=== PATIENT | female | born 1955 | race Two or more races ===

== ENCOUNTER 2024-07-26 08:13 | Emergency (ER) | payer MEDICAID, SELFPAY ==
--- NOTE | 2024-07-26 08:38 | PC.NURSE ---
CALLED PT BACK, NO ANSWER AT THIS TIME
[2024-07-26 09:04] VITALS: BP 110/72; PULSE 81; RESP 18; TEMP 37.7; O2SAT 97; BMI 30.5
--- NOTE | 2024-07-26 09:27 | PD.EDRME ---
Rapid Medical Screening Exam RME Arrival date/time: 07/26/24 08:13 This is a 69-year-old female that comes in with complaints of low back pain more so to the left side. Patient also has left buttock pain that radiates down her left leg. Patient states she has had this pain for about a month now. Patient also has some pain with urination and some lower abdominal pain. Patient has a history of high blood pressure, diabetes. And hyperlipidemia. I have greeted and performed a focused initial assessment of this patient. Initial appropriate labs ordered at this time. A comprehensive ED assessment and evaluation of the patient and analysis of all test and completion of medical decision making process will be conducted by additional ED provider. Chief Complaint: Back Pain/Injury Time Seen by Provider: 07/26/24 08:17 Vital signs: Vital Signs Temperature 99.8 F 07/26/24 09:04 Pulse Rate 81 07/26/24 09:04 Respiratory Rate 18 07/26/24 09:04 Blood Pressure 110/72 07/26/24 09:04 Pulse Oximetry (%) 97 07/26/24 09:04 Oxygen Delivery Method Room Air 07/26/24 09:04
[2024-07-26 10:06] LABS: Basophils % (Auto) 0 % (0-2.5); Eosinophils % (Auto) 0 % (0-10); Hematocrit 35.3 % (36.0-46.0); Hemoglobin 11.9 g/dL (12.0-16.0); Immature Granulocytes % (Auto) 0 % (0-0); Immature Granulocytes Auto 0.03 Thou/mm3 (0.00-0.00); Lymphocytes # (Auto) 0.6 Thou/mm3 (1.0-4.8); Lymphocytes % (Auto) 6 % (10-50); Mean Corpuscular HGB Conc 33.7 g/dl (31.0-37.0); Mean Corpuscular Hemoglobin 28.8 pg (25.0-35.0); Mean Corpuscular Volume 86 fL (80-100); Monocytes # (Auto) 0.5 Thou/mm3 (0.0-0.8); Monocytes % (Auto) 5 % (0-12); Neutrophils # (Auto) 8.6 Thou/mm3 (1.8-7.7); Neutrophils % (Auto) 88 % (37-80); Nucleated Red Blood Cell % 0 /100 WBC (0); Platelet Count 315 Thou/mm3 (140-440); RDW Standard Deviation 41.3 fL (36.4-46.3); Red Blood Count 4.13 Miln/mm3 (4.00-5.20); White Blood Count 9.8 Thou/mm3 (3.6-11.0)
[2024-07-26 10:20] LABS: Alanine Aminotransferase 14 U/L (10-49); Albumin, Serum 3.7 gm/dL (3.4-4.8); Albumin/Globulin Ratio 1.2 (1.2-2.2); Alkaline Phosphatase 65 U/L (46-116); Anion Gap 6 (7-16); Aspartate Amino Transferase 22 U/L (0-34); BUN/Creatinine Ratio 17 Ratio (12-20); Bilirubin,Total 0.7 mg/dL (0.3-1.2); Blood Urea Nitrogen 19 mg/dL (9-23); Calcium 9.4 mg/dL (8.3-10.6); Calcium (Corrected) 9.6 mg/dL (8.5-10.1); Chloride 99 mMol/L (98-107); Creatinine (Component) 1.1 mg/dL (0.6-1.3); Estimated Creatinine Clearance 48.9 mL/min (>60); Globulin 3.1 gm/dL (2.3-3.5); Glucose 320 mg/dL (74-106); Lipase 45 U/L (12-53); Osmolality,Calculated 282 (275-295); Potassium 4.5 mMol/L (3.4-5.1); Sodium 134 mMol/L (136-145); Total Protein 6.8 gm/dL (5.7-8.2); eGFR 54 See Note
[2024-07-26 13:16] LABS: Collection Type, Urine Voided
[2024-07-26 13:25] LABS: Bacteria,Urine 2+; Bilirubin,Urine Negative (Negative); Blood,Urine 1+ (Negative); Color,Urine Yellow (Lt Yel-Yel); Culture Indicated,Urine Contaminated; Glucose, Urine Negative (Negative); Ketones,Urine Negative (Negative); Leukocyte Esterase,Urine Positive (Negative); Nitrite,Urine Negative (Negative); Protein,Urine 1+ (Neg - Trace); RBC,Urine 23 /hpf (0-3); Specific Gravity,Urine 1.015 (1.001-1.035); Squamous Epithelial Cell,Urine 19 /hpf (0-5); Urobilinogen,Urine Negative mg/dL (0.0-1.0); WBC,Urine 510 /hpf (0-5)
--- NOTE | 2024-07-26 13:54 | PD.EDBACK ---
ED Back Injury Pain RME/HPI General Chief Complaint: Back Pain/Injury Stated Complaint: LOWER BACK PAIN Time Seen by Provider: 07/26/24 08:17 Arrival date/time: 07/26/24 08:13 RME / HPI RME / HPI Narrative: 07/26/24 08:13 This is a 69-year-old female that comes in with complaints of low back pain more so to the left side. Patient also has left buttock pain that radiates down her left leg. Patient states she has had this pain for about a month now. Patient also has some pain with urination and some lower abdominal pain. Patient has a history of high blood pressure, diabetes. And hyperlipidemia. I have greeted and performed a focused initial assessment of this patient. Initial appropriate labs ordered at this time. A comprehensive ED assessment and evaluation of the patient and analysis of all test and completion of medical decision making process will be conducted by additional ED provider. DR. TEX BUCKNER ED EVALUATION: 69 year female presents to the Emergency Department accompanied by daughter with complaints of back pain and radiates to the left leg and left buttocks onset 1 month. Pain is described as aching and rated mild to moderate in severity. Movement exacerbates the pain. Patient denies any of the following: fall, nausea, vomiting, diarrhea, hematuria, or any other symptoms at this time. Patient also reported mild dysuria. PMHx: Diabetes, takes pills and insulin. Social Hx: No tobacco, alcohol, or substance use. Related Data Previous Rx's ?Medication ?Instructions ?Recorded ibuprofen 600 mg tablet 600 mg PO Q6H PRN pain #30 tabs 07/26/24 sulfamethoxazole 800 1 tab PO BID 7 days #14 tabs 07/26/24 mg-trimethoprim 160 mg tablet (Bactrim DS) Allergies Allergy/AdvReac Type Severity Reaction Status Date / Time No Known Allergies Allergy Verified 07/26/24 08:18 Review of Systems Review of Systems Systems Reviewed: All systems reviewed, normal except as documented Narrative Review of Systems: GEN: No fever, no chills, no weight loss EYES: No discharge, no visual changes, no pain HEENT: No ear pain, no congestion, no sore throat PULM: No shortness of breath, no cough, no congestion CV: No chest pain, no dyspnea on exertion, no palpitations GI: No nausea, no vomiting, no diarrhea, no pain, no constipation : No frequency, no urgency, + mild dysuria MUSC/SKEL: + left leg, + left buttocks, + back pain SKIN: No rash PSYCH: No hallucinations, no depression HEME/LYMPH: No easy bleeding or bruising tendencies NEURO: No weakness, no headache Past Medical History Social History SMOKING STATUS: Never smoker SUBSTANCE USE: does not use ALCOHOL: Never ED Exam Narrative Physical exam: GENERAL APPEARANCE: Well hydrated, well nourished, in no acute distress. VITALS: All vitals were reviewed and the pulse ox is 97% on room air which is normal according to my interpretation. HEENT: Normocephalic, atramatic, EOMI, EACs are patent. There is no bulge or retraction. Throat without erythema or exudate. Moist oromucosa. No jaundice NECK: Supple, no JVD or bruits. CARDIOVASCULAR: Heart regular without S3-S4 or murmur. No rubs or gallops. LUNGS/CHEST: Clear to auscultation bilaterally. No rales, rhonchi, or wheezing. Normal inspection. ABDOMEN: Soft, nontender, with normal bowel sounds. No pulsatile masses. No rebound, rigidity, or guarding. No incarcerated hernia. Normal inspection and palpation. EXTREMITIES: No edema, clubbing, or cyanosis. Intact CSM. Normal inspection and palpation. SKIN: Warm and dry without rashes. Normal inspection. MUSCULOSKELETAL: No gross deformity, full ROM all extremities. Normal inspection. NEURO: Alert and oriented x3. Cranial nerves II through XII grossly intact. There are no other motor or sensory deficits noted. Normal gait, walked from lobby to room 15, no complaints. PSYCHIATRIC: Normal mood and affect. No psychosis. Course Quality Measures none Orders Category Date Time Status CT abdomen pelvis wo con Stat Exams 07/26/24 14:[address] lumbar spine wo con Stat Exams 07/26/24 14:03 Completed CBC Stat Lab 07/26/24 09:45 Completed Comprehensive Metabolic Panel Stat Lab 07/26/24 09:45 Completed Lipase Stat Lab 07/26/24 09:45 Completed Urinalysis, C/S if Indicated Stat Lab 07/26/24 12:47 Completed Ibuprofen Tab [Motrin Tab] Med 07/26/24 14:03 Discontinued 600 mg PO X1 ONE Trimethoprim/Sulfa 160/800 Ds [Bactrim Ds] Med 07/26/24 14:06 Discontinued 1 tab PO X1 ONE Vital Signs Vital signs: Vital Signs Temperature 99.8 F 07/26/24 09:04 Pulse Rate 81 07/26/24 09:04 Respiratory Rate 18 07/26/24 09:04 Blood Pressure 110/72 07/26/24 09:04 Pulse Oximetry (%) 97 07/26/24 09:04 Oxygen Delivery Method Room Air 07/26/24 09:04 Back Pain / Injury [facility] Narrative MDM Narrative:: I, Sommer Tank, am scribing for and in the presence of Dr. Paz. CBC is negative. CMP is negative except for sugar of 320 but there is no sign of DKA. Urine analysis is positive for UTI for which I am going to give her antibiotic. CT lumbar spine and CT abdomen and pelvic resulted please see below. I informed the patient and her daughter about the CT positive report. She will follow-up with PMD for further evaluation and treatment and referral to back surgeon. The patient has no neurological deficit and she is up walking talking. Patient data External records reviewed:: [facility] [place] previous records Clinical information provided by:: patient and family (daughter) Social determinants that could affect healthcare access:: none Patient has the following chronic illnesses:: Diabetes, takes pills and insulin. How is presenting disease/condition affected by chronic disease/condition?: uneffected by Evaluation data The following diagnostics were reviewed and interpreted by me:: lab results and radiology exam(s) Lab and/or radiology exams considered but not ordered:: none Interpretation Summary: See above under MDM narrative. RADIOLOGY Procedure(s): CT lumbar spine wo [facility] Accession Number(s): [id number] cc: Saman Collado MD; NO PRIMARY/FAMILY,PHYSICIAN; Tawanda Paz MD~ Examination: CT lumbar spine, without contrast. 2-D sagittal reconstructions. 2-D coronal reconstructions. 3-D reconstructions. Date and time of exam:July 26, 2024 1500 hrs. Indications: Back pain radiating to the left buttock beginning one month ago CTDI: vol (mGy):29.5 DLP: (mGycm):1200 Technique: Multiple 1.25 mm axial sections of the lumbar spine without intravenous contrast have been obtained. 2-D sagittal and coronal reconstructions have been obtained. 3-D reconstructions have been obtained. Low dose protocols were performed. One or more of the following dose reduction techniques were used; automated exposure control, adjustment of the mA and/or KV according to patient size, use of iterative reconstruction technique. Findings: Severe osteopenia Moderate degenerative disc disease L5-S1 Hemangiomatous change L3 No spondylolisthesis No lumbar fracture L5-S1 with very large extruded central disc, measuring up to 13 mm, severely indenting the thecal sac and displacing the right and left S1 nerve roots More cephalad levels unremarkable Impression: L5-S1 very large, 13 mm, extruded central lumbar disc Dictated By: Saman Collado MD Procedure(s): CT abdomen pelvis [facility] Accession Number(s): [id number] cc: Saman Collado MD; NO PRIMARY/FAMILY,PHYSICIAN; Tawanda Paz MD~ Examination: CT abdomen and pelvis without contrast. Coronal 3-D reconstructions. Sagittal 2-D reconstructions. Date and time of exam:July 26, 2024 1511 hrs. Indications: Left flank pain today CTDI: vol (mGy): 11.6 DLP: (mGycm): 720 Technique: Axial images of the abdomen have been obtained, 3 mm slice thickness Intravenous contrast material has not been administered. Low dose protocols were performed. One or more of the following dose reduction techniques were used; automated exposure control, adjustment of the mA and/or KV according to patient size, use of iterative reconstruction technique. Findings: No focal liver or splenic lesions Contracted gallbladder No pancreatic or adrenal mass Mild perinephric stranding Mild to moderate bilateral renal parenchymal scar formation No renal or ureteral calculi, no hydronephrosis Abdominal aortic calcification no aneurysmal dilatation Normal appendix No bowel obstruction Scattered colonic diverticulosis Urinary bladder intact Please see the CT lumbar spine examination today Impression: Mild to moderate bilateral renal parenchymal scar formation Normal appendix Please see the CT lumbar spine report today indicating very large extruded L5-S1 disc Dictated By: Saman Collado MD Medications / Prescriptions Medications or Prescriptions considered but not ordered:: none Medication administrations:: Medication Administration History Discontinued Medications Ibuprofen (Ibuprofen Tab 600 Mg Tablet) 600 mg PO X1 ONE Stop: 07/26/24 14:04 Last Admin: 07/26/24 14:47 Dose: 600 mg Documented By: ISAC Trimethoprim/Sulfamethoxazole (Trimethoprim/Sulfa 160/800 Ds Tablet) 1 tab PO X1 ONE Stop: 07/26/24 14:07 Last Admin: 07/26/24 14:49 Dose: 1 tab Documented By: ISAC see above if any Consultations Consultation(s) initiated? (list below): No Diagnosis Most likely diagnosis given after review of the tests above:: Sciatica. L5-S1 lumbar disc herniation Admission Indicated Admission indicated?: not indicated Admission Request Was there a request for admission?: No Disposition Plan Disposition Plan: Discharge Discharge Attestation Discharge Attestation: The patient and all family members were given an opportunity to ask questions and understood the discharge instructions. Discharge instructions specifically effects, indications for sooner follow up or return to the emergency department, and the expected course of current diagnosis. Patient condition: Stable Discharge Plan Plan Patient Disposition: HOME (Self Care) Disposition Comment: Stable for [place] home Prescriptions/Referrals Prescriptions/Med Rec: New sulfamethoxazole-trimethoprim [Bactrim DS] 800-160 mg tablet 1 tab PO BID 7 Days Qty: 14 0RF ibuprofen 600 mg tablet 600 mg PO Q6H PRN (Reason: pain) Qty: 30 0RF Referrals: No Primary/Family,Physician [Primary Care Provider] - In 1 week Problem List Clinical Impression: Sciatica Patient/Caregiver Discharge Instructions Education Materials: ED Sciatica Additional Instructions: you have an extruded lumbar disc at L5-S1 that cause sciatica. You need to rest your back. No heavy lifting. Medication as prescribed for back pain and urinary tract infection. You need to see your doctor in 3 days for recheck and further care and referral to see a back surgeon for further care. Make sure to show your doctor copy of the CT report that I gave you. Return the nearest ER if condition worsens or if new symptoms develop including numbness tingling trouble walking, trouble urinating, trouble defecating Print Language: Haitian Stand Alone Forms: [employer] Award Info., Patient Portal Info Letter
[2024-07-26 13:56] LABS: Clarity,Urine Turbid (Clear/Hazy)
--- NOTE | 2024-07-26 14:03 | XR_ITS ---
Examination: CT lumbar spine, without contrast. 2-D sagittal reconstructions. 2-D coronal reconstructions. 3-D reconstructions. Date and time of exam:July 26, 2024 1500 hrs. Indications: Back pain radiating to the left buttock beginning one month ago CTDI: vol (mGy):29.5 DLP: (mGycm):1200 Technique: Multiple 1.25 mm axial sections of the lumbar spine without intravenous contrast have been obtained. 2-D sagittal and coronal reconstructions have been obtained. 3-D reconstructions have been obtained. Low dose protocols were performed. One or more of the following dose reduction techniques were used; automated exposure control, adjustment of the mA and/or KV according to patient size, use of iterative reconstruction technique. Findings: Severe osteopenia Moderate degenerative disc disease L5-S1 Hemangiomatous change L3 No spondylolisthesis No lumbar fracture L5-S1 with very large extruded central disc, measuring up to 13 mm, severely indenting the thecal sac and displacing the right and left S1 nerve roots More cephalad levels unremarkable Impression: L5-S1 very large, 13 mm, extruded central lumbar disc
--- NOTE | 2024-07-26 14:06 | XR_ITS ---
Examination: CT abdomen and pelvis without contrast. Coronal 3-D reconstructions. Sagittal 2-D reconstructions. Date and time of exam:July 26, 2024 1511 hrs. Indications: Left flank pain today CTDI: vol (mGy): 11.6 DLP: (mGycm): 720 Technique: Axial images of the abdomen have been obtained, 3 mm slice thickness Intravenous contrast material has not been administered. Low dose protocols were performed. One or more of the following dose reduction techniques were used; automated exposure control, adjustment of the mA and/or KV according to patient size, use of iterative reconstruction technique. Findings: No focal liver or splenic lesions Contracted gallbladder No pancreatic or adrenal mass Mild perinephric stranding Mild to moderate bilateral renal parenchymal scar formation No renal or ureteral calculi, no hydronephrosis Abdominal aortic calcification no aneurysmal dilatation Normal appendix No bowel obstruction Scattered colonic diverticulosis Urinary bladder intact Please see the CT lumbar spine examination today Impression: Mild to moderate bilateral renal parenchymal scar formation Normal appendix Please see the CT lumbar spine report today indicating very large extruded L5-S1 disc
[2024-07-26] MEDS: IBUPROFEN TAB 600 MG TABLET PO (14:47)
[2024-07-26] MEDS: TRIMETHOPRIM/SULFA 160/800 DS TABLET 1 TAB PO (14:49)
[2024-07-26 17:02] VITALS: BP 117/73; PULSE 81; RESP 18; TEMP 37; O2SAT 96
== END 2024-07-26 18:20 | disposition home or self-care (01) ==
PROVIDERS: Nurse Practitioner Family; Emergency Provider Emergency Medicine
DX: M51.372 Other intervertebral disc degeneration, lumbosacral region with discogenic back pain and lower extremity pain (principal); M85.88 Other specified disorders of bone density and structure, other site; N39.0 Urinary tract infection, site not specified; K57.30 Diverticulosis of large intestine without perforation or abscess without bleeding; I70.0 Atherosclerosis of aorta; N28.89 Other specified disorders of kidney and ureter; E78.5 Hyperlipidemia, unspecified; E11.9 Type 2 diabetes mellitus without complications; Z79.4 Long term (current) use of insulin; Z79.84 Long term (current) use of oral hypoglycemic drugs
CPT/HCPCS: 36415; 72131; 74176; 80053; 81001; 83690; 85025; 99284; A9270

== ENCOUNTER 2024-10-29 09:50 | Inpatient (IN) | payer MEDICAID, SELFPAY ==
[2024-10-29] VITALS (98 sets, daily range): BP systolic 62–186; BP diastolic 45–142; PULSE 96–169; RESP 12–27; TEMP 36.2–39.3; O2SAT 47–100; BMI 34.3; BMI 32.7
[2024-10-29] MEDS: SODIUM CHLORIDE 0.9% 1000 ML 1,000 ML IV (09:50)
--- NOTE | 2024-10-29 09:55 | PD.EDADULT ---
ED General RME/HPI General Chief complaint: Altered Mental Status Stated complaint: AMS W/LOW BP Time Seen by Provider: 10/29/24 09:55 Arrival date/time: 10/29/24 09:50 RME / HPI RME / HPI narrative: DR. OZUNA MAIN ED EVALUATION: 69 year old female presents to the Emergency Department [facility] with complaint of altered mental status, found by the family at home laying down in bed lethargic and altered. Per EMS, patient is normally a GCS of 15 and now a GCS of 12. Per EMS, patient was hypotensive and cold to the touch. Blood glucose was 146 per EMS. No further history at this time. Family also reported to EMS the patient fell yesterday at 12 PM but loss of consciousness or injury. PMHx: Diabetes, takes pills and insulin. Social Hx: No tobacco, alcohol, or substance use. Related Data Home Medications ?Medication ?Instructions ?Recorded ?Confirmed amitriptyline 25 mg tablet 25 mg PO HS 10/29/24 10/29/24 atorvastatin 40 mg tablet 40 mg PO HS 10/29/24 10/29/24 empagliflozin 10 mg tablet 10 mg PO QDAY 10/29/24 10/29/24 (Jardiance) empagliflozin 10 mg tablet 10 mg PO QDAY DIABETES 10/29/24 10/29/24 (Jardiance) gabapentin 100 mg capsule 100 mg PO Q8H 10/29/24 10/29/24 insulin glargine 100 unit/mL 30 unit subcut .BEDTIME 10/29/24 10/29/24 subcutaneous solution (Lantus U-100 Insulin) metformin 1,000 mg tablet,extended 1,000 mg PO DAILY 10/29/24 10/29/24 release 24hr (osmotic) metoprolol succinate 100 mg 100 mg PO QDAY HTN 10/29/24 10/29/24 tablet,extended release 24 hr semaglutide 0.25 mg or 0.5 mg (2 0.5 mg subcut QWEEK 10/29/24 10/29/24 mg/3 mL) subcutaneous pen injector (Ozempic) Previous Rx's ?Medication ?Instructions ?Recorded ibuprofen 600 mg tablet 600 mg PO Q6H PRN pain #30 tabs 07/26/24 Allergies Allergy/AdvReac Type Severity Reaction Status Date / Time No Known Allergies Allergy Verified 07/26/24 08:18 Review of Systems Review of Systems ROS Unobtainable: unobtainable due to mental status Past Medical History Social History SMOKING STATUS: Never smoker SUBSTANCE USE: does not use ALCOHOL: Never ED Exam Narrative Physical exam: Physical Exam:? General:?? ? Patient is brought in by EMS with obtundation. Patient blood pressure is low she is tachycardic and is febrile with a rectal temp soon after arrival blood pressure was 74/50 pulse was 148 respiratory rate was reported at 12 temperature was 102.7 rectally O2 sat was reported 97% on room air. The vital signs were reviewed. The patient is minimally arousable with verbal and painful stimuli but immediately falls back to sleep and becomes inattentive. Patient had a spontaneous respirations that required no assistance at this time . O2 sats are adequate at the present time. Head & Scalp:?? ? Normocephalic, atraumatic. Face:?? ? Appears normal and is without lesions, deformity. No apparent trauma Ears:??? Left external pinna appears normal. Right external pinna appears normal. Eyes:?? ? The sclera is anicteric. The Left and Right Orbit/Lid/Conjunctiva appears normal without swelling, discoloration or injection. Nose: ? ? The nose is without deformity, discharge or tenderness; Throat: ? ? Appears normal.? The mucous membranes are pink and moist without exudates, redness or mass seen.? The tongue appears normal. Neck: The neck is supple and no apparent mass or adenopathy. Chest: The chest wall is normal in size and symmetry and has no chest wall tenderness or crepitus. The patient displays adequate ventilator effort without retractions, accessory muscle use. Patient has adequate air movement bilaterally with no wheezes and no rales. ? Cardiovascular: Sinus tach on the monitor regular rate No murmurs, rubs, or gallops; Gastrointestinal: The abdomen appears normal.? No obvious hernias or mass. The abdomen is soft and benign, non-distended, with no pain, no guarding and no rebound tenderness.? Bowel sounds are present and normal sounding.? No CVA tenderness. Genitourinary: No apparent injury or trauma. Back/Spine: No apparent injury or trauma Extremities/Musculoskeletal/lymphatic:? ? ? The bilateral upper and lower extremities are warm. There is no evidence of arterial? insufficiency. There is no evidence of venous insufficiency/edema. The patient is obtunded but displays no obvious focal deficits and spontaneously moves bilateral upper and lower extremities with painful or verbal stimuli There is no apparent, injury or trauma. Skin:? The skin is warm, dry and intact.? No rashes. No petechia. No purpura. No abnormal bruising.? The color is appropriate with no cyanosis. Mental status/Psychiatric: Mental status is obtunded no further evaluation can be made Neurological:? The patient is obtunded. The pupils are equal and reactive to light No obvious focal deficits. Patient responds minimally to painful and no response to verbal stimuli. Course Quality Measures none Orders Category Date Time Status Bedside Blood Glucose NOW Care 10/29/24 09:56 Active EKG (ED ONLY) *Do not use* NOW Care 10/29/24 09:56 Completed Intubation NOW Care 10/29/24 10:[address] chest abdomen pelvis wo Stat Exams 10/29/24 10:[address] head/brain wo con Stat Exams 10/29/24 09:56 Completed EKG (ED Only) Stat Exams 10/29/24 09:56 Draft XR chest 1V post procedure Stat Exams 10/29/24 09:56 Completed ABG [Arterial Blood Gas] Stat Lab 10/29/24 12:47 Completed Alcohol, Blood Medical Stat Lab 10/29/24 10:00 Completed Ammonia Stat Lab 10/29/24 10:00 Completed B-Type Natriuretic Peptide Stat Lab 10/29/24 10:00 Completed Blood Culture (Lab) Stat Lab 10/29/24 10:38 Received CBC Stat Lab 10/29/24 10:00 Completed Comprehensive Metabolic Panel Stat Lab 10/29/24 10:00 Completed Drug Screen,Urine Stat Lab 10/29/24 10:25 Completed Lactate (Lactic Acid) Stat Lab 10/29/24 10:00 Completed Procalcitonin Stat Lab 10/29/24 10:00 Completed Prothrombin Time with INR Stat Lab 10/29/24 10:00 Completed Sputum Culture and Gram Stain Stat Lab 10/29/24 10:23 Ordered Troponin I Stat Lab 10/29/24 10:00 Completed Type and Screen Stat Lab 10/29/24 10:38 Completed Urinalysis Stat Lab 10/29/24 10:25 Completed Urinalysis, C/S if Indicated Stat Lab 10/29/24 10:25 Completed Urine Culture Stat Lab 10/29/24 10:25 Received Venous Blood Gas Stat Lab 10/29/24 10:00 Completed Etomidate Inj [Amidate Inj] Med 10/29/24 10:05 Discontinued 20 mg IVP X1 ONE Norepinephrine/D5W 8mg/250ml [Levophed in D5W 8mg/250ml Med 10/29/24 10:37 Discontinued ] 8 mg in 250 ml IV .STK-MED Norepinephrine/D5W 8mg/250ml [Levophed in D5W 8mg/250ml Med 10/29/24 10:30 Active ] 8 mg in 250 ml IV 0.05 mcg/kg/min Piper/Tazo 3.375 gm Premix [Zosyn] Med 10/29/24 10:20 Discontinued 3.375 gm in 50 ml IV X1 Ringers Lactated 1000 ml [Lactated Ringers] 1,000 ml Med 10/29/24 10:00 Discontinued IV 999 mls/hr Sodium Chloride 0.9% 1000 ml [Ns] 1,000 ml Med 10/29/24 09:56 Discontinued IV 1,000 mls/hr Sodium Chloride 0.9% 1000 ml [Ns] 1,000 ml Med 10/29/24 09:56 Discontinued IV 2,000 mls/hr Sodium Chloride 0.9% 1000 ml [Ns] 2,000 ml Med 10/29/24 11:50 Discontinued IV 999 mls/hr Sodium Chloride Rt Jael 10% [NS Rt Jael 10%] Med 10/29/24 10:23 Discontinued 5 ml INH X1 ONE Vancomycin/Ns 1 gm Ivpb 200 ml Med 10/29/24 10:21 Discontinued IV X1 fentaNYL 2,500 MCG/250 ML BAG [Sublimaze Inj 2,500 MCG/ Med 10/29/24 10:30 Active 250 ML BAG] 2,500 mcg in 250 ml IV 25 mcg/hr Mechanical [Volume Ventilator] Stat RT 10/29/24 Active Sputum Induction PRN RT 10/29/24 10:30 Ordered Transfer Order Routine Transfer 10/29/24 13:04 Completed Vital Signs Vital signs: Vital Signs Temperature 102.7 F H 10/29/24 09:54 Pulse Rate 148 H 10/29/24 09:54 Respiratory Rate 12 10/29/24 09:54 Blood Pressure 74/50 L 10/29/24 09:54 Pulse Oximetry (%) 97 10/29/24 09:54 Oxygen Delivery Method Room Air 10/29/24 09:54 Procedures -ED Intubation Time out performed: No sedative: Etomidate Laryngoscope: Mathis ET Tube Size: 7.5 ET Tube Uncuffed: No Tube Secured Depth (cm): 20 Tube Secured Location: other (at the corner of the mouth) Tube Placement Confirmation: visualized tube passing through cords, equal breath sounds bilaterally, no breath sounds over epigastrium and confirmation by capnometry Patient Tolerated Procedure: well and no complications Intubation Complications: none Critical Care Time Critical Care Time Critical Care Time: Yes Total Critical Care Time (min.): 75 Attestation: The high probability of sudden, clinically significant deterioration in the patient?s condition required the highest level of my preparedness to intervene urgently. The services I provided to this patient were to treat and/or prevent clinically significant deterioration. Services included the following: chart data review, reviewing nursing notes and/or old charts, documentation time, personal consultant collaboration regarding findings and treatment options, medication orders and management, direct patient care, vital sign assessments and ordering, interpreting and reviewing diagnostic studies and lab tests. Aggregate critical care time includes only time during which I was engaged in work directly related to the patient?s care, as described above, whether at bedside or elsewhere in the Emergency Department. It did not include time spent performing other reported procedures or the services of residents, students, nurses or physician assistants. Discharge Plan Plan Patient Disposition: Admit Acute Care w/in Hospital Discharge Disposition comment: Critical care Dr. Ward Problem List Clinical Impression: Sepsis, Altered mental status, Acute hypotension, Elevated lactic acid level, Urinary tract infection, Acute renal failure, Elevated transaminase level, Elevated procalcitonin [facility] Narrative [facility] hospital course: I, Sommer Fu am scribing for and in the presence of Dr. Ozuna. Patient is 69-year-old who arrives altered mental status hypotensive febrile and tachycardic and is obviously critically ill. Her glucose was checked initially which was within normal limits. Fluid boluses were initiated RT was called stat to bedside. Patient was prepared for intubation as there was no improvement in her mental status with the initial 500,000 cc fluid bolus and no response to the Lazo placement. Several IV lines were placed and IV fluid boluses were initiated. Once respiratory therapy had the intubation equipment set up, patient got 20 of etomidate and was intubated on first attempt by myself with a straight blade and 7.5 tube was secured at 20 at the corner of the mouth. There is a positive capnometry response. Chest x-ray reveals ET tube to be in adequate position. There is no consolidating pneumonia. The heart is slightly enlarged. OG tube is in position. CT of the head revealed no acute bleed mass or edema. CT of the chest was done later and showed venous air and air into the pulmonary artery but no air into the left side of the heart. It is unclear how this air got there. And so special comment I was there for the resuscitation at the beginning and IVs were placed in usual fashion and fluid boluses were initiated and both the nurses were asked if there was any known entrance of air into the system and none of this was evident. Patient's hypotension was managed with 4 L of fluid followed by another 2 L of fluid and Levophed was started after the fourth liter as the patient remained hypotensive by the 6 L we were up to the 100 systolic range and the maps were greatly improved. Patient was tolerating intubation well although had some agitation when we are treating with fentanyl. Because patient was presumably septic and had a fever on arrival vancomycin and Zosyn were given early in the course of the workup. Laboratory studies the urine came back with 153 white blood cells CHEM panel came back with a procalcitonin is elevated at 129 BNP is elevated 175 troponin is minimally elevated 0.075. Creatinine kinase elevated 194 ammonia was negative transaminases AST is 83 ALT 136 lactic acid initially was elevated at 6.2 and a follow-up came back at 5.9. BUN is elevated 43 creatinine of 2.2 consistent with acute renal insufficiency sodium 142 potassium 4.7 chloride 104 CO2 22.7. Venous blood gas came back with a pH of 7.33 pCO2 of 43 PT/INR within normal limits. White count was 18.4 hemoglobin 13.0 platelet count of 220,000. Dr. Ward critical care on-call was notified came down saw the patient and agreed to admit the patient. Patient tolerated the intubation and ventilation during the ER stay. I note I reevaluate this patient multiple times as she had sustained hypotension and a quite elevated lactic acid on initial evaluation. Clinical Information Provided by EMS Medical Records Reviewed EMS Meds/Rx Considered, not Ordered None Labs/Rad/Tests considered, not Ordered None Chronic Illness/Social Conditions Add or document further as needed: Diabetes, takes pills and insulin. EKG Interpretation EKG #1: Date/time of EK10/29/24 1033 am EKG interpretation: Interpreted by me: sinus tachycardia, rate 114, no STEMI Lab Interpretation Labs: see narrative above Imaging Imaging interpretation: see narrative above Radiology reports / interpretation(s): Procedure(s): XR chest 1V post procedure Accession Number(s): [id number] cc: Silvino Ozuna MD; Saman Collado MD~ Examination: AP chest single view Technique one AP portable semiupright chest single view Date and time: October 29, 2024 1039 hours INDICATIONS: Hypoxic respiratory failure postintubation FINDINGS: Endotracheal tube tip 3.6 cm above chip Orogastric tube tip in the stomach satisfactory position Normal heart size No aspiration pneumonia Prominent osteopenia IMPRESSION: No pneumonia or pulmonary edema Minor subsegmental atelectasis left base Endotracheal tube tip 3.6 cm above chip Dictated By: Saman Collado MD Procedure(s): CT chest abdomen pelvis wo Accession Number(s): [id number] cc: Silvino Ozuna MD; Saman Collado MD; NO PRIMARY/FAMILY,PHYSICIAN~ Examination: CT chest, without intravenous contrast. CT abdomen, without intravenous contrast. CT pelvis, without intravenous contrast. 2-D sagittal and coronal reconstructions. 3-D reconstructions. Date and time of exam:October 29, 2024 11:03 AM INDICATIONS: Hypoxic respiratory failure fever unknown origin today CTDI vol (mgy) 18.1 DLP ([id number] Technique: Multiple CT images, 3.0 mm slice thickness, obtained chest, abdomen, pelvis, with the high-resolution 64 slice scanner.. Sagittal and coronal 2-D reconstructions are obtained. 3-D reconstructions Low dose protocols were performed. One or more of the following dose reduction techniques were used; automated exposure control, adjustment of the mA and/or KV according to patient size, use of iterative reconstruction technique. Findings: Endotracheal tube tip 3 cm above chip Extensive air density in the main pulmonary artery segment and right main pulmonary artery Also air density in the left innominate vein right subclavian vein and superior vena cava No mediastinal lymphadenopathy No pneumothorax Air density is present retroclavicular bilaterally as well as pretracheal as well as anterior chest wall image 110 and in the subcutaneous tissue anterior chest wall image 104 Pneumonia both bases, consider aspiration pneumonia No visualized liver or splenic lesions Contracted gallbladder No pancreatic or adrenal mass Perinephric stranding, mild right hydronephrosis no ureteral calculi Abdominal aorta normal size Colonic diverticulosis No periappendiceal inflammatory change No diverticulitis Urinary bladder contracted around a Lazo catheter IMPRESSION: Extensive air density in the main pulmonary artery segment and right main pulmonary artery as well as left innominate vein and right subclavian vein superior vena cava Smaller areas of air density in the right anterior chest wall and subcutaneous fatty tissue upper anterior right chest Bibasilar pneumonia, consider aspiration pneumonia Perinephric stranding mild right hydronephrosis, consider right urinary tract infection Dictated By: Saman Collado MD Procedure(s): CT head/brain wo con Accession Number(s): [id number] cc: Silvino Ozuna MD; Saman Collado MD; NO PRIMARY/FAMILY,PHYSICIAN~ Examination: CT brain head without contrast. 2-D sagittal coronal reconstructions Date and time of exam:October 29, 2024 1050 hours INDICATIONS: Loss of consciousness today with hypoxic respiratory failure CTDI: vol (mGy):48 DLP: (mGycm):1014 Technique: Multiple CT axial sections of the brain have been obtained, 5 mm slice thickness. Contrast has not been administered. 2-D sagittal, coronal reconstructions have been obtained Low dose protocols were performed. One or more of the following dose reduction techniques were used; automated exposure control, adjustment of the mA and/or KV according to patient size, use of iterative reconstruction technique. Findings: No significant ventricular enlargement. Intra-axial or extra-axial hemorrhage density is not seen. No mass effect or midline shift Basal cisterns are not remarkable. Fourth ventricle is midline. Cranial vault intact. Impression: Negative for acute hemorrhage, mass effect or midline shift Dictated By: Saman Collado MD Medication Administration(s) Medication Administration History Acetaminophen (Acetaminophen 325 Mg Tablet) 650 mg PO Q4HR PRN PRN Reason: PAIN SCALE 1-3 (mild Stop: 11/28/24 13:52 Acetaminophen (Acetaminophen Supp 650 Mg Supp) 650 mg AL Q4HR PRN PRN Reason: PAIN SCALE 1-3 (mild Stop: 11/28/24 13:52 Al Hydrox/Mg Hydrox/Simethicone (Mg Hyd/Al Hyd/Elpidio (Maalox Reg) Susp 30 Ml Udc) 30 ml PO Q4HR PRN PRN Reason: Heartburn or Upset Stomach Stop: 11/28/24 13:52 Aspirin (Aspirin 81 Mg Chew) 81 mg NG QDAY SEVERIANO Stop: 11/28/24 15:44 Last Admin: 10/29/24 15:42 Dose: 81 mg Documented By: ER Dextrose (Dextrose 50%-Water Inj 50 Ml Syringe) 25 ml IV Q15MIN PRN PRN Reason: BG 50-70 responsive npo pt Stop: 11/28/24 15:56 Dextrose (Dextrose 50%-Water Inj 50 Ml Syringe) 50 ml IV Q15MIN PRN PRN Reason: BG <50 OR BG <70 & pt unresponsive Stop: 11/28/24 15:56 Enoxaparin Sodium (Enoxaparin Sod Inj 40 Mg/0.4 Ml Syringe) 40 mg SC QDAY SEVERIANO Stop: 11/12/24 13:52 Last Admin: 10/29/24 15:28 Dose: 40 mg Documented By: ER Famotidine (Famotidine Inj 10 Mg/Ml Vial 2 Ml) 20 mg IVP QDAY [facility] Stop: 11/29/24 08:59 Glucagon (Glucagon Inj 1 Mg Vial) 1 mg IM Q15MIN PRN PRN Reason: BG <70, and no IV access Fentanyl Citrate (Sublimaze Inj 2,500 Mcg/250 Ml Bag) 2,500 mcg in 250 mls @ 2.5 mls/hr IV .Q24H PRN; Protocol PRN Reason: PER PROTOCOL Stop: 11/03/24 10:29 Last Titration: 10/29/24 14:15 Dose: 0 mcg/hr, 0 mls/hr Documented By: Titration: 10/29/24 14:00 Dose: 75 mcg/hr, 7.5 mls/hr Documented By: Titration: 10/29/24 13:35 Dose: 75 mcg/hr, 7.5 mls/hr Documented By: Titration: 10/29/24 13:00 Dose: 125 mcg/hr, 12.5 mls/hr Documented By: Titration: 10/29/24 12:00 Dose: 125 mcg/hr, 12.5 mls/hr Documented By: Titration: 10/29/24 11:30 Dose: 75 mcg/hr, 7.5 mls/hr Documented By: Admin: 10/29/24 11:00 Dose: 25 mcg/hr, 2.5 mls/hr Documented By: WL Co-signed By: ER(2) Norepinephrine/Dextrose (Levophed In D5w 8mg/250ml) 8 mg in 250 mls @ 7.734 mls/hr IV .Q24H PRN; Protocol PRN Reason: PER PROTOCOL Stop: 11/28/24 10:29 Last Titration: 10/29/24 15:30 Dose: 0 mcg/kg/min, 0 mls/hr Documented By: Titration: 10/29/24 15:15 Dose: 0.01 mcg/kg/min, 1.547 mls/hr Documented By: Titration: 10/29/24 15:00 Dose: 0.03 mcg/kg/min, 4.641 mls/hr Documented By: Titration: 10/29/24 14:45 Dose: 0.05 mcg/kg/min, 7.734 mls/hr Documented By: Titration: 10/29/24 14:15 Dose: 0.07 mcg/kg/min, 10.828 mls/hr Documented By: Titration: 10/29/24 14:00 Dose: 0.07 mcg/kg/min, 10.828 mls/hr Documented By: Titration: 10/29/24 14:00 Dose: 0.07 mcg/kg/min, 10.828 mls/hr Documented By: Titration: 10/29/24 13:55 Dose: 0.07 mcg/kg/min, 10.828 mls/hr Documented By: Titration: 10/29/24 13:35 Dose: 0.05 mcg/kg/min, 7.734 mls/hr Documented By: Titration: 10/29/24 13:00 Dose: 0.07 mcg/kg/min, 10.828 mls/hr Documented By: Titration: 10/29/24 12:25 Dose: 0.09 mcg/kg/min, 13.922 mls/hr Documented By: Titration: 10/29/24 12:00 Dose: 0.09 mcg/kg/min, 13.922 mls/hr Documented By: Titration: 10/29/24 11:00 Dose: 0.07 mcg/kg/min, 10.828 mls/hr Documented By: Admin: 10/29/24 10:45 Dose: 0.05 mcg/kg/min, 7.734 mls/hr Documented By: WL Piperacillin/Tazobactam/Dextrose (Zosyn) 3.375 gm in 50 mls @ 100 mls/hr IV Q8HR SEVERIANO Stop: 11/05/24 14:21 Last Admin: 10/29/24 15:33 Dose: Not Given Documented By: ER Non-Admin Reason: Duplicate Medication on eMAR Propofol (Diprivan Ivpb) 1,000 mg in 100 mls @ 2.358 mls/hr IV .Q24H PRN; Protocol PRN Reason: PER PROTOCOL Stop: 11/28/24 17:04 Last Titration: 10/29/24 17:15 Dose: 10 mcg/kg/min, 4.716 mls/hr Documented By: Admin: 10/29/24 17:10 Dose: 5 mcg/kg/min, 2.358 mls/hr Documented By: ER Co-signed By: Insulin Human Lispro (Insulin Lispro (Admelog) 1 Unit/0.01 Ml Unit) 0 unit SC Q6HR SEVERIANO; Protocol Stop: 11/28/24 17:59 Magnesium Hydroxide (Milk Of Magnesia Susp 30 Ml Udc) 30 ml PO QDAY PRN PRN Reason: CONSTIPATION Stop: 11/28/24 13:52 Nitroglycerin (Nitroglycerin 0.4 Mg Subl Btl #25) 0.4 mg SL Q5MIN PRN PRN Reason: CHEST PAIN Pharmacy Consult (Vancomycin Pharmacy To Dose 1 Each Each) 1 each IV QDAY PRN PRN Reason: PROTOCOL Stop: 11/29/24 08:59 Sennosides (Senna Tablet) 1 tab PO QDAY PRN; Protocol PRN Reason: constipation Stop: 11/28/24 13:09 Discontinued Medications Enoxaparin Sodium (Enoxaparin Sod Inj 40 Mg/0.4 Ml Syringe) 40 mg SC QDAY SEVERIANO Stop: 11/12/24 13:14 Last Admin: 10/29/24 14:13 Dose: Not Given Documented By: ER Non-Admin Reason: Discontinued Etomidate (Etomidate Inj 2 Mg/Ml Vial 10 Ml) 20 mg IVP X1 ONE Stop: 10/29/24 10:06 Last Admin: 10/29/24 10:16 Dose: 20 mg Documented By: EVY Sodium Chloride (Ns) 1,000 mls @ 1,000 mls/hr IV .Q1H ONE Stop: 10/29/24 10:55 Last Infusion: 10/29/24 14:04 Dose: Infused Documented By: Admin: 10/29/24 09:50 Dose: 1,000 mls/hr Documented By: EVY Sodium Chloride (Ns) 1,000 mls @ 2,000 mls/hr IV .Q30M ONE Stop: 10/29/24 10:25 Last Admin: 10/29/24 10:05 Dose: 2,000 mls/hr Documented By: EVY Vancomycin/Sodium Chloride (Vancomycin/Ns 1 Gm Ivpb) 200 mls @ 120 mls/hr IV X1 ONE Stop: 10/29/24 12:00 Last Infusion: 10/29/24 12:25 Dose: Infused Documented By: Admin: 10/29/24 11:40 Dose: 120 mls/hr Documented By: EVY Piperacillin/Tazobactam/Dextrose (Zosyn) 3.375 gm in 50 mls @ 100 mls/hr IV X1 ONE Stop: 10/29/24 10:49 Last Infusion: 10/29/24 12:25 Dose: Infused Documented By: Admin: 10/29/24 11:40 Dose: 100 mls/hr Documented By: EVY Norepinephrine/Dextrose (Levophed In D5w 8mg/250ml) Confirm Administered Dose 8 mg in 250 mls @ ud IV .STK-MED ONE Stop: 10/29/24 10:38 Last Admin: 10/29/24 12:08 Dose: Not Given Documented By: WL Non-Admin Reason: Override Medication Sodium Chloride (Ns) 2,000 mls @ 999 mls/hr IV .Q2H1M ONE Stop: 10/29/24 13:50 Last Infusion: 10/29/24 12:25 Dose: 0 mls/hr Documented By: Admin: 10/29/24 12:00 Dose: 999 mls/hr Documented By: EVY Lactated Ringer's (Lactated Ringers) 1,000 mls @ 999 mls/hr IV .Q1H1M ONE Stop: 10/29/24 11:00 Last Infusion: 10/29/24 14:04 Dose: Infused Documented By: Admin: 10/29/24 10:00 Dose: 999 mls/hr Documented By: EVY Vancomycin/Sodium Chloride (Vancomycin/Ns 750 Mg Ivpb) 750 mg in 150 mls @ 120 mls/hr IV X1 ONE Stop: 10/29/24 15:59 Vancomycin/Sodium Chloride (Vancomycin/Ns 750 Mg Ivpb) 750 mg in 150 mls @ 120 mls/hr IV X1 ONE Stop: 10/29/24 15:59 Last Admin: 10/29/24 15:34 Dose: Not Given Documented By: ER Non-Admin Reason: Duplicate Medication on eMAR Propofol (Diprivan Ivpb) Confirm Administered Dose 1,000 mg in 100 mls @ ud IV .STK-MED ONE Stop: 10/29/24 17:06 Pantoprazole Sodium (Pantoprazole Inj 40 Mg Vial) 40 mg IVP QDAY SEVERIANO Stop: 11/28/24 13:14 Last Admin: 10/29/24 14:13 Dose: Not Given Documented By: ER Non-Admin Reason: Discontinued Sodium Chloride (Sodium Chloride Rt 10% 15 Ml Nebu) 5 ml INH X1 ONE Stop: 10/29/24 10:24 Last Admin: 10/29/24 10:30 Dose: Not Given Documented By: AA Non-Admin Reason: Other, see note Comments: not needed Sodium Chloride (Sodium Chloride Rt 10% 15 Ml Nebu) 5 ml INH X1 ONE Stop: 10/29/24 14:23 Last Admin: 10/29/24 15:29 Dose: Not Given Documented By: ER Non-Admin Reason: SPUTUM COLLECTED Consultations/Discussions re: Management Consult #1: Date/time: 10/29/24 1:50 pm Physician, specialty, service, details: Discussed test HPI, PMHx, lab, radiology results and/or management with Dr. Ward. Will admit for further evaluation and management. Accepts patient for admission. Diagnosis Differential diagnosis: TIA, dehydration, electrolyte imbalance Most likely dx, and/or detailed dx discussion: Sepsis, AMS, acute hypotension, elevated lactic acid level, UTI, acute renal failure, elevated transaminase level, elevated procalcitonin. Dispositon Disposition: Admit
--- NOTE | 2024-10-29 09:56 | EKG_ITS ---
[facility] Test Date: 2024-10-29 Pat Name: ROLANDO AUSTIN Department: Room: - Gender: Female Field Evidence Technician: : 1955 Requested By: Silvino Ozuna Order Number: [id number] Reading MD: Silvino Ozuna Measurements Intervals [place] Rate: 114 P: 52 OR: 128 QRS: 2 QRSD: 81 T: 84 QT: 321 QTc: 443 Interpretive Statements SINUS TACHYCARDIA NONSPECIFIC ST & T-WAVE ABNORMALITY ABNORMAL RHYTHM ECG No previous ECG available for comparison /[id number]/[email or web address]/[id number]
[2024-10-29] MEDS: RINGERS LACTATED 1000 ML 1,000 ML 999 ML IV (10:00)
[2024-10-29] MEDS: SODIUM CHLORIDE 0.9% 1000 ML 1,000 ML 2000 ML IV (10:05)
[2024-10-29 10:15] LABS: Base Excess, Venous -3 (-3-3); O2 Saturation, Venous 56 % (96-97); PCO2, Venous 43 mmHg (36-56); PO2, Venous 31 mmHg (15-58); pH, Venous 7.33 (7.33-7.66)
[2024-10-29] MEDS: ETOMIDATE INJ 2 MG/ML VIAL 10 ML 20 MG IVP (10:16)
[2024-10-29 10:19] LABS: Basophils % (Auto) 0 % (0-2.5); Eosinophils # (Auto) 0.2 Thou/mm3 (0.0-0.5); Eosinophils % (Auto) 1 % (0-10); Hematocrit 39.5 % (36.0-46.0); Immature Granulocytes % (Auto) 2 % (0-0); Immature Granulocytes Auto 0.44 Thou/mm3 (0.00-0.00); Lymphocytes % (Auto) 5 % (10-50); Mean Corpuscular HGB Conc 32.9 g/dl (31.0-37.0); Mean Corpuscular Hemoglobin 28.4 pg (25.0-35.0); Mean Corpuscular Volume 86 fL (80-100); Monocytes # (Auto) 0.4 Thou/mm3 (0.0-0.8); Monocytes % (Auto) 2 % (0-12); Neutrophils # (Auto) 16.4 Thou/mm3 (1.8-7.7); Neutrophils % (Auto) 89 % (37-80); Nucleated Red Blood Cell # 0.03 Thou/mm3 (0.00-0.00); Nucleated Red Blood Cell % 0 /100 WBC (0); Platelet Count 220 Thou/mm3 (140-440); RDW Standard Deviation 49.1 fL (36.4-46.3); Red Blood Count 4.57 Miln/mm3 (4.00-5.20); White Blood Count 18.4 Thou/mm3 (3.6-11.0)
--- NOTE | 2024-10-29 10:20 | XR_ITS ---
Examination: CT chest, without intravenous contrast. CT abdomen, without intravenous contrast. CT pelvis, without intravenous contrast. 2-D sagittal and coronal reconstructions. 3-D reconstructions. Date and time of exam:October 29, 2024 11:03 AM INDICATIONS: Hypoxic respiratory failure fever unknown origin today CTDI vol (mgy) 18.1 DLP ([id number] Technique: Multiple CT images, 3.0 mm slice thickness, obtained chest, abdomen, pelvis, with the high-resolution 64 slice scanner.. Sagittal and coronal 2-D reconstructions are obtained. 3-D reconstructions Low dose protocols were performed. One or more of the following dose reduction techniques were used; automated exposure control, adjustment of the mA and/or KV according to patient size, use of iterative reconstruction technique. Findings: Endotracheal tube tip 3 cm above chip Extensive air density in the main pulmonary artery segment and right main pulmonary artery Also air density in the left innominate vein right subclavian vein and superior vena cava No mediastinal lymphadenopathy No pneumothorax Air density is present retroclavicular bilaterally as well as pretracheal as well as anterior chest wall image 110 and in the subcutaneous tissue anterior chest wall image 104 Pneumonia both bases, consider aspiration pneumonia No visualized liver or splenic lesions Contracted gallbladder No pancreatic or adrenal mass Perinephric stranding, mild right hydronephrosis no ureteral calculi Abdominal aorta normal size Colonic diverticulosis No periappendiceal inflammatory change No diverticulitis Urinary bladder contracted around a Lazo catheter IMPRESSION: Extensive air density in the main pulmonary artery segment and right main pulmonary artery as well as left innominate vein and right subclavian vein superior vena cava Smaller areas of air density in the right anterior chest wall and subcutaneous fatty tissue upper anterior right chest Bibasilar pneumonia, consider aspiration pneumonia Perinephric stranding mild right hydronephrosis, consider right urinary tract infection
[2024-10-29 10:25] LABS: Lactate (Lactic Acid) 6.2 mMol/L (0.4-2.0)
[2024-10-29 10:31] LABS: INR 1.1 (0.9-1.3); Prothrombin Time 11.9 Seconds (9.0-12.2)
[2024-10-29 10:33] LABS: Collection Type, Urine Clean Catch; Squamous Epithelial Cell,Urine 0 /hpf (0-5)
[2024-10-29 10:43] LABS: Ammonia < 10 uMol/L (11-32)
[2024-10-29] MEDS: Norepinephrine/D5W 8mg/250ml 8 MG/250 ML BAG 7.734 MG IV (10:45)
[2024-10-29 10:48] LABS: B-Type Natriuretic Peptide 175 pg/mL (0-100)
[2024-10-29 10:51] LABS: Alanine Aminotransferase 136 U/L (10-49); Albumin, Serum 3.4 gm/dL (3.4-4.8); Albumin/Globulin Ratio 1.7 (1.2-2.2); Alcohol, Blood Medical < 3.0 mg/dL (0-10.0); Alkaline Phosphatase 307 U/L (46-116); Anion Gap 15 (7-16); Aspartate Amino Transferase 83 U/L (0-34); BUN/Creatinine Ratio 20 Ratio (12-20); Bilirubin,Total 0.4 mg/dL (0.3-1.2); Blood Urea Nitrogen 43 mg/dL (9-23); Calcium 8.4 mg/dL (8.3-10.6); Calcium (Corrected) 8.9 mg/dL (8.5-10.1); Carbon Dioxide 22.7 mMol/L (20.0-31.0); Chloride 104 mMol/L (98-107); Creatinine (Component) 2.2 mg/dL (0.6-1.3); Glucose 133 mg/dL (74-106); Osmolality,Calculated 295 (275-295); Potassium 4.7 mMol/L (3.4-5.1); Sodium 142 mMol/L (136-145); Total Protein 5.4 gm/dL (5.7-8.2); eGFR 24 See Note
[2024-10-29 10:55] LABS: Bacteria,Urine 3+; Bilirubin,Urine Negative (Negative); Blood,Urine 2+ (Negative); Color,Urine Yellow (Lt Yel-Yel); Glucose, Urine 4+ (Negative); Hyaline Casts,Urine < 1 /hpf (0-1); Ketones,Urine Negative (Negative); Leukocyte Esterase,Urine Positive (Negative); Nitrite,Urine Negative (Negative); Protein,Urine 1+ (Neg - Trace); RBC,Urine 12 /hpf (0-3); Specific Gravity,Urine 1.022 (1.001-1.035); Urobilinogen,Urine Negative mg/dL (0.0-1.0); WBC,Urine 153 /hpf (0-5)
[2024-10-29 10:55] LABS: Troponin I 0.075 ng/mL (0.0-0.045)
[2024-10-29 10:57] LABS: Amphetamine/Methamp Scrn,U Negative (Negative); Barbiturate Screen,Urine Negative (Negative); Benzodiazepines Screen,Urine Negative (Negative); Benzoylecgonine Screen, Ur Negative (Negative); Fentanyl Screen,Urine Negative (Negative); Opiate Screen,Urine Negative (Negative); THC Screen,Urine Negative (Negative)
[2024-10-29] MEDS: fentaNYL 2,500 MCG/250 ML BAG 2,500 MCG/250 ML BAG IV (11:00)
[2024-10-29 11:06] LABS: Clarity,Urine Hazy (Clear/Hazy); Culture Indicated,Urine Yes
[2024-10-29 11:09] LABS: Procalcitonin 129.54 ng/ml (0.0-0.49)
[2024-10-29] MEDS: VANCOMYCIN/NS 1 GM IVPB 200 ML IV (11:40)
[2024-10-29] MEDS: PIPER/TAZO 3.375 GM PREMIX 3.375 GM/50 ML BAG IV ×2 (11:40→22:35)
[2024-10-29] MEDS: SODIUM CHLORIDE 0.9% 1000 ML 2,000 ML 999 ML IV (12:00)
[2024-10-29 12:51] LABS: Base Excess -10 (-3-3); HCO3 16 mEq/L (20-26); Inspired Oxygen, FIO2 80 %; O2 Saturation 100 % (91-98); PCO2 35 mmHg (32.0-48.0); PO2 201 mmHg (83-108); pH, Arterial 7.27 (7.35-7.45)
[2024-10-29 12:57] LABS: Allen Test Performed/OK; Puncture Site Left Radial
--- NOTE | 2024-10-29 13:10 | ECHO_ITS ---
Transthoracic Echo Report Ht (in): 61 Wt (lb): 181 Exam Location: Echo Lab Status: Inpatient Principal Java Developer: Holly Baker Indications: Procedure Performed: BP: 117 / 68 HR: 121 Technical Quality: Technically difficult study MEASUREMENTS (Male / Female) Normal Values 2D ECHO LV Diastolic Diameter PLAX 3.5 cm 4.2 - 5.9 / 3.9 - 5.3 cm LV Systolic Diameter PLAX 1.9 cm IVS Diastolic Thickness 1.1 cm 0.6 - 1.0 / 0.6 - 0.9 cm LVPW Diastolic Thickness 1.0 cm 0.6 - 1.0 / 0.6 - 0.9 cm LV Relative Wall Thickness 0.6 LVOT Diameter 1.6 cm LA Volume Index 14.4 cm?/m? 16 - 28 cm?/m? M-MODE Aortic Root Diameter MM 2.9 cm LA Systolic Diameter MM 2.6 cm LA Ao Ratio MM 0.9 AV Cusp Separation MM 1.3 cm DOPPLER AV Peak Velocity 151.0 cm/s AV Peak Gradient 9.1 mmHg AV Mean Gradient 4.0 mmHg AV Velocity Time Integral 22.6 cm LVOT Peak Velocity 115.0 cm/s LVOT Peak Gradient 5.3 mmHg LVOT Velocity Time Integral 16.0 cm LVOT Cardiac Index 2030.2 cm?/min?m? AV Area Cont Eq vti 1.4 cm? AV Area Cont Eq pk 1.5 cm? MV Area PHT 7.3 cm? MR Peak Velocity 463.0 cm/s MR Peak Gradient 85.7 mmHg Mitral E Point Velocity 65.5 cm/s Mitral A Point Velocity 115.0 cm/s Mitral E to A Ratio 0.6 LV E' Lateral Velocity 4.7 cm/s Mitral E to LV E' Lateral Ratio 14.0 LV E' Septal Velocity 9.8 cm/s Mitral E to LV E' Septal Ratio 6.7 FINDINGS Left Ventricle Normal left ventricular size. Mild LVH. Hyperdynamic LV. The ejection fraction is visually estimated at 75 %. Right Ventricle The right ventricle is normal in size. There is hyperdynamic right ventricular systolic function. Díaz sign is present. Left Atrium The left atrium is normal by two-dimensional, color flow and Doppler imaging with no structural abnormalities, no thrombus formation present. Right Atrium The right atrium is normal by two-dimensional imaging, color flow and Doppler imaging with no structural abnormalities, no thrombus formation present. Atrial Septum The interatrial septum appears normal with no evidence of a shunt. Aorta The aorta is normal by two-dimensional, color flow and Doppler interrogation. Mitral Valve The mitral valve is normal by two-dimensional, color flow and Doppler interrogation. [id number] mitral regurgitation. Aortic Valve The aortic valve is trileaflet and normal by two-dimensional, color flow and Doppler interrogation. There is no significant aortic valve regurgitation. Tricuspid Valve The tricuspid valve is normal by two-dimensional, color flow and Doppler interrogation. There is trace tricuspid valve regurgitation. Pulmonic Valve The pulmonic valve is not well visualized. There is no significant pulmonic valve regurgitation. Vessels The pulmonary artery appears normal. The inferior vena cava pulmonary and hepatic veins appear normal. Pericardium There is a tiny, hemodynamically insignificant pericardial effusion. CONCLUSIONS Indication: Pulmonary air embolism Normal LV size. Mild LVH. Hyperdynamic LV. Estimated EF 70- 75 %. Hyperdynamic RV systolic function. Normal RV size. Trace TR and unable to estimate RVSP Mild MR. Trace pericardial effusion without any evidence of any tamponade. Napoleon Bernal (Electronically Signed) Final Date: 30 Oct 2024 13:18
[2024-10-29 13:13] LABS: Reflex Lactate? Y
--- NOTE | 2024-10-29 13:18 | ESPR_ITS ---
Documentation for date of: 10/29/24 Subjective Subjective Interval history: This is a 69yo F brought to the ER today for AMS. She was in her [facility] state of health yesterday per daughter at bedside. Normally she is ambulatory and able to partake in ADLs. Yesterday she had some increase in sciatica pain and fell however family states it was not a big fall and that the pt was fine after. She went to sleep early at around 8p. Daughter states that the pt fq sleeps in however when she was not awake by 9am she became worried. Pt was unarousable and therefore EMS was called. Pt was brought to the ER and on arrival was found to be obtunded. At that time the decision was made to intubate for GCS <8. After intubation pt became progressively more hypotensive and was given IVF. Pt remained hypotensive and was started on levophed. She received a total of 6lts of IVF. ICU eval was requested. pt was seen and examined in ER room 5. She was started on fentanyl gtt after intubation since she appeared to start to wake up and reach for the ETT. PMH: DM, HTN, dyslipidemia, depression, s/p c section PSH: lives with daughter, no smoking , no ETOH ROS: UTO NKDA Critical Care Note Critical care time (min.): 75 Exam Vital Signs Temp Pulse Resp BP Pulse Ox O2 Del Method FiO2 102.7 F H 119 H 21 H 104/58 L 100 Room Air 100 10/29/24 09:54 10/29/24 13:00 10/29/24 13:00 10/29/24 13:00 10/29/24 13:00 10/29/24 09:54 10/29/24 10:18 Narrative Exam Gen- intubated, sedated, elderly, NAD HEENT- NC/AT, mucosa hydrated, sclera anicteric, PERRL, b/l catarract, ETT /OGT in place Chest- LCTAB, HRRR, no increase in WOB Abd- s/nt/bs+, obese, old healed surgical scar infraumbilical Ext- no edema, pulses palp, no clubbing, no mottling, cool to touch, hyperpigmentation of b/l feet, spontaneous mov of LUE/LLE, no mov with noxious stimuli to RUE/RLL Drips levo IVF Vent AC VC Physical Exam Completion Physical Exam Complete?: Yes Objective - R Developer Labs 10/30/24 06:12 10/30/24 06:12 Labs: Laboratory Results - last 24 hr 10/29/24 10/29/24 10/29/24 10:00 10:25 10:38 WBC 18.4 H RBC 4.57 Hgb 13.0 Hct 39.5 MCV 86 MCH 28.4 MCHC 32.9 RDW Std Deviation 49.1 H Plt Count 220 Neut % (Auto) 89 H Lymph % (Auto) 5 L [place] % (Auto) 2 Eos % (Auto) 1 Baso % (Auto) 0 Neut # (Auto) 16.4 H Lymph # (Auto) 1.0 [place] # (Auto) 0.4 Eos # (Auto) 0.2 Baso # (Auto) 0.0 Immature Gran # (Auto) 0.44 H Absolute Nucleated RBC 0.03 H Immature Gran % 2 H Nucleated RBC % 0 PT 11.9 INR 1.1 Puncture Site ABG pH ABG pCO2 ABG pO2 ABG HCO3 ABG O2 Saturation ABG Base Excess VBG pH 7.33 VBG pCO2 43 VBG pO2 31 VBG O2 Sat ([place]) 56 L VBG Base Excess -3 FiO2 Sodium 142 Potassium 4.7 Chloride 104 Carbon Dioxide 22.7 Anion Gap 15 BUN 43 H Creatinine 2.2 H Estim Creat Clear Calc Not Performed. eGFR 24 L BUN/Creatinine Ratio 20 Glucose 133 H Calculated Osmolality 295 Lactic Acid 6.2 H* Calcium 8.4 Corrected Calcium 8.9 Total Bilirubin 0.4 AST 83 H ALT 136 H Alkaline Phosphatase 307 H Ammonia < 10 L Troponin I 0.075 H* B-Natriuretic Peptide 175 H Total Protein 5.4 L Albumin 3.4 Globulin 2.0 L Albumin/Globulin Ratio 1.7 Procalcitonin 129.54 H Ur Collection Type Clean Catch Urine Color Yellow Urine Clarity Hazy Urine pH 6.0 Ur Specific [place] 1.022 Urine Protein 1+ A Urine Glucose (UA) 4+ A Urine Ketones Negative Urine Blood 2+ A Urine Nitrite Negative Urine Bilirubin Negative Urine Urobilinogen (Auto) Negative Ur Leukocyte Esterase Positive Urine RBC 12 H Urine WBC 153 H Ur Squamous Epith Cells 0 Urine Bacteria 3+ A Hyaline Casts < 1 Ur Culture Indicated? Yes Urine Opiates Screen Negative Urine Fentanyl Screen Negative Ur Barbiturates Screen Negative U Amphetamin/Meth Scrn Negative U Benzodiazepines Scrn Negative U Cocaine Metab Screen Negative U Marijuana (THC) Screen Negative Ethyl Alcohol < 3.0 Blood Type A Positive Antibody Screen NEGATIVE Blood Bank Wristband ID Yes 10/29/24 12:47 WBC RBC Hgb Hct MCV MCH MCHC RDW Std Deviation Plt Count Neut % (Auto) Lymph % (Auto) [place] % (Auto) Eos % (Auto) Baso % (Auto) Neut # (Auto) Lymph # (Auto) [place] # (Auto) Eos # (Auto) Baso # (Auto) Immature Gran # (Auto) Absolute Nucleated RBC Immature Gran % Nucleated RBC % PT INR Puncture Site Left Radial ABG pH 7.27 L ABG pCO2 35 ABG pO2 201 H ABG HCO3 16 L ABG O2 Saturation 100 H ABG Base Excess -10 L VBG pH VBG pCO2 VBG pO2 VBG O2 Sat ([place]) VBG Base Excess FiO2 80 Sodium Potassium Chloride Carbon Dioxide Anion Gap BUN Creatinine Estim Creat Clear Calc eGFR BUN/Creatinine Ratio Glucose Calculated Osmolality Lactic Acid Calcium Corrected Calcium Total Bilirubin AST ALT Alkaline Phosphatase Ammonia Troponin I B-Natriuretic Peptide Total Protein Albumin Globulin Albumin/Globulin Ratio Procalcitonin Ur Collection Type Urine Color Urine Clarity Urine pH Ur Specific [place] Urine Protein Urine Glucose (UA) Urine Ketones Urine Blood Urine Nitrite Urine Bilirubin Urine Urobilinogen (Auto) Ur Leukocyte Esterase Urine RBC Urine WBC Ur Squamous Epith Cells Urine Bacteria Hyaline Casts Ur Culture Indicated? Urine Opiates Screen Urine Fentanyl Screen Ur Barbiturates Screen U Amphetamin/Meth Scrn U Benzodiazepines Scrn U Cocaine Metab Screen U Marijuana (THC) Screen Ethyl Alcohol Blood Type Antibody Screen Blood Bank Wristband ID Assessment & Plan Additional Assessment Additional Assessment: In brief this is a 69yo F admitted for AMS and hypoxic resp failure a/p [employer] OFFICER AMS- last seen well at 8p and then obtunded this AM. R sided weakness -> suspect CVA - currently on fent -> hold and eval underlying neuro status CV Shock- bedside echo shows hyperdynamic LV with no pericardial effusion noted, ? D sign however subpar view, place cheeta for additional hemodynamics - not felt to be cardiogenic and has received 6lts of IVF -> not felt to be hypovolemic - ? obstructive component due to air embolism vs distributive and sepsis - started on abx, cx taken, echo ordered, on levophed with goal MAP 65 h/o HTN- hold all home meds Pulmonary Art air embolism - unclear source Tropinemia- in the setting of shock and MAHIN - likely demand ischemia - fu on repeat trop and EKG Resp Acute Resp Failure- intubated and on MV, fu ABG and CXR, ween as able ? Aspiration PNA- on abx, and cx taken Renal MAHIN- likely prerenal and may be 2/2 shock and sepsis - given IVF - arredondo in place - monitor UOP - avoid nephrotoxins Metabolic acidosis- 2/2 Lactic acidosis due to hypotension and poor perfusion GI NPO GI proph- pepcid Transaminitis- check hep panel, CT without pathology - likely due to ischemic insult and hypotension Endo DM- SSI, FS q6 - hold home meds Heme Leukocytosis- L shift noted and 2/2 infection DVT proph- lovenox 40 ID UTI/pyelo- on vanc/zosyn, fu on cx case d/w ICU team labs, imaging, records reviewed d/w family at bedside ~75ccmin required for eval, exam, review, intervention, discussion and formulation of POC for this critically ill pt with acute resp failure and shock at high risk for further and ongoing decompensation Provider Notation Provider Notation: Although this document has been carefully reviewed, there may still be some phonetic and other typographical errors. These errors are purely grammatical due to imperfections in the software program and should not be construed in any way to compromise the substance of the patient's medical care during this visit. Thank you for the opportunity and privilege in assisting you with this patient's care and management.
[2024-10-29 14:06] LABS: Creatine Kinase 194 U/L (34-171)
[2024-10-29 14:09] LABS: Lactic Acid, 3 HR 5.9 mMol/L (0.4-2.0)
--- NOTE | 2024-10-29 14:32 | PD.RESHP ---
Documentation for date of: 10/29/24 [facility] History of Present Illness History of present illness: CC: unable to awaken Patient is a 69-year-old female with a past medical history of hypertension, hyperlipidemia, diabetes mellitus type 2 [id number], and history of sciatic nerve pain who presented to the emergency room via ambulance with a chief complaint of altered mental status. Per patient's daughter at bedside, unable to arouse patient this morning after last well-known time on 10/28/2024. All history gathered from daughter at bedside. Patient experienced a ground-level fall on 10/28/2024 that was not witnessed by family members. 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 Denied trauma to head during fall. Ground-level fall occurred in 2023 secondary to sciatic pain. Patient denied sick contacts, pyrexia at home, or cough. 1 month ago patient was treated for outpatient urinary tract infection with antibiotics which was completed. Patient's daughter denied increased frequency or dysuria. Denied emesis or diarrhea. Denied chest pain or shortness of breath. Denied past medical history of heart failure. ER course: Vitals upon arrival blood pressure 74/51 (MAP 58) after receiving 1 L bolus via EMS, tachycardia-148, respiratory rate 12, temperature 102.7, and SpO2 97%,. Patient unable to protect airway requiring mechanical ventilation with a GCS score of 7 upon arrival to the emergency room. WBC count 18.4 neutrophil shift 89. ABG pH of 7.27, CO2 35, O2 201, bicarb 16, oxygen saturation 100%-status post mechanical ventilation. GCS 7 and NISS 23 MAHIN BUN 43, creatinine 2.2, ratio GFR 04 August 2024 showing GFR 54 possible MAHIN on CKD. Glucose 133. Lactic Acid 6.2, repeat 5.9. AST 83, ALT 136, Total Creatine Kinase 194 Troponin 0.075 H, EKG sinus tachycardia BNP 175 (no previous labs) Proclacitionin 129.54 Chest xray No penumonia, minor subsegmental atelectasis left base Head CT Negative for acute hemorrhage, mass effect or midline shift Abdomen/Pelvis/Chest CT: Extensive air density in the pain pulmonary artery segment and right main pulmonary artery as well as left innominate vein and right subclavian vein superior vena cava. Smaller areas of air density in the right anterior chest wall and sbucutaneous fatty tissue Medication: 6 Liter bolus ER + 1 Liter Bolus in ambulance, Etomidate, Norepinephrine, and Fentanyl drip, Zosy & Vancomycin Admitted on 10/29/2024 for shock unknown etiology and requiring mechanical ventilation, unable to protect airway (GCS 7). PMH: HTN, HLD, and diabetes mellitus type II Past Surgical History: Hysterectomy Home Medication: Metformin 1000 mg qday Atorvastatin 40 mg HS Metoprolol Succinate 100 mg qday Gabapentin 100 mg BID Amitriptyline 25 mg PO HS (New medication, prescribed 1 month ago, for sleep by pcp) Social History: Denied Alcohol Use Denied Illicit drug use Allergies: None Code Status: Full Code Review of Systems Review of Systems Narrative Review of Systems: General appearance: NO weight change, NO fatigue, NO weakness, NO fever, NO chills, NO night sweats, No cough Skin: NO rash, NO itching, NO sores, NO moles HEENT: Yes-ground level fall, NO nausea, NO vomiting, NO visual changes, NO blurry vision, NO double vision, NO tinnitus, NO vertigo, NO ear discharge, NO rhinorrhea, NO stuffiness, NO sneezing, NO allergy, NO epistaxis. NO Hoarseness, NO sore throat, NO swollen neck. Cardiac: NO Palpitations, NO dyspnea on exertion, NO orthopnea, NO paroxysmal nocturnal dyspnea, yes edema-per daughter sometimes present Respiratory: NO Shortness of Breath, NO Wheezing, NO Cough, NO Sputum, NO hemoptysis GI:NO appetite, NO nausea, NO vomiting, NO dysphagia, NO changes in bowel frequency, NO stool color, NO diarrhea, NO constipation, NO hemetemesis, NO hemorrhoids, NO melena, NO hematechezia, NO abdominal pain, NO jaundice Renal: NO frequency, NO hesitancy, NO urgency, NO hematuria, NO nocturia, NO incontinence, UTI-one month ago MSK: NO muscle weakness, NO gout, NO arthritis, NO muscle stiffness Neuro: NO headaches, NO tremors, NO weakness, NO paralysis, NO seizures, NO loss of consciousness, NO numbness. Hem: NO anemia, NO easy bruising/bleeding, NO petechiae, NO purpura Endo: NO heat/cold intolerance, NO excessive sweating, NO polyuria, NO polydipsia, NO polyphagia, NO thyroid problems, YES diabetes Pysch: NO mood, NO anxiety, NO depression Exam Vital Signs Temp Pulse Resp BP Pulse Ox O2 Del Method FiO2 97.9 F 112 H 18 105/58 L 99 Room Air 40 10/29/24 13:10 10/29/24 14:28 10/29/24 13:45 10/29/24 14:28 10/29/24 14:28 10/29/24 09:54 10/29/24 14:28 Narrative Exam General Appearance: Alert & Oriented X0, well-nourished female who is lying in bed in no acute distress as patient is under sedation HEENT: Skull symmetrical and atraumatic. Conjunctivae pink. Pupils equal, round, reactive to light and accommodation (PERRL). External ear without lesion or discharge. Straight, nares patient, mucosa pink, no discharge. Cardio: Tachycardia and Normal Rhythm with S1 and S2 heart sounds. No murmurs or extra heart sounds auscultated. No bruits on carotid auscultation. No peripheral edema or cyanosis. Lungs: Symmetric with good expansion. Breath sounds vesicular without crackles, wheezing or rhonchi Abdomen: Non-tender, Non-distended, Normal Reactive Bowel Sounds Neuro: NO Alert, NO cooperative, No oriented to person, No place, and No time. Right Upper motor strength 0/5 and Lower motor strength 0/5 as patient is unable to withdraw from painful stimuli; left upper extremity 4/5 and left lower extremity withdraws to painful stimuli Lines: tele box, Lazo catheter, Peripheral IV access, and Mechanical intubation Results: Labs 11/01/24 11:45 11/01/24 11:45 Labs: Short CBC 10/29/24 Range/Units 10:00 WBC 18.4 H (3.6-11.0) Thou/mm3 Hgb 13.0 (12.0-16.0) g/dL Hct 39.5 (36.0-46.0) % Plt Count 220 (140-440) Thou/mm3 BMP 10/29/24 10:00 Sodium 142 Potassium 4.7 Chloride 104 Carbon Dioxide 22.7 BUN 43 H Creatinine 2.2 H Glucose 133 H Calcium 8.4 Cardiac Enzymes 10/29/24 10/29/24 Range/Units 10:00 13:36 Total Creatine Kinase 194 H (34-171) U/L Troponin I 0.075 H* (0.0-0.045) ng/mL Liver Function 10/29/24 Range/Units 10:00 Total Bilirubin 0.4 (0.3-1.2) mg/dL AST 83 H (0-34) U/L ALT 136 H (10-49) U/L Alkaline Phosphatase 307 H (46-116) U/L Albumin 3.4 (3.4-4.8) gm/dL Urine 10/29/24 Range/Units 10:25 Urine Color Yellow (Lt Yel-Yel) Urine Clarity Hazy (Clear/Hazy) Urine pH 6.0 (5.0-7.0) Ur Specific [place] 1.022 (1.001-1.035) Urine Protein 1+ A (Neg - Trace) Urine Glucose (UA) 4+ A (Negative) ABG Interpretation ABG results: 10/29/24 10/29/24 10:00 12:47 ABG pH 7.27 L ABG pCO2 35 ABG pO2 201 H ABG HCO3 16 L ABG O2 Saturation 100 H ABG Base Excess -10 L VBG pH 7.33 VBG pCO2 43 VBG pO2 31 VBG Base Excess -3 Quality Measures Quality Measures none Advance care planning discussed with:: child Medications Home Medications and Allergies Home Medications ?Medication ?Instructions ?Recorded ?Confirmed ?Type amitriptyline 25 mg tablet 25 mg PO HS 10/29/24 10/29/24 History atorvastatin 40 mg tablet 40 mg PO HS 10/29/24 10/29/24 History empagliflozin 10 mg tablet 10 mg PO QDAY 10/29/24 10/29/24 History (Jardiance) empagliflozin 10 mg tablet 10 mg PO QDAY DIABETES 10/29/24 10/29/24 History (Jardiance) gabapentin 100 mg capsule 100 mg PO Q8H 10/29/24 10/29/24 History insulin glargine 100 unit/mL 30 unit subcut .BEDTIME 10/29/24 10/29/24 History subcutaneous solution (Lantus U-100 Insulin) metformin 1,000 mg tablet,extended 1,000 mg PO DAILY 10/29/24 10/29/24 History release 24hr (osmotic) metoprolol succinate 100 mg 100 mg PO QDAY HTN 10/29/24 10/29/24 History tablet,extended release 24 hr semaglutide 0.25 mg or 0.5 mg (2 0.5 mg subcut QWEEK 10/29/24 10/29/24 History mg/3 mL) subcutaneous pen injector (Ozempic) Allergies Allergy/AdvReac Type Severity Reaction Status Date / Time No Known Allergies Allergy Verified 07/26/24 08:18 Visit Medications Acetaminophen (Acetaminophen 325 Mg Tablet) 650 mg PO Q4HR PRN PRN Reason: PAIN SCALE 1-3 (mild Stop: 11/28/24 13:52 Acetaminophen (Acetaminophen Supp 650 Mg Supp) 650 mg IA Q4HR PRN PRN Reason: PAIN SCALE 1-3 (mild Stop: 11/28/24 13:52 Al Hydrox/Mg Hydrox/Simethicone (Mg Hyd/Al Hyd/Elpidio (Maalox Reg) Susp 30 Ml Udc) 30 ml PO Q4HR PRN PRN Reason: Heartburn or Upset Stomach Stop: 11/28/24 13:52 Enoxaparin Sodium (Enoxaparin Sod Inj 40 Mg/0.4 Ml Syringe) 40 mg SC QDAY SEVERIANO Stop: 11/12/24 13:52 Famotidine (Famotidine Inj 10 Mg/Ml Vial 2 Ml) 20 mg IVP QDAY SEVERIANO Stop: 11/29/24 08:59 Fentanyl Citrate (Sublimaze Inj 2,500 Mcg/250 Ml Bag) 2,500 mcg in 250 mls @ 2.5 mls/hr IV .Q24H PRN; Protocol PRN Reason: PER PROTOCOL Stop: 11/03/24 10:29 Last Titration: 10/29/24 14:00 Dose: 75 mcg/hr, 7.5 mls/hr Norepinephrine/Dextrose (Levophed In D5w 8mg/250ml) 8 mg in 250 mls @ 7.734 mls/hr IV .Q24H PRN; Protocol PRN Reason: PER PROTOCOL Stop: 11/28/24 10:29 Last Titration: 10/29/24 14:00 Dose: 0.07 mcg/kg/min, 10.828 mls/hr Piperacillin/Tazobactam/Dextrose (Zosyn) 3.375 gm in 50 mls @ 100 mls/hr IV Q8HR SEVERIANO Stop: 11/05/24 14:21 Vancomycin/Sodium Chloride (Vancomycin/Ns 750 Mg Ivpb) 750 mg in 150 mls @ 120 mls/hr IV X1 ONE Stop: 10/29/24 15:59 Magnesium Hydroxide (Milk Of Magnesia Susp 30 Ml Udc) 30 ml PO QDAY PRN PRN Reason: CONSTIPATION Stop: 11/28/24 13:52 Nitroglycerin (Nitroglycerin 0.4 Mg Subl Btl #25) 0.4 mg SL Q5MIN PRN PRN Reason: CHEST PAIN Pharmacy Consult (Vancomycin Pharmacy To Dose 1 Each Each) 1 each IV QDAY PRN PRN Reason: PROTOCOL Stop: 11/29/24 08:59 Sennosides (Senna Tablet) 1 tab PO QDAY PRN; Protocol PRN Reason: constipation Stop: 11/28/24 13:09 Discontinued Medications Enoxaparin Sodium (Enoxaparin Sod Inj 40 Mg/0.4 Ml Syringe) 40 mg SC QDAY SEVERIANO Stop: 11/12/24 13:14 Last Admin: 10/29/24 14:13 Dose: Not Given Etomidate (Etomidate Inj 2 Mg/Ml Vial 10 Ml) 20 mg IVP X1 ONE Stop: 10/29/24 10:06 Last Admin: 10/29/24 10:16 Dose: 20 mg Sodium Chloride (Ns) 1,000 mls @ 1,000 mls/hr IV .Q1H ONE Stop: 10/29/24 10:55 Last Infusion: 10/29/24 14:04 Dose: Infused Sodium Chloride (Ns) 1,000 mls @ 2,000 mls/hr IV .Q30M ONE Stop: 10/29/24 10:25 Last Admin: 10/29/24 10:05 Dose: 2,000 mls/hr Vancomycin/Sodium Chloride (Vancomycin/Ns 1 Gm Ivpb) 200 mls @ 120 mls/hr IV X1 ONE Stop: 10/29/24 12:00 Last Infusion: 10/29/24 12:25 Dose: Infused Piperacillin/Tazobactam/Dextrose (Zosyn) 3.375 gm in 50 mls @ 100 mls/hr IV X1 ONE Stop: 10/29/24 10:49 Last Infusion: 10/29/24 12:25 Dose: Infused Sodium Chloride (Ns) 2,000 mls @ 999 mls/hr IV .Q2H1M ONE Stop: 10/29/24 13:50 Last Infusion: 10/29/24 12:25 Dose: 0 mls/hr Lactated Ringer's (Lactated Ringers) 1,000 mls @ 999 mls/hr IV .Q1H1M ONE Stop: 10/29/24 11:00 Last Infusion: 10/29/24 14:04 Dose: Infused Pantoprazole Sodium (Pantoprazole Inj 40 Mg Vial) 40 mg IVP QDAY SEVERIANO Stop: 11/28/24 13:14 Last Admin: 10/29/24 14:13 Dose: Not Given Sodium Chloride (Sodium Chloride Rt 10% 15 Ml Nebu) 5 ml INH X1 ONE Stop: 10/29/24 10:24 Last Admin: 10/29/24 10:30 Dose: Not Given Sodium Chloride (Sodium Chloride Rt 10% 15 Ml Nebu) 5 ml INH X1 ONE Stop: 10/29/24 14:23 Assessment & Plan Plan Patient is a 69-year-old female with a past medical history of hypertension, hyperlipidemia, diabetes mellitus type 2 [id number] who was admitted on 10/29/2024 for shock unknown etiology and requiring mechanical ventilation, unable to protect airway (GCS 7). Central Nervous System: Problem: Acute encephalopathy DDX: acute encephalopathy secondary to stroke as patient was found obtunded at 9:00 AM (last well known tie 8:00 PM) with decreased right motor function unable to withdraw from painful stimuli as compared to left extremities. NIHSS score of 23. CT head no acute hemorrhage Versus shock requiring pressors leading to MAP less than 65 versus amitriptyline about 1 month ago leading to altered mental status Dx: Head CT Negative for acute hemorrhage, mass effect or midline shift RX: Aspirin 81 mg Qday, A1c and lipid profile RRX: consider MRI Cardiovascular: Problem: Shock unknown etiology DDX: Shock likely secondary to urinary tract infection with mild hydronephrosis, previous UTI about 1 month ago with antibiotics as outpatient vs cardiogenic has elevated troponins but no ST elevation noted on EKG, likely in the setting demand ischemia, bedside showed adquate contractility vs obstructive shock given pulmonary artery air emboli Dx: UA: WBC 153, Bacteria 3+, Leukocyte Positive; CT Abdomen/Pelvis/Chest:Bibasilar pneumonia, consider aspiration pneumonia. Extensive air density in the main pulmonary artery, perinephric stranding mild right hydronephrosis RX: Cheetah, Levophed 0.075, 7 Liters in ER +ambulance, blood culture, urine culture, and sputum culture, pending Echo, trend troponin RRX: Problem: history of hypertension Given shock, currently holding metoprolol succinate 100 mg qday Respiratory: Problem: Acute Respiratory Failure, Mechanical Ventilation unable to protect airway DDX: Patient unable to protect airway GCS score of 7. Air embolism noted on CT chest, likely secondary to air in IV fluids vs during CT injection. Dx: Chest:Bibasilar pneumonia, consider aspiration pneumonia. RX: Fentanyl @75 mcg/hr, RAAS -2, please do not increase Fentanly pass 75. RRX: Consider Propofol, in addition to Fentanyl Gastroenterology: Problem: Transaminitis DDX: Likely in the setting of shock and MAHIN. Dx: CT Abdomen (07/26/2024): NO focal liver or splenic lesions. Total bilirubin 0.4 RX: treat underlying shock RRX: monitor AST/ALT Renal: Problem: MAHIN DDX: MAHIN likely secondary pre-renal in the setting of shock as BUN/Cr ratio 20 vs MAHIN on CKD as previous GFR 07/2024 noted to have GFR <60, vs intrinsic renal failure less likely Dx: BUN 43, Cr 2.2, GFR 24, BUN/Cr 20 RX: avoid nephrotoxins, renally dose medication, No fluids given 7 liters in total given, Urine electrolytes, Lazo RRX: monitor urine output next 24 hours Heme: Problem: Leukocytosis DDX: Leukocytosis in the setting of sepsis secondary to UTI w/ left band shift Dx: WBC 18.4 RX: antibiotics: Zosyn and Vancomcin (10/29/2024--) RRX: pending blood, urine, and sputum cultures Endo: Problem: Diabetes Mellitus Type 2, non-insulin dependent DDX: Past medical history of DM type 2 on Metformin and Jardiance at home. No previous A1c. Dx: Glucose on admission 133. RX: Sliding scale Lispro Q6HR RRX: A1c and Lipid panel ID: Problem: Sepsis DDX: Sepsis likely secondary to urinary tract infection vs pneumonia given Chest finding of bibasilar pneumonia Dx: UA: WBC 153, Bacteria 3+, Leukocyte Positive; CT Abdomen/Pelvis/Chest:Bibasilar pneumonia, consider aspiration pneumonia. Extensive air density in the main pulmonary artery, perinephric stranding mild right hydronephrosis RX: Zosyn and Vancomycin 10/29/2024 RRX: pending blood cultures, urine cultures, and sputum cultures Health Maintenance: Disp: Pt is currently admitted to floors for further management of shock, requiring mechanical ventilation, awaiting blood, sputum, and urine culture. FEN: NPO, consider restarting tube feeding tomorrow via NG tube, no maintenance fluid added as patient received a total of 7 Liter bolus in ER DVT: Lovenox GI: Famotine Lazo catheter Mechanical Ventilation: VT 400, Flow 60, RR 18, PEEP 5.0, FiO2 40 Code: Full Code - The patient's plan was discussed with attending Dr. Ed Spring MD PGY1 Internal Medicine
--- NOTE | 2024-10-29 14:48 | PC.NURSE ---
Hand off report given to Daniela CHAVES from ICU. Currently patient is ventilated and sedated. Norepi 0.07 infusing through 18 Right AC. Pt opens eyes during noxious stimuli, does not move right upper and lower ext, withdrawls to pain from the left side, no facial paralysis noted but assessment is limited due to patients AMS.
[2024-10-29] MEDS: ENOXAPARIN SOD INJ 40 MG/0.4 ML SYRINGE SC (15:28)
[2024-10-29] MEDS: ASPIRIN 81 MG CHEW NG (15:42)
[2024-10-29 15:49] LABS: Hepatitis A Antibody IgM Non Reactive (Non React); Hepatitis B Core Antibody IgM Non Reactive (Non React); Hepatitis B Surface Antigen Non Reactive (Non React); Hepatitis C Antibody Non Reactive (Non React)
[2024-10-29] MEDS: PROPOFOL 1,000 MG IVPB 1,000 MG/100 ML VIAL 2.358 MG IV (17:10)
[2024-10-29 19:04] LABS: Lactate (Lactic Acid) 6.1 mMol/L (0.4-2.0)
[2024-10-29 19:24] LABS: Albumin, Serum 3.2 gm/dL (3.4-4.8); Anion Gap 18 (7-16); BUN/Creatinine Ratio 19 Ratio (12-20); Blood Urea Nitrogen 37 mg/dL (9-23); Calcium 7.4 mg/dL (8.3-10.6); Chloride 111 mMol/L (98-107); Estimated Creatinine Clearance 24.8 mL/min (>60); Glucose 120 mg/dL (74-106); Osmolality,Calculated 298 (275-295); Phosphorous 3.5 mg/dL (2.4-5.1); Sodium 145 mMol/L (136-145); eGFR 26 See Note
[2024-10-29 19:26] LABS: Troponin I 0.423 ng/mL (0.0-0.045)
[2024-10-29 19:28] LABS: Chloride,Urine Random 61.7 mMol/L (55.0-125.0); Potassium,Urine Random 47 mMol/L (12-62); Sodium,Urine Random 58.2 mMol/L (20.0-110.0)
[2024-10-29 21:35] LABS: Reflex Lactate? Y
--- NOTE | 2024-10-29 22:02 | XR_ITS ---
Examination: AP chest single view TECHNIQUE: AP portable supine chest single view Date and time: October 29, 2024 10:13 PM Comparison October 29, 2024 10:39 AM INDICATIONS: Post central line placement FINDINGS: Left internal jugular central line tip SVC satisfactory position Subsegmental atelectasis left base No pneumothorax Endotracheal tube 5 cm above Ana The orogastric tube is in the stomach, the tip is below the level of the film IMPRESSION: Interval left internal jugular central line, tip in satisfactory position SVC, no pneumothorax
[2024-10-29] MEDS: VASOPRESSIN IN NS IVPB 20 UNIT/100 ML BAG 9 UNIT IV (22:07)
[2024-10-29] MEDS: HYDROCORTISONE SOD SUCC INJ 100 MG VIAL IV (22:08)
--- NOTE | 2024-10-29 22:15 | PD.RESPROC ---
Procedures Procedure Date / Time 10/29/24 9072 Central Line Placement Left IJ: Indication(s): shock Informed consent obtained: obtained from surrogate decision maker Time out done, and the following verified: correct patient, side and site, procedure, patient position and implants and/or equipment Patient placed on monitor/pulse ox: Yes Hand Hygiene: scrub and alcohol-based hand rub Max Sterile Barrier Techniques used: cap, mask, sterile gown, sterile gloves and sterile full body drape Central line prep: Chlorhexidine scrub Local anesthesia used: lidocaine 1% Amount of anesthesia used (mL): 5 Ultrasound used for placement: Yes Sterile Technique if Ultrasound used, including sterile gel: yes Central line lumen inserted: triple Post procedure: sutured in place, good blood return, all ports aspirated, flushed, capped and sterile dressing applied Post procedure x-ray: tip of catheter in good position and no pneumothorax seen Patient tolerated procedure: well EBL(ml): 10 Complications: none
[2024-10-29] MEDS: METOPROLOL TARTRATE INJ 1 MG/ML AMP 5 ML 5 MG IVP (22:34)
[2024-10-29 22:40] LABS: Lactic Acid, 3 HR 2.9 mMol/L (0.4-2.0)
[2024-10-29 22:41] LABS: Base Excess, Venous -9 (-3-3); O2 Saturation, Venous 88 % (96-97); PCO2, Venous 36 mmHg (36-56); PO2, Venous 53 mmHg (15-58); pH, Venous 7.28 (7.33-7.66)
[2024-10-29] MEDS: Norepinephrine/NS 16mg/250ml 16 MG/250 ML BAG 73.688 MG IV (23:17)
--- NOTE | 2024-10-29 23:42 | PD.RESPROC ---
Procedures Procedure Date / Time 10/29/24 7863 Arterial Line Indication(s): frequent arterial line sampling, hypoxic resp failure, shock and inability to monitor non-invasive BP Informed consent obtained: obtained from surrogate decision maker Time out done, and the following verified: correct patient, side and site, procedure, patient position and implants and/or equipment Size (Gauge): 16 Technique used: guide wire technique Patient tolerated procedure: other EBL(ml): 20 Complications: other Site: left and femoral Procedure comment: Attempted right-sided femoral art line and was unable to direct line into femoral artery. Likely proximal femoral vein 2 times and then switched to left side. On first attempt was able to direct the guidewire into the femoral artery but upon introduction of femoral catheter Twisted and was unable to be secured. Procedure was aborted once patient developed hematoma. Pressure held for a long time and later heavyweight was placed over the site. Blood pressure stabilized and hypoxia improved so decision was made to abort any further attempts at arterial line.
[2024-10-29 23:56] LABS: Base Excess -14 (-3-3); HCO3 13 mEq/L (20-26); Inspired Oxygen, FIO2 100 %; O2 Saturation 100 % (91-98); PCO2 30 mmHg (32.0-48.0); PO2 301 mmHg (83-108); pH, Arterial 7.23 (7.35-7.45)
[2024-10-29 23:58] LABS: Puncture Site Right Brachial
[2024-10-29 23:59] LABS: Allen Test Performed/OK
[2024-10-30] VITALS (234 sets, daily range): BP systolic 44–186; BP diastolic 28–183; PULSE 118–184; RESP 2–28; TEMP 36.5–37.4; O2SAT 75–100; BMI 34.5; BMI 34.4
[2024-10-30] MEDS: METOPROLOL TARTRATE INJ 1 MG/ML AMP 5 ML 5 MG IVP
[2024-10-30] MEDS: HYDROCORTISONE SOD SUCC INJ 100 MG VIAL 50 MG IV ×4 (00:14→17:32)
[2024-10-30 01:04] LABS: Troponin I 1.109 ng/mL (0.0-0.045)
--- NOTE | 2024-10-30 01:05 | EKG_ITS ---
[facility] Test Date: 2024-10-30 Pat Name: ROLANDO AUSTIN Department: Room: S256A Gender: Female Hearing And Speech Assistant: LUZ : 1955 Requested By: Chana Walter Order Number: [id number] Reading MD: Chana Walter Measurements Intervals Wheeler Rate: 149 P: LA: QRS: -5 QRSD: 82 T: 111 QT: 262 QTc: 413 Interpretive Statements ATRIAL FLUTTER/TACHYCARDIA WITH RAPID VENTRICULAR RESPONSE ST DEVIATION AND MODERATE T-WAVE ABNORMALITY, CONSIDER LATERAL ISCHEMIA Compared to ECG 10/29/2024 10:33:35 Possible ischemia now present Sinus tachycardia no longer present T-wave abnormality still present /store/S0/[id number].pdf
[2024-10-30] MEDS: Norepinephrine/NS 16mg/250ml 16 MG/250 ML BAG 110.531 MG IV ×2 (01:51→03:56)
[2024-10-30 03:07] LABS: Lactate (Lactic Acid) 7.9 mMol/L (0.4-2.0)
--- NOTE | 2024-10-30 03:30 | PC.NURSE ---
SHAUN MELGAR done, 12.5%. made aware. new orders placed
[2024-10-30] MEDS: Sodium Bicarb 8.4% 50ml Vial* 88.23 MEQ in DEXTROSE 5%-WATER 500 ML 100 MEQ IV ×3 (04:10→17:32)
[2024-10-30] MEDS: PIPER/TAZO 3.375 GM PREMIX 3.375 GM/50 ML BAG IV ×3 (05:26→22:45)
[2024-10-30 05:58] LABS: Reflex Lactate? Y
--- NOTE | 2024-10-30 06:00 | XR_ITS ---
Examination: AP chest single view Technique one AP portable semiupright chest single view Date and time: October 30, 2024 0550 hours Comparison October 29, 2024 INDICATIONS: Hypoxic respiratory failure postintubation this week FINDINGS: Reduced inspiratory effort No significant cardiac enlargement Endotracheal tube tip 3.9 cm above Ana Left internal jugular line tip projects in SVC Orogastric tube in the stomach, the tip is below the level of the film No lobar pneumonia or pulmonary edema Minor atelectasis at the lung bases IMPRESSION: Endotracheal tube tip 3.9 cm above Ana Left internal jugular line satisfactory position as well as orogastric tube Minor atelectasis at the lung bases
[2024-10-30] MEDS: Norepinephrine/NS 16mg/250ml 16 MG/250 ML BAG 95.794 MG IV (06:14)
[2024-10-30] MEDS: VASOPRESSIN IN NS IVPB 20 UNIT/100 ML BAG 9 UNIT IV (06:34)
[2024-10-30 06:46] LABS: Lactic Acid, 3 HR 8.1 mMol/L (0.4-2.0)
[2024-10-30 06:53] LABS: Basophils # (Auto) 0.1 Thou/mm3 (0.0-0.2); Basophils % (Auto) 0 % (0-2.5); Eosinophils % (Auto) 0 % (0-10); Hematocrit 36.8 % (36.0-46.0); Hemoglobin 11.7 g/dL (12.0-16.0); Immature Granulocytes % (Auto) 6 % (0-0); Immature Granulocytes Auto 1.36 Thou/mm3 (0.00-0.00); Lymphocytes # (Auto) 0.6 Thou/mm3 (1.0-4.8); Lymphocytes % (Auto) 3 % (10-50); Mean Corpuscular HGB Conc 31.8 g/dl (31.0-37.0); Mean Corpuscular Hemoglobin 29.3 pg (25.0-35.0); Mean Corpuscular Volume 92 fL (80-100); Monocytes # (Auto) 0.2 Thou/mm3 (0.0-0.8); Monocytes % (Auto) 1 % (0-12); Neutrophils # (Auto) 18.8 Thou/mm3 (1.8-7.7); Neutrophils % (Auto) 89 % (37-80); Nucleated Red Blood Cell # 0.28 Thou/mm3 (0.00-0.00); Nucleated Red Blood Cell % 1 /100 WBC (0); Platelet Count 120 Thou/mm3 (140-440); RDW Standard Deviation 53.5 fL (36.4-46.3); White Blood Count 21.1 Thou/mm3 (3.6-11.0)
[2024-10-30 07:05] LABS: Alanine Aminotransferase 237 U/L (10-49); Albumin, Serum 2.8 gm/dL (3.4-4.8); Albumin/Globulin Ratio 1.5 (1.2-2.2); Alkaline Phosphatase 256 U/L (46-116); Anion Gap 18 (7-16); Aspartate Amino Transferase 239 U/L (0-34); BUN/Creatinine Ratio 14 Ratio (12-20); Bilirubin,Total 1.3 mg/dL (0.3-1.2); Blood Urea Nitrogen 39 mg/dL (9-23); Calcium (Corrected) 7.9 mg/dL (8.5-10.1); Cardiac Risk Estimate 5.1 RATIO (3.7-5.6); Chloride 111 mMol/L (98-107); Cholesterol 71 mg/dL (132-200); Creatinine (Component) 2.8 mg/dL (0.6-1.3); Estimated Creatinine Clearance 18.3 mL/min (>60); Globulin 1.9 gm/dL (2.3-3.5); Glucose 201 mg/dL (74-106); HDL Cholesterol 14 mg/dL (40-60); LDL Cholesterol,Calculated -12 mg/dL (0-130); Magnesium 1.6 mg/dL (1.6-2.6); Osmolality,Calculated 292 (275-295); Potassium 5.3 mMol/L (3.4-5.1); Sodium 139 mMol/L (136-145); Thyroid Stimulating Hormone 1.23 uIU/mL (0.55-4.78); Total Protein 4.7 gm/dL (5.7-8.2); Triglycerides 346 mg/dL (30-150); Vancomycin,Random 13.4 mcg/mL; eGFR 18 See Note
[2024-10-30 07:08] LABS: Carbon Dioxide < 10.0 mMol/L (20.0-31.0)
[2024-10-30 07:09] LABS: Calcium 6.9 mg/dL (8.3-10.6)
[2024-10-30 07:18] LABS: Phosphorous 4.7 mg/dL (2.4-5.1)
[2024-10-30] MEDS: Sodium Bicarb Inj 8.4% SYR 50 ML SYRINGE IV (07:35)
[2024-10-30 08:14] LABS: Base Excess -16 (-3-3); HCO3 9 mEq/L (20-26); Inspired Oxygen, FIO2 80 %; O2 Saturation 100 % (91-98); PCO2 18 mmHg (32.0-48.0); PO2 240 mmHg (83-108)
[2024-10-30 08:17] LABS: Puncture Site Site Not Noted
[2024-10-30 08:18] LABS: Allen Test Not Performed
--- NOTE | 2024-10-30 08:40 | PD.INTPROC ---
Procedures Procedure Date / Time 10/30/24 0840 Arterial Line Indication(s): frequent arterial line sampling, shock and inability to monitor non-invasive BP Informed consent obtained: implied and procedure done urgently Time out done, and the following verified: correct patient, side and site, procedure and patient position Size (Gauge): 16 Technique used: guide wire technique Post-Procedure: line sutured into place and dry sterile dressing placed Patient tolerated procedure: well and no complications EBL(ml): 5 Complications: none Site: right and femoral
--- NOTE | 2024-10-30 08:45 | PC.SS ---
Initial assessment: patient is a 69 year old female admitted for acute encephalopathy, currently in ICU. Information obtained by patient's daughter Jazmín listed on facesheet. Jazmín confirmed the patient's demographic information, informs she and her spouse and children live with the patient. Per daughter, the patient utilizes a cane to assist with ambulation with some assistance completing ADL's. Preferred pharmacy is [email or web address]. Patient?s alternate medical surrogate decision maker is Jazmín jasmine. Patient?s PCP is Sydney Noel. At time of discharge patient will discharge home and family able to assist with transportation. No current needs identified. Next of Kin: DaughterJazmín D/C Plan: Home
--- NOTE | 2024-10-30 08:55 | PD.INTPROG ---
Documentation for date of: 10/30/24 Subjective Subjective Interval history: This is a 69yo F brought to the ER today for AMS. She was in her [facility] state of health yesterday per daughter at bedside. Normally she is ambulatory and able to partake in ADLs. Yesterday she had some increase in sciatica pain and fell however family states it was not a big fall and that the pt was fine after. She went to sleep early at around 8p. Daughter states that the pt fq sleeps in however when she was not awake by 9am she became worried. Pt was unarousable and therefore EMS was called. Pt was brought to the ER and on arrival was found to be obtunded. At that time the decision was made to intubate for GCS <8. After intubation pt became progressively more hypotensive and was given IVF. Pt remained hypotensive and was started on levophed. She received a total of 6lts of IVF. ICU eval was requested. pt was seen and examined in ER room 5. She was started on fentanyl gtt after intubation since she appeared to start to wake up and reach for the ETT. 10/30- yesterday afternoon was off of levophed however overnight she dropped her BP again and was restarted on levophed. This was rapidly increased and requied initiation of vasopressin as well as hydrocortisone. her LA had dropped down to 2 but is back up to 8 this AM. remains virtually anuric , afebrile, vent dyssynchrony Critical Care Note Critical care time (min.): 55 Exam Vital Signs Temp Pulse Resp BP Pulse Ox O2 Del Method FiO2 99.0 F 138 H 17 101/72 99 Mechanical Ventilation 80 10/30/24 08:00 10/30/24 08:46 10/30/24 08:46 10/30/24 08:46 10/30/24 08:46 10/30/24 08:00 10/30/24 08:00 Narrative Exam Gen- intubated, sedated, ill appearing, nl body habitus, eyes open but does not track when sedation lightened HEENT- NC/AT, mucosa hydrated, sclera anicteric, PERRL, ETT/OGT in place, L IJ Chest- LCTAB, HRRR, tachy, no increase in WOB Abd- obese, s/nt/bs+ Ext- no edema, pulses palp but weak, cool digits to touch, moves L spontaneously Vent PRVC Drips levo vaso HCO3 fent prop Physical Exam Completion Physical Exam Complete?: Yes Objective - [employer] 10/30/24 10:01 10/30/24 10:01 Labs: Laboratory Results - last 24 hr 10/29/24 10/29/24 10/29/24 10:00 10:25 10:38 WBC 18.4 H RBC 4.57 Hgb 13.0 Hct 39.5 MCV 86 MCH 28.4 MCHC 32.9 RDW Std Deviation 49.1 H Plt Count 220 Neut % (Auto) 89 H Lymph % (Auto) 5 L [place] % (Auto) 2 Eos % (Auto) 1 Baso % (Auto) 0 Neut # (Auto) 16.4 H Lymph # (Auto) 1.0 [place] # (Auto) 0.4 Eos # (Auto) 0.2 Baso # (Auto) 0.0 Immature Gran # (Auto) 0.44 H Absolute Nucleated RBC 0.03 H Immature Gran % 2 H Nucleated RBC % 0 PT 11.9 INR 1.1 Puncture Site ABG pH ABG pCO2 ABG pO2 ABG HCO3 ABG O2 Saturation ABG Base Excess VBG pH 7.33 VBG pCO2 43 VBG pO2 31 VBG O2 Sat ([place]) 56 L VBG Base Excess -3 FiO2 Sodium 142 Potassium 4.7 Chloride 104 Carbon Dioxide 22.7 Anion Gap 15 BUN 43 H Creatinine 2.2 H Estim Creat Clear Calc Not Performed. eGFR 24 L BUN/Creatinine Ratio 20 Glucose 133 H Calculated Osmolality 295 Lactic Acid 6.2 H* Calcium 8.4 Corrected Calcium 8.9 Phosphorus Magnesium Total Bilirubin 0.4 AST 83 H ALT 136 H Alkaline Phosphatase 307 H Ammonia < 10 L Total Creatine Kinase Troponin I 0.075 H* B-Natriuretic Peptide 175 H Total Protein 5.4 L Albumin 3.4 Globulin 2.0 L Albumin/Globulin Ratio 1.7 Triglycerides Cholesterol LDL Cholesterol, Calc HDL Cholesterol Cholesterol/HDL Ratio Procalcitonin 129.54 H TSH Ur Collection Type Clean Catch Urine Color Yellow Urine Clarity Hazy Urine pH 6.0 Ur Specific [place] 1.022 Urine Protein 1+ A Urine Glucose (UA) 4+ A Urine Ketones Negative Urine Blood 2+ A Urine Nitrite Negative Urine Bilirubin Negative Urine Urobilinogen (Auto) Negative Ur Leukocyte Esterase Positive Urine RBC 12 H Urine WBC 153 H Ur Squamous Epith Cells 0 Urine Bacteria 3+ A Hyaline Casts < 1 Ur Culture Indicated? Yes Ur Random Sodium Ur Random Potassium Ur Random Chloride Random Vancomycin Urine Opiates Screen Negative Urine Fentanyl Screen Negative Ur Barbiturates Screen Negative U Amphetamin/Meth Scrn Negative U Benzodiazepines Scrn Negative U Cocaine Metab Screen Negative U Marijuana (THC) Screen Negative Ethyl Alcohol < 3.0 Hepatitis A IgM Ab Non Reactive Hep Bs Antigen Non Reactive Hep B Core IgM Ab Non Reactive Hepatitis C Antibody Non Reactive Blood Type A Positive Antibody Screen NEGATIVE Blood Bank Wristband ID Yes 10/29/24 10/29/24 10/29/24 12:47 13:36 18:18 WBC RBC Hgb Hct MCV MCH MCHC RDW Std Deviation Plt Count Neut % (Auto) Lymph % (Auto) [place] % (Auto) Eos % (Auto) Baso % (Auto) Neut # (Auto) Lymph # (Auto) [place] # (Auto) Eos # (Auto) Baso # (Auto) Immature Gran # (Auto) Absolute Nucleated RBC Immature Gran % Nucleated RBC % PT INR Puncture Site Left Radial ABG pH 7.27 L ABG pCO2 35 ABG pO2 201 H ABG HCO3 16 L ABG O2 Saturation 100 H ABG Base Excess -10 L VBG pH VBG pCO2 VBG pO2 VBG O2 Sat ([place]) VBG Base Excess FiO2 80 Sodium 145 Potassium 5.0 Chloride 111 H Carbon Dioxide 16.0 L Anion Gap 18 H BUN 37 H Creatinine 2.0 H Estim Creat Clear Calc 24.8 L eGFR 26 L BUN/Creatinine Ratio 19 Glucose 120 H Calculated Osmolality 298 H Lactic Acid 5.9 H* 6.1 H* Calcium 7.4 L Corrected Calcium 8.0 L Phosphorus 3.5 Magnesium Total Bilirubin AST ALT Alkaline Phosphatase Ammonia Total Creatine Kinase 194 H Troponin I 0.423 H* D B-Natriuretic Peptide Total Protein Albumin 3.2 L Globulin Albumin/Globulin Ratio Triglycerides Cholesterol LDL Cholesterol, Calc HDL Cholesterol Cholesterol/HDL Ratio Procalcitonin TSH Ur Collection Type Urine Color Urine Clarity Urine pH Ur Specific [place] Urine Protein Urine Glucose (UA) Urine Ketones Urine Blood Urine Nitrite Urine Bilirubin Urine Urobilinogen (Auto) Ur Leukocyte Esterase Urine RBC Urine WBC Ur Squamous Epith Cells Urine Bacteria Hyaline Casts Ur Culture Indicated? Ur Random Sodium Ur Random Potassium Ur Random Chloride Random Vancomycin Urine Opiates Screen Urine Fentanyl Screen Ur Barbiturates Screen U Amphetamin/Meth Scrn U Benzodiazepines Scrn U Cocaine Metab Screen U Marijuana (THC) Screen Ethyl Alcohol Hepatitis A IgM Ab Hep Bs Antigen Hep B Core IgM Ab Hepatitis C Antibody Blood Type Antibody Screen Blood Bank Wristband ID 10/29/24 10/29/24 10/29/24 18:56 22:20 23:47 WBC RBC Hgb Hct MCV MCH MCHC RDW Std Deviation Plt Count Neut % (Auto) Lymph % (Auto) [place] % (Auto) Eos % (Auto) Baso % (Auto) Neut # (Auto) Lymph # (Auto) [place] # (Auto) Eos # (Auto) Baso # (Auto) Immature Gran # (Auto) Absolute Nucleated RBC Immature Gran % Nucleated RBC % PT INR Puncture Site Right Brachial ABG pH 7.23 L ABG pCO2 30 L ABG pO2 301 H D ABG HCO3 13 L ABG O2 Saturation 100 H ABG Base Excess -14 L VBG pH 7.28 L VBG pCO2 36 VBG pO2 53 D VBG O2 Sat ([place]) 88 L VBG Base Excess -9 L FiO2 100 Sodium Potassium Chloride Carbon Dioxide Anion Gap BUN Creatinine Estim Creat Clear Calc eGFR BUN/Creatinine Ratio Glucose Calculated Osmolality Lactic Acid 2.9 H Calcium Corrected Calcium Phosphorus Magnesium Total Bilirubin AST ALT Alkaline Phosphatase Ammonia Total Creatine Kinase Troponin I B-Natriuretic Peptide Total Protein Albumin Globulin Albumin/Globulin Ratio Triglycerides Cholesterol LDL Cholesterol, Calc HDL Cholesterol Cholesterol/HDL Ratio Procalcitonin TSH Ur Collection Type Urine Color Urine Clarity Urine pH Ur Specific [place] Urine Protein Urine Glucose (UA) Urine Ketones Urine Blood Urine Nitrite Urine Bilirubin Urine Urobilinogen (Auto) Ur Leukocyte Esterase Urine RBC Urine WBC Ur Squamous Epith Cells Urine Bacteria Hyaline Casts Ur Culture Indicated? Ur Random Sodium 58.2 Ur Random Potassium 47 Ur Random Chloride 61.7 Random Vancomycin Urine Opiates Screen Urine Fentanyl Screen Ur Barbiturates Screen U Amphetamin/Meth Scrn U Benzodiazepines Scrn U Cocaine Metab Screen U Marijuana (THC) Screen Ethyl Alcohol Hepatitis A IgM Ab Hep Bs Antigen Hep B Core IgM Ab Hepatitis C Antibody Blood Type Antibody Screen Blood Bank Wristband ID 10/30/24 10/30/24 10/30/24 00:34 02:34 06:12 WBC 21.1 H RBC 4.00 Hgb 11.7 L Hct 36.8 MCV 92 MCH 29.3 MCHC 31.8 RDW Std Deviation 53.5 H Plt Count 120 L D Neut % (Auto) 89 H Lymph % (Auto) 3 L [place] % (Auto) 1 Eos % (Auto) 0 Baso % (Auto) 0 Neut # (Auto) 18.8 H Lymph # (Auto) 0.6 L [place] # (Auto) 0.2 Eos # (Auto) 0.0 Baso # (Auto) 0.1 Immature Gran # (Auto) 1.36 H Absolute Nucleated RBC 0.28 H Immature Gran % 6 H Nucleated RBC % 1 H PT INR Puncture Site ABG pH ABG pCO2 ABG pO2 ABG HCO3 ABG O2 Saturation ABG Base Excess VBG pH VBG pCO2 VBG pO2 VBG O2 Sat ([place]) VBG Base Excess FiO2 Sodium 139 Potassium 5.3 H Chloride 111 H Carbon Dioxide < 10.0 L* Anion Gap 18 H BUN 39 H Creatinine 2.8 H D Estim Creat Clear Calc 18.3 L eGFR 18 L BUN/Creatinine Ratio 14 Glucose 201 H D Calculated Osmolality 292 Lactic Acid 7.9 H* 8.1 H* Calcium 6.9 L Corrected Calcium 7.9 L Phosphorus 4.7 Magnesium 1.6 Total Bilirubin 1.3 H D AST 239 H ALT 237 H Alkaline Phosphatase 256 H D Ammonia Total Creatine Kinase Troponin I 1.109 H* D 2.590 H* D B-Natriuretic Peptide Total Protein 4.7 L Albumin 2.8 L Globulin 1.9 L Albumin/Globulin Ratio 1.5 Triglycerides 346 H Cholesterol 71 L LDL Cholesterol, Calc -12 L HDL Cholesterol 14 L Cholesterol/HDL Ratio 5.1 Procalcitonin TSH 1.23 Ur Collection Type Urine Color Urine Clarity Urine pH Ur Specific [place] Urine Protein Urine Glucose (UA) Urine Ketones Urine Blood Urine Nitrite Urine Bilirubin Urine Urobilinogen (Auto) Ur Leukocyte Esterase Urine RBC Urine WBC Ur Squamous Epith Cells Urine Bacteria Hyaline Casts Ur Culture Indicated? Ur Random Sodium Ur Random Potassium Ur Random Chloride Random Vancomycin 13.4 Urine Opiates Screen Urine Fentanyl Screen Ur Barbiturates Screen U Amphetamin/Meth Scrn U Benzodiazepines Scrn U Cocaine Metab Screen U Marijuana (THC) Screen Ethyl Alcohol Hepatitis A IgM Ab Hep Bs Antigen Hep B Core IgM Ab Hepatitis C Antibody Blood Type Antibody Screen Blood Bank Wristband ID 10/30/24 08:07 WBC RBC Hgb Hct MCV MCH MCHC RDW Std Deviation Plt Count Neut % (Auto) Lymph % (Auto) [place] % (Auto) Eos % (Auto) Baso % (Auto) Neut # (Auto) Lymph # (Auto) [place] # (Auto) Eos # (Auto) Baso # (Auto) Immature Gran # (Auto) Absolute Nucleated RBC Immature Gran % Nucleated RBC % PT INR Puncture Site Site Not Noted ABG pH 7.30 L ABG pCO2 18 L* D ABG pO2 240 H D ABG HCO3 9 L* ABG O2 Saturation 100 H ABG Base Excess -16 L VBG pH VBG pCO2 VBG pO2 VBG O2 Sat ([place]) VBG Base Excess FiO2 80 Sodium Potassium Chloride Carbon Dioxide Anion Gap BUN Creatinine Estim Creat Clear Calc eGFR BUN/Creatinine Ratio Glucose Calculated Osmolality Lactic Acid Calcium Corrected Calcium Phosphorus Magnesium Total Bilirubin AST ALT Alkaline Phosphatase Ammonia Total Creatine Kinase Troponin I B-Natriuretic Peptide Total Protein Albumin Globulin Albumin/Globulin Ratio Triglycerides Cholesterol LDL Cholesterol, Calc HDL Cholesterol Cholesterol/HDL Ratio Procalcitonin TSH Ur Collection Type Urine Color Urine Clarity Urine pH Ur Specific [place] Urine Protein Urine Glucose (UA) Urine Ketones Urine Blood Urine Nitrite Urine Bilirubin Urine Urobilinogen (Auto) Ur Leukocyte Esterase Urine RBC Urine WBC Ur Squamous Epith Cells Urine Bacteria Hyaline Casts Ur Culture Indicated? Ur Random Sodium Ur Random Potassium Ur Random Chloride Random Vancomycin Urine Opiates Screen Urine Fentanyl Screen Ur Barbiturates Screen U Amphetamin/Meth Scrn U Benzodiazepines Scrn U Cocaine Metab Screen U Marijuana (THC) Screen Ethyl Alcohol Hepatitis A IgM Ab Hep Bs Antigen Hep B Core IgM Ab Hepatitis C Antibody Blood Type Antibody Screen Blood Bank Wristband ID Assessment & Plan Additional Assessment Additional Assessment: In brief this is a 69yo F admitted for AMS and hypoxic resp failure with profound refractory septic shock a/p [employer] AMS- last seen well at 8p and then obtunded this AM. R sided weakness -> suspect CVA - currently on fent -> hold and eval underlying neuro status - today pt opens eyes but does not track, encephalopathy likely due to shock and sepsis CV Shock- bedside echo shows hyperdynamic LV with no pericardial effusion noted, ? D sign however subpar view, place cheeta for additional hemodynamics - not felt to be cardiogenic and has received 6lts of IVF -> not felt to be hypovolemic - ? obstructive component due to air embolism vs distributive and sepsis - started on abx, cx taken, on levophed with goal MAP 65 - today pt on more vasopressors then yesterday - started on hydrocortisone for refractory septic shock - echo taken and results pending - Bcx show GNR h/o HTN- hold all home meds Pulmonary Art air embolism - unclear source - on high FiO2 - repeat chest CT to eval if still present Tropinemia- in the setting of shock and MAHIN - likely demand ischemia - fu on repeat trop and EKG - echo taken and pending Resp Acute Resp Failure- intubated and on MV, fu ABG and CXR, ween as able -vent adjustments made ? Aspiration PNA- on abx, and cx taken Renal MAHIN- likely prerenal and may be 2/2 shock and sepsis - given IVF - arredondo in place - monitor UOP - avoid nephrotoxins - cont with minimal UOP and severe acidosis - will place HD line and consult nephrology for CRRT Metabolic acidosis- 2/2 Lactic acidosis due to hypotension and poor perfusion - increased to 8 - delta delta gap shows additional non gap acidosis - may need HD to assist with acidosis - on HCO3 gtt at this time HypoCa- given 1gr Ca++ Hyper K- mild, monitor GI NPO GI proph- pepcid Transaminitis- check hep panel, CT without pathology - likely due to ischemic insult and hypotension - worsening #s today Hypoalbuminemia- may also be dilutional in nature given that she has received 8lts at this point in time Endo DM- SSI, FS q6 - hold home meds Heme Leukocytosis- L shift noted and 2/2 infection DVT proph- lovenox 40 DIC- no need for any transfusions at this point 2/2 sepsis Anemia- likely dilutional in nature at this point in time Thrombocytopenia- likely 2/2 sepsis ID UTI/pyelo- on vanc/zosyn, fu on cx GNR Bacteremia- bcx pos from arrival, likely due to her UTI and pyelo case d/w ICU team labs, imaging, records reviewed d/w family at bedside ~55ccmin required for eval, exam, review, intervention, discussion and formulation of POC for this critically ill pt with acute resp failure and shock at high risk for further and ongoing decompensation Provider Notation Provider Notation: Although this document has been carefully reviewed, there may still be some phonetic and other typographical errors. These errors are purely grammatical due to imperfections in the software program and should not be construed in any way to compromise the substance of the patient's medical care during this visit. Thank you for the opportunity and privilege in assisting you with this patient's care and management.
[2024-10-30] MEDS: Norepinephrine/NS 16mg/250ml 16 MG/250 ML BAG 58.95 MG IV (09:00)
[2024-10-30] MEDS: ENOXAPARIN SOD INJ 40 MG/0.4 ML SYRINGE SC (09:10)
[2024-10-30] MEDS: Magnesium Sulfate 2 GM Ivpb 2 GM/50 ML BAG IV (09:10)
[2024-10-30] MEDS: ASPIRIN 81 MG CHEW NG (09:10)
[2024-10-30] MEDS: FAMOTIDINE INJ 10 MG/ML VIAL 2 ML 20 MG IVP (09:10)
[2024-10-30 10:22] LABS: Basophils # (Auto) 0.1 Thou/mm3 (0.0-0.2); Basophils % (Auto) 0 % (0-2.5); Eosinophils % (Auto) 0 % (0-10); Hematocrit 32.9 % (36.0-46.0); Hemoglobin 10.6 g/dL (12.0-16.0); Immature Granulocytes % (Auto) 8 % (0-0); Immature Granulocytes Auto 1.69 Thou/mm3 (0.00-0.00); Lymphocytes # (Auto) 0.6 Thou/mm3 (1.0-4.8); Lymphocytes % (Auto) 3 % (10-50); Mean Corpuscular HGB Conc 32.2 g/dl (31.0-37.0); Mean Corpuscular Volume 90 fL (80-100); Monocytes # (Auto) 0.3 Thou/mm3 (0.0-0.8); Monocytes % (Auto) 1 % (0-12); Neutrophils # (Auto) 19.4 Thou/mm3 (1.8-7.7); Neutrophils % (Auto) 88 % (37-80); Nucleated Red Blood Cell # 0.22 Thou/mm3 (0.00-0.00); Nucleated Red Blood Cell % 1 /100 WBC (0); Platelet Count 100 Thou/mm3 (140-440); RDW Standard Deviation 52.2 fL (36.4-46.3); Red Blood Count 3.66 Miln/mm3 (4.00-5.20); White Blood Count 22.1 Thou/mm3 (3.6-11.0)
--- NOTE | 2024-10-30 10:30 | PD.RESPROC ---
Procedures Procedure Date / Time 10/30/24 10:30 Procedural Time Out Time out performed: Time out called to confirm correct patient, procedure, and site of R. IJV for triple lumen catheter via US guide. Patient was placed supine position. Patient's neck and deltoid sanitized with chloraprep scrub. Area drapped in sterile fashion. US guide draped in sterile fashion and use to visualize internal jugualr vein. 5 ml of Lidociane used to anesthetize are directly above IJV. Introducer needle advnaced with negative pressure into IJV and then syringe removed and replaced with guide-wire. Guide-wire unable to advance. Procedure stopped. Needle and guide-wire removed, procedure stopped. limited blood loss chest x-ray ordered Arterial Line Size (Gauge): 16 Central Line Placement Right IJ: Indication(s): shock Informed consent obtained: obtained from surrogate decision maker (daughter) Time out done, and the following verified: correct patient, side and site, procedure and patient position Patient placed on monitor/pulse ox: Yes Hand Hygiene: scrub, soap & water and alcohol-based hand rub Max Sterile Barrier Techniques used: cap, mask, sterile gown, sterile gloves and sterile full body drape Central line prep: Chlorhexidine scrub and sterile drapes applied Local anesthesia used: lidocaine 1% Amount of anesthesia used (mL): 5 Ultrasound used for placement: Yes Sterile Technique if Ultrasound used, including sterile gel: yes Complications: other (unable to advance guidewire, procedure stopped, and guidewire and introducer needle removed. )
[2024-10-30 10:37] LABS: D-Dimer > 3820 ng/mL (<600)
[2024-10-30 10:49] LABS: Alanine Aminotransferase 459 U/L (10-49); Albumin, Serum 2.6 gm/dL (3.4-4.8); Albumin/Globulin Ratio 1.4 (1.2-2.2); Alkaline Phosphatase 234 U/L (46-116); Anion Gap 19 (7-16); Aspartate Amino Transferase 625 U/L (0-34); BUN/Creatinine Ratio 13 Ratio (12-20); Bilirubin,Total 1.2 mg/dL (0.3-1.2); Blood Urea Nitrogen 40 mg/dL (9-23); Calcium (Corrected) 7.7 mg/dL (8.5-10.1); Chloride 110 mMol/L (98-107); Globulin 1.8 gm/dL (2.3-3.5); Glucose 238 mg/dL (74-106); Osmolality,Calculated 297 (275-295); Potassium 5.4 mMol/L (3.4-5.1); Sodium 140 mMol/L (136-145); Total Protein 4.4 gm/dL (5.7-8.2); eGFR 16 See Note
[2024-10-30 10:51] LABS: Calcium 6.6 mg/dL (8.3-10.6); Carbon Dioxide 10.9 mMol/L (20.0-31.0)
[2024-10-30 10:55] LABS: Fibrinogen 535 mg/dL (175-375); INR 1.6 (0.9-1.3); Prothrombin Time 17.2 Seconds (9.0-12.2)
[2024-10-30] MEDS: ALBUMIN HUMAN 25% IVPB 25 GM/100 ML BTL IV (11:15)
[2024-10-30] MEDS: CALCIUM GLUCONATE 10% INJ 1 GM/10 ML VIAL IV (11:15)
--- NOTE | 2024-10-30 12:37 | XR_ITS ---
Examination: AP chest single view Technique one AP portable semiupright chest single view Date and time: October 30, 2024 1249 hours Comparison October 30, 2024 0550 hours INDICATIONS: Post dialysis catheter placement FINDINGS: Left subclavian dialysis catheter tip SVC More pronounced opacities lung bases consistent with pneumonia Tracheal tube tip 5.1 cm above chip Orogastric tube in the stomach Left internal jugular central line tip SVC IMPRESSION: Interval dialysis catheter tip satisfactory position SVC Bibasilar pneumonia consider aspiration pneumonia
--- NOTE | 2024-10-30 12:37 | XR_ITS ---
Examination: CT chest, without intravenous contrast. Sagittal and coronal 2-D reconstructions. Exam date and time: October 30, [address] chest abdomen pelvis October 29, 2024 INDICATIONS: Hypoxic respiratory failure, fever unknown origin CTDI:vol (mGy) 30 DLP: (mGycm) 1068 Technique: Multiple 3.0 mm axial sections of the chest to been obtained. Bone and lung density settings are obtained. Sagittal and coronal 2-D reconstructions have been obtained. Low dose protocols were performed. One or more of the following dose reduction techniques were used; automated exposure control, adjustment of the mA and/or KV according to patient size, use of iterative reconstruction technique. Findings: Interval extensive opacity in the left lung consistent with pneumonia At least moderate left pleural effusion Also significant pneumonia right base Moderate vascular congestion No pneumothorax No air density currently in the pulmonary arteries, no air density in the innominate vein on the left or right subclavian vein or superior vena cava No air density in the anterior chest wall No visualized liver or splenic lesion No gallstones No pancreatic mass Mild right hydronephrosis IMPRESSION: Interval extensive bilateral pneumonia Moderate vascular congestion No current air densities in the vascular system
--- NOTE | 2024-10-30 12:45 | PD.INTPROC ---
Procedures Procedure Date / Time 10/30/24 1245 Arterial Line Size (Gauge): 16 Central Line Placement Left SC: Indication(s): other (HD line) Informed consent obtained: obtained from surrogate decision maker Time out done, and the following verified: correct patient, side and site, procedure and patient position Patient placed on monitor/pulse ox: Yes Hand Hygiene: alcohol-based hand rub Max Sterile Barrier Techniques used: cap, mask, sterile gown, sterile gloves and sterile full body drape Central line prep: Chlorhexidine scrub and sterile drapes applied Ultrasound used for placement: No Sterile Technique if Ultrasound used, including sterile gel: yes Central line lumen inserted: triple Post procedure: sutured in place, good blood return and all ports aspirated, flushed, capped (middle port flushed but did not aspirate) Post procedure x-ray: tip of catheter in good position and no pneumothorax seen Patient tolerated procedure: well and no complications EBL(ml): 5 Complications: none
--- NOTE | 2024-10-30 12:58 | PD.RESPROC ---
Procedures Procedure Date / Time 10/30/24 1258 Arterial Line Size (Gauge): 16 Central Line Placement Left Femoral: Indication(s): shock and poor, or inadequate peripheral venous access Informed consent obtained: obtained from surrogate decision maker Time out done, and the following verified: correct patient, side and site, procedure, patient position and implants and/or equipment Patient placed on monitor/pulse ox: Yes Hand Hygiene: scrub, soap & water and alcohol-based hand rub Max Sterile Barrier Techniques used: cap, mask, sterile gown, sterile gloves, sterile full body drape and other Central line prep: Povidone-Iodine 1%, Chlorhexidine scrub and sterile drapes applied Local anesthesia used: lidocaine 1% Amount of anesthesia used (mL): 10 Ultrasound used for placement: Yes Sterile Technique if Ultrasound used, including sterile gel: yes Central line lumen inserted: triple Patient tolerated procedure: other EBL(ml): 10 Procedure comment: My hands were washed immediately prior to the procedure. I wore a surgical cap, mask with protective eyewear, full gown and sterile gloves throughout the procedure. The left groin area was prepped and draped in sterile fashion using a three quarter sheet drape and sterile towels. Skin preparation was allowed to dry prior to skin puncture. Anesthesia was achieved over the vein using 1% lidocaine. Using real-time ultrasound, with sterile probe cover and sterile gel, the introducer needle was inserted into the left femoral vein under direct ultrasound visualization. Venous blood was withdrawn. The syringe was removed and attempted to advance the guidewire, however felt resistance. This was attempted 2 more times before the procedure was aborted due to inability to advance guidewire. Guidewire was removed and introducer needle was removed. Pressure was applied over the site. No other complications related to this procedure were noted at the time of this document. I have reviewed and discussed the patient's care with my attending, Dr. Ward, Reyna Boateng MD PGY-3
[2024-10-30] MEDS: VANCOMYCIN/NS 500 MG IVPB 100 ML 120 MG IV (13:00)
--- NOTE | 2024-10-30 13:06 | PD.RESPRO ---
Documentation for date of: 10/30/24 Subjective Subjective Interval history: Patient is a 69-year-old female with a past medical history of hypertension, hyperlipidemia, diabetes mellitus type 2 [id number], and history of sciatic nerve pain who presented to the emergency room via ambulance with a chief complaint of altered mental status. Per patient's daughter at bedside, unable to arouse patient this morning after last well-known time on 10/28/2024. All history gathered from daughter at bedside. Patient experienced a ground-level fall on 10/28/2024 that was not witnessed by family members. Patient was found conscious and alert and oriented by legal arbitrator. Denied trauma to head during fall. Ground-level fall occurred in 2023 secondary to sciatic pain. Patient denied sick contacts, pyrexia at home, or cough. 1 month ago patient was treated for outpatient urinary tract infection with antibiotics which was completed. Patient's daughter denied increased frequency or dysuria. Denied emesis or diarrhea. Denied chest pain or shortness of breath. Denied past medical history of heart failure. ER course: Vitals upon arrival blood pressure 74/51 (MAP 58) after receiving 1 L bolus via EMS, tachycardia-148, respiratory rate 12, temperature 102.7, and SpO2 97%,. Patient unable to protect airway requiring mechanical ventilation with a GCS score of 7 upon arrival to the emergency room. WBC count 18.4 neutrophil shift 89. ABG pH of 7.27, CO2 35, O2 201, bicarb 16, oxygen saturation 100%-status post mechanical ventilation. GCS 7 and NISS 23 MAHIN BUN 43, creatinine 2.2, ratio GFR 04 August 2024 showing GFR 54 possible MAHIN on CKD. Glucose 133. Lactic Acid 6.2, repeat 5.9. AST 83, ALT 136, Total Creatine Kinase 194 Troponin 0.075 H, EKG sinus tachycardia BNP 175 (no previous labs) Proclacitionin 129.54 Chest xray No penumonia, minor subsegmental atelectasis left base Head CT Negative for acute hemorrhage, mass effect or midline shift Abdomen/Pelvis/Chest CT: Extensive air density in the pain pulmonary artery segment and right main pulmonary artery as well as left innominate vein and right subclavian vein superior vena cava. Smaller areas of air density in the right anterior chest wall and sbucutaneous fatty tissue Medication: 6 Liter bolus ER + 1 Liter Bolus in ambulance, Etomidate, Norepinephrine, and Fentanyl drip, Zosy & Vancomycin Admitted on 10/29/2024 for shock unknown etiology and requiring mechanical ventilation, unable to protect airway (GCS 7). 10/30/2024: Overnight patient required starting vasopressin at 0.03 on Levophed restarted at 1.8 mcg/Kg as MAP dropped below 65. Currenlty, Vasopressin 0.03 units/min, Levophed 0.66 mcg/kg/min, propfolol 5 mcg/kg/min, and fentanyl 75 mcg/hr. Bacteremia, Blood cultures noted for GNR, Urine Culture GNR, and sputum cultures GPC. MRSA pending. Plan for CRRT as patient has worsening lactic acid, consult nephrology. Worsening Troponemia, consult cardiology. Plan for CT chest. Patient is mechanically ventilated TV 400, RR 18, PEEP 5, FiO2 100-->FiO2 decreased to 90%. Exam Vital Signs Temp Pulse Resp BP Pulse Ox O2 Del Method FiO2 99.4 F 131 H 17 127/96 H 99 Mechanical Ventilation 80 10/30/24 12:00 10/30/24 12:05 10/30/24 12:05 10/30/24 10:28 10/30/24 12:00 10/30/24 12:00 10/30/24 12:00 Narrative Exam General Appearance: Alert & Oriented X0, well-nourished female who is lying in bed in no acute distress as patient is under sedation HEENT: Skull symmetrical and atraumatic. Conjunctivae pink. Pupils equal, round, reactive to light and accommodation (PERRL). External ear without lesion or discharge. Straight, nares patient, mucosa pink, no discharge. Cardio: Tachycardia and Normal Rhythm with S1 and S2 heart sounds. No murmurs or extra heart sounds auscultated. No bruits on carotid auscultation. No peripheral edema or cyanosis. Lungs: Symmetric with good expansion. Breath sounds vesicular without crackles, wheezing or rhonchi Abdomen: Non-tender, Non-distended, Normal Reactive Bowel Sounds Neuro: NO Alert, NO cooperative, No oriented to person, No place, and No time. Right Upper motor strength 0/5 and Lower motor strength 0/5 as patient is unable to withdraw from painful stimuli; left upper extremity 4/5 and left lower extremity withdraws to painful stimuli Lines: tele box, Lazo catheter, Peripheral IV access, R. A-line, L. IJV, L. subclavian triple lumen catheter, and Mechanical intubation Objective Labs 11/01/24 11:45 11/01/24 11:45 Labs: Laboratory Results - last 24 hr 10/29/24 10/29/24 10/29/24 10:00 13:36 18:18 WBC RBC Hgb Hct MCV MCH MCHC RDW Std Deviation Plt Count Neut % (Auto) Lymph % (Auto) [place] % (Auto) Eos % (Auto) Baso % (Auto) Neut # (Auto) Lymph # (Auto) [place] # (Auto) Eos # (Auto) Baso # (Auto) Immature Gran # (Auto) Absolute Nucleated RBC Immature Gran % Nucleated RBC % PT INR APTT Fibrinogen D-Dimer Puncture Site ABG pH ABG pCO2 ABG pO2 ABG HCO3 ABG O2 Saturation ABG Base Excess VBG pH VBG pCO2 VBG pO2 VBG O2 Sat ([place]) VBG Base Excess FiO2 Sodium 145 Potassium 5.0 Chloride 111 H Carbon Dioxide 16.0 L Anion Gap 18 H BUN 37 H Creatinine 2.0 H Estim Creat Clear Calc 24.8 L eGFR 26 L BUN/Creatinine Ratio 19 Glucose 120 H Calculated Osmolality 298 H Lactic Acid 5.9 H* 6.1 H* Calcium 7.4 L Corrected Calcium 8.0 L Phosphorus 3.5 Magnesium Total Bilirubin AST ALT Alkaline Phosphatase Total Creatine Kinase 194 H Troponin I 0.423 H* D Total Protein Albumin 3.2 L Globulin Albumin/Globulin Ratio Triglycerides Cholesterol LDL Cholesterol, Calc HDL Cholesterol Cholesterol/HDL Ratio TSH Ur Random Sodium Ur Random Potassium Ur Random Chloride Random Vancomycin Hepatitis A IgM Ab Non Reactive Hep Bs Antigen Non Reactive Hep B Core IgM Ab Non Reactive Hepatitis C Antibody Non Reactive 10/29/24 10/29/24 10/29/24 18:56 22:20 23:47 WBC RBC Hgb Hct MCV MCH MCHC RDW Std Deviation Plt Count Neut % (Auto) Lymph % (Auto) [place] % (Auto) Eos % (Auto) Baso % (Auto) Neut # (Auto) Lymph # (Auto) [place] # (Auto) Eos # (Auto) Baso # (Auto) Immature Gran # (Auto) Absolute Nucleated RBC Immature Gran % Nucleated RBC % PT INR APTT Fibrinogen D-Dimer Puncture Site Right Brachial ABG pH 7.23 L ABG pCO2 30 L ABG pO2 301 H D ABG HCO3 13 L ABG O2 Saturation 100 H ABG Base Excess -14 L VBG pH 7.28 L VBG pCO2 36 VBG pO2 53 D VBG O2 Sat ([place]) 88 L VBG Base Excess -9 L FiO2 100 Sodium Potassium Chloride Carbon Dioxide Anion Gap BUN Creatinine Estim Creat Clear Calc eGFR BUN/Creatinine Ratio Glucose Calculated Osmolality Lactic Acid 2.9 H Calcium Corrected Calcium Phosphorus Magnesium Total Bilirubin AST ALT Alkaline Phosphatase Total Creatine Kinase Troponin I Total Protein Albumin Globulin Albumin/Globulin Ratio Triglycerides Cholesterol LDL Cholesterol, Calc HDL Cholesterol Cholesterol/HDL Ratio TSH Ur Random Sodium 58.2 Ur Random Potassium 47 Ur Random Chloride 61.7 Random Vancomycin Hepatitis A IgM Ab Hep Bs Antigen Hep B Core IgM Ab Hepatitis C Antibody 10/30/24 10/30/24 10/30/24 00:34 02:34 06:12 WBC 21.1 H RBC 4.00 Hgb 11.7 L Hct 36.8 MCV 92 MCH 29.3 MCHC 31.8 RDW Std Deviation 53.5 H Plt Count 120 L D Neut % (Auto) 89 H Lymph % (Auto) 3 L [place] % (Auto) 1 Eos % (Auto) 0 Baso % (Auto) 0 Neut # (Auto) 18.8 H Lymph # (Auto) 0.6 L [place] # (Auto) 0.2 Eos # (Auto) 0.0 Baso # (Auto) 0.1 Immature Gran # (Auto) 1.36 H Absolute Nucleated RBC 0.28 H Immature Gran % 6 H Nucleated RBC % 1 H PT INR APTT Fibrinogen D-Dimer Puncture Site ABG pH ABG pCO2 ABG pO2 ABG HCO3 ABG O2 Saturation ABG Base Excess VBG pH VBG pCO2 VBG pO2 VBG O2 Sat ([place]) VBG Base Excess FiO2 Sodium 139 Potassium 5.3 H Chloride 111 H Carbon Dioxide < 10.0 L* Anion Gap 18 H BUN 39 H Creatinine 2.8 H D Estim Creat Clear Calc 18.3 L eGFR 18 L BUN/Creatinine Ratio 14 Glucose 201 H D Calculated Osmolality 292 Lactic Acid 7.9 H* 8.1 H* Calcium 6.9 L Corrected Calcium 7.9 L Phosphorus 4.7 Magnesium 1.6 Total Bilirubin 1.3 H D AST 239 H ALT 237 H Alkaline Phosphatase 256 H D Total Creatine Kinase Troponin I 1.109 H* D 2.590 H* D Total Protein 4.7 L Albumin 2.8 L Globulin 1.9 L Albumin/Globulin Ratio 1.5 Triglycerides 346 H Cholesterol 71 L LDL Cholesterol, Calc -12 L HDL Cholesterol 14 L Cholesterol/HDL Ratio 5.1 TSH 1.23 Ur Random Sodium Ur Random Potassium Ur Random Chloride Random Vancomycin 13.4 Hepatitis A IgM Ab Hep Bs Antigen Hep B Core IgM Ab Hepatitis C Antibody 10/30/24 10/30/24 08:07 10:01 WBC 22.1 H RBC 3.66 L Hgb 10.6 L Hct 32.9 L MCV 90 MCH 29.0 MCHC 32.2 RDW Std Deviation 52.2 H Plt Count 100 L Neut % (Auto) 88 H Lymph % (Auto) 3 L [place] % (Auto) 1 Eos % (Auto) 0 Baso % (Auto) 0 Neut # (Auto) 19.4 H Lymph # (Auto) 0.6 L [place] # (Auto) 0.3 Eos # (Auto) 0.0 Baso # (Auto) 0.1 Immature Gran # (Auto) 1.69 H Absolute Nucleated RBC 0.22 H Immature Gran % 8 H Nucleated RBC % 1 H PT 17.2 H D INR 1.6 H APTT 40.0 H Fibrinogen 535 H D-Dimer > 3820 H Puncture Site Site Not Noted ABG pH 7.30 L ABG pCO2 18 L* D ABG pO2 240 H D ABG HCO3 9 L* ABG O2 Saturation 100 H ABG Base Excess -16 L VBG pH VBG pCO2 VBG pO2 VBG O2 Sat ([place]) VBG Base Excess FiO2 80 Sodium 140 Potassium 5.4 H Chloride 110 H Carbon Dioxide 10.9 L* Anion Gap 19 H BUN 40 H Creatinine 3.0 H Estim Creat Clear Calc 17.0 L eGFR 16 L BUN/Creatinine Ratio 13 Glucose 238 H Calculated Osmolality 297 H Lactic Acid Calcium 6.6 L* Corrected Calcium 7.7 L Phosphorus Magnesium Total Bilirubin 1.2 AST 625 H* ALT 459 H Alkaline Phosphatase 234 H D Total Creatine Kinase Troponin I Total Protein 4.4 L Albumin 2.6 L Globulin 1.8 L Albumin/Globulin Ratio 1.4 Triglycerides Cholesterol LDL Cholesterol, Calc HDL Cholesterol Cholesterol/HDL Ratio TSH Ur Random Sodium Ur Random Potassium Ur Random Chloride Random Vancomycin Hepatitis A IgM Ab Hep Bs Antigen Hep B Core IgM Ab Hepatitis C Antibody ABG Interpretation ABG results: 05/10/29/24 10/29/24 10:00 12:47 22:20 ABG pH 7.27 L ABG pCO2 35 ABG pO2 201 H ABG HCO3 16 L ABG O2 Saturation 100 H ABG Base Excess -10 L VBG pH 7.33 7.28 L VBG pCO2 43 36 VBG pO2 31 53 D VBG Base Excess -3 -9 L 10/29/24 10/30/24 23:47 08:07 ABG pH 7.23 L 7.30 L ABG pCO2 30 L 18 L* D ABG pO2 301 H D 240 H D ABG HCO3 13 L 9 L* ABG O2 Saturation 100 H 100 H ABG Base Excess -14 L -16 L VBG pH VBG pCO2 VBG pO2 VBG Base Excess Quality Measures Quality Measures none Advance care planning discussed with:: patient and child Assessment & Plan Assessment Current Active Medications: Generic Name Dose Route Start Last Admin Trade Name Freq PRN Reason Stop Dose Admin Acetaminophen 650 mg 10/29/24 13:53 Acetaminophen 325 Mg Tablet PO 11/28/24 13:52 Q4HR PRN PAIN SCALE 1-3 (mild Acetaminophen 650 mg 10/29/24 13:53 Acetaminophen Supp 650 Mg Supp GA 11/28/24 13:52 Q4HR PRN PAIN SCALE 1-3 (mild Al Hydrox/Mg Hydrox/Simethicone 30 ml 10/29/24 13:53 Mg Hyd/Al Hyd/Elpidio (Maalox Reg) Susp 30 Ml Udc PO 11/28/24 13:52 Q4HR PRN Heartburn or Upset Stomach Dextrose 25 ml 10/29/24 15:57 Dextrose 50%-Water Inj 50 Ml Syringe IV 11/28/24 15:56 Q15MIN PRN BG 50-70 responsive npo pt Dextrose 50 ml 10/29/24 15:57 Dextrose 50%-Water Inj 50 Ml Syringe IV 11/28/24 15:56 Q15MIN PRN BG <50 OR BG <70 & pt unresponsive Enoxaparin Sodium 40 mg 10/29/24 13:53 10/30/24 09:10 Enoxaparin Sod Inj 40 Mg/0.4 Ml Syringe SC 11/12/24 13:52 40 mg QDAY SEVERIANO Administration Famotidine 20 mg 10/30/24 09:00 10/30/24 09:10 Famotidine Inj 10 Mg/Ml Vial 2 Ml IVP 11/29/24 08:59 20 mg QDAY SEVERIANO Administration Glucagon 1 mg 10/29/24 15:57 Glucagon Inj 1 Mg Vial IM Q15MIN PRN BG <70, and no IV access Hydrocortisone Sodium Succinate 50 mg 10/30/24 00:00 10/30/24 11:15 Hydrocortisone Sod Succ Inj 100 Mg Vial IV 11/29/24 00:00 50 mg Q6HR SEVERIANO Administration Fentanyl Citrate 2,500 mcg in 250 mls @ 2.5 mls/hr 10/29/24 10:30 10/30/24 08:00 Sublimaze Inj 2,500 Mcg/250 Ml Bag IV 11/03/24 10:29 75 mcg/hr .Q24H PRN 7.5 mls/hr PER PROTOCOL Titration Protocol 25 MCG/HR Piperacillin/Tazobactam/Dextrose 3.375 gm in 50 mls @ 100 mls/hr 10/29/24 14:22 10/30/24 05:26 Zosyn IV 11/05/24 14:21 100 mls/hr Q8HR SEVERIANO Administration Propofol 1,000 mg in 100 mls @ 2.358 mls/hr 10/29/24 17:05 10/30/24 08:00 Diprivan Ivpb IV 11/28/24 17:04 5 mcg/kg/min .Q24H PRN 2.358 mls/hr PER PROTOCOL Titration Protocol 5 MCG/KG/MIN Vasopressin/Sodium Chloride 20 unit in 100 mls @ 9 mls/hr 10/29/24 20:52 10/30/24 06:34 Vasostrict/Ns Ivpb IV 11/28/24 20:51 0.03 unit/min .Q11H7M PRN 9 mls/hr PER PROTOCOL Administration Protocol 0.03 UNIT/MIN Norepinephrine Bitartrate 16 mg in 250 mls @ 3.684 mls/hr 10/29/24 23:00 10/30/24 09:40 Levophed In Ns 16mg/250ml IV 11/28/24 22:59 0.72 mcg/kg/min .Q24H PRN 53.055 mls/hr PER PROTOCOL Titration Protocol 0.05 MCG/KG/MIN Phenylephrine HCl 40 mg/ 100 mls @ 5.895 mls/hr 10/29/24 23:30 Sodium Chloride IV 11/28/24 23:29 .[id number] PRN Per Sepsis Protocol Protocol 0.5 MCG/KG/MIN Vancomycin/Sodium Chloride 100 mls @ 120 mls/hr 10/30/24 12:00 Vancomycin/Ns 500 Mg Ivpb IV 11/06/24 11:59 Q24H SEVERIANO Sodium Bicarbonate 88.23 meq/ 588.23 mls @ 100 mls/hr 10/30/24 09:15 10/30/24 09:25 Dextrose IV 11/29/24 09:14 100 mls/hr .Q5H53M SEVERIANO Administration Insulin Human Lispro 0 unit 10/29/24 18:00 10/30/24 05:46 Insulin Lispro (Admelog) 1 Unit/0.01 Ml Unit SC 11/28/24 17:59 Not Given Q6HR SEVERIANO Protocol Magnesium Hydroxide 30 ml 10/29/24 13:53 Milk Of Magnesia Susp 30 Ml Udc PO 11/28/24 13:52 QDAY PRN CONSTIPATION Nitroglycerin 0.4 mg 10/29/24 13:53 Nitroglycerin 0.4 Mg Subl Btl #25 SL Q5MIN PRN CHEST PAIN Pharmacy Consult 1 each 10/30/24 09:00 Vancomycin Pharmacy To Dose 1 Each Each IV 11/29/24 08:59 QDAY PRN PROTOCOL Sennosides 1 tab 10/29/24 13:10 Senna Tablet PO 11/28/24 13:09 QDAY PRN constipation Protocol Plan Patient is a 69-year-old female with a past medical history of hypertension, hyperlipidemia, diabetes mellitus type 2 [id number] who was admitted on 10/29/2024 for shock unknown etiology and requiring mechanical ventilation, unable to protect airway (GCS 7). Central Nervous System: Problem: Acute encephalopathy DDX: acute encephalopathy secondary to stroke as patient was found obtunded at 9:00 AM (last well known tie 8:00 PM) with decreased right motor function unable to withdraw from painful stimuli as compared to left extremities. NIHSS score of 23. CT head no acute hemorrhage and on fentanly and propofol for sedation Dx: Head CT Negative for acute hemorrhage, mass effect or midline shift RX: Aspirin 81 mg (stopped) RRX: consider MRI Cardiovascular: Problem: Shock likely secondary to distributive DDX: Shock secondary to distributive/Septic in the setting of bacteremia GNR and positive Urine Culture GNR. Cheetah low TPRI and CI >2.5. vs cardiogenic has elevated troponins but no ST elevation noted on EKG, likely in the setting demand ischemia, bedside showed adquate contractility. Echo 70-75%. vs obstructive shock given pulmonary artery air emboli less likely contributing to shock as CVP of 5 and no JVD noted. Dx: UA: WBC 153, Bacteria 3+, Leukocyte Positive; CT Abdomen/Pelvis/Chest:Bibasilar pneumonia, consider aspiration pneumonia. Extensive air density in the main pulmonary artery, perinephric stranding mild right hydronephrosis, Repeat CT: moderate pleural effusion on left lung field and improved air embolism. Echo: Normal LV size. EF 70-75%. Trace pericardial effusion without evidence of tamponade. RX: Cheetah, Levophed, Vasopressin, 1.25 L (10/30/2024) , blood culture GNR, urine culture GNR, and sputum culture GPC, trend troponin RRX: Problem: history of hypertension Given shock, currently holding metoprolol succinate 100 mg qday RX: MAP near 65 or systolic BP 90 Respiratory: Problem: Acute Respiratory Failure, Mechanical Ventilation unable to protect airway, pleural effusion DDX: Patient unable to protect airway GCS score of 7. Air embolism noted on CT chest, likely secondary to air in IV fluids vs during CT injection. Dx: Chest:Bibasilar pneumonia, consider aspiration pneumonia. RX: Fentanyl @75 mcg/hr, RAAS -2, please do not increase Fentanly pass 75. RRX: Consider Propofol, in addition to Fentanyl Gastroenterology: Problem: Transaminitis, hyperbilirubinemia DDX: Likely in the setting of shock with worsening AST/ALT concern for acute liver failure Dx: CT Abdomen (07/26/2024): NO focal liver or splenic lesions. Total bilirubin 0.4-->1.2 RX: treat underlying shock RRX: monitor AST/ALT GI prophylaxis: Famotidine 20 mg IVP qday Renal: Problem: MAHIN now in acute renal failure DDX: MAHIN likely secondary pre-renal in the setting of shock as BUN/Cr ratio 20-->now in renal failure, likely secondary to shock leading intrinsic injury, worsening lactic acid. Urine output 0 overnight. vs MAHIN on CKD as previous GFR 07/2024 noted to have GFR <60, Dx: BUN 43, Cr 2.2, GFR 24, BUN/Cr 20--> BUN 39, Cr 2.8, Lactic acid 8.1 (10/30/2024) RX: avoid nephrotoxins, renally dose medication, No fluids given 7 liters in total given (10/30/2024), 1 Liter given over night and 250 cc bolus (10/30/2024), albumin 5% 500cc, nephrology consulted, appreciate recommendations, Dr. Conley. Renal panel Q4 HR. RRX: CRRT Problem: Metabolic Acidosis, high anion gap and non-anion gap metabolic acidosis, & Respiratory Alkalosis DDx: Delta gap of 0.5, Metabolic Acidosis (high anion gap) from lactic acid in the setting of shock and non anion gap metabolic acidosis as decrease in bicarbonate is greater than the elevation in anion gap (19). Predicated PCO2 23 <actual ABG PCO2, thus Metaoblic acidosis and respiratory alkalosis. Rx: treat underlying sepsis, bicarbonate gtt Rxx: ABG Q4HR Hypocalcemia Hyperkalemia DDX: in the setting of renal failure. Dx: Rx: CRRT Hypophsophatemia DDX: in the setting of renal failure Dx: Rx: CRRT and Neutra pack Rxx: Heme: Problem: Leukocytosis DDX: Leukocytosis in the setting of sepsis secondary to UTI w/ left band shift Dx: WBC 21.4 RX: antibiotics: Zosyn and Vancomcin (10/29/2024--) RRX: pending blood, urine, and sputum cultures DVT prophylaxis: Lovenox Problem: Normocytic Anemia DDX: likely in the setting of sepsis secondary to acute inflammation vs acute blood loss, concern for worsening PT and new pleural effusion on left pulmonary field, consider hemothorax vs dilution given fluid resucitation. Dx: Hgb 11.7, hct 36.8, MCV 92 (10/30/2024) Rx: type and screen, continue to monitor Problem: Throbocytopenia DDx: likely in the setting of sepsis vs concern for DIC given worsening coagulation panel vs dilution effects. Dx: PT 17.2, INR 1.6, PTT 40.0 Rx: Rxx: monitor platelets >30,000 if no bleeding Endo: Problem: Diabetes Mellitus Type 2, non-insulin dependent DDX: Past medical history of DM type 2 on Metformin and Jardiance at home. No previous A1c. Dx: Glucose on admission 133. RX: Sliding scale Lispro Q6HR RRX: A1c and Lipid panel ID: Problem: Sepsis, bacteremia GNR DDX: Sepsis likely secondary to urinary tract infection vs pneumonia given Chest finding of bibasilar pneumonia Dx: UA: WBC 153, Bacteria 3+, Leukocyte Positive; CT Abdomen/Pelvis/Chest:Bibasilar pneumonia, consider aspiration pneumonia. Extensive air density in the main pulmonary artery, perinephric stranding mild right hydronephrosis. Blood Cultures GNR, Urine Culture GNR, RX: Zosyn and Vancomycin (10/29/2024--) RRX: pending blood cultures 24 hours-GNR, urine cultures GNR, and sputum cultures GCP Health Maintenance: Disp: Pt is currently admitted to floors for further management of shock, requiring mechanical ventilation, awaiting blood, sputum, and urine culture. FEN: NPO DVT: Lovenox GI: Famotine Lazo catheter, L. central IJV, L. subclavian triple lumen, and Right A-line Mechanical Ventilation: VT 400, Flow 60, RR 18, PEEP 5.0, FiO2 80 Code: Full Code - The patient's plan was discussed with attending Dr. Ed Spring MD PGY1 Internal Medicine
[2024-10-30] MEDS: HEPARIN SOD INJ 1000 UNIT/ML VIAL 10 ML 2600 UNIT INDWELLCAT (13:35)
[2024-10-30] MEDS: INSULIN LISPRO (AdmeLOG) 1 UNIT/0.01 ML UNIT SC (13:53)
[2024-10-30] MEDS: Norepinephrine/NS 16mg/250ml 16 MG/250 ML BAG 48.634 MG IV (13:53)
[2024-10-30 13:55] LABS: Lactate (Lactic Acid) 8.6 mMol/L (0.4-2.0)
[2024-10-30] MEDS: PROPOFOL 1,000 MG IVPB 1,000 MG/100 ML VIAL 2.358 MG IV (14:05)
--- NOTE | 2024-10-30 14:09 | PD.RESCONSUL ---
HPI Data of Consult Consult date: 10/30/24 Requesting Physician: Lito Orozco MD Admitting Provider: Brittani Ward MD Attending Provider: Lito Orozco MD Primary Care Provider: Physician No Primary/Family Consult Narrative Reason for consult: Severe acidosis requiring dialysis History of present illness: Ms. Sheriff is a 69-year-old female with a past medical history of hypertension, hyperlipidemia, diabetes mellitus type 2 [id number], and history of sciatic nerve pain who presented to the emergency room via ambulance with a chief complaint of altered mental status. Per patient's daughter at bedside, unable to arouse patient this morning after last well-known time on 10/28/2024. All history gathered from daughter at bedside. Patient experienced a ground-level fall on 10/28/2024 that was not witnessed by family members. Patient was found conscious and alert and oriented by marine animal trainer. Denied trauma to head during fall. Ground-level fall occurred in 2023 secondary to sciatic pain. Patient denied sick contacts, pyrexia at home, or cough. 1 month ago patient was treated for outpatient urinary tract infection with antibiotics which was completed. Patient's daughter denied increased frequency or dysuria. Denied emesis or diarrhea. Denied chest pain or shortness of breath. Denied past medical history of heart failure. ER course: Vitals upon arrival blood pressure 74/51 (MAP 58) after receiving 1 L bolus via EMS, tachycardia-148, respiratory rate 12, temperature 102.7, and SpO2 97%,. Patient unable to protect airway requiring mechanical ventilation with a GCS score of 7 upon arrival to the emergency room. WBC count 18.4 neutrophil shift 89. ABG pH of 7.27, CO2 35, O2 201, bicarb 16, oxygen saturation 100%-status post mechanical ventilation. GCS 7 and NISS 23. Patient was intubated and brought to ICU. Patient was placed on bicarb drip but continued to have severe acidosis nephrology consulted for severe acidosis requiring dialysis. Patient seen and examined at bedside, intubated and sedated. Has made 100 ml dark urine. WBC 22.1, Hg 10.6. Sodium 140, potassium 5.4, bicarb 10.9, BUN 40, creatinine 3.0, eGFR 16. Lactic acid 8.1. AST 625, ALT 459, ALP 234. ABG showed pH 7.3, pCO2 18, pO2 240, bicarb 9. Procal 129. UA WBCs 153, 3+ bacteria. Urine random sodium 58.2, potassium 47, chloride 61.7. Elevated anion gap 19. Dialysis line placed. Plan for CRRT therapy, close monitoring. cc:: cc: Lito Orozco MD Review of Systems Review of Systems Systems Reviewed: All systems reviewed, normal except as documented Exam Vital Signs Temp Pulse Resp BP Pulse Ox O2 Del Method FiO2 99.4 F 131 H 18 107/44 L 98 Mechanical Ventilation 80 10/30/24 12:00 10/30/24 14:00 10/30/24 14:00 10/30/24 13:53 10/30/24 14:00 10/30/24 12:00 10/30/24 12:00 Narrative Exam PE: Gen: Well-developed and well-nourished. HEENT: NCAT, PERRLA, EOMI, anicteric conjunctivae. Dry mucous membranes. CVS: normal S1 and S2. RRR. No M/R/G. Resp: CTA B/L. No rhonchi, rales, crackles or wheezing. Abd: soft, non-tender, non-distended. MSK: Good ROM in BUE & BLE. No edema or rash. Neuro: Sedated and intubated. Results Labs 11/01/24 11:45 11/01/24 11:45 Labs: Short CBC 10/30/24 10/30/24 Range/Units 06:12 10:01 WBC 21.1 H 22.1 H (3.6-11.0) Thou/mm3 Hgb 11.7 L 10.6 L (12.0-16.0) g/dL Hct 36.8 32.9 L (36.0-46.0) % Plt Count 120 L D 100 L (140-440) Thou/mm3 BMP 10/29/24 10/30/24 10/30/24 18:18 06:12 10:01 Sodium 145 139 140 Potassium 5.0 5.3 H 5.4 H Chloride 111 H 111 H 110 H Carbon Dioxide 16.0 L < 10.0 L* 10.9 L* BUN 37 H 39 H 40 H Creatinine 2.0 H 2.8 H D 3.0 H Glucose 120 H 201 H D 238 H Calcium 7.4 L 6.9 L 6.6 L* Cardiac Enzymes 10/29/24 10/30/24 10/30/24 Range/Units 18:18 00:34 06:12 Troponin I 0.423 H* D 1.109 H* D 2.590 H* D (0.0-0.045) ng/mL Liver Function 10/29/24 10/30/24 10/30/24 Range/Units 18:18 06:12 10:01 Total Bilirubin 1.3 H D 1.2 (0.3-1.2) mg/dL AST 239 H 625 H* (0-34) U/L ALT 237 H 459 H (10-49) U/L Alkaline Phosphatase 256 H D 234 H D (46-116) U/L Albumin 3.2 L 2.8 L 2.6 L (3.4-4.8) gm/dL ABG Interpretation ABG results: 10/29/24 10/29/24 10/29/24 10:00 12:47 22:20 ABG pH 7.27 L ABG pCO2 35 ABG pO2 201 H ABG HCO3 16 L ABG O2 Saturation 100 H ABG Base Excess -10 L VBG pH 7.33 7.28 L VBG pCO2 43 36 VBG pO2 31 53 D VBG Base Excess -3 -9 L 10/29/24 10/30/24 23:47 08:07 ABG pH 7.23 L 7.30 L ABG pCO2 30 L 18 L* D ABG pO2 301 H D 240 H D ABG HCO3 13 L 9 L* ABG O2 Saturation 100 H 100 H ABG Base Excess -14 L -16 L VBG pH VBG pCO2 VBG pO2 VBG Base Excess Quality Measures Quality Measures VTE prophylaxis Advance care planning discussed with:: patient Medications Home Medications and Allergies Home Medications ?Medication ?Instructions ?Recorded ?Confirmed ?Type amitriptyline 25 mg tablet 25 mg PO HS 10/29/24 10/29/24 History atorvastatin 40 mg tablet 40 mg PO HS 10/29/24 10/29/24 History empagliflozin 10 mg tablet 10 mg PO QDAY 10/29/24 10/29/24 History (Jardiance) empagliflozin 10 mg tablet 10 mg PO QDAY DIABETES 10/29/24 10/29/24 History (Jardiance) gabapentin 100 mg capsule 100 mg PO Q8H 10/29/24 10/29/24 History insulin glargine 100 unit/mL 30 unit subcut .BEDTIME 10/29/24 10/29/24 History subcutaneous solution (Lantus U-100 Insulin) metformin 1,000 mg tablet,extended 1,000 mg PO DAILY 10/29/24 10/29/24 History release 24hr (osmotic) metoprolol succinate 100 mg 100 mg PO QDAY HTN 10/29/24 10/29/24 History tablet,extended release 24 hr semaglutide 0.25 mg or 0.5 mg (2 0.5 mg subcut QWEEK 10/29/24 10/29/24 History mg/3 mL) subcutaneous pen injector (Ozempic) Allergies Allergy/AdvReac Type Severity Reaction Status Date / Time No Known Allergies Allergy Verified 07/26/24 08:18 Visit Medications Acetaminophen (Acetaminophen 325 Mg Tablet) 650 mg PO Q4HR PRN PRN Reason: PAIN SCALE 1-3 (mild Stop: 11/28/24 13:52 Acetaminophen (Acetaminophen Supp 650 Mg Supp) 650 mg RI Q4HR PRN PRN Reason: PAIN SCALE 1-3 (mild Stop: 11/28/24 13:52 Al Hydrox/Mg Hydrox/Simethicone (Mg Hyd/Al Hyd/Elpidio (Maalox Reg) Susp 30 Ml Udc) 30 ml PO Q4HR PRN PRN Reason: Heartburn or Upset Stomach Stop: 11/28/24 13:52 Dextrose (Dextrose 50%-Water Inj 50 Ml Syringe) 25 ml IV Q15MIN PRN PRN Reason: BG 50-70 responsive npo pt Stop: 11/28/24 15:56 Dextrose (Dextrose 50%-Water Inj 50 Ml Syringe) 50 ml IV Q15MIN PRN PRN Reason: BG <50 OR BG <70 & pt unresponsive Stop: 11/28/24 15:56 Enoxaparin Sodium (Enoxaparin Sod Inj 40 Mg/0.4 Ml Syringe) 40 mg SC QDAY SEVERIANO Stop: 11/12/24 13:52 Last Admin: 10/30/24 09:10 Dose: 40 mg Famotidine (Famotidine Inj 10 Mg/Ml Vial 2 Ml) 20 mg IVP QDAY SEVERIANO Stop: 11/29/24 08:59 Last Admin: 10/30/24 09:10 Dose: 20 mg Glucagon (Glucagon Inj 1 Mg Vial) 1 mg IM Q15MIN PRN PRN Reason: BG <70, and no IV access Heparin Sodium (Porcine) (Heparin Sod Inj 1000 Unit/Ml Vial 10 Ml) 2,600 unit INDWELLCAT PRN PRN PRN Reason: DIALYSIS Stop: 11/13/24 13:28 Last Admin: 10/30/24 13:35 Dose: 2,600 unit Hydrocortisone Sodium Succinate (Hydrocortisone Sod Succ Inj 100 Mg Vial) 50 mg IV Q6HR SEVERIANO Stop: 11/29/24 00:00 Last Admin: 10/30/24 11:15 Dose: 50 mg Fentanyl Citrate (Sublimaze Inj 2,500 Mcg/250 Ml Bag) 2,500 mcg in 250 mls @ 2.5 mls/hr IV .Q24H PRN; Protocol PRN Reason: PER PROTOCOL Stop: 11/03/24 10:29 Last Titration: 10/30/24 14:00 Dose: 75 mcg/hr, 7.5 mls/hr Piperacillin/Tazobactam/Dextrose (Zosyn) 3.375 gm in 50 mls @ 100 mls/hr IV Q8HR [facility] Stop: 11/05/24 14:21 Last Admin: 10/30/24 05:26 Dose: 100 mls/hr Propofol (Diprivan Ivpb) 1,000 mg in 100 mls @ 2.358 mls/hr IV .Q24H PRN; Protocol PRN Reason: PER PROTOCOL Stop: 11/28/24 17:04 Last Admin: 10/30/24 14:05 Dose: 5 mcg/kg/min, 2.358 mls/hr Vasopressin/Sodium Chloride (Vasostrict/Ns Ivpb) 20 unit in 100 mls @ 9 mls/hr IV .Q11H7M PRN; Protocol PRN Reason: PER PROTOCOL Stop: 11/28/24 20:51 Last Admin: 10/30/24 06:34 Dose: 0.03 unit/min, 9 mls/hr Norepinephrine Bitartrate (Levophed In Ns 16mg/250ml) 16 mg in 250 mls @ 3.684 mls/hr IV .Q24H PRN; Protocol PRN Reason: PER PROTOCOL Stop: 11/28/24 22:59 Last Titration: 10/30/24 14:00 Dose: 0.66 mcg/kg/min, 48.634 mls/hr Phenylephrine HCl 40 mg/ (Sodium Chloride) 100 mls @ 5.895 mls/hr IV .[id number] PRN; Protocol PRN Reason: Per Sepsis Protocol Stop: 11/28/24 23:29 Vancomycin/Sodium Chloride (Vancomycin/Ns 500 Mg Ivpb) 100 mls @ 120 mls/hr IV Q24H SEVERIANO Stop: 11/06/24 11:59 Last Admin: 10/30/24 13:00 Dose: 120 mls/hr Sodium Bicarbonate 88.23 meq/ (Dextrose) 588.23 mls @ 100 mls/hr IV .Q5H53M SEVERIANO Stop: 11/29/24 09:14 Last Admin: 10/30/24 09:25 Dose: 100 mls/hr Insulin Human Lispro (Insulin Lispro (Admelog) 1 Unit/0.01 Ml Unit) 0 unit SC Q6HR SEVERIANO; Protocol Stop: 11/28/24 17:59 Last Admin: 10/30/24 13:53 Dose: 2 unit Magnesium Hydroxide (Milk Of Magnesia Susp 30 Ml Udc) 30 ml PO QDAY PRN PRN Reason: CONSTIPATION Stop: 11/28/24 13:52 Nitroglycerin (Nitroglycerin 0.4 Mg Subl Btl #25) 0.4 mg SL Q5MIN PRN PRN Reason: CHEST PAIN Pharmacy Consult (Vancomycin Pharmacy To Dose 1 Each Each) 1 each IV QDAY PRN PRN Reason: PROTOCOL Stop: 11/29/24 08:59 Sennosides (Senna Tablet) 1 tab PO QDAY PRN; Protocol PRN Reason: constipation Stop: 11/28/24 13:09 Discontinued Medications Aspirin (Aspirin 81 Mg Chew) 81 mg NG QDAY [facility] Stop: 11/28/24 15:44 Last Admin: 10/30/24 09:10 Dose: 81 mg Calcium Gluconate (Calcium Gluconate 10% Inj 1 Gm/10 Ml Vial) 1 gm IV X1 ONE Stop: 10/30/24 10:57 Last Admin: 10/30/24 11:15 Dose: 1 gm Enoxaparin Sodium (Enoxaparin Sod Inj 40 Mg/0.4 Ml Syringe) 40 mg SC QDAY SEVERIANO Stop: 11/12/24 13:14 Last Admin: 10/29/24 14:13 Dose: Not Given Etomidate (Etomidate Inj 2 Mg/Ml Vial 10 Ml) 20 mg IVP X1 ONE Stop: 10/29/24 10:06 Last Admin: 10/29/24 10:16 Dose: 20 mg Hydrocortisone Sodium Succinate (Hydrocortisone Sod Succ Inj 100 Mg Vial) 100 mg IV X1 ONE Stop: 10/29/24 20:53 Last Admin: 10/29/24 22:08 Dose: 100 mg Sodium Chloride (Ns) 1,000 mls @ 1,000 mls/hr IV .Q1H ONE Stop: 10/29/24 10:55 Last Infusion: 10/29/24 14:04 Dose: Infused Sodium Chloride (Ns) 1,000 mls @ 2,000 mls/hr IV .Q30M ONE Stop: 10/29/24 10:25 Last Admin: 10/29/24 10:05 Dose: 2,000 mls/hr Vancomycin/Sodium Chloride (Vancomycin/Ns 1 Gm Ivpb) 200 mls @ 120 mls/hr IV X1 ONE Stop: 10/29/24 12:00 Last Infusion: 10/29/24 12:25 Dose: Infused Piperacillin/Tazobactam/Dextrose (Zosyn) 3.375 gm in 50 mls @ 100 mls/hr IV X1 ONE Stop: 10/29/24 10:49 Last Infusion: 10/29/24 12:25 Dose: Infused Norepinephrine/Dextrose (Levophed In D5w 8mg/250ml) 8 mg in 250 mls @ 7.734 mls/hr IV .Q24H PRN; Protocol PRN Reason: PER PROTOCOL Stop: 11/28/24 10:29 Last Titration: 10/29/24 23:30 Dose: 1.7 mcg/kg/min, 262.969 mls/hr Sodium Chloride (Ns) 2,000 mls @ 999 mls/hr IV .Q2H1M ONE Stop: 10/29/24 13:50 Last Infusion: 10/29/24 12:25 Dose: 0 mls/hr Lactated Ringer's (Lactated Ringers) 1,000 mls @ 999 mls/hr IV .Q1H1M ONE Stop: 10/29/24 11:00 Last Infusion: 10/29/24 14:04 Dose: Infused Vancomycin/Sodium Chloride (Vancomycin/Ns 750 Mg Ivpb) 750 mg in 150 mls @ 120 mls/hr IV X1 ONE Stop: 10/29/24 15:59 Vancomycin/Sodium Chloride (Vancomycin/Ns 750 Mg Ivpb) 750 mg in 150 mls @ 120 mls/hr IV X1 ONE Stop: 10/29/24 15:59 Last Admin: 10/29/24 15:34 Dose: Not Given Sodium Bicarbonate 88.23 meq/ (Dextrose) 588.23 mls @ 100 mls/hr IV .Q5H53M [facility] Stop: 11/29/24 03:11 Last Admin: 10/30/24 13:24 Dose: Not Given Magnesium Sulfate (Magnesium Sulfate Ivpb) 2 gm in 50 mls @ 25 mls/hr IV X1 ONE Stop: 10/30/24 09:27 Last Admin: 10/30/24 09:10 Dose: 25 mls/hr Albumin Human (Albuminar-25 Ivpb) 25 gm in 100 mls @ 100 mls/hr IV NOW ONE Stop: 10/30/24 11:59 Last Admin: 10/30/24 11:15 Dose: 100 mls/hr Metoprolol Tartrate (Metoprolol Tartrate Inj 1 Mg/Ml Amp 5 Ml) 5 mg IVP X1 ONE Stop: 10/29/24 22:33 Last Admin: 10/29/24 22:34 Dose: 5 mg Metoprolol Tartrate (Metoprolol Tartrate Inj 1 Mg/Ml Amp 5 Ml) 5 mg IVP X1 ONE Stop: 10/29/24 23:52 Last Admin: 10/30/24 00:00 Dose: 5 mg Pantoprazole Sodium (Pantoprazole Inj 40 Mg Vial) 40 mg IVP QDAY [facility] Stop: 11/28/24 13:14 Last Admin: 10/29/24 14:13 Dose: Not Given Sodium Bicarbonate (Sodium Bicarb Inj 8.4% Syr 50 Ml Syringe) 50 ml IV X1 ONE Stop: 10/30/24 07:36 Last Admin: 10/30/24 07:35 Dose: 50 ml Sodium Chloride (Sodium Chloride Rt 10% 15 Ml Nebu) 5 ml INH X1 ONE Stop: 10/29/24 10:24 Last Admin: 10/29/24 10:30 Dose: Not Given Sodium Chloride (Sodium Chloride Rt 10% 15 Ml Nebu) 5 ml INH X1 ONE Stop: 10/29/24 14:23 Last Admin: 10/29/24 15:29 Dose: Not Given Assessment & Plan Plan 69-year-old female with a past medical history of hypertension, hyperlipidemia, diabetes mellitus type 2 [id number] who was admitted on 10/29/2024 for severe septic shock requiring mechanical ventilation and pressors. Nephrology consulted for CRRT for severe acidosis. #Acute renal failure #Metabolic acidosis, severe MAHIN possibly related to prerenal causes in setting of septic shock, also possibly ATN given worsening kidney function and poor urinary output despite IVF. 100 ml urine output. BUN 40, creatinine 3.0, eGFR 16. Patient also severely acidodic despite bicarb drip. ABG pH 7.3, serum bicarb 10.9. Dilaysis line in place. -CRRT -Avoid nephrotoxins -renally dose meds -Strict I's and O's -Close monitoring of acid-base status and renal function. -May continue bicarb drip, consider lactated ringers if discontinued #Acute encephalopathy #Septic Shock #Acute Respiratory Failure, Mechanical Ventilation unable to protect airway #Transaminitis #Diabetes Mellitus Type 2, non-insulin dependent #GNR bactermia #UTI Management as per the primary team. Thank you for allowing us to participate in the care of this patient. Plan of care discussed with attending Dr. Conley. Say Rouse MD PGY-1
[2024-10-30 14:37] LABS: Troponin I 9.454 ng/mL (0.0-0.045)
--- NOTE | 2024-10-30 15:28 | PC.DIETICIAN ---
Nutrition prescription If vasopressor needs improve, consider: Trophic feeds of Vital 1.2 at 20 ml/hr via OG tube by pump; water flushes of 25 ml/hr (or per MD). Once more stable, advance 10 ml every 8 hrs to goal rate of 45 ml/hr x 24 hrs. If no IV fluids, water flushes of 25 ml/hr (or per MD).
[2024-10-30 16:18] LABS: Base Excess -15 (-3-3); HCO3 11 mEq/L (20-26); Inspired Oxygen, FIO2 100 %; O2 Saturation 101 % (91-98); PCO2 24 mmHg (32.0-48.0); PO2 359 mmHg (83-108); pH, Arterial 7.26 (7.35-7.45)
[2024-10-30 16:19] LABS: Allen Test Performed/OK; Puncture Site Arterial Line
[2024-10-30] MEDS: ALTEPLASE RECOMB INJ 2 MG VIAL INDWELLCAT ×2 (16:30)
[2024-10-30 16:38] LABS: Reflex Lactate? Y
[2024-10-30 16:46] LABS: Albumin, Serum 2.6 gm/dL (3.4-4.8); Anion Gap 21 (7-16); BUN/Creatinine Ratio 12 Ratio (12-20); Blood Urea Nitrogen 43 mg/dL (9-23); Calcium (Corrected) 7.8 mg/dL (8.5-10.1); Chloride 109 mMol/L (98-107); Creatinine (Component) 3.5 mg/dL (0.6-1.3); Estimated Creatinine Clearance 14.6 mL/min (>60); Glucose 228 mg/dL (74-106); Osmolality,Calculated 299 (275-295); Phosphorous 5.6 mg/dL (2.4-5.1); Potassium 5.5 mMol/L (3.4-5.1); Sodium 141 mMol/L (136-145); eGFR 13 See Note
[2024-10-30 17:00] LABS: Carbon Dioxide 10.7 mMol/L (20.0-31.0)
[2024-10-30 17:01] LABS: Calcium 6.7 mg/dL (8.3-10.6)
[2024-10-30] MEDS: ROCURONIUM INJ 10 MG/ML VIAL 10 ML 70 MG IVP (18:08)
[2024-10-30] MEDS: ALBUMIN HUMAN 5% IVPB 12.5 GM/250 ML BTL IV (18:09)
[2024-10-30 18:45] LABS: Basophils # (Auto) 0.1 Thou/mm3 (0.0-0.2); Basophils % (Auto) 0 % (0-2.5); Eosinophils # (Auto) 0.1 Thou/mm3 (0.0-0.5); Eosinophils % (Auto) 0 % (0-10); Hematocrit 23.4 % (36.0-46.0); Immature Granulocytes % (Auto) 1 % (0-0); Immature Granulocytes Auto 0.12 Thou/mm3 (0.00-0.00); Lymphocytes # (Auto) 1.2 Thou/mm3 (1.0-4.8); Lymphocytes % (Auto) 6 % (10-50); Mean Corpuscular HGB Conc 32.5 g/dl (31.0-37.0); Mean Corpuscular Hemoglobin 28.6 pg (25.0-35.0); Mean Corpuscular Volume 88 fL (80-100); Monocytes # (Auto) 0.2 Thou/mm3 (0.0-0.8); Monocytes % (Auto) 1 % (0-12); Neutrophils % (Auto) 91 % (37-80); Nucleated Red Blood Cell # 0.16 Thou/mm3 (0.00-0.00); Nucleated Red Blood Cell % 1 /100 WBC (0); RDW Standard Deviation 51.4 fL (36.4-46.3); Red Blood Count 2.66 Miln/mm3 (4.00-5.20); White Blood Count 18.6 Thou/mm3 (3.6-11.0)
[2024-10-30] MEDS: Norepinephrine/NS 16mg/250ml 16 MG/250 ML BAG 54.529 MG IV ×2 (18:52→23:37)
[2024-10-30 18:55] LABS: D-Dimer > 3820 ng/mL (<600)
[2024-10-30 18:56] LABS: Hemoglobin 7.6 g/dL (12.0-16.0); Platelet Count 74 Thou/mm3 (140-440)
[2024-10-30 19:04] LABS: Slide Review Platelets confirmed
[2024-10-30 19:15] LABS: Fibrinogen 441 mg/dL (175-375); INR 1.9 (0.9-1.3); Partial Thromboplastin Time 58.1 Seconds (22.0-36.0); Prothrombin Time 19.7 Seconds (9.0-12.2)
[2024-10-30 19:16] LABS: Troponin I 24.616 ng/mL (0.0-0.045)
[2024-10-30] MEDS: RINGERS LACTATED 1000 ML 250 ML 999 ML IV (20:09)
[2024-10-30 21:21] LABS: Albumin, Serum 2.9 gm/dL (3.4-4.8); Anion Gap 23 (7-16); BUN/Creatinine Ratio 13 Ratio (12-20); Blood Urea Nitrogen 26 mg/dL (9-23); Calcium 7.6 mg/dL (8.3-10.6); Calcium (Corrected) 8.5 mg/dL (8.5-10.1); Chloride 106 mMol/L (98-107); Estimated Creatinine Clearance 25.6 mL/min (>60); Glucose 68 mg/dL (74-106); Osmolality,Calculated 283 (275-295); Phosphorous 4.8 mg/dL (2.4-5.1); Potassium 4.3 mMol/L (3.4-5.1); Sodium 141 mMol/L (136-145); eGFR 26 See Note
[2024-10-30 21:22] LABS: Carbon Dioxide 12.3 mMol/L (20.0-31.0)
[2024-10-30] MEDS: fentaNYL 2,500 MCG/250 ML BAG 2,500 MCG/250 ML BAG 7.5 MCG IV (22:47)
[2024-10-30 23:14] LABS: Base Excess -19 (-3-3); HCO3 8 mEq/L (20-26); O2 Saturation 100 % (91-98); PCO2 23 mmHg (32.0-48.0); PO2 312 mmHg (83-108)
[2024-10-30 23:16] LABS: Inspired Oxygen, FIO2 90 %
[2024-10-30 23:17] LABS: Puncture Site Arterial Line
[2024-10-30 23:19] LABS: pH, Arterial 7.16 (7.35-7.45)
[2024-10-31] VITALS (283 sets, daily range): BP systolic 0–167; BP diastolic 0–100; PULSE 86–169; RESP 0–56; TEMP 35.8–36.7; O2SAT 77–100
[2024-10-31] MEDS: HYDROCORTISONE SOD SUCC INJ 100 MG VIAL 50 MG IV ×4 (00:27→17:06)
[2024-10-31] MEDS: DEXTROSE 50%-WATER INJ 50 ML SYRINGE IV ×3 (00:28→11:35)
[2024-10-31 01:00] LABS: Albumin, Serum 2.7 gm/dL (3.4-4.8); Anion Gap 26 (7-16); BUN/Creatinine Ratio 13 Ratio (12-20); Blood Urea Nitrogen 32 mg/dL (9-23); Calcium 7.2 mg/dL (8.3-10.6); Calcium (Corrected) 8.2 mg/dL (8.5-10.1); Chloride 105 mMol/L (98-107); Creatinine (Component) 2.5 mg/dL (0.6-1.3); Estimated Creatinine Clearance 20.4 mL/min (>60); Glucose 51 mg/dL (74-106); Osmolality,Calculated 285 (275-295); Potassium 4.8 mMol/L (3.4-5.1); Sodium 141 mMol/L (136-145); eGFR 20 See Note
[2024-10-31 01:36] LABS: Carbon Dioxide < 10.0 mMol/L (20.0-31.0)
[2024-10-31 01:37] LABS: Troponin I 31.752 ng/mL (0.0-0.045)
[2024-10-31 03:29] LABS: Reflex Lactate? Y
[2024-10-31] MEDS: Norepinephrine/NS 16mg/250ml 16 MG/250 ML BAG 53.055 MG IV (04:35)
[2024-10-31 05:13] LABS: Base Excess -14 (-3-3); HCO3 12 mEq/L (20-26); Inspired Oxygen, FIO2 90 %; O2 Saturation 101 % (91-98); PCO2 25 mmHg (32.0-48.0); PO2 402 mmHg (83-108); pH, Arterial 7.27 (7.35-7.45)
[2024-10-31 05:17] LABS: Puncture Site Right Femoral
[2024-10-31 05:31] LABS: Basophils # (Auto) 0.1 Thou/mm3 (0.0-0.2); Basophils % (Auto) 1 % (0-2.5); Eosinophils # (Auto) 0.1 Thou/mm3 (0.0-0.5); Eosinophils % (Auto) 1 % (0-10); Immature Granulocytes % (Auto) 3 % (0-0); Lymphocytes # (Auto) 0.6 Thou/mm3 (1.0-4.8); Lymphocytes % (Auto) 4 % (10-50); Mean Corpuscular HGB Conc 32.1 g/dl (31.0-37.0); Mean Corpuscular Hemoglobin 29.2 pg (25.0-35.0); Mean Corpuscular Volume 91 fL (80-100); Monocytes # (Auto) 0.4 Thou/mm3 (0.0-0.8); Monocytes % (Auto) 2 % (0-12); Neutrophils # (Auto) 14.5 Thou/mm3 (1.8-7.7); Neutrophils % (Auto) 90 % (37-80); Nucleated Red Blood Cell # 0.15 Thou/mm3 (0.00-0.00); Nucleated Red Blood Cell % 1 /100 WBC (0); RDW Standard Deviation 51.8 fL (36.4-46.3); Red Blood Count 2.09 Miln/mm3 (4.00-5.20); White Blood Count 16.2 Thou/mm3 (3.6-11.0)
[2024-10-31 05:40] LABS: Hemoglobin 6.1 g/dL (12.0-16.0); Platelet Count 53 Thou/mm3 (140-440)
[2024-10-31 05:46] LABS: Path Review Blood Smear Sent to Pathologist
[2024-10-31] MEDS: PIPER/TAZO 3.375 GM PREMIX 3.375 GM/50 ML BAG IV (06:00)
[2024-10-31] MEDS: VASOPRESSIN IN NS IVPB 20 UNIT/100 ML BAG 9 UNIT IV ×2 (06:00→17:54)
--- NOTE | 2024-10-31 06:00 | XR_ITS ---
Examination: AP chest single view TECHNIQUE: Portable semiupright AP chest single view Date and time: October 31, 2024 0459 hours Comparison October 30, 2024 INDICATION: Hypoxic respiratory failure, postintubation, bibasilar pneumonia on earlier chest films FINDINGS: Significant pneumonia left base Normal heart size Endotracheal tube tip 3.7 cm above Ana Orogastric tube projects in the stomach Left internal jugular central line tip SVC Left subclavian dialysis catheter tip projects left innominate vein IMPRESSION: Significant left base pneumonia Consider advancing the dialysis catheter 4 cm
[2024-10-31 06:15] LABS: Alanine Aminotransferase 1391 U/L (10-49); Albumin, Serum 2.3 gm/dL (3.4-4.8); Albumin/Globulin Ratio 1.6 (1.2-2.2); Alkaline Phosphatase 463 U/L (46-116); Anion Gap 22 (7-16); Aspartate Amino Transferase 2151 U/L (0-34); BUN/Creatinine Ratio 13 Ratio (12-20); Bilirubin,Total 1.3 mg/dL (0.3-1.2); Blood Urea Nitrogen 20 mg/dL (9-23); Calcium 7.4 mg/dL (8.3-10.6); Calcium (Corrected) 8.8 mg/dL (8.5-10.1); Chloride 102 mMol/L (98-107); Creatinine (Component) 1.5 mg/dL (0.6-1.3); Estimated Creatinine Clearance 34.1 mL/min (>60); Globulin 1.4 gm/dL (2.3-3.5); Glucose 168 mg/dL (74-106); Magnesium 1.6 mg/dL (1.6-2.6); Osmolality,Calculated 284 (275-295); Phosphorous 3.8 mg/dL (2.4-5.1); Potassium 3.8 mMol/L (3.4-5.1); Sodium 139 mMol/L (136-145); Total Protein 3.7 gm/dL (5.7-8.2); eGFR 37 See Note
[2024-10-31 06:16] LABS: Slide Review Platelets confirmed
[2024-10-31 06:23] LABS: Carbon Dioxide 14.8 mMol/L (20.0-31.0); Troponin I 19.952 ng/mL (0.0-0.045)
[2024-10-31 07:15] LABS: INR 2.3 (0.9-1.3); Prothrombin Time 23.5 Seconds (9.0-12.2)
--- NOTE | 2024-10-31 07:41 | XR_ITS ---
Examination: AP chest single view Technique one AP portable supine chest single view Date and time: October 31, 2024 at 0751 hours Comparison October 31, 2024 0459 hours INDICATIONS: Insertion central line today. FINDINGS: Left internal jugular right tri flow catheter SVC satisfactory position A second left subclavian tri flow catheter tip projects in the left innominate vein Endotracheal tube tip 5.6 cm above chip Significant left base pneumonia Normal heart size Orogastric tube in the stomach IMPRESSION: Significant left base pneumonia Lines as above
--- NOTE | 2024-10-31 07:49 | PD.RESPROC ---
Procedures Procedure Date / Time 10/31/24 0749 Procedure Narrative Procedure Narrative: Left IJ central line exchange for Left IJ Tri-flow Indication: emergent dialysis, poor access My hands were washed immediately prior to the procedure. I wore a surgical cap, mask with protective eyewear, full gown and sterile gloves throughout the procedure. The sterile dressing over the left IJ central line was removed and the area cleaned. The sutures were removed. The left neck area was prepped with chlorohohexadine prep. The area was draped in sterile fashion. The left central line was cut. The guidewire was advanced through the largest lumen without difficulty. The central line was removed. A small incision as made at the skin surface with a scalpel and the dilator was exchanged over the guidewire. After appropriate dilation was obtained, the dilator was removed and a larger dilator was exchanged over the guidewire. The dilator was then exchanged over the guidewire for a Tri-Flow. The guidewire was removed. The red and blue ports were aspirated and flushed. The purple port was slow to aspirate but was flushable. The catheter was sutured in place and sterile dressing was applied over the catheter. A post-procedure CXR was ordered. Estimated blood loss = 2mL. Procedure done under the superivison of Dr. Ward, Reyna Boateng MD PGY-3
[2024-10-31 08:13] LABS: Reflex Lactate? Y
[2024-10-31 08:28] LABS: Albumin, Serum 2.6 gm/dL (3.4-4.8); Anion Gap 25 (7-16); BUN/Creatinine Ratio 13 Ratio (12-20); Blood Urea Nitrogen 26 mg/dL (9-23); Calcium 7.4 mg/dL (8.3-10.6); Calcium (Corrected) 8.5 mg/dL (8.5-10.1); Chloride 103 mMol/L (98-107); Estimated Creatinine Clearance 26.6 mL/min (>60); Glucose 99 mg/dL (74-106); Osmolality,Calculated 280 (275-295); Phosphorous 5.6 mg/dL (2.4-5.1); Potassium 4.6 mMol/L (3.4-5.1); Sodium 138 mMol/L (136-145); eGFR 26 See Note
[2024-10-31 08:29] LABS: Troponin I 19.206 ng/mL (0.0-0.045)
[2024-10-31 08:30] LABS: Carbon Dioxide < 10.0 mMol/L (20.0-31.0)
--- NOTE | 2024-10-31 08:48 | ESOP_ITS ---
Procedures Procedure Date / Time 10/31/24 0848 Arterial Line Size (Gauge): 16 Central Line Placement Left Femoral: Indication(s): poor, or inadequate peripheral venous access Informed consent obtained: obtained from surrogate decision maker Time out done, and the following verified: correct patient, side and site, procedure and patient position Patient placed on monitor/pulse ox: Yes Hand Hygiene: soap & water and alcohol-based hand rub Max Sterile Barrier Techniques used: cap, mask, sterile gown, sterile gloves and sterile full body drape Central line prep: Chlorhexidine scrub and sterile drapes applied Local anesthesia used: lidocaine 1% Amount of anesthesia used (mL): 10 Ultrasound used for placement: Yes Sterile Technique if Ultrasound used, including sterile gel: yes Central line lumen inserted: triple Patient tolerated procedure: other EBL(ml): 10 Procedure comment: Around 5 AM on October 31, 2024 attempt was made for placement of Tri flow catheter in the right femoral vein and left femoral vein. Patient had a left subclavian Tri flow catheter that was being used for dialysis and was intermittently malfunctioning and at 5 AM completely ceased to work. At that point decision was made to attempt for try flow catheter in the right femoral with ultrasound- guided technique and with sterile dressings. Attempts on right femoral vein were discontinued after 3 pokes to the region. Transitioned over to the left femoral site to attempt there with another 3 pokes and was unsuccessful. At that point further attempts were aborted and decision was made to reassess in the a.m. if patient would be better suited in receiving a dialysis line via interventional radiology under the guidance of CT.
--- NOTE | 2024-10-31 09:43 | PD.RESPRO ---
Documentation for date of: 10/31/24 Subjective Subjective Interval history: Patient is a 69-year-old female with a past medical history of hypertension, hyperlipidemia, diabetes mellitus type 2 [id number], and history of sciatic nerve pain who presented to the emergency room via ambulance with a chief complaint of altered mental status. Per patient's daughter at bedside, unable to arouse patient this morning after last well-known time on 10/28/2024. All history gathered from daughter at bedside. Patient experienced a ground-level fall on 10/28/2024 that was not witnessed by family members. Patient was found conscious and alert and oriented by winterizer. Denied trauma to head during fall. Ground-level fall occurred in 2023 secondary to sciatic pain. Patient denied sick contacts, pyrexia at home, or cough. 1 month ago patient was treated for outpatient urinary tract infection with antibiotics which was completed. Patient's daughter denied increased frequency or dysuria. Denied emesis or diarrhea. Denied chest pain or shortness of breath. Denied past medical history of heart failure. ER course: Vitals upon arrival blood pressure 74/51 (MAP 58) after receiving 1 L bolus via EMS, tachycardia-148, respiratory rate 12, temperature 102.7, and SpO2 97%,. Patient unable to protect airway requiring mechanical ventilation with a GCS score of 7 upon arrival to the emergency room. WBC count 18.4 neutrophil shift 89. ABG pH of 7.27, CO2 35, O2 201, bicarb 16, oxygen saturation 100%-status post mechanical ventilation. GCS 7 and NISS 23 MAHIN BUN 43, creatinine 2.2, ratio GFR 04 August 2024 showing GFR 54 possible MAHIN on CKD. Glucose 133. Lactic Acid 6.2, repeat 5.9. AST 83, ALT 136, Total Creatine Kinase 194 Troponin 0.075 H, EKG sinus tachycardia BNP 175 (no previous labs) Proclacitionin 129.54 Chest xray No penumonia, minor subsegmental atelectasis left base Head CT Negative for acute hemorrhage, mass effect or midline shift Abdomen/Pelvis/Chest CT: Extensive air density in the pain pulmonary artery segment and right main pulmonary artery as well as left innominate vein and right subclavian vein superior vena cava. Smaller areas of air density in the right anterior chest wall and sbucutaneous fatty tissue Medication: 6 Liter bolus ER + 1 Liter Bolus in ambulance, Etomidate, Norepinephrine, and Fentanyl drip, Zosy & Vancomycin Admitted on 10/29/2024 for shock unknown etiology and requiring mechanical ventilation, unable to protect airway (GCS 7). 10/30/2024: Overnight patient required starting vasopressin at 0.03 on Levophed restarted at 1.8 mcg/Kg as MAP dropped below 65. Currenlty, Vasopressin 0.03 units/min, Levophed 0.66 mcg/kg/min, propfolol 5 mcg/kg/min, and fentanyl 75 mcg/hr. Bacteremia, Blood cultures noted for GNR, Urine Culture GNR, and sputum cultures GPC. MRSA pending. Plan for CRRT as patient has worsening lactic acid, consult nephrology. Worsening Troponemia, consult cardiology. Plan for CT chest. Patient is mechanically ventilated TV 400, RR 18, PEEP 5, FiO2 100-->FiO2 decreased to 90%. 10/31/2024: TABLO was started yesterday evening for acute renal failure and high anion gap metabolic acidosis. The L subclavian TriFlow was retracted ~3cm, resulting in improved blood flow for the dialysis machine. She completed 6 hours before the Tablo machine went down at 5am and patient was off dialysis for 3 hours. During this time, lactic acid increased. The L subclavian Tri-Flow was non-functional for the dialysis machine, and attempts were made for alternative Tri-Flow access through the left and right femoral veins but were unsuccessful. This morning, the L IJ central line was exchanged for a Tri-Flow, and levophed/vasopressin were infused through the L subclavian. Dialysis is to be continued. She remains anuric. The patient's pulse oximeter reads between 50% to 80% despite alternating probe sites and types of probes. The ABG shows O2 saturation of > 100% so we will decrease the FiO2 on the ventilator. We will warm the patient's fingers/ear where the probe site is for a better pulse ox reading. Hemoglobin this morning was 6.1. 4 units of PRBC, 2 FFP and 1 platelet were ordered as patient is in DIC. There is concern for bleeding into the left pleural space due to the interval left pleural effusion seen on CT and drop in hemoglobin. We will transfuse blood products. Regarding the patient's sepsis, we will follow up with blood, urine, and sputum cultures and sensitivities. Exam Vital Signs Temp Pulse Resp BP Pulse Ox O2 Del Method FiO2 96.7 F L 127 H 28 H 112/45 L 87 L Mechanical Ventilation 90 10/31/24 09:25 10/31/24 09:40 10/31/24 09:25 10/31/24 09:40 10/31/24 08:10 10/30/24 12:00 10/31/24 09:25 Narrative Exam Constitutional: ill-appearing elderly female HEENT: pupils weakly reactive to light. dry mucous membranes. ET tube in place. Respiratory: No wheezes, ronchi. Decreased breath sounds at bases. Cardiac: Tachycardic, sinus. No murmurs, rubs, gallops. Abdomen: Soft, non-distended, non-tender. MSK: no B/L LE edema. Cool upper and lower peripheral extremities. Skin: L groin hematoma. Stasis dermatitis changes B/L LE. Purple discoloration over left LE proximal second and third digit. Neuro: unresponsive to painful stimuli, not opening eyes. Lines: ET, OG, L Subclavian Tri-Flow, L IJ Tri-Flow, R femoral A-line, Lazo, PIV, Objective Labs 11/01/24 11:45 11/01/24 11:45 Labs: Laboratory Results - last 24 hr 10/30/24 10/30/24 10/30/24 10:01 13:16 16:09 WBC 22.1 H RBC 3.66 L Hgb 10.6 L Hct 32.9 L MCV 90 MCH 29.0 MCHC 32.2 RDW Std Deviation 52.2 H Plt Count 100 L Neut % (Auto) 88 H Lymph % (Auto) 3 L [place] % (Auto) 1 Eos % (Auto) 0 Baso % (Auto) 0 Neut # (Auto) 19.4 H Lymph # (Auto) 0.6 L [place] # (Auto) 0.3 Eos # (Auto) 0.0 Baso # (Auto) 0.1 Immature Gran # (Auto) 1.69 H Absolute Nucleated RBC 0.22 H Immature Gran % 8 H Nucleated RBC % 1 H Smear Path Review PT 17.2 H D INR 1.6 H APTT 40.0 H Fibrinogen 535 H D-Dimer > 3820 H Puncture Site ABG pH ABG pCO2 ABG pO2 ABG HCO3 ABG O2 Saturation ABG Base Excess FiO2 Sodium 140 141 Potassium 5.4 H 5.5 H Chloride 110 H 109 H Carbon Dioxide 10.9 L* 10.7 L* Anion Gap 19 H 21 H BUN 40 H 43 H Creatinine 3.0 H 3.5 H D Estim Creat Clear Calc 17.0 L 14.6 L eGFR 16 L 13 L* BUN/Creatinine Ratio 13 12 Glucose 238 H 228 H Calculated Osmolality 297 H 299 H Lactic Acid 8.6 H* Calcium 6.6 L* 6.7 L* Corrected Calcium 7.7 L 7.8 L Phosphorus 5.6 H Magnesium Total Bilirubin 1.2 AST 625 H* ALT 459 H Alkaline Phosphatase 234 H D Troponin I 9.454 H* D Total Protein 4.4 L Albumin 2.6 L 2.6 L Globulin 1.8 L Albumin/Globulin Ratio 1.4 Misc Test Result Blood Type Antibody Screen [facility] Blood Bank [facility] Blood Bank Comment 10/30/24 10/30/24 10/30/24 16:11 16:57 18:21 WBC 18.6 H RBC 2.66 L Hgb Cancelled Hct MCV MCH MCHC RDW Std Deviation Plt Count Neut % (Auto) Lymph % (Auto) [place] % (Auto) Eos % (Auto) Baso % (Auto) Neut # (Auto) Lymph # (Auto) [place] # (Auto) Eos # (Auto) Baso # (Auto) Immature Gran # (Auto) Absolute Nucleated RBC Immature Gran % Nucleated RBC % Smear Path Review PT INR APTT Fibrinogen D-Dimer Puncture Site Arterial Line ABG pH 7.26 L ABG pCO2 24 L ABG pO2 359 H D ABG HCO3 11 L ABG O2 Saturation 101 H ABG Base Excess -15 L FiO2 100 Sodium Potassium Chloride Carbon Dioxide Anion Gap BUN Creatinine Estim Creat Clear Calc eGFR BUN/Creatinine Ratio Glucose Calculated Osmolality Lactic Acid 10.0 H* Calcium Corrected Calcium Phosphorus Magnesium Total Bilirubin AST ALT Alkaline Phosphatase Troponin I Total Protein Albumin Globulin Albumin/Globulin Ratio Misc Test Result Blood Type Antibody Screen [facility] Blood Bank [facility] Blood Bank Comment 10/30/24 10/30/24 10/30/24 18:21 18:21 20:20 WBC RBC Hgb 7.6 L D Hct Cancelled 23.4 L MCV 88 MCH 28.6 MCHC 32.5 RDW Std Deviation 51.4 H Plt Count 74 L D Neut % (Auto) 91 H Lymph % (Auto) 6 L [place] % (Auto) 1 Eos % (Auto) 0 Baso % (Auto) 0 Neut # (Auto) 17.0 H Lymph # (Auto) 1.2 [place] # (Auto) 0.2 Eos # (Auto) 0.1 Baso # (Auto) 0.1 Immature Gran # (Auto) 0.12 H Absolute Nucleated RBC 0.16 H Immature Gran % 1 H Nucleated RBC % 1 H Smear Path Review PT 19.7 H INR 1.9 H APTT 58.1 H D Fibrinogen 441 H D-Dimer > 3820 H Puncture Site ABG pH ABG pCO2 ABG pO2 ABG HCO3 ABG O2 Saturation ABG Base Excess FiO2 Sodium 141 Potassium 4.3 D Chloride 106 Carbon Dioxide 12.3 L* Anion Gap 23 H BUN 26 H Creatinine 2.0 H D Estim Creat Clear Calc 25.6 L eGFR 26 L BUN/Creatinine Ratio 13 Glucose 68 L D Calculated Osmolality 283 Lactic Acid Calcium 7.6 L Corrected Calcium 8.5 Phosphorus 4.8 Magnesium Total Bilirubin AST ALT Alkaline Phosphatase Troponin I 24.616 H* D Total Protein Albumin 2.9 L Globulin Albumin/Globulin Ratio Misc Test Result Platelets confirmed Blood Type A Positive Antibody Screen NEGATIVE Crossmatch See Detail Blood Bank Wristband ID Yes Blood Bank Comment FFP Ready 10/30/24 10/31/24 10/31/24 22:35 00:17 04:47 WBC 16.2 H RBC 2.09 L Hgb 6.1 L* Hct 19.0 L* MCV 91 MCH 29.2 MCHC 32.1 RDW Std Deviation 51.8 H Plt Count 53 L D Neut % (Auto) 90 H Lymph % (Auto) 4 L [place] % (Auto) 2 Eos % (Auto) 1 Baso % (Auto) 1 Neut # (Auto) 14.5 H Lymph # (Auto) 0.6 L [place] # (Auto) 0.4 Eos # (Auto) 0.1 Baso # (Auto) 0.1 Immature Gran # (Auto) 0.50 H Absolute Nucleated RBC 0.15 H Immature Gran % 3 H Nucleated RBC % 1 H Smear Path Review Sent to Pathologist PT 23.5 H D INR 2.3 H APTT Fibrinogen D-Dimer Puncture Site Arterial Line ABG pH 7.16 L* D ABG pCO2 23 L ABG pO2 312 H D ABG HCO3 8 L* ABG O2 Saturation 100 H ABG Base Excess -19 L FiO2 90 Sodium 141 139 Potassium 4.8 D 3.8 D Chloride 105 102 Carbon Dioxide < 10.0 L* 14.8 L* Anion Gap 26 H 22 H BUN 32 H 20 Creatinine 2.5 H D 1.5 H D Estim Creat Clear Calc 20.4 L 34.1 L eGFR 20 L 37 L BUN/Creatinine Ratio 13 13 Glucose 51 L 168 H D Calculated Osmolality 285 284 Lactic Acid 15.0 H* 13.0 H* Calcium 7.2 L 7.4 L Corrected Calcium 8.2 L 8.8 Phosphorus 6.0 H 3.8 Magnesium 1.6 Total Bilirubin 1.3 H AST 2151 H* ALT 1391 H* Alkaline Phosphatase 463 H D Troponin I 31.752 H* D 19.952 H* D Total Protein 3.7 L Albumin 2.7 L 2.3 L Globulin 1.4 L Albumin/Globulin Ratio 1.6 Misc Test Result Platelets confirmed Blood Type Antibody Screen [facility] Blood Bank [facility] Blood Bank Comment 10/31/24 10/31/24 05:00 07:55 WBC RBC Hgb Hct MCV MCH MCHC RDW Std Deviation Plt Count Neut % (Auto) Lymph % (Auto) [place] % (Auto) Eos % (Auto) Baso % (Auto) Neut # (Auto) Lymph # (Auto) [place] # (Auto) Eos # (Auto) Baso # (Auto) Immature Gran # (Auto) Absolute Nucleated RBC Immature Gran % Nucleated RBC % Smear Path Review PT INR APTT Fibrinogen D-Dimer Puncture Site Right Femoral ABG pH 7.27 L D ABG pCO2 25 L ABG pO2 402 H D ABG HCO3 12 L ABG O2 Saturation 101 H ABG Base Excess -14 L FiO2 90 Sodium 138 Potassium 4.6 D Chloride 103 Carbon Dioxide < 10.0 L* Anion Gap 25 H BUN 26 H Creatinine 2.0 H D Estim Creat Clear Calc 26.6 L eGFR 26 L BUN/Creatinine Ratio 13 Glucose 99 D Calculated Osmolality 280 Lactic Acid 17.0 H* Calcium 7.4 L Corrected Calcium 8.5 Phosphorus 5.6 H Magnesium Total Bilirubin AST ALT Alkaline Phosphatase Troponin I 19.206 H* D Total Protein Albumin 2.6 L Globulin Albumin/Globulin Ratio Misc Test Result Blood Type Antibody Screen [facility] Blood Bank Wristband ID Blood Bank Comment ABG Interpretation ABG results: 10/29/24 10/29/24 10/29/24 10:00 12:47 22:20 ABG pH 7.27 L ABG pCO2 35 ABG pO2 201 H ABG HCO3 16 L ABG O2 Saturation 100 H ABG Base Excess -10 L VBG pH 7.33 7.28 L VBG pCO2 43 36 VBG pO2 31 53 D VBG Base Excess -3 -9 L 10/29/24 10/30/24 10/30/24 23:47 08:07 16:11 ABG pH 7.23 L 7.30 L 7.26 L ABG pCO2 30 L 18 L* D 24 L ABG pO2 301 H D 240 H D 359 H D ABG HCO3 13 L 9 L* 11 L ABG O2 Saturation 100 H 100 H 101 H ABG Base Excess -14 L -16 L -15 L VBG pH VBG pCO2 VBG pO2 VBG Base Excess 10/30/24 10/31/24 22:35 05:00 ABG pH 7.16 L* D 7.27 L D ABG pCO2 23 L 25 L ABG pO2 312 H D 402 H D ABG HCO3 8 L* 12 L ABG O2 Saturation 100 H 101 H ABG Base Excess -19 L -14 L VBG pH VBG pCO2 VBG pO2 VBG Base Excess Quality Measures Quality Measures VTE prophylaxis Advance care planning discussed with:: child Assessment & Plan Assessment Current Active Medications: Generic Name Dose Route Start Last Admin Trade Name Freq PRN Reason Stop Dose Admin Acetaminophen 650 mg 10/29/24 13:53 Acetaminophen 325 Mg Tablet PO 11/28/24 13:52 Q4HR PRN PAIN SCALE 1-3 (mild Acetaminophen 650 mg 10/29/24 13:53 Acetaminophen Supp 650 Mg Supp ND 11/28/24 13:52 Q4HR PRN PAIN SCALE 1-3 (mild Al Hydrox/Mg Hydrox/Simethicone 30 ml 10/29/24 13:53 Mg Hyd/Al Hyd/Elpidio (Maalox Reg) Susp 30 Ml Udc PO 11/28/24 13:52 Q4HR PRN Heartburn or Upset Stomach Dextrose 25 ml 10/29/24 15:57 Dextrose 50%-Water Inj 50 Ml Syringe IV 11/28/24 15:56 Q15MIN PRN BG 50-70 responsive npo pt Dextrose 50 ml 05/21/25 15:57 10/31/24 03:59 Dextrose 50%-Water Inj 50 Ml Syringe IV 11/28/24 15:56 50 ml Q15MIN PRN Administration BG <50 OR BG <70 & pt unresponsive Enoxaparin Sodium 40 mg 10/29/24 13:53 10/31/24 08:13 Enoxaparin Sod Inj 40 Mg/0.4 Ml Syringe SC 11/12/24 13:52 Not Given QDAY SEVERIANO Famotidine 20 mg 10/30/24 09:00 10/30/24 09:10 Famotidine Inj 10 Mg/Ml Vial 2 Ml IVP 11/29/24 08:59 20 mg QDAY SEVERIANO Administration Glucagon 1 mg 10/29/24 15:57 Glucagon Inj 1 Mg Vial IM Q15MIN PRN BG <70, and no IV access Heparin Sodium (Porcine) 2,600 unit 10/30/24 13:29 10/30/24 13:35 Heparin Sod Inj 1000 Unit/Ml Vial 10 Ml INDWELLCAT 11/13/24 13:28 2,600 unit PRN PRN Administration DIALYSIS Hydrocortisone Sodium Succinate 50 mg 10/30/24 00:00 10/31/24 06:01 Hydrocortisone Sod Succ Inj 100 Mg Vial IV 11/29/24 00:00 50 mg Q6HR SEVERIANO Administration Fentanyl Citrate 2,500 mcg in 250 mls @ 2.5 mls/hr 10/29/24 10:30 10/31/24 06:00 Sublimaze Inj 2,500 Mcg/250 Ml Bag IV 11/03/24 10:29 75 mcg/hr .Q24H PRN 7.5 mls/hr PER PROTOCOL Titration Protocol 25 MCG/HR Propofol 1,000 mg in 100 mls @ 2.358 mls/hr 10/29/24 17:05 10/30/24 19:00 Diprivan Ivpb IV 11/28/24 17:04 0 mcg/kg/min .Q24H PRN 0 mls/hr PER PROTOCOL Titration Protocol 5 MCG/KG/MIN Vasopressin/Sodium Chloride 20 unit in 100 mls @ 9 mls/hr 10/29/24 20:52 10/31/24 06:00 Vasostrict/Ns Ivpb IV 11/28/24 20:51 0.03 unit/min .Q11H7M PRN 9 mls/hr PER PROTOCOL Administration Protocol 0.03 UNIT/MIN Norepinephrine Bitartrate 16 mg in 250 mls @ 3.684 mls/hr 10/29/24 23:00 10/31/24 06:45 Levophed In Ns 16mg/250ml IV 11/28/24 22:59 0.65 mcg/kg/min .Q24H PRN 47.897 mls/hr PER PROTOCOL Titration Protocol 0.05 MCG/KG/MIN Phenylephrine HCl 40 mg/ 100 mls @ 5.895 mls/hr 10/29/24 23:30 Sodium Chloride IV 11/28/24 23:29 .[id number] PRN Per Sepsis Protocol Protocol 0.5 MCG/KG/MIN Vancomycin/Sodium Chloride 100 mls @ 120 mls/hr 10/30/24 12:00 10/30/24 13:00 Vancomycin/Ns 500 Mg Ivpb IV 11/06/24 11:59 120 mls/hr Q24H SEVERIANO Administration Sodium Bicarbonate 88.23 meq/ 588.23 mls @ 100 mls/hr 10/30/24 09:15 10/31/24 08:19 Dextrose IV 11/29/24 09:14 Not Given .Q5H53M SEVERIANO Albumin Human 12.5 gm in 250 mls @ 100 mls/hr 10/30/24 17:58 10/30/24 18:09 Albuminar-5 Ivpb IV 100 mls/hr .Q2H30M SEVERIANO Administration Meropenem 1,000 mg/ Sodium 50 mls @ 100 mls/hr 10/31/24 09:00 Chloride IV 11/07/24 08:59 Q12HR SEVERIANO Insulin Human Lispro 0 unit 10/29/24 18:00 10/31/24 06:03 Insulin Lispro (Admelog) 1 Unit/0.01 Ml Unit SC 11/28/24 17:59 Not Given Q6HR SEVERIANO Protocol Magnesium Hydroxide 30 ml 10/29/24 13:53 Milk Of Magnesia Susp 30 Ml Udc PO 11/28/24 13:52 QDAY PRN CONSTIPATION Nitroglycerin 0.4 mg 10/29/24 13:53 Nitroglycerin 0.4 Mg Subl Btl #25 SL Q5MIN PRN CHEST PAIN Pharmacy Consult 1 each 10/30/24 09:00 Vancomycin Pharmacy To Dose 1 Each Each IV 11/29/24 08:59 QDAY PRN PROTOCOL Sennosides 1 tab 10/29/24 13:10 Senna Tablet PO 11/28/24 13:09 QDAY PRN constipation Protocol Plan Patient is a 69 year old female admitted to the ICU for shock. 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 NIHHS score of 23. CT head did not show an acute hemorrhage. - Remains on fentanyl - Aspirin held due to ongoing DIC - May consider MRI once acidemia and sepsis improves CVS #Shock Initially thought to be septic shock as evidenced by bacteremia and low TPRI, with component of obstructive shock due pulmonary artery embolism with McConnel sign noted on formal echo though normal CVP. Not intially felt to be cardiogenic given cardiac index > 2.5 and EKG with no ST changes despite troponin. Sepsis improving evidenced by improving leukocytosis, afebrile and on antibiotics. Now with component of hypovolemia/hemorrhagic shock given acute blood loss anemia, and possible cardiogenic shock given rising troponin and DIC increasing risk of microthrombi. - Continue levophed, titrate for MAP > 60 or SBP > 90 - Vasopressin - Hydrocortisone steroids 50mg Q6H - Transfusing blood, see heme section - Reassess with NICOM #Elevated Troponin Peak at 30, downtrending. Type I in the setting of DIC however cannot be ruled out as patient not stable for cath at this time. Type 2 in the setting of demand ischemia with reduced renal clearance. - Cardiology following Respiratory #Acute ypoxic respiratory failure due to bilateral pneumonia, L pleural effusion Initially intubated due to inability to protect airway, then complicated by pulmonary artery embolism and new onset L pleural effusion, bilateral pneumonia Pulmonary air embolism unclear etiology as occurred before any central lines placed; now resolved with FiO2 Interval L pleural effusion noted on repeat CT imaging 10/30 suspected to be hemothorax since [place] units range from 20-50. - Antibiotics for pneumonia, see ID - Patient not a candidate for large bore chest tube at this time. Will do POCUS to evaluate imaging characteristics of pleural fluid - Vent settings at [facility] PRVC TV 400 RR 28 PEEP 10 FIO2 100 and I:E at 1:2.6 - will wean FiO2 to reduce risk of oxygen toxicity. Renal #Acute renal failure #High anion gap metabolic acidosis due to lactic acidosis Without respiratory compensation as expected PCO2 does not mach PCO2 on ABG. Delta ratio of 1. - On TABLO - ABG, lactic acid, and renal panel Q4H - Nephrology following GI #Shock Liver Infectious hepatitis ruled out. Synthetic dysfunction noted. - Treat underlying shock Endo #Hypoglycemia due to liver synthetic dysfunction - Blood sugar checks Q4H - Amps of D50 if blood sugar < 60, holding off D5 or D10 at this time to preserve volume status though may consider if patient remains hypoglycemic #DM2 Holding home meds, ISS Q6H if needed Heme #Leukocytosis, improving In the setting of infection and steroids, see ID #DIC Elevated D-Dimer, INR, thrombocytopenia in the setting of sepsis ISTH score of 6 suggesting DIC likely 4 units of PRBC, 2 units FFP and 1 platelet ordered - Treat underlying sepsis, see ID - Hold lovenox - Haptoglobin ordered - Peripheral blood smear #Acute blood loss anemia Hemoglobin decreased from 10 to 7, 6. Rate of hemoglobin decrease suggests acute bleed that has slowed/stopped. Suspect hemothorax given increased HU density on CT (see respiratory section). Hemorrhagic transformation of suspected stroke cannot be ruled out, though patient not showing signs of increased intracranial pressure at this time. - 4 units of PRBC, 2 units FFP and 1 platelet ordered - Follow up post-transfusion CBC ID #Sepsis due to GNR bacteremia due to UTI, GPC pneumonia UA and CT abdomen suggestive of pyelonephritis. CT imaging show bilateral pneumonia and sputum culture staining GPC. - Follow up final blood, sputum, and urine culture with identitication and sensitivities - Vancomycin discontinued as MRSA nasal screen negative (10/29-10/31) - Meropenam added (10/31-) in addition to Zosyn (10/29-), will de-escalate once final culture and sensitivities return Health Maintenance Disposition: Admit to ICU for shock with multi-organ failure. Guarded prognosis. Diet and fluids: Vital trickle feeds DVT prophylaxis: SCD; holding chemical anticoagulation GI prophylaxis: pepcid Lines: ET, OT, L IJ Tri-Flow, L subclavian Tri-Flow, R femoral A-line, Lazo, PIV CODE STATUS: FULL I have reviewed and discussed the patient's care with my attending, Dr. Ed Boateng MD PGY-3
[2024-10-31] MEDS: MEROPENEM INJ 1,000 MG in SODIUM CHLORIDE 0.9% (Popper) 50 ML 100 MG IV ×2 (09:45→21:59)
[2024-10-31] MEDS: FAMOTIDINE INJ 10 MG/ML VIAL 2 ML 20 MG IVP (09:59)
[2024-10-31] MEDS: Norepinephrine/NS 16mg/250ml 16 MG/250 ML BAG 36.107 MG IV (10:15)
[2024-10-31 11:03] LABS: Reflex Lactate? Y
--- NOTE | 2024-10-31 11:44 | PD.NEPHPROG ---
Documentation for date of: 10/31/24 Subjective Subjective Interval history: Ms. Sheriff is a 69-year-old female with a past medical history of hypertension, hyperlipidemia, diabetes mellitus type 2 [id number], and history of sciatic nerve pain who presented to the emergency room via ambulance with a chief complaint of altered mental status. Per patient's daughter at bedside, unable to arouse patient this morning after last well-known time on 10/28/2024. All history gathered from daughter at bedside. Patient experienced a ground-level fall on 10/28/2024 that was not witnessed by family members. Patient was found conscious and alert and oriented by capital equipment specialist. Denied trauma to head during fall. Ground-level fall occurred in 2023 secondary to sciatic pain. Patient denied sick contacts, pyrexia at home, or cough. 1 month ago patient was treated for outpatient urinary tract infection with antibiotics which was completed. Patient's daughter denied increased frequency or dysuria. Denied emesis or diarrhea. Denied chest pain or shortness of breath. Denied past medical history of heart failure. ER course: Vitals upon arrival blood pressure 74/51 (MAP 58) after receiving 1 L bolus via EMS, tachycardia-148, respiratory rate 12, temperature 102.7, and SpO2 97%,. Patient unable to protect airway requiring mechanical ventilation with a GCS score of 7 upon arrival to the emergency room. WBC count 18.4 neutrophil shift 89. ABG pH of 7.27, CO2 35, O2 201, bicarb 16, oxygen saturation 100%-status post mechanical ventilation. GCS 7 and NISS 23. Patient was intubated and brought to ICU. Patient was placed on bicarb drip but continued to have severe acidosis nephrology consulted for severe acidosis requiring dialysis. Patient seen and examined at bedside, intubated and sedated. Has made 100 ml dark urine. WBC 22.1, Hg 10.6. Sodium 140, potassium 5.4, bicarb 10.9, BUN 40, creatinine 3.0, eGFR 16. Lactic acid 8.1. AST 625, ALT 459, ALP 234. ABG showed pH 7.3, pCO2 18, pO2 240, bicarb 9. Procal 129. UA WBCs 153, 3+ bacteria. Urine random sodium 58.2, potassium 47, chloride 61.7. Elevated anion gap 19. Dialysis line placed. Plan for CRRT therapy, close monitoring. 10/31/2024 patient remains in ICU. On ventilator. Daughter at bedside. Decreased urinary output. BUN and creatinine still elevated. On 2 pressors. Ordered CRRT/Tablo today. Review of Systems Review of Systems ROS Unobtainable: unobtainable due to medical condition and due to endotracheal tube Exam Vital Signs Temp Pulse Resp BP Pulse Ox O2 Del Method FiO2 35.8 C L 121 H 28 H 135/48 H 87 L Mechanical Ventilation 80 10/31/24 11:31 10/31/24 11:31 10/31/24 11:31 10/31/24 11:30 10/31/24 11:20 10/30/24 12:00 10/31/24 10:14 Narrative Exam GENERAL APPEARANCE: Patient currently seen in ICU. Intubated, sedated CARDIOVASCULAR: Heart regular, no murmurs LUNGS/CHEST: Chest clear to auscultation. No rales, rhonchi, wheezing ABDOMEN: Soft, nontender, mild distended. No masses. Normal bowel sounds. EXTREMITIES: 2+ edema noted in the extremities SKIN: Skin exam normal without any rashes MUSCULOSKELETAL: in bed NEUROLOGICAL : Intubated, sedated. Objective Labs 11/01/24 11:45 11/01/24 11:45 Labs: Laboratory Results - last 24 hr 10/30/24 10/30/24 10/30/24 13:16 16:09 16:11 WBC RBC Hgb Hct MCV MCH MCHC RDW Std Deviation Plt Count Neut % (Auto) Lymph % (Auto) [place] % (Auto) Eos % (Auto) Baso % (Auto) Neut # (Auto) Lymph # (Auto) [place] # (Auto) Eos # (Auto) Baso # (Auto) Immature Gran # (Auto) Absolute Nucleated RBC Immature Gran % Nucleated RBC % Smear Path Review Haptoglobin PT INR APTT Fibrinogen D-Dimer Puncture Site Arterial Line ABG pH 7.26 L ABG pCO2 24 L ABG pO2 359 H D ABG HCO3 11 L ABG O2 Saturation 101 H ABG Base Excess -15 L FiO2 100 Sodium 141 Potassium 5.5 H Chloride 109 H Carbon Dioxide 10.7 L* Anion Gap 21 H BUN 43 H Creatinine 3.5 H D Estim Creat Clear Calc 14.6 L eGFR 13 L* BUN/Creatinine Ratio 12 Glucose 228 H Calculated Osmolality 299 H Lactic Acid 8.6 H* Calcium 6.7 L* Corrected Calcium 7.8 L Phosphorus 5.6 H Magnesium Total Bilirubin AST ALT Alkaline Phosphatase Troponin I 9.454 H* D Total Protein Albumin 2.6 L Globulin Albumin/Globulin Ratio [facility] [place] Test Result Blood Type Antibody Screen Crossmdtch Blood Bank [facility] Blood Bank Comment 10/30/24 10/30/24 10/30/24 16:57 18:21 18:21 WBC 18.6 H RBC 2.66 L Hgb Cancelled 7.6 L D Hct Cancelled MCV MCH MCHC RDW Std Deviation Plt Count Neut % (Auto) Lymph % (Auto) [place] % (Auto) Eos % (Auto) Baso % (Auto) Neut # (Auto) Lymph # (Auto) [place] # (Auto) Eos # (Auto) Baso # (Auto) Immature Gran # (Auto) Absolute Nucleated RBC Immature Gran % Nucleated RBC % Smear Path Review Haptoglobin PT INR APTT Fibrinogen D-Dimer Puncture Site ABG pH ABG pCO2 ABG pO2 ABG HCO3 ABG O2 Saturation ABG Base Excess FiO2 Sodium Potassium Chloride Carbon Dioxide Anion Gap BUN Creatinine Estim Creat Clear Calc eGFR BUN/Creatinine Ratio Glucose Calculated Osmolality Lactic Acid 10.0 H* Calcium Corrected Calcium Phosphorus Magnesium Total Bilirubin AST ALT Alkaline Phosphatase Troponin I Total Protein Albumin Globulin Albumin/Globulin Ratio [facility] [place] Test Result Blood Type Antibody Screen Crossmdtch Blood Bank [facility] Blood Bank Comment 10/30/24 10/30/24 10/30/24 18:21 20:20 22:35 WBC RBC Hgb Hct 23.4 L MCV 88 MCH 28.6 MCHC 32.5 RDW Std Deviation 51.4 H Plt Count 74 L D Neut % (Auto) 91 H Lymph % (Auto) 6 L [place] % (Auto) 1 Eos % (Auto) 0 Baso % (Auto) 0 Neut # (Auto) 17.0 H Lymph # (Auto) 1.2 [place] # (Auto) 0.2 Eos # (Auto) 0.1 Baso # (Auto) 0.1 Immature Gran # (Auto) 0.12 H Absolute Nucleated RBC 0.16 H Immature Gran % 1 H Nucleated RBC % 1 H Smear Path Review Haptoglobin PT 19.7 H INR 1.9 H APTT 58.1 H D Fibrinogen 441 H D-Dimer > 3820 H Puncture Site Arterial Line ABG pH 7.16 L* D ABG pCO2 23 L ABG pO2 312 H D ABG HCO3 8 L* ABG O2 Saturation 100 H ABG Base Excess -19 L FiO2 90 Sodium 141 Potassium 4.3 D Chloride 106 Carbon Dioxide 12.3 L* Anion Gap 23 H BUN 26 H Creatinine 2.0 H D Estim Creat Clear Calc 25.6 L eGFR 26 L BUN/Creatinine Ratio 13 Glucose 68 L D Calculated Osmolality 283 Lactic Acid Calcium 7.6 L Corrected Calcium 8.5 Phosphorus 4.8 Magnesium Total Bilirubin AST ALT Alkaline Phosphatase Troponin I 24.616 H* D Total Protein Albumin 2.9 L Globulin Albumin/Globulin Ratio Misc Test Result Platelets confirmed Blood Type A Positive Antibody Screen NEGATIVE Crossmatch See Detail Blood Bank Wristband ID Yes Blood Bank Comment FFP Ready 10/31/24 10/31/24 10/31/24 00:17 04:47 05:00 WBC 16.2 H RBC 2.09 L Hgb 6.1 L* Hct 19.0 L* MCV 91 MCH 29.2 MCHC 32.1 RDW Std Deviation 51.8 H Plt Count 53 L D Neut % (Auto) 90 H Lymph % (Auto) 4 L [place] % (Auto) 2 Eos % (Auto) 1 Baso % (Auto) 1 Neut # (Auto) 14.5 H Lymph # (Auto) 0.6 L [place] # (Auto) 0.4 Eos # (Auto) 0.1 Baso # (Auto) 0.1 Immature Gran # (Auto) 0.50 H Absolute Nucleated RBC 0.15 H Immature Gran % 3 H Nucleated RBC % 1 H Smear Path Review Sent to Pathologist Haptoglobin Cancelled PT 23.5 H D INR 2.3 H APTT Fibrinogen D-Dimer Puncture Site Right Femoral ABG pH 7.27 L D ABG pCO2 25 L ABG pO2 402 H D ABG HCO3 12 L ABG O2 Saturation 101 H ABG Base Excess -14 L FiO2 90 Sodium 141 139 Potassium 4.8 D 3.8 D Chloride 105 102 Carbon Dioxide < 10.0 L* 14.8 L* Anion Gap 26 H 22 H BUN 32 H 20 Creatinine 2.5 H D 1.5 H D Estim Creat Clear Calc 20.4 L 34.1 L eGFR 20 L 37 L BUN/Creatinine Ratio 13 13 Glucose 51 L 168 H D Calculated Osmolality 285 284 Lactic Acid 15.0 H* 13.0 H* Calcium 7.2 L 7.4 L Corrected Calcium 8.2 L 8.8 Phosphorus 6.0 H 3.8 Magnesium 1.6 Total Bilirubin 1.3 H AST 2151 H* ALT 1391 H* Alkaline Phosphatase 463 H D Troponin I 31.752 H* D 19.952 H* D Total Protein 3.7 L Albumin 2.7 L 2.3 L Globulin 1.4 L Albumin/Globulin Ratio 1.6 Misc Test Result Platelets confirmed Blood Type Antibody Screen Crossmdtch Blood Bank Wristband ID Blood Bank Comment 10/31/24 07:55 WBC RBC Hgb Hct MCV MCH MCHC RDW Std Deviation Plt Count Neut % (Auto) Lymph % (Auto) [place] % (Auto) Eos % (Auto) Baso % (Auto) Neut # (Auto) Lymph # (Auto) [place] # (Auto) Eos # (Auto) Baso # (Auto) Immature Gran # (Auto) Absolute Nucleated RBC Immature Gran % Nucleated RBC % Smear Path Review Haptoglobin PT INR APTT Fibrinogen D-Dimer Puncture Site ABG pH ABG pCO2 ABG pO2 ABG HCO3 ABG O2 Saturation ABG Base Excess FiO2 Sodium 138 Potassium 4.6 D Chloride 103 Carbon Dioxide < 10.0 L* Anion Gap 25 H BUN 26 H Creatinine 2.0 H D Estim Creat Clear Calc 26.6 L eGFR 26 L BUN/Creatinine Ratio 13 Glucose 99 D Calculated Osmolality 280 Lactic Acid 17.0 H* Calcium 7.4 L Corrected Calcium 8.5 Phosphorus 5.6 H Magnesium Total Bilirubin AST ALT Alkaline Phosphatase Troponin I 19.206 H* D Total Protein Albumin 2.6 L Globulin Albumin/Globulin Ratio Misc Test Result Blood Type [facility] Comment ABG Interpretation ABG results: 10/29/24 10/29/24 10/29/24 10:00 12:47 22:20 ABG pH 7.27 L ABG pCO2 35 ABG pO2 201 H ABG HCO3 16 L ABG O2 Saturation 100 H ABG Base Excess -10 L VBG pH 7.33 7.28 L VBG pCO2 43 36 VBG pO2 31 53 D VBG Base Excess -3 -9 L 10/29/24 10/30/24 10/30/24 23:47 08:07 16:11 ABG pH 7.23 L 7.30 L 7.26 L ABG pCO2 30 L 18 L* D 24 L ABG pO2 301 H D 240 H D 359 H D ABG HCO3 13 L 9 L* 11 L ABG O2 Saturation 100 H 100 H 101 H ABG Base Excess -14 L -16 L -15 L VBG pH VBG pCO2 VBG pO2 VBG Base Excess 10/30/24 10/31/24 22:35 05:00 ABG pH 7.16 L* D 7.27 L D ABG pCO2 23 L 25 L ABG pO2 312 H D 402 H D ABG HCO3 8 L* 12 L ABG O2 Saturation 100 H 101 H ABG Base Excess -19 L -14 L VBG pH VBG pCO2 VBG pO2 VBG Base Excess Assessment & Plan Additional Assessment & Plan Additional Plan: 69-year-old female with a past medical history of hypertension, hyperlipidemia, diabetes mellitus type 2 [id number] who was admitted on 10/29/2024 for severe septic shock requiring mechanical ventilation and pressors. Nephrology consulted for CRRT for severe acidosis. #Acute renal failure #Metabolic acidosis, severe MAHIN possibly related to prerenal causes in setting of septic shock, also possibly ATN given worsening kidney function and poor urinary output despite IVF. 100 ml urine output. BUN 40, creatinine 3.0, eGFR 16. Patient also severely acidodic despite bicarb drip. ABG pH 7.3, serum bicarb 10.9. Dilaysis line in place. -CRRT -12 hrs--please see Tablo flowsheet. Went and saw patient twice. Critical care time spent more than 45 minutes regarding plan of care and disease management. -Avoid nephrotoxins -renally dose meds -Strict I's and O's -Close monitoring of acid-base status and renal function. - #Acute encephalopathy #Septic Shock #Acute Respiratory Failure, Mechanical Ventilation unable to protect airway #Transaminitis #Diabetes Mellitus Type 2, non-insulin dependent #GNR bactermia #UTI Management as per the primary team. Quality - progress note Quality Measures Quality Measures: VTE prophylaxis Reason for Continued Stay Reason for Continued Stay: further monitoring Procedures Arterial Line Size (Gauge): 16
--- NOTE | 2024-10-31 12:07 | ESPR_ITS ---
Documentation for date of: 10/31/24 Subjective Subjective Interval history: This is a 69yo F brought to the ER today for AMS. She was in her critical access hospital state of health yesterday per daughter at bedside. Normally she is ambulatory and able to partake in ADLs. Yesterday she had some increase in sciatica pain and fell however family states it was not a big fall and that the pt was fine after. She went to sleep early at around 8p. Daughter states that the pt fq sleeps in however when she was not awake by 9am she became worried. Pt was unarousable and therefore EMS was called. Pt was brought to the ER and on arrival was found to be obtunded. At that time the decision was made to intubate for GCS <8. After intubation pt became progressively more hypotensive and was given IVF. Pt remained hypotensive and was started on levophed. She received a total of 6lts of IVF. ICU eval was requested. pt was seen and examined in ER room 5. She was started on fentanyl gtt after intubation since she appeared to start to wake up and reach for the ETT. 10/30- yesterday afternoon was off of levophed however overnight she dropped her BP again and was restarted on levophed. This was rapidly increased and requied initiation of vasopressin as well as hydrocortisone. her LA had dropped down to 2 but is back up to 8 this AM. remains virtually anuric , afebrile, vent dyssynchrony 10/31- overnight only had 6hr of CRRT due to trouble with the line, remains anuric, afebrile, LA increased to 17, trops peaked overnight to 30, drop in h/h felt to be due to suspected hemothorax Critical Care Note Critical care time (min.): 55 Exam Vital Signs Temp Pulse Resp BP Pulse Ox O2 Del Method FiO2 96.5 F L 113 H 28 H 118/47 L 92 L Mechanical Ventilation 80 10/31/24 11:46 10/31/24 12:00 10/31/24 11:46 10/31/24 12:00 10/31/24 11:46 10/30/24 12:00 10/31/24 10:14 Narrative Exam Gen- intubated, sedated, nl body habitus, elderly HEENT- NC/AT, mucosa hydrated, sclera anicteric, PERRL though sluggish, ETT/OGT in place Chest- LCTAB and diminished, HRRR, L IJ and L HD cath in place Abd- s/nt/bs diminished Ext- cool to touch, pulses very weak, dusky discoloration of feet and hands, Vent PRVC Drips levo fent vaso Physical Exam Completion Physical Exam Complete?: Yes Objective - Wage [employer]ciliator Labs 11/01/24 11:45 11/01/24 11:45 Labs: Laboratory Results - last 24 hr 10/30/24 10/30/24 10/30/24 13:16 16:09 16:11 WBC RBC Hgb Hct MCV MCH MCHC RDW Std Deviation Plt Count Neut % (Auto) Lymph % (Auto) [place] % (Auto) Eos % (Auto) Baso % (Auto) Neut # (Auto) Lymph # (Auto) [place] # (Auto) Eos # (Auto) Baso # (Auto) Immature Gran # (Auto) Absolute Nucleated RBC Immature Gran % Nucleated RBC % Smear Path Review Haptoglobin PT INR APTT Fibrinogen D-Dimer Puncture Site Arterial Line ABG pH 7.26 L ABG pCO2 24 L ABG pO2 359 H D ABG HCO3 11 L ABG O2 Saturation 101 H ABG Base Excess -15 L FiO2 100 Sodium 141 Potassium 5.5 H Chloride 109 H Carbon Dioxide 10.7 L* Anion Gap 21 H BUN 43 H Creatinine 3.5 H D Estim Creat Clear Calc 14.6 L eGFR 13 L* BUN/Creatinine Ratio 12 Glucose 228 H Calculated Osmolality 299 H Lactic Acid 8.6 H* Calcium 6.7 L* Corrected Calcium 7.8 L Phosphorus 5.6 H Magnesium Total Bilirubin AST ALT Alkaline Phosphatase Troponin I 9.454 H* D Total Protein Albumin 2.6 L Globulin Albumin/Globulin Ratio Misc Test Result Blood Type Antibody Screen Crossmatch Blood Bank Wristband ID Blood Bank Comment 10/30/24 10/30/24 10/30/24 16:57 18:21 18:21 WBC 18.6 H RBC 2.66 L Hgb Cancelled 7.6 L D Hct Cancelled MCV MCH MCHC RDW Std Deviation Plt Count Neut % (Auto) Lymph % (Auto) [place] % (Auto) Eos % (Auto) Baso % (Auto) Neut # (Auto) Lymph # (Auto) [place] # (Auto) Eos # (Auto) Baso # (Auto) Immature Gran # (Auto) Absolute Nucleated RBC Immature Gran % Nucleated RBC % Smear Path Review Haptoglobin PT INR APTT Fibrinogen D-Dimer Puncture Site ABG pH ABG pCO2 ABG pO2 ABG HCO3 ABG O2 Saturation ABG Base Excess FiO2 Sodium Potassium Chloride Carbon Dioxide Anion Gap BUN Creatinine Estim Creat Clear Calc eGFR BUN/Creatinine Ratio Glucose Calculated Osmolality Lactic Acid 10.0 H* Calcium Corrected Calcium Phosphorus Magnesium Total Bilirubin AST ALT Alkaline Phosphatase Troponin I Total Protein Albumin Globulin Albumin/Globulin Ratio Misc Test Result Blood Type Antibody Screen Crossmatch Blood Bank Wristband ID Blood Bank Comment 10/30/24 10/30/24 10/30/24 18:21 20:20 22:35 WBC RBC Hgb Hct 23.4 L MCV 88 MCH 28.6 MCHC 32.5 RDW Std Deviation 51.4 H Plt Count 74 L D Neut % (Auto) 91 H Lymph % (Auto) 6 L [place] % (Auto) 1 Eos % (Auto) 0 Baso % (Auto) 0 Neut # (Auto) 17.0 H Lymph # (Auto) 1.2 [place] # (Auto) 0.2 Eos # (Auto) 0.1 Baso # (Auto) 0.1 Immature Gran # (Auto) 0.12 H Absolute Nucleated RBC 0.16 H Immature Gran % 1 H Nucleated RBC % 1 H Smear Path Review Haptoglobin PT 19.7 H INR 1.9 H APTT 58.1 H D Fibrinogen 441 H D-Dimer > 3820 H Puncture Site Arterial Line ABG pH 7.16 L* D ABG pCO2 23 L ABG pO2 312 H D ABG HCO3 8 L* ABG O2 Saturation 100 H ABG Base Excess -19 L FiO2 90 Sodium 141 Potassium 4.3 D Chloride 106 Carbon Dioxide 12.3 L* Anion Gap 23 H BUN 26 H Creatinine 2.0 H D Estim Creat Clear Calc 25.6 L eGFR 26 L BUN/Creatinine Ratio 13 Glucose 68 L D Calculated Osmolality 283 Lactic Acid Calcium 7.6 L Corrected Calcium 8.5 Phosphorus 4.8 Magnesium Total Bilirubin AST ALT Alkaline Phosphatase Troponin I 24.616 H* D Total Protein Albumin 2.9 L Globulin Albumin/Globulin Ratio Misc Test Result Platelets confirmed Blood Type A Positive Antibody Screen NEGATIVE Crossmatch See Detail Blood Bank Wristband ID Yes Blood Bank Comment FFP Ready 10/31/24 10/31/24 10/31/24 00:17 04:47 05:00 WBC 16.2 H RBC 2.09 L Hgb 6.1 L* Hct 19.0 L* MCV 91 MCH 29.2 MCHC 32.1 RDW Std Deviation 51.8 H Plt Count 53 L D Neut % (Auto) 90 H Lymph % (Auto) 4 L [place] % (Auto) 2 Eos % (Auto) 1 Baso % (Auto) 1 Neut # (Auto) 14.5 H Lymph # (Auto) 0.6 L [place] # (Auto) 0.4 Eos # (Auto) 0.1 Baso # (Auto) 0.1 Immature Gran # (Auto) 0.50 H Absolute Nucleated RBC 0.15 H Immature Gran % 3 H Nucleated RBC % 1 H Smear Path Review Sent to Pathologist Haptoglobin Cancelled PT 23.5 H D INR 2.3 H APTT Fibrinogen D-Dimer Puncture Site Right Femoral ABG pH 7.27 L D ABG pCO2 25 L ABG pO2 402 H D ABG HCO3 12 L ABG O2 Saturation 101 H ABG Base Excess -14 L FiO2 90 Sodium 141 139 Potassium 4.8 D 3.8 D Chloride 105 102 Carbon Dioxide < 10.0 L* 14.8 L* Anion Gap 26 H 22 H BUN 32 H 20 Creatinine 2.5 H D 1.5 H D Estim Creat Clear Calc 20.4 L 34.1 L eGFR 20 L 37 L BUN/Creatinine Ratio 13 13 Glucose 51 L 168 H D Calculated Osmolality 285 284 Lactic Acid 15.0 H* 13.0 H* Calcium 7.2 L 7.4 L Corrected Calcium 8.2 L 8.8 Phosphorus 6.0 H 3.8 Magnesium 1.6 Total Bilirubin 1.3 H AST 2151 H* ALT 1391 H* Alkaline Phosphatase 463 H D Troponin I 31.752 H* D 19.952 H* D Total Protein 3.7 L Albumin 2.7 L 2.3 L Globulin 1.4 L Albumin/Globulin Ratio 1.6 Misc Test Result Platelets confirmed Blood Type Antibody Screen Crossmatch Blood Bank Wristband ID Blood Bank Comment 10/31/24 10/31/24 07:55 11:30 WBC RBC Hgb Hct MCV MCH MCHC RDW Std Deviation Plt Count Neut % (Auto) Lymph % (Auto) [place] % (Auto) Eos % (Auto) Baso % (Auto) Neut # (Auto) Lymph # (Auto) [place] # (Auto) Eos # (Auto) Baso # (Auto) Immature Gran # (Auto) Absolute Nucleated RBC Immature Gran % Nucleated RBC % Smear Path Review Haptoglobin PT INR APTT Fibrinogen D-Dimer Puncture Site ABG pH ABG pCO2 ABG pO2 ABG HCO3 ABG O2 Saturation ABG Base Excess FiO2 Sodium 138 Potassium 4.6 D Chloride 103 Carbon Dioxide < 10.0 L* Anion Gap 25 H BUN 26 H Creatinine 2.0 H D Estim Creat Clear Calc 26.6 L eGFR 26 L BUN/Creatinine Ratio 13 Glucose 99 D Calculated Osmolality 280 Lactic Acid 17.0 H* 17.0 H* Calcium 7.4 L Corrected Calcium 8.5 Phosphorus 5.6 H Magnesium Total Bilirubin AST ALT Alkaline Phosphatase Troponin I 19.206 H* D Total Protein Albumin 2.6 L Globulin Albumin/Globulin Ratio Misc Test Result Blood Type Antibody Screen Crossmatch Blood Bank Wristband ID Blood Bank Comment Assessment & Plan Additional Assessment Additional Assessment: In brief this is a 69yo F admitted for AMS and hypoxic resp failure with profound refractory septic shock a/p 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 R sided weakness -> suspect CVA - currently on fent -> when held opens eyes but does not track CV Shock- bedside echo shows hyperdynamic LV with no pericardial effusion noted, ? D sign however subpar view, place cheeta for additional hemodynamics - unable to transduce a CVP - had drop in h/h and felt to have a component of hypovolemia -> being transfused PRBCs - developed suspected hemothorax with new mod effusion seen on CT - decreasing vasopressor doses h/o HTN- hold all home meds Pulmonary Art air embolism - unclear source - on high FiO2 - repeat chest CT to eval if still present Tropinemia- in the setting of shock and MAHIN - demand ischemia v CAD - fu on repeat trop and EKG - echo results noted - trops trended up to 30overnight - will need repeat echo to eval - not a candidate for intervention at this time - cardiology consulted Resp Acute Resp Failure- intubated and on MV, fu ABG and CXR, ween as able -vent adjustments made - pulse ox inaccurate -> able to come down on FiO2 ? Aspiration PNA- on abx, and cx taken Hemothorax- pts CT from yesterday shows a new effusion on the L - pt with drop in h/h - currently coaulopathic and DIC suspected Renal MAHIN- likely prerenal and may be 2/2 shock and sepsis - given IVF - arredondo in place - monitor UOP - avoid nephrotoxins - cont with minimal UOP and severe acidosis - HD line sluggish in L subclavian therefore attempted R subclavian however guidewire would not advance. Therefore the L IJ was rewired and TriFlow placed. pt with very poor vasc access. Metabolic acidosis- 2/2 Lactic acidosis due to hypotension and poor perfusion - increased to 17 today - delta delta gap shows additional non gap acidosis - on CRRT HypoCa- given 1gr Ca++ Hyper K- mild, monitor GI NPO GI proph- pepcid Transaminitis- check hep panel, CT without pathology - likely due to ischemic insult and hypotension - worsening #s today Hypoalbuminemia- may also be dilutional in nature given that she has received 8lts at this point in time Endo DM- SSI, FS q6 - hold home meds Heme Leukocytosis- L shift noted and 2/2 infection DVT proph- lovenox 40 DIC- no need for any transfusions at this point 2/2 sepsis - transfused PRBCs, FFP and PLT for bleed Anemia- initially dilutional and now due to active bleed that occurred yesterday - drop to Hb of 6 noted - transfused 2uPRBCs Thrombocytopenia- likely 2/2 sepsis - transfuse given current bleed ID UTI/pyelo- on vanc/zosyn, fu on cx GNR Bacteremia- bcx pos from arrival, likely due to her UTI and pyelo case d/w ICU team labs, imaging, records reviewed d/w family at bedside ~55ccmin required for eval, exam, review, intervention, discussion and formulation of POC for this critically ill pt with acute resp failure and shock at high risk for further and ongoing decompensation Provider Notation Provider Notation: Although this document has been carefully reviewed, there may still be some phonetic and other typographical errors. These errors are purely grammatical due to imperfections in the software program and should not be construed in any way to compromise the substance of the patient's medical care during this visit. Thank you for the opportunity and privilege in assisting you with this patient's care and management.
[2024-10-31 12:19] LABS: Anion Gap 26 (7-16); Calcium 7.9 mg/dL (8.3-10.6); Chloride 102 mMol/L (98-107); Potassium 4.3 mMol/L (3.4-5.1); Sodium 138 mMol/L (136-145)
[2024-10-31 12:22] LABS: BUN/Creatinine Ratio 15 Ratio (12-20); Blood Urea Nitrogen 20 mg/dL (9-23); Creatinine (Component) 1.3 mg/dL (0.6-1.3); Osmolality,Calculated 275 (275-295); eGFR 44 See Note
[2024-10-31] MEDS: VANCOMYCIN/NS 500 MG IVPB 100 ML 120 MG IV (12:24)
[2024-10-31 12:27] LABS: Albumin, Serum 2.8 gm/dL (3.4-4.8); Calcium (Corrected) 8.9 mg/dL (8.5-10.1); Phosphorous 4.5 mg/dL (2.4-5.1)
[2024-10-31 12:34] LABS: Carbon Dioxide < 10.0 mMol/L (20.0-31.0); Glucose 38 mg/dL (74-106)
[2024-10-31] MEDS: Sodium Bicarb Inj 8.4% SYR 50 ML SYRINGE IV (12:45)
[2024-10-31 13:01] LABS: Base Excess -12 (-3-3); HCO3 12 mEq/L (20-26); O2 Saturation 100 % (91-98); PCO2 24 mmHg (32.0-48.0); PO2 193 mmHg (83-108); pH, Arterial 7.32 (7.35-7.45)
[2024-10-31 13:03] LABS: Allen Test Not Performed; Inspired Oxygen, FIO2 50 %; Puncture Site Arterial Line
[2024-10-31] MEDS: DEXTROSE 10%-WATER 1000 ML 1,000 ML 40 ML IV (13:21)
--- NOTE | 2024-10-31 14:47 | PC.SS ---
Update: patient received dialysis today. Nephrology is consulting.
[2024-10-31 14:52] LABS: Reflex Lactate? Y
[2024-10-31 15:30] LABS: Basophils # (Auto) 0.1 Thou/mm3 (0.0-0.2); Basophils % (Auto) 1 % (0-2.5); Eosinophils # (Auto) 0.1 Thou/mm3 (0.0-0.5); Eosinophils % (Auto) 1 % (0-10); Immature Granulocytes % (Auto) 7 % (0-0); Immature Granulocytes Auto 0.89 Thou/mm3 (0.00-0.00); Lymphocytes # (Auto) 0.5 Thou/mm3 (1.0-4.8); Lymphocytes % (Auto) 4 % (10-50); Mean Corpuscular HGB Conc 35.4 g/dl (31.0-37.0); Mean Corpuscular Hemoglobin 29.1 pg (25.0-35.0); Mean Corpuscular Volume 82 fL (80-100); Monocytes # (Auto) 0.4 Thou/mm3 (0.0-0.8); Monocytes % (Auto) 3 % (0-12); Neutrophils # (Auto) 10.5 Thou/mm3 (1.8-7.7); Neutrophils % (Auto) 84 % (37-80); Nucleated Red Blood Cell # 0.22 Thou/mm3 (0.00-0.00); Nucleated Red Blood Cell % 2 /100 WBC (0); RDW Standard Deviation 45.1 fL (36.4-46.3); Red Blood Count 2.92 Miln/mm3 (4.00-5.20); White Blood Count 12.4 Thou/mm3 (3.6-11.0)
[2024-10-31 15:34] LABS: Lactate (Lactic Acid) 9.9 mMol/L (0.4-2.0)
[2024-10-31 15:53] LABS: Hemoglobin 8.5 g/dL (12.0-16.0); Platelet Count 71 Thou/mm3 (140-440)
[2024-10-31 16:01] LABS: Slide Review Platelets confirmed
[2024-10-31 16:51] LABS: Albumin, Serum 2.9 gm/dL (3.4-4.8); Anion Gap 18 (7-16); BUN/Creatinine Ratio 15 Ratio (12-20); Blood Urea Nitrogen 15 mg/dL (9-23); Calcium 8.1 mg/dL (8.3-10.6); Carbon Dioxide 16.8 mMol/L (20.0-31.0); Chloride 101 mMol/L (98-107); Estimated Creatinine Clearance 53.3 mL/min (>60); Glucose 99 mg/dL (74-106); Osmolality,Calculated 272 (275-295); Phosphorous 2.3 mg/dL (2.4-5.1); Potassium 3.8 mMol/L (3.4-5.1); Sodium 136 mMol/L (136-145); eGFR > 60 See Note
[2024-10-31 16:54] LABS: Base Excess -4 (-3-3); HCO3 18 mEq/L (20-26); Inspired Oxygen, FIO2 40 %; O2 Saturation 100 % (91-98); PCO2 23 mmHg (32.0-48.0); PO2 175 mmHg (83-108)
[2024-10-31 16:55] LABS: Puncture Site Arterial Line
[2024-10-31 18:25] LABS: Reflex Lactate? Y
--- NOTE | 2024-10-31 19:27 | EKG_ITS ---
[facility] Test Date: 2024-10-31 Pat Name: ROLANDO AUSTIN [facility] Gender[facility] Female [employer]: SANDRA : 1955 Requested By: Maribell Avila Order Number: [id number] Reading MD: Maribell Avila Measurements Intervals [place] Rate: 92 P: 3 MN: 134 QRS: 20 QRSD: 74 T: 43 QT: 354 QTc: 439 Interpretive Statements SINUS RHYTHM LOW QRS VOLTAGE IN PRECORDIAL LEADS NONSPECIFIC T-WAVE ABNORMALITY Compared to ECG 10/30/2024 01:16:49 Low QRS voltage now present Atrial flutter no longer present Possible ischemia no longer present T-wave abnormality still present /[id number]/[id number]
[2024-10-31] MEDS: fentaNYL 2,500 MCG/250 ML BAG 2,500 MCG/250 ML BAG 17.5 MCG IV (19:37)
--- NOTE | 2024-10-31 20:27 | ESCONSULT_ITS ---
HPI Data of Consult Requesting Physician: Lito Orozco MD Admitting Provider: Brittani Ward MD Attending Provider: Lito Orozco MD Primary Care Provider: Physician No Primary/Family Consult Narrative History of present illness: 69-year-old female with PMHx of HTN, HLD, T2DM, sciatic nerve pain, presenting to the ED on 10/29 with acute AMS. History collected from record review, patient currently in ICU intubated. Evidently, she was found unable to arouse on the day of admission. There is a reported unwitnessed GLF on 10/28/2024, believed to be related to poor mobility secondary to sciatic pain, and was seen by Carcamo on the ground, conscious, alert and oriented. No reported history of fall or head trauma. There is no reported emesis or diarrhea, chest pain, SOB, dysuria. She had a significantly complex hospital course. On admission BP 74/51. MAP 58, HR 148, Tmax 102.7. She was found in respiratory stress, unable to secure airway, NIHSS 23, GCS of 7, underwent rapid intubation. WBC 18.4 with left shift. ABG showed pH 7.27, CO2 35, O2 201, bicarb 16. She had an MAHIN with BUN 43, CR 2.2, GFR 24 (last GFR 54 from 07/2024). GLUCOSE 123, lactic acid 6.2. AST 83, ALT 136, total CR 194, troponin 0.075, BNP 175, PRO-NITO 0.20 9.54. EKG shows sinus tachycardia. CXR showed minor subsegmental atelectasis of left base, no pneumonia. Head CT was negative for acute pathology. CT of the neck showed extensive air density in the pulmonary artery and left innominate vein and right subclavian and superior vena cava. CT also noted small air density in the right anterior chest wall and subcutaneous fat tissue. In ICU, POCUS showed hyperdynamic LV, without pericardial effusion, the sound was also present. Continue treatment for severe shock, with differential including cardiogenic, obstructive given air embolus, or less likely hypovolemic. Continued on multiple pressors, High-dose STEROIDS administered for refractory shock. Blood culture grew GNR, now on broad-spectrum coverage including MEROPENEM. Echocardiogram showed EF 70?75, hyperdynamic LV and RV, mild LVH, normal LV/RV size, trace TR, mild MR, trace pericardial effusion without evidence of tamponade. Despite aggressive treatment, patient remain in refractory shock. She now has multiorgan failure with labs showing lactic acid 17 > 9.9, troponin 19.206, anion gap 25, CR 2.0, BUN 26, gap 25, WBC 12.4, Hgb 6.1 then 8.5 after transfusion. AST 2151, ALT 1391, appears to be in DIC likely secondary to liver shock. Cardiology was consulted for management of NSTEMI, which appears to be type II, demand ischemia in settings of severe refractory shock, hypoxia, renal failure and acute blood loss. At this point, our recommendations include treating underlying cause, continue with pressor support, maintain MAP greater than 65, continue with CCRT, continue ANTIBIOTICS for bacteremia, continue trending labs including troponin. Given her poor hemodynamic status, she is not a candidate for cardiology intervention at this time. Will consider LHC once patient is stable. cc:: cc: Lito Orozco MD Exam Vital Signs Temp Pulse Resp BP Pulse Ox O2 Del Method FiO2 97.3 F 94 18 107/47 L 100 Mechanical Ventilation 40 10/31/24 16:00 10/31/24 20:00 10/31/24 19:10 10/31/24 20:00 10/31/24 19:10 10/30/24 12:00 10/31/24 19:09 Narrative Exam GENERAL * Sedated and mechanically ventilated HEENT * NCAT.?pupils equal, delay pupillary reaction bilaterally. * Oral mucosa is dry. * Patent nares NECK * Supple, nontender, no thyromegaly, no meningismus, no JVD, no step offs CHEST * Tachycardic, regular rhythm, no m/g/r * CTAB, no w/r/r. Symmetrical chest rise. No intercostal subcostal retraction * Atraumatic, nontender, no crepitus, symmetrical expansion. ABDOMEN * Soft, flat, nontender. No guarding/rebound tenderness/masses. * Bowel sounds presents EXTREMITIES * No edema bilaterally. * Delayed capillary refill in all extremities. * Noted cold extremities, dusky and cyanosis in finger tips. SKIN * Warm and dry, no jaundice/rashes. NEUROMUSCULAR * No lumbar or midline, no CVA, no paraspinal muscle spasm or tenderness. * No response to noxious stimuli. PSYCHIATRY * Appropriately sedated. Results Labs 10/31/24 15:05 10/31/24 20:04 Labs: Short CBC 10/31/24 10/31/24 Range/Units 04:47 15:05 WBC 16.2 H 12.4 H (3.6-11.0) Thou/mm3 Hgb 6.1 L* 8.5 L D (12.0-16.0) g/dL Hct 19.0 L* 24.0 L (36.0-46.0) % Plt Count 53 L D 71 L D (140-440) Thou/mm3 BMP 10/30/24 10/31/24 10/31/24 20:20 00:17 04:47 Sodium 141 141 139 Potassium 4.3 D 4.8 D 3.8 D Chloride 106 105 102 Carbon Dioxide 12.3 L* < 10.0 L* 14.8 L* BUN 26 H 32 H 20 Creatinine 2.0 H D 2.5 H D 1.5 H D Glucose 68 L D 51 L 168 H D Calcium 7.6 L 7.2 L 7.4 L 10/31/24 10/31/24 10/31/24 07:55 12:00 15:05 Sodium 138 138 136 Potassium 4.6 D 4.3 3.8 D Chloride 103 102 101 Carbon Dioxide < 10.0 L* < 10.0 L* 16.8 L BUN 26 H 20 15 Creatinine 2.0 H D 1.3 D 1.0 Glucose 99 D 38 L* D 99 D Calcium 7.4 L 7.9 L 8.1 L Cardiac Enzymes 10/31/24 10/31/24 10/31/24 Range/Units 00:17 04:47 07:55 Troponin I 31.752 H* D 19.952 H* D 19.206 H* D (0.0-0.045) ng/mL Liver Function 10/30/24 10/31/24 10/31/24 Range/Units 20:20 00:17 04:47 Total Bilirubin 1.3 H (0.3-1.2) mg/dL AST 2151 H* (0-34) U/L ALT 1391 H* (10-49) U/L Alkaline Phosphatase 463 H D (46-116) U/L Albumin 2.9 L 2.7 L 2.3 L (3.4-4.8) gm/dL 10/31/24 10/31/24 10/31/24 Range/Units 07:55 12:00 15:05 Total Bilirubin (0.3-1.2) mg/dL AST (0-34) U/L ALT (10-49) U/L Alkaline Phosphatase (46-116) U/L Albumin 2.6 L 2.8 L 2.9 L (3.4-4.8) gm/dL ABG Interpretation ABG results: 10/29/24 10/29/24 10/29/24 10:00 12:47 22:20 ABG pH 7.27 L ABG pCO2 35 ABG pO2 201 H ABG HCO3 16 L ABG O2 Saturation 100 H ABG Base Excess -10 L VBG pH 7.33 7.28 L VBG pCO2 43 36 VBG pO2 31 53 D VBG Base Excess -3 -9 L 10/29/24 10/30/24 10/30/24 23:47 08:07 16:11 ABG pH 7.23 L 7.30 L 7.26 L ABG pCO2 30 L 18 L* D 24 L ABG pO2 301 H D 240 H D 359 H D ABG HCO3 13 L 9 L* 11 L ABG O2 Saturation 100 H 100 H 101 H ABG Base Excess -14 L -16 L -15 L VBG pH VBG pCO2 VBG pO2 VBG Base Excess 10/30/24 10/31/24 10/31/24 22:35 05:00 12:52 ABG pH 7.16 L* D 7.27 L D 7.32 L ABG pCO2 23 L 25 L 24 L ABG pO2 312 H D 402 H D 193 H D ABG HCO3 8 L* 12 L 12 L ABG O2 Saturation 100 H 101 H 100 H ABG Base Excess -19 L -14 L -12 L VBG pH VBG pCO2 VBG pO2 VBG Base Excess 10/31/24 16:48 ABG pH 7.50 H D ABG pCO2 23 L ABG pO2 175 H ABG HCO3 18 L ABG O2 Saturation 100 H ABG Base Excess -4 L VBG pH VBG pCO2 VBG pO2 VBG Base Excess Quality Measures Quality Measures VTE prophylaxis Advance care planning discussed with:: patient Medications Home Medications and Allergies Home Medications ?Medication ?Instructions ?Recorded ?Confirmed ?Type amitriptyline 25 mg tablet 25 mg PO HS 10/29/24 History atorvastatin 40 mg tablet 40 mg PO HS 10/29/24 5 History empagliflozin 10 mg tablet 10 mg PO QDAY 10/29/2410/10 History (Jardiance) empagliflozin 10 mg tablet 10 mg PO QDAY DIABETES 10/1010/29/24 History (Jardiance) gabapentin 100 mg capsule 100 mg PO Q8H 10/29/2410/29 History insulin glargine 100 unit/mL 30 unit subcut .BEDTIME 0 10/29/24 10/29/24 History subcutaneous solution (Lantus U-100 Insulin) metformin 1,000 mg tablet,extended 1,000 mg PO DAILY 0 10/29/24 10/29/24 History release 24hr (osmotic) metoprolol succinate 100 mg 100 mg PO QDAY HTN 5 10/29/24 History tablet,extended release 24 hr semaglutide 0.25 mg or 0.5 mg (2 0.5 mg subcut QWEEK 0 10/29/24 10/29/24 History mg/3 mL) subcutaneous pen injector (Ozempic) Allergies Allergy/AdvReac Type Severity Reaction Status Date / Time No Known Allergies Allergy Verified 07/26/24 08:18 Visit Medications Acetaminophen (Acetaminophen 325 Mg Tablet) 650 mg PO Q4HR PRN PRN Reason: PAIN SCALE 1-3 (mild Stop: 11/28/24 13:52 Acetaminophen (Acetaminophen Supp 650 Mg Supp) [address] Q4HR PRN PRN Reason: PAIN SCALE 1-3 (mild Stop: 11/28/24 13:52 Al Hydrox/Mg Hydrox/Simethicone (Mg Hyd/Al Hyd/Elpidio (Maalox Reg) Susp 30 Ml Udc) 30 ml PO Q4HR PRN PRN Reason: Heartburn or Upset Stomach Stop: 11/28/24 13:52 Dextrose (Dextrose 50%-Water Inj 50 Ml Syringe) 25 ml IV Q15MIN PRN PRN Reason: BG 50-70 responsive npo pt Stop: 11/28/24 15:56 Dextrose (Dextrose 50%-Water Inj 50 Ml Syringe) 50 ml IV Q15MIN PRN PRN Reason: BG <50 OR BG <70 & pt unresponsive Stop: 11/28/24 15:56 Last Admin: 10/31/24 11:35 Dose: 50 ml Enoxaparin Sodium (Enoxaparin Sod Inj 40 Mg/0.4 Ml Syringe) 40 mg SC QDAY [facility] [place] Stop: 11/12/24 13:52 Last Admin: 10/31/24 08:13 Dose: Not Given Famotidine (Famotidine Inj 10 Mg/Ml Vial 2 Ml) 20 mg IVP QDAY [facility] [place] Stop: 11/29/24 08:59 Last Admin: 10/31/24 09:59 Dose: 20 mg Glucagon (Glucagon Inj 1 Mg Vial) 1 mg IM Q15MIN PRN PRN Reason: BG <70, and no IV access Heparin Sodium (Porcine) (Heparin Sod Inj 1000 Unit/Ml Vial 10 Ml) 2,600 unit INDWELLCAT PRN PRN PRN Reason: DIALYSIS Stop: 11/13/24 13:28 Last Admin: 10/30/24 13:35 Dose: 2,600 unit Hydrocortisone Sodium Succinate (Hydrocortisone Sod Succ Inj 100 Mg Vial) 50 mg IV Q6HR [facility] [place] Stop: 11/29/24 00:00 Last Admin: 10/31/24 17:06 Dose: 50 mg Fentanyl Citrate (Sublimaze Inj 2,500 Mcg/250 Ml Bag) 2,500 mcg in 250 mls @ 2.5 mls/hr IV .Q24H PRN; Protocol PRN Reason: PER PROTOCOL Stop: 11/03/24 10:29 Last Admin: 10/31/24 19:37 Dose: 175 mcg/hr, 17.5 mls/hr Propofol (Diprivan Ivpb) 1,000 mg in 100 mls @ 2.358 mls/hr IV .Q24H PRN; Protocol PRN Reason: PER PROTOCOL Stop: 11/28/24 17:04 Last Titration: 10/30/24 19:00 Dose: 0 mcg/kg/min, 0 mls/hr Vasopressin/Sodium Chloride (Vasostrict/Ns Ivpb) 20 unit in 100 mls @ 9 mls/hr IV .Q11H7M PRN; Protocol PRN Reason: PER PROTOCOL Stop: 11/28/24 20:51 Last Admin: 10/31/24 17:54 Dose: 0.03 unit/min, 9 mls/hr Norepinephrine Bitartrate (Levophed In Ns 16mg/250ml) 16 mg in 250 mls @ 3.684 mls/hr IV .Q24H PRN; Protocol PRN Reason: PER PROTOCOL Stop: 11/28/24 22:59 Last Titration: 10/31/24 19:24 Dose: 0.11 mcg/kg/min, 8.106 mls/hr Phenylephrine HCl 40 mg/ (Sodium Chloride) 100 mls @ 5.895 mls/hr IV .[id number] PRN; Protocol PRN Reason: Per Sepsis Protocol Stop: 11/28/24 23:29 Albumin Human (Albuminar-5 Ivpb) 12.5 gm in 250 mls @ 100 mls/hr IV .Q2H30M SEVERIANO Last Admin: 10/30/24 18:09 Dose: 100 mls/hr Meropenem 1,000 mg/ Sodium (Chloride) 50 mls @ 100 mls/hr IV Q12HR SEVERIANO Stop: 11/07/24 08:59 Last Admin: 10/31/24 09:45 Dose: 100 mls/hr Dextrose (D10w 1000 Ml) 1,000 mls @ 40 mls/hr IV .Q24H SEVERIANO Stop: 11/01/24 12:47 Last Admin: 10/31/24 13:21 Dose: 40 mls/hr Insulin Human Lispro (Insulin Lispro (Admelog) 1 Unit/0.01 Ml Unit) 0 unit SC Q6HR SEVERIANO; Protocol Stop: 11/28/24 17:59 Last Admin: 10/31/24 17:14 Dose: Not Given Magnesium Hydroxide (Milk Of Magnesia Susp 30 Ml Udc) 30 ml PO QDAY PRN PRN Reason: CONSTIPATION Stop: 11/28/24 13:52 Nitroglycerin (Nitroglycerin 0.4 Mg Subl Btl #25) 0.4 mg SL Q5MIN PRN PRN Reason: CHEST PAIN Sennosides (Senna Tablet) 1 tab PO QDAY PRN; Protocol PRN Reason: constipation Stop: 11/28/24 13:09 Discontinued Medications Alteplase, Recombinant (Alteplase Recomb Inj 2 Mg Vial) 2 mg INDWELLCAT X1 ONE Stop: 10/30/24 16:16 Last Admin: 10/30/24 19:36 Dose: Not Given Alteplase, Recombinant (Alteplase Recomb Inj 2 Mg Vial) 2 mg INDWELLCAT X1 ONE Stop: 10/30/24 16:19 Last Admin: 10/30/24 16:30 Dose: 2 mg Alteplase, Recombinant (Alteplase Recomb Inj 2 Mg Vial) 2 mg INDWELLCAT X1 ONE Stop: 10/30/24 16:23 Last Admin: 10/30/24 16:30 Dose: 2 mg Aspirin (Aspirin 81 Mg Chew) 81 mg NG QDAY [facility] [place] Stop: 11/28/24 15:44 Last Admin: 10/30/24 09:10 Dose: 81 mg Calcium Gluconate (Calcium Gluconate 10% Inj 1 Gm/10 Ml Vial) 1 gm IV X1 ONE Stop: 10/30/24 10:57 Last Admin: 10/30/24 11:15 Dose: 1 gm Enoxaparin Sodium (Enoxaparin Sod Inj 40 Mg/0.4 Ml Syringe) 40 mg SC QDAY [facility] [place] Stop: 11/12/24 13:14 Last Admin: 10/29/24 14:13 Dose: Not Given Etomidate (Etomidate Inj 2 Mg/Ml Vial 10 Ml) 20 mg IVP X1 ONE Stop: 10/29/24 10:06 Last Admin: 10/29/24 10:16 Dose: 20 mg Hydrocortisone Sodium Succinate (Hydrocortisone Sod Succ Inj 100 Mg Vial) 100 mg IV X1 ONE Stop: 10/29/24 20:53 Last Admin: 10/29/24 22:08 Dose: 100 mg Sodium Chloride (Ns) 1,000 mls @ 1,000 mls/hr IV .Q1H ONE Stop: 10/29/24 10:55 Last Infusion: 10/29/24 14:04 Dose: Infused Sodium Chloride (Ns) 1,000 mls @ 2,000 mls/hr IV .Q30M ONE Stop: 10/29/24 10:25 Last Admin: 10/29/24 10:05 Dose: 2,000 mls/hr Vancomycin/Sodium Chloride (Vancomycin/Ns 1 Gm Ivpb) 200 mls @ 120 mls/hr IV X1 ONE Stop: 10/29/24 12:00 Last Infusion: 10/29/24 12:25 Dose: Infused Piperacillin/Tazobactam/Dextrose (Zosyn) 3.375 gm in 50 mls @ 100 mls/hr IV X1 ONE Stop: 10/29/24 10:49 Last Infusion: 10/29/24 12:25 Dose: Infused Norepinephrine/Dextrose (Levophed In D5w 8mg/250ml) 8 mg in 250 mls @ 7.734 mls/hr IV .Q24H PRN; Protocol PRN Reason: PER PROTOCOL Stop: 11/28/24 10:29 Last Titration: 10/29/24 23:30 Dose: 1.7 mcg/kg/min, 262.969 mls/hr Sodium Chloride (Ns) 2,000 mls @ 999 mls/hr IV .Q2H1M ONE Stop: 10/29/24 13:50 Last Infusion: 10/29/24 12:25 Dose: 0 mls/hr Lactated Ringer's (Lactated Ringers) 1,000 mls @ 999 mls/hr IV .Q1H1M ONE Stop: 10/29/24 11:00 Last Infusion: 10/29/24 14:04 Dose: Infused Piperacillin/Tazobactam/Dextrose (Zosyn) 3.375 gm in 50 mls @ 100 mls/hr IV Q8HR [facility] [place] Stop: 11/05/24 14:21 Last Admin: 10/30/24 19:36 Dose: Not Given Vancomycin/Sodium Chloride (Vancomycin/Ns 750 Mg Ivpb) 750 mg in 150 mls @ 120 mls/hr IV X1 ONE Stop: 10/29/24 15:59 Vancomycin/Sodium Chloride (Vancomycin/Ns 750 Mg Ivpb) 750 mg in 150 mls @ 120 mls/hr IV X1 ONE Stop: 10/29/24 15:59 Last Admin: 10/29/24 15:34 Dose: Not Given Sodium Bicarbonate 88.23 meq/ (Dextrose) 588.23 mls @ 100 mls/hr IV .Q5H53M SEVERIANO Stop: 11/29/24 03:11 Last Admin: 10/30/24 13:24 Dose: Not Given Vancomycin/Sodium Chloride (Vancomycin/Ns 500 Mg Ivpb) 100 mls @ 120 mls/hr IV Q24H SEVERIANO Stop: 11/06/24 11:59 Last Admin: 10/31/24 12:24 Dose: 120 mls/hr Magnesium Sulfate (Magnesium Sulfate Ivpb) 2 gm in 50 mls @ 25 mls/hr IV X1 ONE Stop: 10/30/24 09:27 Last Admin: 10/30/24 09:10 Dose: 25 mls/hr Sodium Bicarbonate 88.23 meq/ (Dextrose) 588.23 mls @ 100 mls/hr IV .Q5H53M [facility] [place] Stop: 11/29/24 09:14 Last Admin: 10/31/24 10:05 Dose: Not Given Albumin Human (Albuminar-25 Ivpb) 25 gm in 100 mls @ 100 mls/hr IV NOW ONE Stop: 10/30/24 11:59 Last Admin: 10/30/24 11:15 Dose: 100 mls/hr Piperacillin/Tazobactam/Dextrose (Zosyn) 3.375 gm in 50 mls @ 12.5 mls/hr IV Q8HR [facility] [place] Stop: 11/05/24 14:21 Last Admin: 10/31/24 06:00 Dose: 12.5 mls/hr Lactated Ringer's (Lactated Ringers) 250 mls @ 999 mls/hr IV .Q16M ONE Stop: 10/30/24 18:35 Lactated Ringer's (Lactated Ringers) 250 mls @ 999 mls/hr IV .Q16M ONE Stop: 10/30/24 20:06 Last Admin: 10/30/24 20:09 Dose: 999 mls/hr Metoprolol Tartrate (Metoprolol Tartrate Inj 1 Mg/Ml Amp 5 Ml) 5 mg IVP X1 ONE Stop: 10/29/24 22:33 Last Admin: 10/29/24 22:34 Dose: 5 mg Metoprolol Tartrate (Metoprolol Tartrate Inj 1 Mg/Ml Amp 5 Ml) 5 mg IVP X1 ONE Stop: 10/29/24 23:52 Last Admin: 10/30/24 00:00 Dose: 5 mg Pantoprazole Sodium (Pantoprazole Inj 40 Mg Vial) 40 mg IVP QDAY [facility] [place] Stop: 11/28/24 13:14 Last Admin: 10/29/24 14:13 Dose: Not Given Pharmacy Consult (Vancomycin Pharmacy To Dose 1 Each Each) 1 each IV QDAY PRN PRN Reason: PROTOCOL Stop: 11/29/24 08:59 Rocuronium [place] (Rocuronium Inj 10 Mg/Ml Vial 10 Ml) 70 mg IVP X1 ONE Stop: 10/30/24 18:00 Last Admin: 10/30/24 18:08 Dose: 70 mg Sodium Bicarbonate (Sodium Bicarb Inj 8.4% Syr 50 Ml Syringe) 50 ml IV X1 ONE Stop: 10/30/24 07:36 Last Admin: 10/30/24 07:35 Dose: 50 ml Sodium Bicarbonate (Sodium Bicarb Inj 8.4% Syr 50 Ml Syringe) 50 ml IV X1 ONE Stop: 10/31/24 12:41 Last Admin: 10/31/24 12:45 Dose: 50 ml Sodium Chloride (Sodium Chloride Rt 10% 15 Ml Nebu) 5 ml INH X1 ONE Stop: 10/29/24 10:24 Last Admin: 10/29/24 10:30 Dose: Not Given Sodium Chloride (Sodium Chloride Rt 10% 15 Ml Nebu) 5 ml INH X1 ONE Stop: 10/29/24 14:23 Last Admin: 10/29/24 15:29 Dose: Not Given Assessment & Plan Plan A 69-year-old female with a past medical history of hypertension, hyperlipidemia, type 2 diabetes mellitus, and chronic sciatic nerve pain presented to the emergency department on October 29, 2024, with acute altered mental status. Currently in ICU for severe refractory shock, with signs and symptoms of multi organ failure. Cardiology was consulted and concurred that the elevated troponin reflected type II myocardial injury in the context of shock and hypoxia. NSTEMI, likely type II Refractory shock, likely mixed etiology. Hemothorax Acute hypoxemic respiratory failure Multiorgan failure Neurologic acidosis Lactic acidosis AMS GNR bacteremia UTI, pyelonephritis She was found unresponsive at home following a likely ground-level fall the day prior, thought to be due to impaired mobility from sciatic pain. Although she was reportedly alert after the fall, she later deteriorated without preceding symptoms such as trauma, vomiting, diarrhea, chest pain, or shortness of breath. Upon arrival, she was in significant distress, with hypotension (BP 74/51), tachycardia (HR 148), fever (Tmax 102.7?F), and a MAP of 58. Neurologically, she had a Lalita Coma Scale of 7 and NIHSS of 23, prompting emergent intubation for airway protection. Initial labs were consistent with a systemic inflammatory response and early multiorgan dysfunction: WBC count was elevated at 18.4 with a left shift, lactic acid was 6.2, and ABG showed metabolic acidosis (pH 7.27, bicarbonate 16). She had acute kidney injury (BUN 43, Cr 2.2, GFR 24) compared to her baseline GFR of 54. Transaminases (AST 83, ALT 136) and troponin (0.075 initially) were elevated. Procalcitonin was markedly high (9.54), raising suspicion for sepsis. Imaging showed no acute intracranial pathology, though CT of the neck and chest revealed extensive intravascular air in the pulmonary artery, left innominate vein, right subclavian vein, and SVC, suggestive of venous air embolism, possibly contributing to obstructive physiology. Echocardiogram demonstrated hyperdynamic left and right ventricles with EEF 70- 75% (high output status in settings of severe anemia and late septic shock, and catecholamines/pressors), trace pericardial effusion, and no tamponade. In the ICU, the patient required multiple vasopressors and high-dose corticosteroids for persistent shock. Blood cultures grew gram-negative rods, prompting initiation of broad-spectrum antibiotics (including Meropenem). Despite aggressive management, the patient progressed to multiorgan failure. Her lactate gurpreet to 17, troponin peaked at 19.206 (suggesting type II NSTEMI due to demand ischemia), transaminases increased dramatically (AST 2151, ALT 1391), and she developed DIC, likely secondary to hepatic shock. She also had anemia requiring transfusion. CRRT was initiated for worsening renal function. Recommendations: Due to hemodynamic instability, she was not a candidate for immediate catheterization. The plan included continuing supportive care with vasopressors to maintain perfusion (MAP >65), antibiotics for sepsis, CRRT for renal support, and lab trending to monitor organ function. Her prognosis, unfortunately, remains guarded given the severity of refractory shock and evolving multiorgan dysfunction. Management of rest of the medical conditions as per primary team and other consultants. Thank you for the consult and allowing me to participate in the care of the patient. Cardiology will continue to follow. Case was discussed with attending, Dr. Bernal. DO ROBERTO CARLOS Fernandez
[2024-10-31 20:45] LABS: Lactate (Lactic Acid) 5.8 mMol/L (0.4-2.0)
[2024-10-31 21:07] LABS: Base Excess -2 (-3-3); HCO3 22 mEq/L (20-26); O2 Saturation 100 % (91-98); PCO2 33 mmHg (32.0-48.0); PO2 141 mmHg (83-108); pH, Arterial 7.44 (7.35-7.45)
[2024-10-31 21:09] LABS: Inspired Oxygen, FIO2 40 %
[2024-10-31 21:11] LABS: Allen Test Not Performed; Puncture Site Right Femoral
--- NOTE | 2024-10-31 21:12 | PC.RT ---
Passed in report by RT Ha RR changed by . Orders updated to coincide with report and current settings.
[2024-10-31 21:42] LABS: Albumin, Serum 2.9 gm/dL (3.4-4.8); Anion Gap 14 (7-16); BUN/Creatinine Ratio 14 Ratio (12-20); Blood Urea Nitrogen 10 mg/dL (9-23); Calcium 8.3 mg/dL (8.3-10.6); Calcium (Corrected) 9.2 mg/dL (8.5-10.1); Carbon Dioxide 21.4 mMol/L (20.0-31.0); Chloride 101 mMol/L (98-107); Creatinine (Component) 0.7 mg/dL (0.6-1.3); Estimated Creatinine Clearance 76.1 mL/min (>60); Glucose 115 mg/dL (74-106); Osmolality,Calculated 271 (275-295); Phosphorous 1.8 mg/dL (2.4-5.1); Potassium 3.6 mMol/L (3.4-5.1); Sodium 136 mMol/L (136-145); eGFR > 60 See Note
[2024-10-31] MEDS: HEPARIN SOD INJ 1000 UNIT/ML VIAL 10 ML 2600 UNIT INDWELLCAT (21:55)
[2024-10-31 23:29] LABS: Reflex Lactate? Y
[2024-10-31 23:58] LABS: Lactic Acid, 3 HR 5.2 mMol/L (0.4-2.0)
[2024-11-01] VITALS (285 sets, daily range): BP systolic 81–173; BP diastolic 36–64; PULSE 75–104; RESP 8–35; TEMP 36.4–37.7; O2SAT 75–100; BMI 39.0
[2024-11-01 00:50] LABS: Anion Gap 14 (7-16); BUN/Creatinine Ratio 13 Ratio (12-20); Blood Urea Nitrogen 12 mg/dL (9-23); Calcium 8.1 mg/dL (8.3-10.6); Carbon Dioxide 20.3 mMol/L (20.0-31.0); Chloride 101 mMol/L (98-107); Creatinine (Component) 0.9 mg/dL (0.6-1.3); Estimated Creatinine Clearance 59.2 mL/min (>60); Glucose 152 mg/dL (74-106); Osmolality,Calculated 272 (275-295); Potassium 3.8 mMol/L (3.4-5.1); Sodium 135 mMol/L (136-145); eGFR > 60 See Note
[2024-11-01 00:51] LABS: Albumin, Serum 2.9 gm/dL (3.4-4.8)
[2024-11-01] MEDS: HYDROCORTISONE SOD SUCC INJ 100 MG VIAL 50 MG IV ×4 (00:58→17:35)
[2024-11-01 01:33] LABS: Hematocrit 24.7 % (36.0-46.0)
[2024-11-01] MEDS: VASOPRESSIN IN NS IVPB 20 UNIT/100 ML BAG 9 UNIT IV ×2 (02:57→14:45)
[2024-11-01 04:35] LABS: Base Excess -3 (-3-3); HCO3 20 mEq/L (20-26); O2 Saturation 100 % (91-98); PCO2 31 mmHg (32.0-48.0); PO2 137 mmHg (83-108); pH, Arterial 7.43 (7.35-7.45)
[2024-11-01 04:36] LABS: Allen Test Not Performed; Inspired Oxygen, FIO2 35 %; Puncture Site Right Femoral
[2024-11-01 04:59] LABS: Lactate (Lactic Acid) 5.1 mMol/L (0.4-2.0)
[2024-11-01 05:05] LABS: Basophils % (Auto) 0 % (0-2.5); Eosinophils # (Auto) 0.1 Thou/mm3 (0.0-0.5); Eosinophils % (Auto) 1 % (0-10); Hematocrit 25.7 % (36.0-46.0); Hemoglobin 9.2 g/dL (12.0-16.0); Immature Granulocytes % (Auto) 5 % (0-0); Immature Granulocytes Auto 0.69 Thou/mm3 (0.00-0.00); Lymphocytes # (Auto) 0.4 Thou/mm3 (1.0-4.8); Lymphocytes % (Auto) 3 % (10-50); Mean Corpuscular HGB Conc 35.8 g/dl (31.0-37.0); Mean Corpuscular Hemoglobin 29.4 pg (25.0-35.0); Mean Corpuscular Volume 82 fL (80-100); Monocytes # (Auto) 0.5 Thou/mm3 (0.0-0.8); Monocytes % (Auto) 3 % (0-12); Neutrophils # (Auto) 12.7 Thou/mm3 (1.8-7.7); Neutrophils % (Auto) 89 % (37-80); Nucleated Red Blood Cell # 0.51 Thou/mm3 (0.00-0.00); Nucleated Red Blood Cell % 4 /100 WBC (0); RDW Standard Deviation 47.5 fL (36.4-46.3); Red Blood Count 3.13 Miln/mm3 (4.00-5.20); White Blood Count 14.3 Thou/mm3 (3.6-11.0)
[2024-11-01 05:06] LABS: Platelet Count 41 Thou/mm3 (140-440)
[2024-11-01 05:10] LABS: Path Review Blood Smear Sent to Pathologist
[2024-11-01 05:21] LABS: Slide Review Platelets confirmed
[2024-11-01 05:43] LABS: Alanine Aminotransferase 1658 U/L (10-49); Albumin, Serum 2.7 gm/dL (3.4-4.8); Albumin/Globulin Ratio 1.4 (1.2-2.2); Alkaline Phosphatase 373 U/L (46-116); Anion Gap 14 (7-16); Aspartate Amino Transferase 1594 U/L (0-34); BUN/Creatinine Ratio 12 Ratio (12-20); Bilirubin,Total 2.8 mg/dL (0.3-1.2); Blood Urea Nitrogen 14 mg/dL (9-23); Calcium 7.9 mg/dL (8.3-10.6); Calcium (Corrected) 8.9 mg/dL (8.5-10.1); Carbon Dioxide 19.6 mMol/L (20.0-31.0); Chloride 100 mMol/L (98-107); Creatinine (Component) 1.2 mg/dL (0.6-1.3); Estimated Creatinine Clearance 44.4 mL/min (>60); Globulin 1.9 gm/dL (2.3-3.5); Glucose 222 mg/dL (74-106); Magnesium 1.5 mg/dL (1.6-2.6); Osmolality,Calculated 275 (275-295); Phosphorous 2.2 mg/dL (2.4-5.1); Potassium 3.8 mMol/L (3.4-5.1); Sodium 134 mMol/L (136-145); Total Protein 4.6 gm/dL (5.7-8.2); eGFR 49 See Note
[2024-11-01 05:47] LABS: Troponin I 13.167 ng/mL (0.0-0.045)
--- NOTE | 2024-11-01 06:00 | XR_ITS ---
Examination: AP chest single view TECHNIQUE: Portable AP sitting chest single view Date and time: November 01, 2024 0436 hours Comparison October 01, 2024 INDICATIONS: Hypoxic respiratory failure, postintubation, postpneumonia left base on earlier chest films this week FINDINGS: Left base pneumonia obscuring detail left hemidiaphragm Endotracheal tube tip 5 cm above chip Left internal jugular tri flow catheter tip SVC Left subclavian tri flow catheter left innominate vein Normal heart size No pneumothorax IMPRESSION: Left base pneumonia again depicted Endotracheal tube satisfactory position Catheters stable position Lower portion of the orogastric tube is poorly visualized
[2024-11-01 07:54] LABS: Reflex Lactate? Y
--- NOTE | 2024-11-01 07:55 | PC.NURSE ---
After performing physical assessment on patient I noticed that she does not respond to any movement or verbal commands. I immedately notified Dr. Ward regarding my findings that pt is not withdrawling from any pain no matter how painful. Bilateral legs are mottled and cool to touch. Cough and gag are absent. Corneal reflex is negative. MRI was ordered.
[2024-11-01 07:56] LABS: Base Excess -4 (-3-3); HCO3 20 mEq/L (20-26); Inspired Oxygen, FIO2 21 %; O2 Saturation 100 % (91-98); PCO2 32 mmHg (32.0-48.0); PO2 135 mmHg (83-108); pH, Arterial 7.41 (7.35-7.45)
[2024-11-01 08:10] LABS: Allen Test Not Performed; Puncture Site Arterial Line
[2024-11-01 08:13] LABS: Lactic Acid, 3 HR 5.8 mMol/L (0.4-2.0)
[2024-11-01] MEDS: MEROPENEM INJ 1,000 MG in SODIUM CHLORIDE 0.9% (Popper) 50 ML 100 MG IV (08:52)
[2024-11-01] MEDS: Magnesium Sulfate 2 GM Ivpb 2 GM/50 ML BAG IV (08:53)
[2024-11-01] MEDS: FAMOTIDINE INJ 10 MG/ML VIAL 2 ML 20 MG IVP (08:53)
[2024-11-01] MEDS: ENOXAPARIN SOD INJ 40 MG/0.4 ML SYRINGE SC (08:53)
[2024-11-01 09:22] LABS: Lactate (Lactic Acid) 3.8 mMol/L (0.4-2.0)
--- NOTE | 2024-11-01 09:37 | PD.RESPRO ---
Documentation for date of: 11/01/24 Subjective Subjective Interval history: No acute overnight events. Continued on pressors, sedation and mechanical ventilation. Notably sedated, no signs of distress on exam, remains unresponsive to noxious stimuli including sternal rubs. Maintaining adequate MAP with 2 pressors. Labs overall improving, although remains in multiorgan failure. Our recommendations included continuing supportive care with vasopressors to maintain perfusion (MAP >65), antibiotics for sepsis, CRRT for renal support, and lab trending to monitor organ function. Maintain K > 4.0 and Mg > 2.0. Hemoglobin goal 9-10, transfuse as needed. Her prognosis, unfortunately, remains guarded given the severity of refractory shock and evolving multiorgan dysfunction. Exam Vital Signs Temp Pulse Resp BP Pulse Ox O2 Del Method FiO2 97.6 F 92 18 103/52 L 100 Mechanical Ventilation 35 11/01/24 04:00 11/01/24 06:50 11/01/24 06:15 11/01/24 06:50 11/01/24 06:50 10/30/24 12:00 11/01/24 08:16 Narrative Exam GENERAL Sedated and mechanically ventilated HEENT NCAT.?pupils equal, delay pupillary reaction bilaterally. Oral mucosa is dry. Patent nares NECK Supple, nontender, no thyromegaly, no meningismus, no JVD, no step offs CHEST Tachycardic, regular rhythm, no m/g/r CTAB, no w/r/r. Symmetrical chest rise. No intercostal subcostal retraction Atraumatic, nontender, no crepitus, symmetrical expansion. ABDOMEN Soft, flat, nontender. No guarding/rebound tenderness/masses. Bowel sounds presents EXTREMITIES No edema bilaterally. Delayed capillary refill in all extremities. Noted cold extremities, slightly better dusky and cyanosis in finger tips. SKIN Warm and dry, no jaundice/rashes. NEUROMUSCULAR No lumbar or midline, no CVA, no paraspinal muscle spasm or tenderness. No response to noxious stimuli. PSYCHIATRY Appropriately sedated. Objective Labs 11/01/24 11:45 11/01/24 11:45 Labs: Laboratory Results - last 24 hr 10/30/24 10/31/24 10/31/24 18:21 04:47 11:30 WBC RBC Hgb Hct MCV MCH MCHC RDW Std Deviation Plt Count Neut % (Auto) Lymph % (Auto) Williams % (Auto) Eos % (Auto) Baso % (Auto) Neut # (Auto) Lymph # (Auto) Williams # (Auto) Eos # (Auto) Baso # (Auto) Immature Gran # (Auto) Absolute Nucleated RBC Immature Gran % Nucleated RBC % Smear Path Review Haptoglobin Cancelled Puncture Site ABG pH ABG pCO2 ABG pO2 ABG HCO3 ABG O2 Saturation ABG Base Excess FiO2 Sodium Potassium Chloride Carbon Dioxide Anion Gap BUN Creatinine Estim Creat Clear Calc eGFR BUN/Creatinine Ratio Glucose Calculated Osmolality Lactic Acid 17.0 H* Calcium Corrected Calcium Phosphorus Magnesium Total Bilirubin AST ALT Alkaline Phosphatase Troponin I Total Protein Albumin Globulin Albumin/Globulin Ratio Misc Test Result Blood Type A Positive Antibody Screen NEGATIVE Crossmatch See Detail Blood Bank Wristband ID Yes Blood Bank Comment [facility] Ready 10/31/24 10/31/24 10/31/24 12:00 12:52 15:05 WBC 12.4 H RBC 2.92 L Hgb 8.5 L D Hct 24.0 L MCV 82 MCH 29.1 MCHC 35.4 RDW Std Deviation 45.1 Plt Count 71 L D Neut % (Auto) 84 H Lymph % (Auto) 4 L Williams % (Auto) 3 Eos % (Auto) 1 Baso % (Auto) 1 Neut # (Auto) 10.5 H Lymph # (Auto) 0.5 L Williams # (Auto) 0.4 Eos # (Auto) 0.1 Baso # (Auto) 0.1 Immature Gran # (Auto) 0.89 H Absolute Nucleated RBC 0.22 H Immature Gran % 7 H Nucleated RBC % 2 H Smear Path Review Haptoglobin Puncture Site Arterial Line ABG pH 7.32 L ABG pCO2 24 L ABG pO2 193 H D ABG HCO3 12 L ABG O2 Saturation 100 H ABG Base Excess -12 L FiO2 50 Sodium 138 136 Potassium 4.3 3.8 D Chloride 102 101 Carbon Dioxide < 10.0 L* 16.8 L Anion Gap 26 H 18 H BUN 20 15 Creatinine 1.3 D 1.0 Estim Creat Clear Calc 41.0 L 53.3 L eGFR 44 L > 60 BUN/Creatinine Ratio 15 15 Glucose 38 L* D 99 D Calculated Osmolality 275 272 L Lactic Acid 9.9 H* Calcium 7.9 L 8.1 L Corrected Calcium 8.9 9.0 Phosphorus 4.5 2.3 L Magnesium Total Bilirubin AST ALT Alkaline Phosphatase Troponin I Total Protein Albumin 2.8 L 2.9 L Globulin Albumin/Globulin Ratio [facility] [place] Test Result Platelets confirmed Blood Type Antibody Screen [place] Blood Bank [facility] Blood Bank Comment 10/31/24 10/31/24 10/31/24 16:48 20:04 20:56 WBC RBC Hgb Hct MCV MCH MCHC RDW Std Deviation Plt Count Neut % (Auto) Lymph % (Auto) Williams % (Auto) Eos % (Auto) Baso % (Auto) Neut # (Auto) Lymph # (Auto) Williams # (Auto) Eos # (Auto) Baso # (Auto) Immature Gran # (Auto) Absolute Nucleated RBC Immature Gran % Nucleated RBC % Smear Path Review Haptoglobin Puncture Site Arterial Line Right Femoral ABG pH 7.50 H D 7.44 ABG pCO2 23 L 33 D ABG pO2 175 H 141 H D ABG HCO3 18 L 22 ABG O2 Saturation 100 H 100 H ABG Base Excess -4 L -2 FiO2 40 40 Sodium 136 Potassium 3.6 Chloride 101 Carbon Dioxide 21.4 Anion Gap 14 BUN 10 Creatinine 0.7 Estim Creat Clear Calc 76.1 eGFR > 60 BUN/Creatinine Ratio 14 Glucose 115 H Calculated Osmolality 271 L Lactic Acid 5.8 H* Calcium 8.3 Corrected Calcium 9.2 Phosphorus 1.8 L Magnesium Total Bilirubin AST ALT Alkaline Phosphatase Troponin I Total Protein Albumin 2.9 L Globulin Albumin/Globulin Ratio [facility] [place] Test Result Blood Type Antibody Screen [facility] Blood [facility] Blood Bank Comment 10/31/24 11/01/24 11/01/24 23:39 01:13 04:25 WBC 14.3 H RBC 3.13 L Hgb 9.0 L 9.2 L Hct 24.7 L 25.7 L MCV 82 MCH 29.4 MCHC 35.8 RDW Std Deviation 47.5 H Plt Count 41 L D Neut % (Auto) 89 H Lymph % (Auto) 3 L Williams % (Auto) 3 Eos % (Auto) 1 Baso % (Auto) 0 Neut # (Auto) 12.7 H Lymph # (Auto) 0.4 L Williams # (Auto) 0.5 Eos # (Auto) 0.1 Baso # (Auto) 0.0 Immature Gran # (Auto) 0.69 H Absolute Nucleated RBC 0.51 H Immature Gran % 5 H Nucleated RBC % 4 H Smear Path Review Sent to Pathologist Haptoglobin Puncture Site ABG pH ABG pCO2 ABG pO2 ABG HCO3 ABG O2 Saturation ABG Base Excess FiO2 Sodium 135 L 134 L Potassium 3.8 3.8 Chloride 101 100 Carbon Dioxide 20.3 19.6 L Anion Gap 14 14 BUN 12 14 Creatinine 0.9 1.2 Estim Creat Clear Calc 59.2 L 44.4 L eGFR > 60 49 L BUN/Creatinine Ratio 13 12 Glucose 152 H 222 H D Calculated Osmolality 272 L 275 Lactic Acid 5.2 H* 5.1 H* Calcium 8.1 L 7.9 L Corrected Calcium 9.0 8.9 Phosphorus 2.0 L 2.2 L Magnesium 1.5 L Total Bilirubin 2.8 H D AST 1594 H* ALT 1658 H* Alkaline Phosphatase 373 H D Troponin I 13.167 H* D Total Protein 4.6 L Albumin 2.9 L 2.7 L Globulin 1.9 L Albumin/Globulin Ratio 1.4 Misc Test Result Platelets confirmed Blood Type Antibody Screen [place] Blood Bank [facility] Blood Bank Comment 11/01/24 11/01/24 11/01/24 04:26 07:40 07:41 WBC RBC Hgb Hct MCV MCH MCHC RDW Std Deviation Plt Count Neut % (Auto) Lymph % (Auto) Williams % (Auto) Eos % (Auto) Baso % (Auto) Neut # (Auto) Lymph # (Auto) Williams # (Auto) Eos # (Auto) Baso # (Auto) Immature Gran # (Auto) Absolute Nucleated RBC Immature Gran % Nucleated RBC % Smear Path Review Haptoglobin Puncture Site Right Femoral Arterial Line ABG pH 7.43 7.41 ABG pCO2 31 L 32 ABG pO2 137 H 135 H ABG HCO3 20 20 ABG O2 Saturation 100 H 100 H ABG Base Excess -3 -4 L FiO2 35 21 Sodium Potassium Chloride Carbon Dioxide Anion Gap BUN Creatinine Estim Creat Clear Calc eGFR BUN/Creatinine Ratio Glucose Calculated Osmolality Lactic Acid 5.8 H* Calcium Corrected Calcium Phosphorus Magnesium Total Bilirubin AST ALT Alkaline Phosphatase Troponin I Total Protein Albumin Globulin Albumin/Globulin Ratio Misc Test Result Blood Type Antibody Screen [place] Blood Bank [facility] Blood Bank Comment 11/01/24 08:40 WBC RBC Hgb Hct MCV MCH MCHC RDW Std Deviation Plt Count Neut % (Auto) Lymph % (Auto) Williams % (Auto) Eos % (Auto) Baso % (Auto) Neut # (Auto) Lymph # (Auto) Williams # (Auto) Eos # (Auto) Baso # (Auto) Immature Gran # (Auto) Absolute Nucleated RBC Immature Gran % Nucleated RBC % Smear Path Review Haptoglobin Puncture Site ABG pH ABG pCO2 ABG pO2 ABG HCO3 ABG O2 Saturation ABG Base Excess FiO2 Sodium Potassium Chloride Carbon Dioxide Anion Gap BUN Creatinine Estim Creat Clear Calc eGFR BUN/Creatinine Ratio Glucose Calculated Osmolality Lactic Acid 3.8 H Calcium Corrected Calcium Phosphorus Magnesium Total Bilirubin AST ALT Alkaline Phosphatase Troponin I Total Protein Albumin Globulin Albumin/Globulin Ratio Misc Test Result Blood Type Antibody Screen Crossmatch Blood Bank Wristband ID Blood Bank Comment ABG Interpretation ABG results: 10/29/24 10/29/24 10/29/24 10:00 12:47 22:20 ABG pH 7.27 L ABG pCO2 35 ABG pO2 201 H ABG HCO3 16 L ABG O2 Saturation 100 H ABG Base Excess -10 L VBG pH 7.33 7.28 L VBG pCO2 43 36 VBG pO2 31 53 D VBG Base Excess -3 -9 L 10/29/24 10/30/24 10/30/24 23:47 08:07 16:11 ABG pH 7.23 L 7.30 L 7.26 L ABG pCO2 30 L 18 L* D 24 L ABG pO2 301 H D 240 H D 359 H D ABG HCO3 13 L 9 L* 11 L ABG O2 Saturation 100 H 100 H 101 H ABG Base Excess -14 L -16 L -15 L VBG pH VBG pCO2 VBG pO2 VBG Base Excess 10/30/24 10/31/24 10/31/24 22:35 05:00 12:52 ABG pH 7.16 L* D 7.27 L D 7.32 L ABG pCO2 23 L 25 L 24 L ABG pO2 312 H D 402 H D 193 H D ABG HCO3 8 L* 12 L 12 L ABG O2 Saturation 100 H 101 H 100 H ABG Base Excess -19 L -14 L -12 L VBG pH VBG pCO2 VBG pO2 VBG Base Excess 10/31/24 10/31/24 11/01/24 16:48 20:56 04:26 ABG pH 7.50 H D 7.44 7.43 ABG pCO2 23 L 33 D 31 L ABG pO2 175 H 141 H D 137 H ABG HCO3 18 L 22 20 ABG O2 Saturation 100 H 100 H 100 H ABG Base Excess -4 L -2 -3 VBG pH VBG pCO2 VBG pO2 VBG Base Excess 11/01/24 07:41 ABG pH 7.41 ABG pCO2 32 ABG pO2 135 H ABG HCO3 20 ABG O2 Saturation 100 H ABG Base Excess -4 L VBG pH VBG pCO2 VBG pO2 VBG Base Excess Quality Measures Quality Measures VTE prophylaxis Advance care planning discussed with:: patient Assessment & Plan Assessment Current Active Medications: Generic Name Dose Route Start Last Admin Trade Name Freq PRN Reason Stop Dose Admin Acetaminophen 650 mg 10/29/24 13:53 Acetaminophen 325 Mg Tablet PO 11/28/24 13:52 Q4HR PRN PAIN SCALE 1-3 (mild Acetaminophen 650 mg 10/29/24 13:53 Acetaminophen Supp 650 Mg Supp AL 11/28/24 13:52 Q4HR PRN PAIN SCALE 1-3 (mild Al Hydrox/Mg Hydrox/Simethicone 30 ml 10/29/24 13:53 Mg Hyd/Al Hyd/Elpidio (Maalox Reg) Susp 30 Ml Udc PO 11/28/24 13:52 Q4HR PRN Heartburn or Upset Stomach Dextrose 25 ml 10/29/24 15:57 Dextrose 50%-Water Inj 50 Ml Syringe IV 11/28/24 15:56 Q15MIN PRN BG 50-70 responsive npo pt Dextrose 50 ml 10/29/24 15:57 10/31/24 11:35 Dextrose 50%-Water Inj 50 Ml Syringe IV 11/28/24 15:56 50 ml Q15MIN PRN Administration BG <50 OR BG <70 & pt unresponsive Enoxaparin Sodium 40 mg 10/29/24 13:53 11/01/24 08:53 Enoxaparin Sod Inj 40 Mg/0.4 Ml Syringe SC 11/12/24 13:52 40 mg QDAY SEVERIANO Administration Famotidine 20 mg 10/30/24 09:00 11/01/24 08:53 Famotidine Inj 10 Mg/Ml Vial 2 Ml IVP 11/29/24 08:59 20 mg QDAY SEVERIANO Administration Glucagon 1 mg 10/29/24 15:57 Glucagon Inj 1 Mg Vial IM Q15MIN PRN BG <70, and no IV access Heparin Sodium (Porcine) 2,600 unit 10/30/24 13:29 10/31/24 21:55 Heparin Sod Inj 1000 Unit/Ml Vial 10 Ml INDWELLCAT 11/13/24 13:28 2,600 unit PRN PRN Administration DIALYSIS Hydrocortisone Sodium Succinate 50 mg 10/30/24 00:00 11/01/24 05:29 Hydrocortisone Sod Succ Inj 100 Mg Vial IV 11/29/24 00:00 50 mg Q6HR SEVERIANO Administration Fentanyl Citrate 2,500 mcg in 250 mls @ 2.5 mls/hr 10/29/24 10:30 11/01/24 08:14 Sublimaze Inj 2,500 Mcg/250 Ml Bag IV 11/03/24 10:29 0 mcg/hr .Q24H PRN 0 mls/hr PER PROTOCOL Titration Protocol 25 MCG/HR Propofol 1,000 mg in 100 mls @ 2.358 mls/hr 10/29/24 17:05 10/30/24 19:00 Diprivan Ivpb IV 11/28/24 17:04 0 mcg/kg/min .Q24H PRN 0 mls/hr PER PROTOCOL Titration Protocol 5 MCG/KG/MIN Vasopressin/Sodium Chloride 20 unit in 100 mls @ 9 mls/hr 10/29/24 20:52 11/01/24 02:57 Vasostrict/Ns Ivpb IV 11/28/24 20:51 0.03 unit/min .Q11H7M PRN 9 mls/hr PER PROTOCOL Administration Protocol 0.03 UNIT/MIN Norepinephrine Bitartrate 16 mg in 250 mls @ 3.684 mls/hr 10/29/24 23:00 11/01/24 06:00 Levophed In Ns 16mg/250ml IV 11/28/24 22:59 0.05 mcg/kg/min .Q24H PRN 3.684 mls/hr PER PROTOCOL Titration Protocol 0.05 MCG/KG/MIN Phenylephrine HCl 40 mg/ 100 mls @ 5.895 mls/hr 10/29/24 23:30 Sodium Chloride IV 11/28/24 23:29 .[id number] PRN Per Sepsis Protocol Protocol 0.5 MCG/KG/MIN Albumin Human 12.5 gm in 250 mls @ 100 mls/hr 10/30/24 17:58 10/30/24 18:09 Albuminar-5 Ivpb IV 100 mls/hr .Q2H30M SEVERIANO Administration Meropenem 1,000 mg/ Sodium 50 mls @ 100 mls/hr 10/31/24 09:00 11/01/24 08:52 Chloride IV 11/07/24 08:59 100 mls/hr Q12HR SEVERIANO Administration Dextrose 1,000 mls @ 40 mls/hr 10/31/24 12:48 10/31/24 13:21 D10w 1000 Ml IV 11/01/24 12:47 40 mls/hr .Q24H SEVERIANO Administration Insulin Human Lispro 0 unit 10/29/24 18:00 11/01/24 05:35 Insulin Lispro (Admelog) 1 Unit/0.01 Ml Unit SC 11/28/24 17:59 Not Given Q6HR SEVERIANO Protocol Magnesium Hydroxide 30 ml 10/29/24 13:53 Milk Of Magnesia Susp 30 Ml Udc PO 11/28/24 13:52 QDAY PRN CONSTIPATION Nitroglycerin 0.4 mg 10/29/24 13:53 Nitroglycerin 0.4 Mg Subl Btl #25 SL Q5MIN PRN CHEST PAIN Sennosides 1 tab 10/29/24 13:10 Senna Tablet PO 11/28/24 13:09 QDAY PRN constipation Protocol Plan A 69-year-old female with a past medical history of hypertension, hyperlipidemia, type 2 diabetes mellitus, and chronic sciatic nerve pain presented to the emergency department on October 29, 2024, with acute altered mental status. Currently in ICU for severe refractory shock, with signs and symptoms of multi organ failure. Cardiology was consulted and concurred that the elevated troponin reflected type II myocardial injury in the context of shock and hypoxia. NSTEMI, likely type II Refractory shock, likely mixed etiology. Hemothorax Acute hypoxemic respiratory failure Multiorgan failure Neurologic acidosis Lactic acidosis AMS GNR bacteremia UTI, pyelonephritis She was found unresponsive at home following a likely ground-level fall the day prior, thought to be due to impaired mobility from sciatic pain. Although she was reportedly alert after the fall, she later deteriorated without preceding symptoms such as trauma, vomiting, diarrhea, chest pain, or shortness of breath. Upon arrival, she was in significant distress, with hypotension (BP 74/51), tachycardia (HR 148), fever (Tmax 102.7?F), and a MAP of 58. Neurologically, she had a [place] Coma Scale of 7 and NIHSS of 23, prompting emergent intubation for airway protection. Initial labs were consistent with a systemic inflammatory response and early multiorgan dysfunction: WBC count was elevated at 18.4 with a left shift, lactic acid was 6.2, and ABG showed metabolic acidosis (pH 7.27, bicarbonate 16). She had acute kidney injury (BUN 43, Cr 2.2, GFR 24) compared to her baseline GFR of 54. Transaminases (AST 83, ALT 136) and troponin (0.075 initially) were elevated. Procalcitonin was markedly high (9.54), raising suspicion for sepsis. Imaging showed no acute intracranial pathology, though CT of the neck and chest revealed extensive intravascular air in the pulmonary artery, left innominate vein, right subclavian vein, and SVC, suggestive of venous air embolism, possibly contributing to obstructive physiology. Echocardiogram demonstrated hyperdynamic left and right ventricles with EEF 70-75% (high output status in settings of severe anemia and late septic shock, and catecholamines/pressors), trace pericardial effusion, and no tamponade. In the ICU, the patient required multiple vasopressors and high-dose corticosteroids for persistent shock. Blood cultures grew gram-negative rods, prompting initiation of broad-spectrum antibiotics (including Meropenem). Despite aggressive management, the patient progressed to multiorgan failure. Her lactate gurpreet to 17, troponin peaked at 19.206 (suggesting type II NSTEMI due to demand ischemia), transaminases increased dramatically (AST 2151, ALT 1391), and she developed DIC, likely secondary to hepatic shock. She also had anemia requiring transfusion. CRRT was initiated for worsening renal function. 11/01/24 Maintaining adequate MAP with 2 pressors. Continued on ANTIBIOTICS for bacteremia and UTI. WBC 14.3. Hgb 9.2 and stable. CHEM panel showing some improvement, LFTs downtrending, CR 1.2, BUN 14. Lactic acid 3.8 and downtrending. Troponin 13.16 and improving. Recommendations: At this time, patient is not having acute coronary syndrome given that he ejection fraction is normal. She has new hemodialysis requirement, remains in severe shock, hypoxemia requiring mechanical ventilation, lactic acidosis, and multiorgan failure, all of these things are suggestive of demand ischemia as the underlying cause. However she might have underlying CAD and will need further ischemic workup once hemodynamically stable. Cannot give METOPROLOL at this time given that she is on shock. Cannot give statin therapy given underlying liver shock. Cannot do ASPIRIN or HEPARIN given active anemia. Our recommendations included continuing supportive care with vasopressors to maintain perfusion (MAP >65), antibiotics for sepsis, CRRT for renal support, and lab trending to monitor organ function. Maintain K > 4.0 and Mg > 2.0. Hemoglobin goal 9-10, transfuse as needed. Her prognosis, unfortunately, remains guarded given the severity of refractory shock and evolving multiorgan dysfunction. Management of rest of the medical conditions as per primary team and other consultants. Thank you for the consult and allowing me to participate in the care of the patient. Cardiology will continue to follow. Case was discussed with attending, Dr. Bernal. Deidre Johnson DO PGYI
[2024-11-01 10:21] LABS: Albumin, Serum 2.5 gm/dL (3.4-4.8); Anion Gap 14 (7-16); BUN/Creatinine Ratio 12 Ratio (12-20); Blood Urea Nitrogen 16 mg/dL (9-23); Calcium 7.2 mg/dL (8.3-10.6); Calcium (Corrected) 8.4 mg/dL (8.5-10.1); Carbon Dioxide 19.2 mMol/L (20.0-31.0); Chloride 102 mMol/L (98-107); Creatinine (Component) 1.3 mg/dL (0.6-1.3); Estimated Creatinine Clearance 42.1 mL/min (>60); Glucose 284 mg/dL (74-106); Osmolality,Calculated 281 (275-295); Phosphorous 1.9 mg/dL (2.4-5.1); Potassium 3.6 mMol/L (3.4-5.1); Sodium 135 mMol/L (136-145); eGFR 44 See Note
[2024-11-01] MEDS: PIPER/TAZO 3.375 GM PREMIX 3.375 GM/50 ML BAG IV ×3 (10:22→21:58)
[2024-11-01] MEDS: INSULIN LISPRO (AdmeLOG) 1 UNIT/0.01 ML UNIT SC ×2 (11:51→17:36)
[2024-11-01 12:00] LABS: Lactate (Lactic Acid) 3.3 mMol/L (0.4-2.0)
[2024-11-01 12:01] LABS: Base Excess 0 (-3-3); HCO3 23 mEq/L (20-26); Inspired Oxygen, FIO2 35 %; O2 Saturation 99 % (91-98); PCO2 33 mmHg (32.0-48.0); PO2 98 mmHg (83-108); pH, Arterial 7.46 (7.35-7.45)
[2024-11-01 12:06] LABS: Allen Test Not Performed; Puncture Site Arterial Line
[2024-11-01 12:15] LABS: Reflex Lactate? Y
[2024-11-01 12:21] LABS: Hematocrit 23.5 % (36.0-46.0)
[2024-11-01 12:33] LABS: Albumin, Serum 2.7 gm/dL (3.4-4.8); Anion Gap 13 (7-16); BUN/Creatinine Ratio 13 Ratio (12-20); Blood Urea Nitrogen 15 mg/dL (9-23); Calcium 7.7 mg/dL (8.3-10.6); Calcium (Corrected) 8.7 mg/dL (8.5-10.1); Carbon Dioxide 24.1 mMol/L (20.0-31.0); Chloride 95 mMol/L (98-107); Creatinine (Component) 1.2 mg/dL (0.6-1.3); Estimated Creatinine Clearance 45.6 mL/min (>60); Glucose 281 mg/dL (74-106); Osmolality,Calculated 275 (275-295); Phosphorous 1.7 mg/dL (2.4-5.1); Potassium 3.3 mMol/L (3.4-5.1); Sodium 132 mMol/L (136-145); eGFR 49 See Note
--- NOTE | 2024-11-01 12:41 | XR_ITS ---
Examination: CT brain head without contrast. 2-D sagittal coronal reconstructions Date and time of exam:November 01, 2024 1638 hours Comparison October 29, 2024 INDICATIONS: Loss of consciousness with hypoxic respiratory failure October 29, 2024 CTDI: vol (mGy):46.7 DLP: (mGycm):911 Technique: Multiple CT axial sections of the brain have been obtained, 5 mm slice thickness. Contrast has not been administered. 2-D sagittal, coronal reconstructions have been obtained Low dose protocols were performed. One or more of the following dose reduction techniques were used; automated exposure control, adjustment of the mA and/or KV according to patient size, use of iterative reconstruction technique. Findings: Very large left middle cerebral artery infarct with severe edema There is shift of the frontal horns to the right 10 mm and effacement of the left lateral ventricle The left cerebral hemisphere sulci are effaced There are smaller acute infarcts in the posterior right parietal lobe axial image 16 No acute hemorrhage Fourth ventricle midline No herniation of the cerebellar tonsils Osseous structures are intact IMPRESSION: A very large left middle cerebral artery infarct with severe edema and significant mass effect
[2024-11-01 13:01] LABS: Hemoglobin 8.4 g/dL (12.0-16.0)
--- NOTE | 2024-11-01 13:21 | ESPR_ITS ---
Documentation for date of: 11/01/24 Subjective Subjective Interval history: This is a 69yo F brought to the ER today for AMS. She was in her [facility] state of health yesterday per daughter at bedside. Normally she is ambulatory and able to partake in ADLs. Yesterday she had some increase in sciatica pain and fell however family states it was not a big fall and that the pt was fine after. She went to sleep early at around 8p. Daughter states that the pt fq sleeps in however when she was not awake by 9am she became worried. Pt was unarousable and therefore EMS was called. Pt was brought to the ER and on arrival was found to be obtunded. At that time the decision was made to intubate for GCS <8. After intubation pt became progressively more hypotensive and was given IVF. Pt remained hypotensive and was started on levophed. She received a total of 6lts of IVF. ICU eval was requested. pt was seen and examined in ER room 5. She was started on fentanyl gtt after intubation since she appeared to start to wake up and reach for the ETT. 10/30- yesterday afternoon was off of levophed however overnight she dropped her BP again and was restarted on levophed. This was rapidly increased and requied initiation of vasopressin as well as hydrocortisone. her LA had dropped down to 2 but is back up to 8 this AM. remains virtually anuric , afebrile, vent dyssynchrony 10/31- overnight only had 6hr of CRRT due to trouble with the line, remains anuric, afebrile, LA increased to 17, trops peaked overnight to 30, drop in h/h felt to be due to suspected hemothorax 11/01- no acute overnight events, when fent held pt does not wake up as of yet, remains with no UOP, cx resulted out with ESBL E. coli Critical Care Note Critical care time (min.): 43 Exam Vital Signs Temp Pulse Resp BP Pulse Ox O2 Del Method FiO2 98.2 F 82 18 116/48 L 99 Mechanical Ventilation 35 11/01/24 12:00 11/01/24 13:19 11/01/24 12:00 11/01/24 13:19 11/01/24 12:00 11/01/24 12:00 11/01/24 12:00 Narrative Exam Gen- intubated, min sedation, unresponsive, elderly, nl body habitus, edematous HEENT- NC/AT, mucosa hydrated, sclera anicteric, PERRL, ETT/OGT in place Chest- LCTAB, diminished, HRRR, no increase in WOB Abd- s/nt/bs+ Ext- edema, pulses diminished, feet dusky and cool to touch, no mov of RUE/RLE Vent AC VC Drip levo vaso fent Physical Exam Completion Physical Exam Complete?: Yes Objective - [employer] Labs 11/01/24 11:45 11/01/24 11:45 Labs: Laboratory Results - last 24 hr 10/30/24 10/31/24 10/31/24 18:21 15:05 16:48 WBC 12.4 H RBC 2.92 L Hgb 8.5 L D Hct 24.0 L MCV 82 MCH 29.1 MCHC 35.4 RDW Std Deviation 45.1 Plt Count 71 L D Neut % (Auto) 84 H Lymph % (Auto) 4 L [place] % (Auto) 3 Eos % (Auto) 1 Baso % (Auto) 1 Neut # (Auto) 10.5 H Lymph # (Auto) 0.5 L [place] # (Auto) 0.4 Eos # (Auto) 0.1 Baso # (Auto) 0.1 Immature Gran # (Auto) 0.89 H Absolute Nucleated RBC 0.22 H Immature Gran % 7 H Nucleated RBC % 2 H Smear Path Review Puncture Site Arterial Line ABG pH 7.50 H D ABG pCO2 23 L ABG pO2 175 H ABG HCO3 18 L ABG O2 Saturation 100 H ABG Base Excess -4 L Oxygen Liter Flow FiO2 40 Sodium 136 Potassium 3.8 D Chloride 101 Carbon Dioxide 16.8 L Anion Gap 18 H BUN 15 Creatinine 1.0 Estim Creat Clear Calc 53.3 L eGFR > 60 BUN/Creatinine Ratio 15 Glucose 99 D Calculated Osmolality 272 L Lactic Acid 9.9 H* Calcium 8.1 L Corrected Calcium 9.0 Phosphorus 2.3 L Magnesium Total Bilirubin AST ALT Alkaline Phosphatase Troponin I Total Protein Albumin 2.9 L Globulin Albumin/Globulin Ratio Misc Test Result Platelets confirmed Crossmatch See Detail 10/31/24 10/31/24 10/31/24 20:04 20:56 23:39 WBC RBC Hgb Hct MCV MCH MCHC RDW Std Deviation Plt Count Neut % (Auto) Lymph % (Auto) [place] % (Auto) Eos % (Auto) Baso % (Auto) Neut # (Auto) Lymph # (Auto) [place] # (Auto) Eos # (Auto) Baso # (Auto) Immature Gran # (Auto) Absolute Nucleated RBC Immature Gran % Nucleated RBC % Smear Path Review Puncture Site Right Femoral ABG pH 7.44 ABG pCO2 33 D ABG pO2 141 H D ABG HCO3 22 ABG O2 Saturation 100 H ABG Base Excess -2 Oxygen Liter Flow FiO2 40 Sodium 136 135 L Potassium 3.6 3.8 Chloride 101 101 Carbon Dioxide 21.4 20.3 Anion Gap 14 14 BUN 10 12 Creatinine 0.7 0.9 Estim Creat Clear Calc 76.1 59.2 L eGFR > 60 > 60 BUN/Creatinine Ratio 14 13 Glucose 115 H 152 H Calculated Osmolality 271 L 272 L Lactic Acid 5.8 H* 5.2 H* Calcium 8.3 8.1 L Corrected Calcium 9.2 9.0 Phosphorus 1.8 L 2.0 L Magnesium Total Bilirubin AST ALT Alkaline Phosphatase Troponin I Total Protein Albumin 2.9 L 2.9 L Globulin Albumin/Globulin Ratio Misc Test Result Crossmatch 11/01/24 11/01/24 11/01/24 01:13 04:25 04:26 WBC 14.3 H RBC 3.13 L Hgb 9.0 L 9.2 L Hct 24.7 L 25.7 L MCV 82 MCH 29.4 MCHC 35.8 RDW Std Deviation 47.5 H Plt Count 41 L D Neut % (Auto) 89 H Lymph % (Auto) 3 L [place] % (Auto) 3 Eos % (Auto) 1 Baso % (Auto) 0 Neut # (Auto) 12.7 H Lymph # (Auto) 0.4 L [place] # (Auto) 0.5 Eos # (Auto) 0.1 Baso # (Auto) 0.0 Immature Gran # (Auto) 0.69 H Absolute Nucleated RBC 0.51 H Immature Gran % 5 H Nucleated RBC % 4 H Smear Path Review Sent to Pathologist Puncture Site Right Femoral ABG pH 7.43 ABG pCO2 31 L ABG pO2 137 H ABG HCO3 20 ABG O2 Saturation 100 H ABG Base Excess -3 Oxygen Liter Flow FiO2 35 Sodium 134 L Potassium 3.8 Chloride 100 Carbon Dioxide 19.6 L Anion Gap 14 BUN 14 Creatinine 1.2 Estim Creat Clear Calc 44.4 L eGFR 49 L BUN/Creatinine Ratio 12 Glucose 222 H D Calculated Osmolality 275 Lactic Acid 5.1 H* Calcium 7.9 L Corrected Calcium 8.9 Phosphorus 2.2 L Magnesium 1.5 L Total Bilirubin 2.8 H D AST 1594 H* ALT 1658 H* Alkaline Phosphatase 373 H D Troponin I 13.167 H* D Total Protein 4.6 L Albumin 2.7 L Globulin 1.9 L Albumin/Globulin Ratio 1.4 Misc Test Result Platelets confirmed Crossmatch 11/01/24 11/01/24 11/01/24 07:40 07:41 08:40 WBC RBC Hgb Hct MCV MCH MCHC RDW Std Deviation Plt Count Neut % (Auto) Lymph % (Auto) [place] % (Auto) Eos % (Auto) Baso % (Auto) Neut # (Auto) Lymph # (Auto) [place] # (Auto) Eos # (Auto) Baso # (Auto) Immature Gran # (Auto) Absolute Nucleated RBC Immature Gran % Nucleated RBC % Smear Path Review Puncture Site Arterial Line ABG pH 7.41 ABG pCO2 32 ABG pO2 135 H ABG HCO3 20 ABG O2 Saturation 100 H ABG Base Excess -4 L Oxygen Liter Flow FiO2 21 Sodium 135 L Potassium 3.6 Chloride 102 Carbon Dioxide 19.2 L Anion Gap 14 BUN 16 Creatinine 1.3 Estim Creat Clear Calc 42.1 L eGFR 44 L BUN/Creatinine Ratio 12 Glucose 284 H D Calculated Osmolality 281 Lactic Acid 5.8 H* 3.8 H Calcium 7.2 L Corrected Calcium 8.4 L Phosphorus 1.9 L Magnesium Total Bilirubin AST ALT Alkaline Phosphatase Troponin I Total Protein Albumin 2.5 L Globulin Albumin/Globulin Ratio Misc Test Result Crossmatch 11/01/24 11/01/24 11/01/24 11:45 11:45 11:45 WBC RBC Hgb 8.4 L Hct 23.5 L MCV MCH MCHC RDW Std Deviation Plt Count Neut % (Auto) Lymph % (Auto) [place] % (Auto) Eos % (Auto) Baso % (Auto) Neut # (Auto) Lymph # (Auto) [place] # (Auto) Eos # (Auto) Baso # (Auto) Immature Gran # (Auto) Absolute Nucleated RBC Immature Gran % Nucleated RBC % Smear Path Review Puncture Site Cancelled Arterial Line ABG pH Cancelled 7.46 H ABG pCO2 Cancelled ABG pO2 ABG HCO3 ABG O2 Saturation ABG Base Excess Oxygen Liter Flow FiO2 Sodium Potassium Chloride Carbon Dioxide Anion Gap BUN Creatinine Estim Creat Clear Calc eGFR BUN/Creatinine Ratio Glucose Calculated Osmolality Lactic Acid Calcium Corrected Calcium Phosphorus Magnesium Total Bilirubin AST ALT Alkaline Phosphatase Troponin I Total Protein Albumin Globulin Albumin/Globulin Ratio Misc Test Result Crossmatch 11/01/24 11/01/24 11/01/24 11:45 11:45 11:45 WBC RBC Hgb Hct MCV MCH MCHC RDW Std Deviation Plt Count Neut % (Auto) Lymph % (Auto) [place] % (Auto) Eos % (Auto) Baso % (Auto) Neut # (Auto) Lymph # (Auto) [place] # (Auto) Eos # (Auto) Baso # (Auto) Immature Gran # (Auto) Absolute Nucleated RBC Immature Gran % Nucleated RBC % Smear Path Review Puncture Site ABG pH ABG pCO2 33 ABG pO2 Cancelled 98 D ABG HCO3 Cancelled 23 ABG O2 Saturation Cancelled ABG Base Excess Oxygen Liter Flow FiO2 Sodium Potassium Chloride Carbon Dioxide Anion Gap BUN Creatinine Estim Creat Clear Calc eGFR BUN/Creatinine Ratio Glucose Calculated Osmolality Lactic Acid Calcium Corrected Calcium Phosphorus Magnesium Total Bilirubin AST ALT Alkaline Phosphatase Troponin I Total Protein Albumin Globulin Albumin/Globulin Ratio Misc Test Result Crossmatch 11/01/24 11/01/24 11/01/24 11:45 11:45 11:45 WBC RBC Hgb Hct MCV MCH MCHC RDW Std Deviation Plt Count Neut % (Auto) Lymph % (Auto) [place] % (Auto) Eos % (Auto) Baso % (Auto) Neut # (Auto) Lymph # (Auto) [place] # (Auto) Eos # (Auto) Baso # (Auto) Immature Gran # (Auto) Absolute Nucleated RBC Immature Gran % Nucleated RBC % Smear Path Review Puncture Site ABG pH ABG pCO2 ABG pO2 ABG HCO3 ABG O2 Saturation 99 H ABG Base Excess Cancelled 0 Oxygen Liter Flow Cancelled FiO2 Cancelled 35 Sodium 132 L Potassium 3.3 L Chloride 95 L Carbon Dioxide 24.1 Anion Gap 13 BUN 15 Creatinine 1.2 Estim Creat Clear Calc 45.6 L eGFR 49 L BUN/Creatinine Ratio 13 Glucose 281 H Calculated Osmolality 275 Lactic Acid 3.3 H Calcium 7.7 L Corrected Calcium 8.7 Phosphorus 1.7 L Magnesium Total Bilirubin AST ALT Alkaline Phosphatase Troponin I Total Protein Albumin 2.7 L Globulin Albumin/Globulin Ratio Misc Test Result Crossmatch Assessment & Plan Additional Assessment Additional Assessment: In brief this is a 69yo F admitted for AMS and hypoxic resp failure with profound refractory septic shock a/p [employer] AMS- last seen well at 8p and then obtunded this AM. R sided weakness -> suspect CVA - currently on fent -> when held does not open eyes today - repeat HCT v MRI CV Shock- bedside echo shows hyperdynamic LV with no pericardial effusion noted, ? D sign however subpar view, place cheeta for additional hemodynamics - unable to transduce a CVP - had drop in h/h and felt to have a component of hypovolemia -> being transfused PRBCs - developed suspected hemothorax with new mod effusion seen on CT - decreasing vasopressor doses - improvement in #s however pt herself does not wake up h/o HTN- hold all home meds Pulmonary Art air embolism - unclear source - on high FiO2 - repeat chest CT is neg with resolution of air Tropinemia- in the setting of shock and MAHIN - demand ischemia v CAD - fu on repeat trop and EKG - echo results noted - trops trended up to 30 - will need repeat echo to eval - not a candidate for intervention at this time - cardiology consulted Resp Acute Resp Failure- intubated and on MV, fu ABG and CXR, ween as able -vent adjustments made - pulse ox inaccurate -> able to come down on FiO2 - improving parameters however not weenable due to mental status ? Aspiration PNA- on abx, and cx taken Hemothorax- pts 2nd chest CT shows a new effusion on the L - pt with drop in h/h - currently coaulopathic and DIC suspected - h/h stable after FFP and PLT transfusion Renal MAHIN- likely prerenal and may be 2/2 shock and sepsis - given IVF - arredondo in place - monitor UOP - avoid nephrotoxins - cont with minimal UOP and severe acidosis - HD line sluggish in L subclavian therefore attempted R subclavian however guidewire would not advance. Therefore the L IJ was rewired and TriFlow placed. pt with very poor vasc access. - regular HD done today - has not cleared her LA completely Metabolic acidosis- improved with HD HypoCa- improved Hyper K- improved GI NPO GI proph- pepcid Transaminitis- check hep panel, CT without pathology - likely due to ischemic insult and hypotension - worsening #s today Hypoalbuminemia- may also be dilutional in nature given that she has received 8lts at this point in time Endo DM- SSI, FS q6 - hold home meds Heme Leukocytosis- L shift noted and 2/2 infection DVT proph- lovenox 40 DIC- no need for any transfusions at this point 2/2 sepsis - transfused PRBCs, FFP and PLT for bleed Anemia- initially dilutional and now due to active bleed that occurred yesterday - drop to Hb of 6 noted - transfused 2uPRBCs Thrombocytopenia- likely 2/2 sepsis - transfuse given current bleed ID UTI/pyelo- growing ESBL E .coli -> on zosyn, can stop santi GNR Bacteremia- bcx pos from arrival, likely due to her UTI and pyelo - both cx grow e.coli case d/w ICU team labs, imaging, records reviewed d/w family at bedside ~43ccmin required for eval, exam, review, intervention, discussion and formulation of POC for this critically ill pt with acute resp failure and shock at high risk for further and ongoing decompensation Provider Notation Provider Notation: Although this document has been carefully reviewed, there may still be some phonetic and other typographical errors. These errors are purely grammatical due to imperfections in the software program and should not be construed in any way to compromise the substance of the patient's medical care during this visit. Thank you for the opportunity and privilege in assisting you with this patient's care and management.
--- NOTE | 2024-11-01 13:33 | PD.NEPHPROG ---
Documentation for date of: 11/01/24 Subjective Subjective Interval history: Ms. Sheriff is a 69-year-old female with a past medical history of hypertension, hyperlipidemia, diabetes mellitus type 2 [id number], and history of sciatic nerve pain who presented to the emergency room via ambulance with a chief complaint of altered mental status. Per patient's daughter at bedside, unable to arouse patient this morning after last well-known time on 10/28/2024. All history gathered from daughter at bedside. Patient experienced a ground-level fall on 10/28/2024 that was not witnessed by family members. Patient was found conscious and alert and oriented by bridge ironworker helper. Denied trauma to head during fall. Ground-level fall occurred in 2023 secondary to sciatic pain. Patient denied sick contacts, pyrexia at home, or cough. 1 month ago patient was treated for outpatient urinary tract infection with antibiotics which was completed. Patient's daughter denied increased frequency or dysuria. Denied emesis or diarrhea. Denied chest pain or shortness of breath. Denied past medical history of heart failure. ER course: Vitals upon arrival blood pressure 74/51 (MAP 58) after receiving 1 L bolus via EMS, tachycardia-148, respiratory rate 12, temperature 102.7, and SpO2 97%,. Patient unable to protect airway requiring mechanical ventilation with a GCS score of 7 upon arrival to the emergency room. WBC count 18.4 neutrophil shift 89. ABG pH of 7.27, CO2 35, O2 201, bicarb 16, oxygen saturation 100%-status post mechanical ventilation. GCS 7 and NISS 23. Patient was intubated and brought to ICU. Patient was placed on bicarb drip but continued to have severe acidosis nephrology consulted for severe acidosis requiring dialysis. Patient seen and examined at bedside, intubated and sedated. Has made 100 ml dark urine. WBC 22.1, Hg 10.6. Sodium 140, potassium 5.4, bicarb 10.9, BUN 40, creatinine 3.0, eGFR 16. Lactic acid 8.1. AST 625, ALT 459, ALP 234. ABG showed pH 7.3, pCO2 18, pO2 240, bicarb 9. Procal 129. UA WBCs 153, 3+ bacteria. Urine random sodium 58.2, potassium 47, chloride 61.7. Elevated anion gap 19. Dialysis line placed. Plan for CRRT therapy, close monitoring. 10/31/2024 patient remains in ICU. On ventilator. Daughter at bedside. Decreased urinary output. BUN and creatinine still elevated. On 2 pressors. Ordered CRRT/[place] today. 11/01/2024 Labs and medications reviewed. Hemoglobin 8.4, sodium 132, potassium 3.3, bicarbonate 19.2, BUN 16, creatinine 1.3, lactic acid 3.8, calcium 8.4, phosphorus 1.9, albumin 2.7. 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 Patient currently on conventional dialysis. Review of Systems Review of Systems ROS Unobtainable: unobtainable due to medical condition and due to endotracheal tube Exam Vital Signs Temp Pulse Resp BP Pulse Ox O2 Del Method FiO2 36.8 C 82 18 116/48 L 99 Mechanical Ventilation 35 11/01/24 12:00 11/01/24 13:19 11/01/24 12:00 11/01/24 13:19 11/01/24 12:00 11/01/24 12:00 11/01/24 12:00 Narrative Exam GENERAL APPEARANCE: Patient currently seen in ICU. Intubated, sedated CARDIOVASCULAR: Heart regular, no murmurs , tachy LUNGS/CHEST: Chest clear to auscultation. No rales, rhonchi, wheezing ABDOMEN: Soft, nontender, mild distended. No masses. Normal bowel sounds. EXTREMITIES: 2+ edema noted in the extremities SKIN: Skin exam normal without any rashes MUSCULOSKELETAL: in bed NEUROLOGICAL : Intubated, sedated. Objective Labs 11/01/24 11:45 11/01/24 11:45 Labs: Laboratory Results - last 24 hr 10/30/24 10/31/24 10/31/24 18:21 15:05 16:48 WBC 12.4 H RBC 2.92 L Hgb 8.5 L D Hct 24.0 L MCV 82 MCH 29.1 MCHC 35.4 RDW Std Deviation 45.1 Plt Count 71 L D Neut % (Auto) 84 H Lymph % (Auto) [address] [facility] [place] [facility] % (Auto) 3 Eos % (Auto) 1 Baso % (Auto) 1 Neut # (Auto) 10.5 H Lymph # (Auto) 0.[address] # (Auto) 0.4 Eos # (Auto) 0.1 Baso # (Auto) 0.1 Immature Gran # (Auto) 0.89 H Absolute Nucleated RBC 0.22 H Immature Gran % 7 H Nucleated RBC % 2 H Smear Path Review Puncture Site Arterial Line ABG pH 7.50 H D ABG pCO2 23 L ABG pO2 175 H ABG HCO3 18 L ABG O2 Saturation 100 H ABG Base Excess -4 L Oxygen Liter Flow FiO2 40 Sodium 136 Potassium 3.8 D Chloride 101 Carbon Dioxide 16.8 L Anion Gap 18 H BUN 15 Creatinine 1.0 Estim Creat Clear Calc 53.3 L eGFR > 60 BUN/Creatinine Ratio 15 Glucose 99 D Calculated Osmolality 272 L Lactic Acid 9.9 H* Calcium 8.1 L Corrected Calcium 9.0 Phosphorus 2.3 L Magnesium Total Bilirubin AST ALT Alkaline Phosphatase Troponin I Total Protein Albumin 2.9 L Globulin Albumin/Globulin Ratio Misc Test Result Platelets confirmed Crossmatch See Detail 10/31/24 10/31/24 10/31/24 20:04 20:56 23:39 WBC RBC Hgb Hct MCV MCH MCHC RDW Std Deviation Plt Count Neut % (Auto) Lymph % (Auto) [facility] [place] [facility] % (Auto) Eos % (Auto) Baso % (Auto) Neut # (Auto) Lymph # (Auto) [facility] # (Auto) Eos # (Auto) Baso # (Auto) Immature Gran # (Auto) Absolute Nucleated RBC Immature Gran % Nucleated RBC % Smear Path Review Puncture Site Right Femoral ABG pH 7.44 ABG pCO2 33 D ABG pO2 141 H D ABG HCO3 22 ABG O2 Saturation 100 H ABG Base Excess -2 Oxygen Liter Flow FiO2 40 Sodium 136 135 L Potassium 3.6 3.8 Chloride 101 101 Carbon Dioxide 21.4 20.3 Anion Gap 14 14 BUN 10 12 Creatinine 0.7 0.9 Estim Creat Clear Calc 76.1 59.2 L eGFR > 60 > 60 BUN/Creatinine Ratio 14 13 Glucose 115 H 152 H Calculated Osmolality 271 L 272 L Lactic Acid 5.8 H* 5.2 H* Calcium 8.3 8.1 L Corrected Calcium 9.2 9.0 Phosphorus 1.8 L 2.0 L Magnesium Total Bilirubin AST ALT Alkaline Phosphatase Troponin I Total Protein Albumin 2.9 L 2.9 L Globulin Albumin/Globulin Ratio Misc Test Result Crossmatch 11/01/24 11/01/24 11/01/24 01:13 04:25 04:26 WBC 14.3 H RBC 3.13 L Hgb 9.0 L 9.2 L Hct 24.7 L 25.7 L MCV 82 MCH 29.4 MCHC 35.8 RDW Std Deviation 47.5 H Plt Count 41 L D Neut % (Auto) 89 H Lymph % (Auto) [address] [place] [facility] % (Auto) 3 Eos % (Auto) 1 Baso % (Auto) 0 Neut # (Auto) 12.7 H Lymph # (Auto) 0.[address] # (Auto) 0.5 Eos # (Auto) 0.1 Baso # (Auto) 0.0 Immature Gran # (Auto) 0.69 H Absolute Nucleated RBC 0.51 H Immature Gran % 5 H Nucleated RBC % 4 H Smear Path Review Sent to Pathologist Puncture Site Right Femoral ABG pH 7.43 ABG pCO2 31 L ABG pO2 137 H ABG HCO3 20 ABG O2 Saturation 100 H ABG Base Excess -3 Oxygen Liter Flow FiO2 35 Sodium 134 L Potassium 3.8 Chloride 100 Carbon Dioxide 19.6 L Anion Gap 14 BUN 14 Creatinine 1.2 Estim Creat Clear Calc 44.4 L eGFR 49 L BUN/Creatinine Ratio 12 Glucose 222 H D Calculated Osmolality 275 Lactic Acid 5.1 H* Calcium 7.9 L Corrected Calcium 8.9 Phosphorus 2.2 L Magnesium 1.5 L Total Bilirubin 2.8 H D AST 1594 H* ALT 1658 H* Alkaline Phosphatase 373 H D Troponin I 13.167 H* D Total Protein 4.6 L Albumin 2.7 L Globulin 1.9 L Albumin/Globulin Ratio 1.4 Misc Test Result Platelets confirmed Crossmatch 11/01/24 11/01/24 11/01/24 07:40 07:41 08:40 WBC RBC Hgb Hct MCV MCH MCHC RDW Std Deviation Plt Count Neut % (Auto) Lymph % (Auto) [facility] % (Auto) Eos % (Auto) Baso % (Auto) Neut # (Auto) Lymph # (Auto) [facility] # (Auto) Eos # (Auto) Baso # (Auto) Immature Gran # (Auto) Absolute Nucleated RBC Immature Gran % Nucleated RBC % Smear Path Review Puncture Site Arterial Line ABG pH 7.41 ABG pCO2 32 ABG pO2 135 H ABG HCO3 20 ABG O2 Saturation 100 H ABG Base Excess -4 L Oxygen Liter Flow FiO2 21 Sodium 135 L Potassium 3.6 Chloride 102 Carbon Dioxide 19.2 L Anion Gap 14 BUN 16 Creatinine 1.3 Estim Creat Clear Calc 42.1 L eGFR 44 L BUN/Creatinine Ratio 12 Glucose 284 H D Calculated Osmolality 281 Lactic Acid 5.8 H* 3.8 H Calcium 7.2 L Corrected Calcium 8.4 L Phosphorus 1.9 L Magnesium Total Bilirubin AST ALT Alkaline Phosphatase Troponin I Total Protein Albumin 2.5 L Globulin Albumin/Globulin Ratio Misc Test Result Crossmatch 11/01/24 11/01/24 11/01/24 11:45 11:45 11:45 WBC RBC Hgb 8.4 L Hct 23.5 L MCV MCH MCHC RDW Std Deviation Plt Count Neut % (Auto) Lymph % (Auto) [facility] % (Auto) Eos % (Auto) Baso % (Auto) Neut # (Auto) Lymph # (Auto) [facility] # (Auto) Eos # (Auto) Baso # (Auto) Immature Gran # (Auto) Absolute Nucleated RBC Immature Gran % Nucleated RBC % Smear Path Review Puncture Site Cancelled Arterial Line ABG pH Cancelled 7.46 H ABG pCO2 Cancelled ABG pO2 ABG HCO3 ABG O2 Saturation ABG Base Excess Oxygen Liter Flow FiO2 Sodium Potassium Chloride Carbon Dioxide Anion Gap BUN Creatinine Estim Creat Clear Calc eGFR BUN/Creatinine Ratio Glucose Calculated Osmolality Lactic Acid Calcium Corrected Calcium Phosphorus Magnesium Total Bilirubin AST ALT Alkaline Phosphatase Troponin I Total Protein Albumin Globulin Albumin/Globulin Ratio Misc Test Result Crossmatch 11/01/24 11/01/24 11/01/24 11:45 11:45 11:45 WBC RBC Hgb Hct MCV MCH MCHC RDW Std Deviation Plt Count Neut % (Auto) Lymph % (Auto) [facility] % (Auto) Eos % (Auto) Baso % (Auto) Neut # (Auto) Lymph # (Auto) [facility] # (Auto) Eos # (Auto) Baso # (Auto) Immature Gran # (Auto) Absolute Nucleated RBC Immature Gran % Nucleated RBC % Smear Path Review Puncture Site ABG pH ABG pCO2 33 ABG pO2 Cancelled 98 D ABG HCO3 Cancelled 23 ABG O2 Saturation Cancelled ABG Base Excess Oxygen Liter Flow FiO2 Sodium Potassium Chloride Carbon Dioxide Anion Gap BUN Creatinine Estim Creat Clear Calc eGFR BUN/Creatinine Ratio Glucose Calculated Osmolality Lactic Acid Calcium Corrected Calcium Phosphorus Magnesium Total Bilirubin AST ALT Alkaline Phosphatase Troponin I Total Protein Albumin Globulin Albumin/Globulin Ratio Misc Test Result Crossmatch 11/01/24 11/01/24 11/01/24 11:45 11:45 11:45 WBC RBC Hgb Hct MCV MCH MCHC RDW Std Deviation Plt Count Neut % (Auto) Lymph % (Auto) [facility] % (Auto) Eos % (Auto) Baso % (Auto) Neut # (Auto) Lymph # (Auto) [facility] # (Auto) Eos # (Auto) Baso # (Auto) Immature Gran # (Auto) Absolute Nucleated RBC Immature Gran % Nucleated RBC % Smear Path Review Puncture Site ABG pH ABG pCO2 ABG pO2 ABG HCO3 ABG O2 Saturation 99 H ABG Base Excess Cancelled 0 Oxygen Liter Flow Cancelled FiO2 Cancelled 35 Sodium 132 L Potassium 3.3 L Chloride 95 L Carbon Dioxide 24.1 Anion Gap 13 BUN 15 Creatinine 1.2 Estim Creat Clear Calc 45.6 L eGFR 49 L BUN/Creatinine Ratio 13 Glucose 281 H Calculated Osmolality 275 Lactic Acid 3.3 H Calcium 7.7 L Corrected Calcium 8.7 Phosphorus 1.7 L Magnesium Total Bilirubin AST ALT Alkaline Phosphatase Troponin I Total Protein Albumin 2.7 L Globulin Albumin/Globulin Ratio Misc Test Result Crossmatch ABG Interpretation ABG results: 10/29/24 10/29/24 10/29/24 10:00 12:47 22:20 ABG pH 7.27 L ABG pCO2 35 ABG pO2 201 H ABG HCO3 16 L ABG O2 Saturation 100 H ABG Base Excess -10 L VBG pH 7.33 7.28 L VBG pCO2 43 36 VBG pO2 31 53 D VBG Base Excess -3 -9 L 10/29/24 10/30/24 10/30/24 23:47 08:07 16:11 ABG pH 7.23 L 7.30 L 7.26 L ABG pCO2 30 L 18 L* D 24 L ABG pO2 301 H D 240 H D 359 H D ABG HCO3 13 L 9 L* 11 L ABG O2 Saturation 100 H 100 H 101 H ABG Base Excess -14 L -16 L -15 L VBG pH VBG pCO2 VBG pO2 VBG Base Excess 10/30/24 10/31/24 10/31/24 22:35 05:00 12:52 ABG pH 7.16 L* D 7.27 L D 7.32 L ABG pCO2 23 L 25 L 24 L ABG pO2 312 H D 402 H D 193 H D ABG HCO3 8 L* 12 L 12 L ABG O2 Saturation 100 H 101 H 100 H ABG Base Excess -19 L -14 L -12 L VBG pH VBG pCO2 VBG pO2 VBG Base Excess 10/31/24 10/31/24 11/01/24 16:48 20:56 04:26 ABG pH 7.50 H D 7.44 7.43 ABG pCO2 23 L 33 D 31 L ABG pO2 175 H 141 H D 137 H ABG HCO3 18 L 22 20 ABG O2 Saturation 100 H 100 H 100 H ABG Base Excess -4 L -2 -3 VBG pH VBG pCO2 VBG pO2 VBG Base Excess 11/01/24 11/01/24 11/01/24 07:41 11:45 11:45 ABG pH 7.41 Cancelled 7.46 H ABG pCO2 32 Cancelled ABG pO2 135 H ABG HCO3 20 ABG O2 Saturation 100 H ABG Base Excess -4 L VBG pH VBG pCO2 VBG pO2 VBG Base Excess 11/01/24 11/01/24 11/01/24 11:45 11:45 11:45 ABG pH ABG pCO2 33 ABG pO2 Cancelled 98 D ABG HCO3 Cancelled 23 ABG O2 Saturation Cancelled ABG Base Excess VBG pH VBG pCO2 VBG pO2 VBG Base Excess 11/01/24 11/01/24 11:45 11:45 ABG pH ABG pCO2 ABG pO2 ABG HCO3 ABG O2 Saturation 99 H ABG Base Excess Cancelled 0 VBG pH VBG pCO2 VBG pO2 VBG Base Excess Assessment & Plan Additional Assessment & Plan Additional Plan: 69-year-old female with a past medical history of hypertension, hyperlipidemia, diabetes mellitus type 2 [id number] who was admitted on 10/29/2024 for severe septic shock requiring mechanical ventilation and pressors. Nephrology consulted for CRRT for severe acidosis. #Acute renal failure #Metabolic acidosis, severe MAHIN possibly related to prerenal causes in setting of septic shock, also possibly ATN given worsening kidney function and poor urinary output despite IVF. 100 ml urine output. BUN 40, creatinine 3.0, eGFR 16. Patient also severely acidodic despite bicarb drip. ABG pH 7.3, serum bicarb 10.9. Dilaysis line in place. 11/01 Patient currently seen on dialysis. Tolerating dialysis without any problems. Hemodialysis for 3 hours, blood flow 250-2K, ultrafiltration 1 L, Epogen 6000, no heparin ordered. Plan of care discussed with the dialysis nurse. Please see dialysis flowsheet for further details. Critical care time spent more than 35 minutes regarding plan of care and disease management. -Avoid nephrotoxins -renally dose meds -Strict I's and O's -Close monitoring of acid-base status and renal function. - #Acute encephalopathy #Septic Shock #Acute Respiratory Failure, Mechanical Ventilation unable to protect airway #Transaminitis #Diabetes Mellitus Type 2, non-insulin dependent # bactermia #UTI # massive CVA-prognosis remains guarded Management as per the ICU team. Plan of care discussed with Dr. Ward Procedures Arterial Line Size (Gauge): 16
[2024-11-01] MEDS: HEPARIN SOD INJ 1000 UNIT/ML VIAL 10 ML 2600 UNIT INDWELLCAT (14:13)
[2024-11-01] MEDS: Norepinephrine/NS 16mg/250ml 16 MG/250 ML BAG 6.632 MG IV (14:45)
[2024-11-01 14:53] LABS: Reflex Lactate? Y
--- NOTE | 2024-11-01 15:15 | PC.NURSE ---
Patient completed hemodialysis, blood pressure dropped so levophed was titrated up to reach MAP of 60. Pt did not awaken even with deep shaking or any other external stimulus.
--- NOTE | 2024-11-01 15:22 | PC.NURSE ---
MRI is unable to be done because MRI IV pump is not working per venecia (scrub technician). Ed Leonardo aware new order for CT scan ordered.
[2024-11-01 15:33] LABS: Lactic Acid, 3 HR 3.5 mMol/L (0.4-2.0)
--- NOTE | 2024-11-01 16:23 | PD.RESPRO ---
Documentation for date of: 11/01/24 Subjective Subjective Interval history: Patient is a 69-year-old female with a past medical history of hypertension, hyperlipidemia, diabetes mellitus type 2 [id number], and history of sciatic nerve pain who presented to the emergency room via ambulance with a chief complaint of altered mental status. Per patient's daughter at bedside, unable to arouse patient this morning after last well-known time on 10/28/2024. All history gathered from daughter at bedside. Patient experienced a ground-level fall on 10/28/2024 that was not witnessed by family members. Patient was found conscious and alert and oriented by process validation engineer. Denied trauma to head during fall. Ground-level fall occurred in 2023 secondary to sciatic pain. Patient denied sick contacts, pyrexia at home, or cough. 1 month ago patient was treated for outpatient urinary tract infection with antibiotics which was completed. Patient's daughter denied increased frequency or dysuria. Denied emesis or diarrhea. Denied chest pain or shortness of breath. Denied past medical history of heart failure. ER course: Vitals upon arrival blood pressure 74/51 (MAP 58) after receiving 1 L bolus via EMS, tachycardia-148, respiratory rate 12, temperature 102.7, and SpO2 97%,. Patient unable to protect airway requiring mechanical ventilation with a GCS score of 7 upon arrival to the emergency room. WBC count 18.4 neutrophil shift 89. ABG pH of 7.27, CO2 35, O2 201, bicarb 16, oxygen saturation 100%-status post mechanical ventilation. GCS 7 and NISS 23 MAHIN BUN 43, creatinine 2.2, ratio GFR 04 August 2024 showing GFR 54 possible MAHIN on CKD. Glucose 133. Lactic Acid 6.2, repeat 5.9. AST 83, ALT 136, Total Creatine Kinase 194 Troponin 0.075 H, EKG sinus tachycardia BNP 175 (no previous labs) Proclacitionin 129.54 Chest xray No penumonia, minor subsegmental atelectasis left base Head CT Negative for acute hemorrhage, mass effect or midline shift Abdomen/Pelvis/Chest CT: Extensive air density in the pain pulmonary artery segment and right main pulmonary artery as well as left innominate vein and right subclavian vein superior vena cava. Smaller areas of air density in the right anterior chest wall and sbucutaneous fatty tissue Medication: 6 Liter bolus ER + 1 Liter Bolus in ambulance, Etomidate, Norepinephrine, and Fentanyl drip, Zosy & Vancomycin Admitted on 10/29/2024 for shock unknown etiology and requiring mechanical ventilation, unable to protect airway (GCS 7). 10/30/2024: Overnight patient required starting vasopressin at 0.03 on Levophed restarted at 1.8 mcg/Kg as MAP dropped below 65. Currenlty, Vasopressin 0.03 units/min, Levophed 0.66 mcg/kg/min, propfolol 5 mcg/kg/min, and fentanyl 75 mcg/hr. Bacteremia, Blood cultures noted for GNR, Urine Culture GNR, and sputum cultures GPC. MRSA pending. Plan for CRRT as patient has worsening lactic acid, consult nephrology. Worsening Troponemia, consult cardiology. Plan for CT chest. Patient is mechanically ventilated TV 400, RR 18, PEEP 5, FiO2 100-->FiO2 decreased to 90%. 10/31/2024: TABLO was started yesterday evening for acute renal failure and high anion gap metabolic acidosis. The L subclavian TriFlow was retracted ~3cm, resulting in improved blood flow for the dialysis machine. She completed 6 hours before the Tablo machine went down at 5am and patient was off dialysis for 3 hours. During this time, lactic acid increased. The L subclavian Tri-Flow was non-functional for the dialysis machine, and attempts were made for alternative Tri-Flow access through the left and right femoral veins but were unsuccessful. This morning, the L IJ central line was exchanged for a Tri-Flow, and levophed/vasopressin were infused through the L subclavian. Dialysis is to be continued. She remains anuric. The patient's pulse oximeter reads between 50% to 80% despite alternating probe sites and types of probes. The ABG shows O2 saturation of > 100% so we will decrease the FiO2 on the ventilator. We will warm the patient's fingers/ear where the probe site is for a better pulse ox reading. Hemoglobin this morning was 6.1. 4 units of PRBC, 2 FFP and 1 platelet were ordered as patient is in DIC. There is concern for bleeding into the left pleural space due to the interval left pleural effusion seen on CT and drop in hemoglobin. We will transfuse blood products. Regarding the patient's sepsis, we will follow up with blood, urine, and sputum cultures and sensitivities. 11/01/2024: No urine output, renal failure. Patient scheduled for Tablo this morning. Upper extremity edema, +2. Does not withdraw to painful stimuli not alert. Titrate down fentanyl. Propofol at 5 mcg/kg/min--> work towards weaning off. Vasopressin 0.03 units/min, Levophed 0.07 mcg/kg/min. Meropenem switched to Zosyn as blood cultures positive for E. coli ESBL,, sensitive to Zosyn. MRSA negative, vancomycin DC'd. Plan for CT head. Magnesium replaced. No intervention planned from cardiology for troponinemia as patient is too unstable for any type of intervention. EKG no ST elevation noted. AST and ALT down trended. Patient's family at bedside with a guarded prognosis. Exam Vital Signs Temp Pulse Resp BP Pulse Ox O2 Del Method FiO2 98.5 F 85 18 160/59 H 97 Mechanical Ventilation 35 11/01/24 16:00 11/01/24 16:00 11/01/24 16:00 11/01/24 14:45 11/01/24 16:00 11/01/24 16:00 11/01/24 16:00 Narrative Exam General Appearance: Alert & Oriented X0, well-nourished female who is lying in bed in no acute distress as patient is under sedation HEENT: Skull symmetrical and atraumatic. Conjunctivae pink. Decrease pupillary reaction to light and accommodation (PERRL). External ear without lesion or discharge. Straight, nares patient, mucosa pink, no discharge. Cardio: Tachycardia and Normal Rhythm with S1 and S2 heart sounds. No murmurs or extra heart sounds auscultated. No bruits on carotid auscultation. No peripheral edema or cyanosis. Lungs: Symmetric with good expansion. Breath sounds vesicular without crackles, wheezing or rhonchi Abdomen: Non-tender, Non-distended, Normal Reactive Bowel Sounds Neuro: NO Alert, NO cooperative, No oriented to person, No place, and No time. Right Upper motor strength 0/5 and Lower motor strength 0/5 as patient is unable to withdraw from painful stimuli; left upper extremity 4/5 and left lower extremity withdraws to painful stimuli Lines: tele box, Lazo catheter, Peripheral IV access, R. A-line, L. IJV, L. subclavian triple lumen catheter, and Mechanical intubation Objective Labs 11/01/24 11:45 11/01/24 11:45 Labs: Laboratory Results - last 24 hr 10/31/24 10/31/24 10/31/24 15:05 16:48 20:04 WBC RBC Hgb Hct MCV MCH MCHC RDW Std Deviation Plt Count Neut % (Auto) Lymph % (Auto) [place] % (Auto) Eos % (Auto) Baso % (Auto) Neut # (Auto) Lymph # (Auto) [place] # (Auto) Eos # (Auto) Baso # (Auto) Immature Gran # (Auto) Absolute Nucleated RBC Immature Gran % Nucleated RBC % Smear Path Review Puncture Site Arterial Line ABG pH 7.50 H D ABG pCO2 23 L ABG pO2 175 H ABG HCO3 18 L ABG O2 Saturation 100 H ABG Base Excess -4 L Oxygen Liter Flow FiO2 40 Sodium 136 136 Potassium 3.8 D 3.6 Chloride 101 101 Carbon Dioxide 16.8 L 21.4 Anion Gap 18 H 14 BUN 15 10 Creatinine 1.0 0.7 Estim Creat Clear Calc 53.3 L 76.1 eGFR > 60 > 60 BUN/Creatinine Ratio 15 14 Glucose 99 D 115 H Calculated Osmolality 272 L 271 L Lactic Acid 5.8 H* Calcium 8.1 L 8.3 Corrected Calcium 9.0 9.2 Phosphorus 2.3 L 1.8 L Magnesium Total Bilirubin AST ALT Alkaline Phosphatase Troponin I Total Protein Albumin 2.9 L 2.9 L Globulin Albumin/Globulin Ratio [facility] [place] 10/31/24 10/31/24 11/01/24 20:56 23:39 01:13 WBC RBC Hgb 9.0 L Hct 24.7 L MCV MCH MCHC RDW Std Deviation Plt Count Neut % (Auto) Lymph % (Auto) [place] % (Auto) Eos % (Auto) Baso % (Auto) Neut # (Auto) Lymph # (Auto) [place] # (Auto) Eos # (Auto) Baso # (Auto) Immature Gran # (Auto) Absolute Nucleated RBC Immature Gran % Nucleated RBC % Smear Path Review Puncture Site Right Femoral ABG pH 7.44 ABG pCO2 33 D ABG pO2 141 H D ABG HCO3 22 ABG O2 Saturation 100 H ABG Base Excess -2 Oxygen Liter Flow FiO2 40 Sodium 135 L Potassium 3.8 Chloride 101 Carbon Dioxide 20.3 Anion Gap 14 BUN 12 Creatinine 0.9 Estim Creat Clear Calc 59.2 L eGFR > 60 BUN/Creatinine Ratio 13 Glucose 152 H Calculated Osmolality 272 L Lactic Acid 5.2 H* Calcium 8.1 L Corrected Calcium 9.0 Phosphorus 2.0 L Magnesium Total Bilirubin AST ALT Alkaline Phosphatase Troponin I Total Protein Albumin 2.9 L Globulin Albumin/Globulin Ratio Misc Test Result 11/01/24 11/01/24 11/01/24 04:25 04:26 07:40 WBC 14.3 H RBC 3.13 L Hgb 9.2 L Hct 25.7 L MCV 82 MCH 29.4 MCHC 35.8 RDW Std Deviation 47.5 H Plt Count 41 L D Neut % (Auto) 89 H Lymph % (Auto) 3 L [place] % (Auto) 3 Eos % (Auto) 1 Baso % (Auto) 0 Neut # (Auto) 12.7 H Lymph # (Auto) 0.4 L [place] # (Auto) 0.5 Eos # (Auto) 0.1 Baso # (Auto) 0.0 Immature Gran # (Auto) 0.69 H Absolute Nucleated RBC 0.51 H Immature Gran % 5 H Nucleated RBC % 4 H Smear Path Review Sent to Pathologist Puncture Site Right Femoral ABG pH 7.43 ABG pCO2 31 L ABG pO2 137 H ABG HCO3 20 ABG O2 Saturation 100 H ABG Base Excess -3 Oxygen Liter Flow FiO2 35 Sodium 134 L Potassium 3.8 Chloride 100 Carbon Dioxide 19.6 L Anion Gap 14 BUN 14 Creatinine 1.2 Estim Creat Clear Calc 44.4 L eGFR 49 L BUN/Creatinine Ratio 12 Glucose 222 H D Calculated Osmolality 275 Lactic Acid 5.1 H* 5.8 H* Calcium 7.9 L Corrected Calcium 8.9 Phosphorus 2.2 L Magnesium 1.5 L Total Bilirubin 2.8 H D AST 1594 H* ALT 1658 H* Alkaline Phosphatase 373 H D Troponin I 13.167 H* D Total Protein 4.6 L Albumin 2.7 L Globulin 1.9 L Albumin/Globulin Ratio 1.4 Misc Test Result Platelets confirmed 11/01/24 11/01/24 11/01/24 07:41 08:40 11:45 WBC RBC Hgb 8.4 L Hct 23.5 L MCV MCH MCHC RDW Std Deviation Plt Count Neut % (Auto) Lymph % (Auto) [place] % (Auto) Eos % (Auto) Baso % (Auto) Neut # (Auto) Lymph # (Auto) [place] # (Auto) Eos # (Auto) Baso # (Auto) Immature Gran # (Auto) Absolute Nucleated RBC Immature Gran % Nucleated RBC % Smear Path Review Puncture Site Arterial Line Cancelled ABG pH 7.41 ABG pCO2 32 ABG pO2 135 H ABG HCO3 20 ABG O2 Saturation 100 H ABG Base Excess -4 L Oxygen Liter Flow FiO2 21 Sodium 135 L Potassium 3.6 Chloride 102 Carbon Dioxide 19.2 L Anion Gap 14 BUN 16 Creatinine 1.3 Estim Creat Clear Calc 42.1 L eGFR 44 L BUN/Creatinine Ratio 12 Glucose 284 H D Calculated Osmolality 281 Lactic Acid 3.8 H Calcium 7.2 L Corrected Calcium 8.4 L Phosphorus 1.9 L Magnesium Total Bilirubin AST ALT Alkaline Phosphatase Troponin I Total Protein Albumin 2.5 L Globulin Albumin/Globulin Ratio [facility] [place] 11/01/24 11/01/24 11/01/24 11:45 11:45 11:45 WBC RBC Hgb Hct MCV MCH MCHC RDW Std Deviation Plt Count Neut % (Auto) Lymph % (Auto) [place] % (Auto) Eos % (Auto) Baso % (Auto) Neut # (Auto) Lymph # (Auto) [place] # (Auto) Eos # (Auto) Baso # (Auto) Immature Gran # (Auto) Absolute Nucleated RBC Immature Gran % Nucleated RBC % Smear Path Review Puncture Site Arterial Line ABG pH Cancelled 7.46 H ABG pCO2 Cancelled 33 ABG pO2 Cancelled ABG HCO3 ABG O2 Saturation ABG Base Excess Oxygen Liter Flow FiO2 Sodium Potassium Chloride Carbon Dioxide Anion Gap BUN Creatinine Estim Creat Clear Calc eGFR BUN/Creatinine Ratio Glucose Calculated Osmolality Lactic Acid Calcium Corrected Calcium Phosphorus Magnesium Total Bilirubin AST ALT Alkaline Phosphatase Troponin I Total Protein Albumin Globulin Albumin/Globulin Ratio Mis Test Result 11/01/24 11/01/24 11/01/24 11:45 11:45 11:45 WBC RBC Hgb Hct MCV MCH MCHC RDW Std Deviation Plt Count Neut % (Auto) Lymph % (Auto) [place] % (Auto) Eos % (Auto) Baso % (Auto) Neut # (Auto) Lymph # (Auto) [place] # (Auto) Eos # (Auto) Baso # (Auto) Immature Gran # (Auto) Absolute Nucleated RBC Immature Gran % Nucleated RBC % Smear Path Review Puncture Site ABG pH ABG pCO2 ABG pO2 98 D ABG HCO3 Cancelled 23 ABG O2 Saturation Cancelled 99 H ABG Base Excess Cancelled Oxygen Liter Flow FiO2 Sodium Potassium Chloride Carbon Dioxide Anion Gap BUN Creatinine Estim Creat Clear Calc eGFR BUN/Creatinine Ratio Glucose Calculated Osmolality Lactic Acid Calcium Corrected Calcium Phosphorus Magnesium Total Bilirubin AST ALT Alkaline Phosphatase Troponin I Total Protein Albumin Globulin Albumin/Globulin Ratio Misc Test Result 11/01/24 11/01/24 11/01/24 11:45 11:45 15:15 WBC RBC Hgb Hct MCV MCH MCHC RDW Std Deviation Plt Count Neut % (Auto) Lymph % (Auto) [place] % (Auto) Eos % (Auto) Baso % (Auto) Neut # (Auto) Lymph # (Auto) [place] # (Auto) Eos # (Auto) Baso # (Auto) Immature Gran # (Auto) Absolute Nucleated RBC Immature Gran % Nucleated RBC % Smear Path Review Puncture Site ABG pH ABG pCO2 ABG pO2 ABG HCO3 ABG O2 Saturation ABG Base Excess 0 Oxygen Liter Flow Cancelled FiO2 Cancelled 35 Sodium 132 L Potassium 3.3 L Chloride 95 L Carbon Dioxide 24.1 Anion Gap 13 BUN 15 Creatinine 1.2 Estim Creat Clear Calc 45.6 L eGFR 49 L BUN/Creatinine Ratio 13 Glucose 281 H Calculated Osmolality 275 Lactic Acid 3.3 H 3.5 H Calcium 7.7 L Corrected Calcium 8.7 Phosphorus 1.7 L Magnesium Total Bilirubin AST ALT Alkaline Phosphatase Troponin I Total Protein Albumin 2.7 L Globulin Albumin/Globulin Ratio Misc Test Result ABG Interpretation ABG results: 10/29/24 10/29/24 10/29/24 10:00 12:47 22:20 ABG pH 7.27 L ABG pCO2 35 ABG pO2 201 H ABG HCO3 16 L ABG O2 Saturation 100 H ABG Base Excess -10 L VBG pH 7.33 7.28 L VBG pCO2 43 36 VBG pO2 31 53 D VBG Base Excess -3 -9 L 10/29/24 10/30/24 10/30/24 23:47 08:07 16:11 ABG pH 7.23 L 7.30 L 7.26 L ABG pCO2 30 L 18 L* D 24 L ABG pO2 301 H D 240 H D 359 H D ABG HCO3 13 L 9 L* 11 L ABG O2 Saturation 100 H 100 H 101 H ABG Base Excess -14 L -16 L -15 L VBG pH VBG pCO2 VBG pO2 VBG Base Excess 10/30/24 10/31/24 10/31/24 22:35 05:00 12:52 ABG pH 7.16 L* D 7.27 L D 7.32 L ABG pCO2 23 L 25 L 24 L ABG pO2 312 H D 402 H D 193 H D ABG HCO3 8 L* 12 L 12 L ABG O2 Saturation 100 H 101 H 100 H ABG Base Excess -19 L -14 L -12 L VBG pH VBG pCO2 VBG pO2 VBG Base Excess 10/31/24 10/31/24 11/01/24 16:48 20:56 04:26 ABG pH 7.50 H D 7.44 7.43 ABG pCO2 23 L 33 D 31 L ABG pO2 175 H 141 H D 137 H ABG HCO3 18 L 22 20 ABG O2 Saturation 100 H 100 H 100 H ABG Base Excess -4 L -2 -3 VBG pH VBG pCO2 VBG pO2 VBG Base Excess 11/01/24 11/01/24 11/01/24 07:41 11:45 11:45 ABG pH 7.41 Cancelled 7.46 H ABG pCO2 32 Cancelled ABG pO2 135 H ABG HCO3 20 ABG O2 Saturation 100 H ABG Base Excess -4 L VBG pH VBG pCO2 VBG pO2 VBG Base Excess 11/01/24 11/01/24 11/01/24 11:45 11:45 11:45 ABG pH ABG pCO2 33 ABG pO2 Cancelled 98 D ABG HCO3 Cancelled 23 ABG O2 Saturation Cancelled ABG Base Excess VBG pH VBG pCO2 VBG pO2 VBG Base Excess 11/01/24 11/01/24 11:45 11:45 ABG pH ABG pCO2 ABG pO2 ABG HCO3 ABG O2 Saturation 99 H ABG Base Excess Cancelled 0 VBG pH VBG pCO2 VBG pO2 VBG Base Excess Quality Measures Quality Measures VTE prophylaxis Advance care planning discussed with:: child Assessment & Plan Assessment Current Active Medications: Generic Name Dose Route Start Last Admin Trade Name Freq PRN Reason Stop Dose Admin Acetaminophen 650 mg 10/29/24 13:53 Acetaminophen 325 Mg Tablet PO 11/28/24 13:52 Q4HR PRN PAIN SCALE 1-3 (mild Acetaminophen 650 mg 10/29/24 13:53 Acetaminophen Supp 650 Mg Supp MN 11/28/24 13:52 Q4HR PRN PAIN SCALE 1-3 (mild Al Hydrox/Mg Hydrox/Simethicone 30 ml 10/29/24 13:53 Mg Hyd/Al Hyd/Elpidio (Maalox Reg) Susp 30 Ml Udc PO 11/28/24 13:52 Q4HR PRN Heartburn or Upset Stomach Dextrose 25 ml 10/29/24 15:57 Dextrose 50%-Water Inj 50 Ml Syringe IV 11/28/24 15:56 Q15MIN PRN BG 50-70 responsive npo pt Dextrose 50 ml 10/29/24 15:57 10/31/24 11:35 Dextrose 50%-Water Inj 50 Ml Syringe IV 11/28/24 15:56 50 ml Q15MIN PRN Administration BG <50 OR BG <70 & pt unresponsive Enoxaparin Sodium 40 mg 10/29/24 13:53 11/01/24 08:53 Enoxaparin Sod Inj 40 Mg/0.4 Ml Syringe SC 11/12/24 13:52 40 mg QDAY SEVERIANO Administration Famotidine 20 mg 10/30/24 09:00 11/01/24 08:53 Famotidine Inj 10 Mg/Ml Vial 2 Ml IVP 11/29/24 08:59 20 mg QDAY SEVERIANO Administration Glucagon 1 mg 10/29/24 15:57 Glucagon Inj 1 Mg Vial IM Q15MIN PRN BG <70, and no IV access Heparin Sodium (Porcine) 2,600 unit 10/30/24 13:29 11/01/24 14:13 Heparin Sod Inj 1000 Unit/Ml Vial 10 Ml INDWELLCAT 11/13/24 13:28 2,600 unit PRN PRN Administration DIALYSIS Hydrocortisone Sodium Succinate 50 mg 10/30/24 00:00 11/01/24 14:37 Hydrocortisone Sod Succ Inj 100 Mg Vial IV 11/29/24 00:00 50 mg Q6HR SEVERIANO Administration Fentanyl Citrate 2,500 mcg in 250 mls @ 2.5 mls/hr 10/29/24 10:30 11/01/24 08:14 Sublimaze Inj 2,500 Mcg/250 Ml Bag IV 11/03/24 10:29 0 mcg/hr .Q24H PRN 0 mls/hr PER PROTOCOL Titration Protocol 25 MCG/HR Propofol 1,000 mg in 100 mls @ 2.358 mls/hr 10/29/24 17:05 10/30/24 19:00 Diprivan Ivpb IV 11/28/24 17:04 0 mcg/kg/min .Q24H PRN 0 mls/hr PER PROTOCOL Titration Protocol 5 MCG/KG/MIN Vasopressin/Sodium Chloride 20 unit in 100 mls @ 9 mls/hr 10/29/24 20:52 11/01/24 14:45 Vasostrict/Ns Ivpb IV 11/28/24 20:51 0.03 unit/min .Q11H7M PRN 9 mls/hr PER PROTOCOL Administration Protocol 0.03 UNIT/MIN Norepinephrine Bitartrate 16 mg in 250 mls @ 3.684 mls/hr 10/29/24 23:00 11/01/24 15:00 Levophed In Ns 16mg/250ml IV 11/28/24 22:59 0.05 mcg/kg/min .Q24H PRN 3.684 mls/hr PER PROTOCOL Titration Protocol 0.05 MCG/KG/MIN Phenylephrine HCl 40 mg/ 100 mls @ 5.895 mls/hr 10/29/24 23:30 Sodium Chloride IV 11/28/24 23:29 .[id number] PRN Per Sepsis Protocol Protocol 0.5 MCG/KG/MIN Albumin Human 12.5 gm in 250 mls @ 100 mls/hr 10/30/24 17:58 10/30/24 18:09 Albuminar-5 Ivpb IV 100 mls/hr .Q2H30M SEVERIANO Administration Piperacillin/Tazobactam/Dextrose 3.375 gm in 50 mls @ 12.5 mls/hr 11/01/24 14:00 11/01/24 14:37 Zosyn IV 11/08/24 13:59 12.5 mls/hr Q8HR SEVERIANO Administration Insulin Human Lispro 0 unit 10/29/24 18:00 11/01/24 11:51 Insulin Lispro (Admelog) 1 Unit/0.01 Ml Unit SC 11/28/24 17:59 4 unit Q6HR SEVERIANO Administration Protocol Magnesium Hydroxide 30 ml 10/29/24 13:53 Milk Of Magnesia Susp 30 Ml Udc PO 11/28/24 13:52 QDAY PRN CONSTIPATION Nitroglycerin 0.4 mg 10/29/24 13:53 Nitroglycerin 0.4 Mg Subl Btl #25 SL Q5MIN PRN CHEST PAIN Sennosides 1 tab 10/29/24 13:10 Senna Tablet PO 11/28/24 13:09 QDAY PRN constipation Protocol Plan Patient is a 69 year old female admitted to the ICU for shock. SUPERINTENDENT STATIONS #Acute encephalopathy Differential includes stroke, acidemia Upon initial evaluation, patient with right-sided hemiparesis. NIHHS score of 23. CT head did not show an acute hemorrhage. - Remains on fentanyl - Aspirin held due to ongoing DIC - CT head ordered CVS #Shock Initially thought to be septic shock as evidenced by bacteremia and low TPRI, with component of obstructive shock due pulmonary artery embolism with McConnel sign noted on formal echo though normal CVP. Not intially felt to be cardiogenic given cardiac index > 2.5 and EKG with no ST changes despite troponin. Sepsis improving evidenced by improving leukocytosis, afebrile and on antibiotics. Now with component of hypovolemia/hemorrhagic shock given acute blood loss anemia, and possible cardiogenic shock given rising troponin and DIC increasing risk of microthrombi. - Continue levophed, titrate for MAP > 60 or SBP > 90 - Vasopressin - Hydrocortisone steroids 50mg Q6H - Transfusing blood, see heme section - Reassess with NICOM #Elevated Troponin Peak at 30, downtrending. Type I in the setting of DIC however cannot be ruled out as patient not stable for cath at this time vs Type 2 in the setting of demand ischemia with reduced renal clearance. - Cardiology following Respiratory #Acute ypoxic respiratory failure due to bilateral pneumonia, L pleural effusion Initially intubated due to inability to protect airway, then complicated by pulmonary artery embolism and new onset L pleural effusion, bilateral pneumonia Pulmonary air embolism unclear etiology as occurred before any central lines placed; now resolved with FiO2 Interval L pleural effusion noted on repeat CT imaging 10/30 suspected to be hemothorax since [place] units range from 20-50. - Antibiotics for pneumonia, see ID - Patient not a candidate for large bore chest tube at this time. Will do POCUS to evaluate imaging characteristics of pleural fluid - Vent settings at [facility] PRVC TV 400 RR 18 PEEP 5 FIO2 35, I:E 1:4.6 Renal #Acute renal failure #High anion gap metabolic acidosis due to lactic acidosis Without respiratory compensation as expected PCO2 does not mach PCO2 on ABG. Delta ratio of 2, pure metabolic acidosis - On TABLO - ABG, lactic acid - Nephrology following GI #Shock Liver Infectious hepatitis ruled out. Synthetic dysfunction noted. - Treat underlying shock Endo #Hypoglycemia due to liver synthetic dysfunction - Blood sugar checks Q4H - Amps of D50 if blood sugar < 60, holding off D5 or D10 at this time to preserve volume status though may consider if patient remains hypoglycemic #DM2 Holding home meds, ISS Q6H if needed Heme #Leukocytosis, improving In the setting of infection and steroids, see ID #DIC, stable Elevated D-Dimer, INR, thrombocytopenia in the setting of sepsis ISTH score of 6 suggesting DIC likely 4 units of PRBC, 2 units FFP and 1 platelet ordered - Treat underlying sepsis, see ID - Hold lovenox - Haptoglobin ordered - Peripheral blood smear #Acute blood loss anemia Hemoglobin decreased from 10 to 7, 6. Rate of hemoglobin decrease suggests acute bleed that has slowed/stopped. Suspect hemothorax given increased HU density on CT (see respiratory section). Hemorrhagic transformation of suspected stroke cannot be ruled out, though patient not showing signs of increased intracranial pressure at this time. - 4 units of PRBC, 2 units FFP and 1 platelet ordered - Follow up post-transfusion CBC ID #Sepsis due to E.coli ESBL bacteremia due to UTI, GPC pneumonia UA and CT abdomen suggestive of pyelonephritis. CT imaging show bilateral pneumonia and sputum culture staining GPC. - Follow up final blood, sputum, and urine culture with identitication and sensitivities - Vancomycin discontinued as MRSA nasal screen negative (10/29-10/31) -Day 3 Zosyn (10/29-) and Stopped Meropenam (10/31-11/01/2024) Health Maintenance Disposition: Admit to ICU for shock with multi-organ failure. Guarded prognosis. Diet and fluids: Vital trickle feeds DVT prophylaxis: SCD; holding chemical anticoagulation GI prophylaxis: pepcid Lines: ET, OT, L IJ Tri-Flow, L subclavian Tri-Flow, R femoral A-line, Lazo, PIV CODE STATUS: FULL - The patient's plan was discussed with attending Dr. Ed Spring MD PGY1 Internal Medicine
[2024-11-01 22:05] LABS: Reflex Lactate? Y
[2024-11-01 22:17] LABS: Lactate (Lactic Acid) 2.6 mMol/L (0.4-2.0)
[2024-11-02] VITALS (228 sets, daily range): BP systolic 84–176; BP diastolic 39–72; PULSE 85–132; RESP 0–64; TEMP 36–36.8; O2SAT 86–100; BMI 38.2
[2024-11-02] MEDS: INSULIN LISPRO (AdmeLOG) 1 UNIT/0.01 ML UNIT SC ×3 (00:16→11:46)
[2024-11-02] MEDS: HYDROCORTISONE SOD SUCC INJ 100 MG VIAL 50 MG IV ×3 (00:16→11:46)
[2024-11-02 01:12] LABS: Reflex Lactate? Y
[2024-11-02 02:31] LABS: Lactate (Lactic Acid) 2.2 mMol/L (0.4-2.0)
[2024-11-02 04:57] LABS: Base Excess -3 (-3-3); HCO3 21 mEq/L (20-26); Inspired Oxygen, FIO2 35 %; O2 Saturation 99 % (91-98); PCO2 33 mmHg (32.0-48.0); PO2 104 mmHg (83-108); pH, Arterial 7.42 (7.35-7.45)
[2024-11-02 04:58] LABS: Allen Test Not Performed; Puncture Site Arterial Line
[2024-11-02 05:22] LABS: Lactate (Lactic Acid) 2.1 mMol/L (0.4-2.0)
[2024-11-02 05:25] LABS: Reflex Lactate? Y
[2024-11-02] MEDS: PIPER/TAZO 3.375 GM PREMIX 3.375 GM/50 ML BAG IV (05:32)
[2024-11-02 05:36] LABS: Basophils % (Auto) 0 % (0-2.5); Eosinophils % (Auto) 0 % (0-10); Hematocrit 24.9 % (36.0-46.0); Immature Granulocytes % (Auto) 1 % (0-0); Immature Granulocytes Auto 0.14 Thou/mm3 (0.00-0.00); Lymphocytes # (Auto) 0.4 Thou/mm3 (1.0-4.8); Lymphocytes % (Auto) 4 % (10-50); Mean Corpuscular HGB Conc 34.5 g/dl (31.0-37.0); Mean Corpuscular Hemoglobin 29.3 pg (25.0-35.0); Mean Corpuscular Volume 85 fL (80-100); Monocytes # (Auto) 0.7 Thou/mm3 (0.0-0.8); Monocytes % (Auto) 7 % (0-12); Neutrophils # (Auto) 9.3 Thou/mm3 (1.8-7.7); Neutrophils % (Auto) 88 % (37-80); Nucleated Red Blood Cell % 1 /100 WBC (0); RDW Standard Deviation 49.5 fL (36.4-46.3); Red Blood Count 2.94 Miln/mm3 (4.00-5.20); White Blood Count 10.6 Thou/mm3 (3.6-11.0)
[2024-11-02 05:39] LABS: Hemoglobin 8.6 g/dL (12.0-16.0)
[2024-11-02 05:40] LABS: Platelet Count 28 Thou/mm3 (140-440)
--- NOTE | 2024-11-02 06:00 | XR_ITS ---
Examination: AP chest single view Technique one AP portable semiupright chest single view Date and time: November 02, 2024 0742 hrs. Comparison November 01, 2024 Indications: Hypoxic respiratory failure postintubation, left base pneumonia on chest film November 01, 2024 Findings: The tri flow catheters are unchanged in position, the left internal jugular catheter SVC and the left subclavian catheter left innominate vein Significant pneumonia left base with layering left pleural effusion Endotracheal tube tip 5.9 cm above chip The orogastric tube is in the stomach. Normal heart size Impression: Pneumonia left base with at least moderate left pleural effusion
[2024-11-02 06:04] LABS: Alanine Aminotransferase 1226 U/L (10-49); Albumin, Serum 2.6 gm/dL (3.4-4.8); Albumin/Globulin Ratio 1.4 (1.2-2.2); Alkaline Phosphatase 525 U/L (46-116); Anion Gap 19 (7-16); Aspartate Amino Transferase 718 U/L (0-34); BUN/Creatinine Ratio 15 Ratio (12-20); Bilirubin,Total 3.7 mg/dL (0.3-1.2); Blood Urea Nitrogen 25 mg/dL (9-23); Calcium 7.8 mg/dL (8.3-10.6); Calcium (Corrected) 8.9 mg/dL (8.5-10.1); Carbon Dioxide 20.2 mMol/L (20.0-31.0); Chloride 95 mMol/L (98-107); Creatinine (Component) 1.7 mg/dL (0.6-1.3); Estimated Creatinine Clearance 32.2 mL/min (>60); Globulin 1.9 gm/dL (2.3-3.5); Glucose 378 mg/dL (74-106); Osmolality,Calculated 288 (275-295); Potassium 3.1 mMol/L (3.4-5.1); Sodium 134 mMol/L (136-145); Total Protein 4.5 gm/dL (5.7-8.2); eGFR 32 See Note
[2024-11-02 06:26] LABS: Slide Review Platelets confirmed
[2024-11-02 08:18] LABS: Reflex Lactate? Y
[2024-11-02] MEDS: FAMOTIDINE INJ 10 MG/ML VIAL 2 ML 20 MG IVP (08:20)
--- NOTE | 2024-11-02 09:50 | ESPR_ITS ---
Documentation for date of: 11/02/24 Subjective Subjective Interval history: Ms. Sheriff is a 69-year-old female with a past medical history of hypertension, hyperlipidemia, diabetes mellitus type 2 [id number], and history of sciatic nerve pain who presented to the emergency room via ambulance with a chief complaint of altered mental status. Per patient's daughter at bedside, unable to arouse patient this morning after last well-known time on 10/28/2024. All history gathered from daughter at bedside. Patient experienced a ground- level fall on 10/28/2024 that was not witnessed by family members. Patient was found conscious and alert and oriented by stripping and booking machine operator. Denied trauma to head during fall. Ground-level fall occurred in 2023 secondary to sciatic pain. Patient denied sick contacts, pyrexia at home, or cough. 1 month ago patient was treated for outpatient urinary tract infection with antibiotics which was completed. Patient's daughter denied increased frequency or dysuria. Denied emesis or diarrhea. Denied chest pain or shortness of breath. Denied past medical history of heart failure. ER course: Vitals upon arrival blood pressure 74/51 (MAP 58) after receiving 1 L bolus via EMS, tachycardia-148, respiratory rate 12, temperature 102.7, and SpO2 97%,. Patient unable to protect airway requiring mechanical ventilation with a GCS score of 7 upon arrival to the emergency room. WBC count 18.4 neutrophil shift 89. ABG pH of 7.27, CO2 35, O2 201, bicarb 16, oxygen saturation 100%-status post mechanical ventilation. GCS 7 and NISS 23. Patient was intubated and brought to ICU. Patient was placed on bicarb drip but continued to have severe acidosis nephrology consulted for severe acidosis requiring dialysis. Patient seen and examined at bedside, intubated and sedated. Has made 100 ml dark urine. WBC 22.1, Hg 10.6. Sodium 140, potassium 5.4, bicarb 10.9, BUN 40, creatinine 3.0, eGFR 16. Lactic acid 8.1. AST 625, ALT 459, ALP 234. ABG showed pH 7.3, pCO2 18, pO2 240, bicarb 9. Procal 129. UA WBCs 153, 3+ bacteria. Urine random sodium 58.2, potassium 47, chloride 61.7. Elevated anion gap 19. Dialysis line placed. Plan for CRRT therapy, close monitoring. 10/31/2024 patient remains in ICU. On ventilator. Daughter at bedside. Decreased urinary output. BUN and creatinine still elevated. On 2 pressors. Ordered CRRT/[place] today. 11/01/2024 Labs and medications reviewed. Hemoglobin 8.4, sodium 132, potassium 3.3, bicarbonate 19.2, BUN 16, creatinine 1.3, lactic acid 3.8, calcium 8.4, phosphorus 1.9, albumin 2.7. 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 Tipping Machine Operator [employer] on the case. Patient currently on conventional dialysis. 11/02/2024 patient currently seen in ICU. Remains on the ventilator. CT scan showed large MCA infarct with significant edema and mass effect. Noted Dr. Ward spoke to family-consider comfort care. Hold off on dialysis. No improvement despite 3 days in a row dialysis. Urine output still remains poor. Suspect patient ischemic ATN. Review of Systems Review of Systems ROS Unobtainable: unobtainable due to medical condition and due to endotracheal tube Exam Vital Signs Temp Pulse Resp BP Pulse Ox O2 Del Method FiO2 36.1 C 102 H 18 98/42 L 100 Mechanical Ventilation 35 11/02/24 08:00 11/02/24 09:00 11/02/24 09:00 11/02/24 06:14 11/02/24 09:00 11/02/24 08:00 11/02/24 08:00 Narrative Exam GENERAL APPEARANCE: Patient currently seen in ICU. Intubated, sedated CARDIOVASCULAR: Heart regular, no murmurs , tachy LUNGS/CHEST: Chest clear to auscultation. No rales, rhonchi, wheezing ABDOMEN: Soft, nontender, mild distended. No masses. Normal bowel sounds. EXTREMITIES: 2+ edema noted in the extremities SKIN: Skin exam normal without any rashes MUSCULOSKELETAL: in bed NEUROLOGICAL : Intubated, sedated. Objective Labs 11/02/24 04:50 11/02/24 04:50 Labs: Laboratory Results - last 24 hr 10/31/24 11/01/24 11/01/24 11:45 08:40 11:45 WBC RBC Hgb 8.4 L Hct 23.5 L MCV MCH MCHC RDW Std Deviation Plt Count Neut % (Auto) Lymph % (Auto) Greenlee % (Auto) Eos % (Auto) Baso % (Auto) Neut # (Auto) Lymph # (Auto) Greenlee # (Auto) Eos # (Auto) Baso # (Auto) Immature Gran # (Auto) Absolute Nucleated RBC Immature Gran % Nucleated RBC % Puncture Site Cancelled Cancelled ABG pH Cancelled ABG pCO2 Cancelled ABG pO2 Cancelled ABG HCO3 Cancelled ABG O2 Saturation Cancelled ABG Base Excess Cancelled Oxygen Liter Flow Cancelled FiO2 Cancelled Sodium 135 L Potassium 3.6 Chloride 102 Carbon Dioxide 19.2 L Anion Gap 14 BUN 16 Creatinine 1.3 Estim Creat Clear Calc 42.1 L eGFR 44 L BUN/Creatinine Ratio 12 Glucose 284 H D Calculated Osmolality 281 Lactic Acid Calcium 7.2 L Corrected Calcium 8.4 L Phosphorus 1.9 L Total Bilirubin AST ALT Alkaline Phosphatase Total Protein Albumin 2.5 L Globulin Albumin/Globulin Ratio Misc Test Result 11/01/24 11/01/24 11/01/24 11:45 11:45 11:45 WBC RBC Hgb Hct MCV MCH MCHC RDW Std Deviation Plt Count Neut % (Auto) Lymph % (Auto) Greenlee % (Auto) Eos % (Auto) Baso % (Auto) Neut # (Auto) Lymph # (Auto) Greenlee # (Auto) Eos # (Auto) Baso # (Auto) Immature Gran # (Auto) Absolute Nucleated RBC Immature Gran % Nucleated RBC % Puncture Site Arterial Line ABG pH Cancelled 7.46 H ABG pCO2 Cancelled 33 ABG pO2 Cancelled ABG HCO3 ABG O2 Saturation ABG Base Excess Oxygen Liter Flow FiO2 Sodium Potassium Chloride Carbon Dioxide Anion Gap BUN Creatinine Estim Creat Clear Calc eGFR BUN/Creatinine Ratio Glucose Calculated Osmolality Lactic Acid Calcium Corrected Calcium Phosphorus Total Bilirubin AST ALT Alkaline Phosphatase Total Protein Albumin Globulin Albumin/Globulin Ratio Misc Test Result 11/01/24 11/01/24 11/01/24 11:45 11:45 11:45 WBC RBC Hgb Hct MCV MCH MCHC RDW Std Deviation Plt Count Neut % (Auto) Lymph % (Auto) Greenlee % (Auto) Eos % (Auto) Baso % (Auto) Neut # (Auto) Lymph # (Auto) Greenlee # (Auto) Eos # (Auto) Baso # (Auto) Immature Gran # (Auto) Absolute Nucleated RBC Immature Gran % Nucleated RBC % Puncture Site ABG pH ABG pCO2 ABG pO2 98 D ABG HCO3 Cancelled 23 ABG O2 Saturation Cancelled 99 H ABG Base Excess Cancelled Oxygen Liter Flow FiO2 Sodium Potassium Chloride Carbon Dioxide Anion Gap BUN Creatinine Estim Creat Clear Calc eGFR BUN/Creatinine Ratio Glucose Calculated Osmolality Lactic Acid Calcium Corrected Calcium Phosphorus Total Bilirubin AST ALT Alkaline Phosphatase Total Protein Albumin Globulin Albumin/Globulin Ratio Mis Test Result 11/01/24 11/01/24 11/01/24 11:45 11:45 15:15 WBC RBC Hgb Hct MCV MCH MCHC RDW Std Deviation Plt Count Neut % (Auto) Lymph % (Auto) Greenlee % (Auto) Eos % (Auto) Baso % (Auto) Neut # (Auto) Lymph # (Auto) [place]lee # (Auto) Eos # (Auto) Baso # (Auto) Immature Gran # (Auto) Absolute Nucleated RBC Immature Gran % Nucleated RBC % Puncture Site ABG pH ABG pCO2 ABG pO2 ABG HCO3 ABG O2 Saturation ABG Base Excess 0 Oxygen Liter Flow Cancelled FiO2 Cancelled 35 Sodium 132 L Potassium 3.3 L Chloride 95 L Carbon Dioxide 24.1 Anion Gap 13 BUN 15 Creatinine 1.2 Estim Creat Clear Calc 45.6 L eGFR 49 L BUN/Creatinine Ratio 13 Glucose 281 H Calculated Osmolality 275 Lactic Acid 3.3 H 3.5 H Calcium 7.7 L Corrected Calcium 8.7 Phosphorus 1.7 L Total Bilirubin AST ALT Alkaline Phosphatase Total Protein Albumin 2.7 L Globulin Albumin/Globulin Ratio [facility] Test Result 11/01/24 11/01/24 11/02/24 18:33 22:00 02:15 WBC RBC Hgb Hct MCV MCH MCHC RDW Std Deviation Plt Count Neut % (Auto) Lymph % (Auto) [place] % (Auto) Eos % (Auto) Baso % (Auto) Neut # (Auto) Lymph # (Auto) [place]lee # (Auto) Eos # (Auto) Baso # (Auto) Immature Gran # (Auto) Absolute Nucleated RBC Immature Gran % Nucleated RBC % Puncture Site ABG pH ABG pCO2 ABG pO2 ABG HCO3 ABG O2 Saturation ABG Base Excess Oxygen Liter Flow FiO2 Sodium Potassium Chloride Carbon Dioxide Anion Gap BUN Creatinine Estim Creat Clear Calc eGFR BUN/Creatinine Ratio Glucose Calculated Osmolality Lactic Acid 3.0 H 2.6 H 2.2 H Calcium Corrected Calcium Phosphorus Total Bilirubin AST ALT Alkaline Phosphatase Total Protein Albumin Globulin Albumin/Globulin Ratio Mis Test Result 11/02/24 11/02/24 11/02/24 04:41 04:50 08:55 WBC 10.6 RBC 2.94 L Hgb 8.6 L Hct 24.9 L MCV 85 MCH 29.3 MCHC 34.5 RDW Std Deviation 49.5 H Plt Count 28 L* D Neut % (Auto) 88 H Lymph % (Auto) 4 L Greenlee % (Auto) 7 Eos % (Auto) 0 Baso % (Auto) 0 Neut # (Auto) 9.3 H Lymph # (Auto) 0.4 L Greenlee # (Auto) 0.7 Eos # (Auto) 0.0 Baso # (Auto) 0.0 Immature Gran # (Auto) 0.14 H Absolute Nucleated RBC 0.10 H Immature Gran % 1 H Nucleated RBC % 1 H Puncture Site Arterial Line ABG pH 7.42 ABG pCO2 33 ABG pO2 104 ABG HCO3 21 ABG O2 Saturation 99 H ABG Base Excess -3 Oxygen Liter Flow FiO2 35 Sodium 134 L Potassium 3.1 L Chloride 95 L Carbon Dioxide 20.2 Anion Gap 19 H BUN 25 H Creatinine 1.7 H D Estim Creat Clear Calc 32.2 L eGFR 32 L BUN/Creatinine Ratio 15 Glucose 378 H D Calculated Osmolality 288 Lactic Acid 2.1 H 2.0 Calcium 7.8 L Corrected Calcium 8.9 Phosphorus Total Bilirubin 3.7 H D AST 718 H* ALT 1226 H* Alkaline Phosphatase 525 H D Total Protein 4.5 L Albumin 2.6 L Globulin 1.9 L Albumin/Globulin Ratio 1.4 Misc Test Result Platelets confirmed ABG Interpretation ABG results: 10/29/24 10/29/24 10/29/24 10:00 12:47 22:20 ABG pH 7.27 L ABG pCO2 35 ABG pO2 201 H ABG HCO3 16 L ABG O2 Saturation 100 H ABG Base Excess -10 L VBG pH 7.33 7.28 L VBG pCO2 43 36 VBG pO2 31 53 D VBG Base Excess -3 -9 L 10/29/24 10/30/24 10/30/24 23:47 08:07 16:11 ABG pH 7.23 L 7.30 L 7.26 L ABG pCO2 30 L 18 L* D 24 L ABG pO2 301 H D 240 H D 359 H D ABG HCO3 13 L 9 L* 11 L ABG O2 Saturation 100 H 100 H 101 H ABG Base Excess -14 L -16 L -15 L VBG pH VBG pCO2 VBG pO2 VBG Base Excess 10/30/24 10/31/24 10/31/24 22:35 05:00 11:45 ABG pH 7.16 L* D 7.27 L D Cancelled ABG pCO2 23 L 25 L Cancelled ABG pO2 312 H D 402 H D Cancelled ABG HCO3 8 L* 12 L Cancelled ABG O2 Saturation 100 H 101 H Cancelled ABG Base Excess -19 L -14 L Cancelled VBG pH VBG pCO2 VBG pO2 VBG Base Excess 10/31/24 10/31/24 10/31/24 12:52 16:48 20:56 ABG pH 7.32 L 7.50 H D 7.44 ABG pCO2 24 L 23 L 33 D ABG pO2 193 H D 175 H 141 H D ABG HCO3 12 L 18 L 22 ABG O2 Saturation 100 H 100 H 100 H ABG Base Excess -12 L -4 L -2 VBG pH VBG pCO2 VBG pO2 VBG Base Excess 11/01/24 11/01/24 11/01/24 04:26 07:41 11:45 ABG pH 7.43 7.41 Cancelled ABG pCO2 31 L 32 ABG pO2 137 H 135 H ABG HCO3 20 20 ABG O2 Saturation 100 H 100 H ABG Base Excess -3 -4 L VBG pH VBG pCO2 VBG pO2 VBG Base Excess 11/01/24 11/01/24 11/01/24 11:45 11:45 11:45 ABG pH 7.46 H ABG pCO2 Cancelled 33 ABG pO2 Cancelled 98 D ABG HCO3 Cancelled ABG O2 Saturation ABG Base Excess VBG pH VBG pCO2 VBG pO2 VBG Base Excess 11/01/24 11/01/24 11/01/24 11:45 11:45 11:45 ABG pH ABG pCO2 ABG pO2 ABG HCO3 23 ABG O2 Saturation Cancelled 99 H ABG Base Excess Cancelled 0 VBG pH VBG pCO2 VBG pO2 VBG Base Excess 11/02/24 04:41 ABG pH 7.42 ABG pCO2 33 ABG pO2 104 ABG HCO3 21 ABG O2 Saturation 99 H ABG Base Excess -3 VBG pH VBG pCO2 VBG pO2 VBG Base Excess Assessment & Plan Additional Assessment & Plan Additional Plan: 69-year-old female with a past medical history of hypertension, hyperlipidemia, diabetes mellitus type 2 [id number] who was admitted on 10/29/2024 for severe septic shock requiring mechanical ventilation and pressors. Nephrology consulted for CRRT for severe acidosis. #Acute renal failure #Metabolic acidosis, severe MAHIN possibly related to prerenal causes in setting of septic shock, also possibly ATN given worsening kidney function and poor urinary output despite IVF. 100 ml urine output. BUN 40, creatinine 3.0, eGFR 16. Patient also severely acidodic despite bicarb drip. ABG pH 7.3, serum bicarb 10.9. Dilaysis line in place. Patient received so far 3 dialysis sessions. Hold off on dialysis today. er details. Critical care time spent more than 35 minutes regarding plan of care and disease management. -Avoid nephrotoxins -renally dose meds -Strict I's and O's -Close monitoring of acid-base status and renal function. - #Acute encephalopathy #Septic Shock #Acute Respiratory Failure, Mechanical Ventilation unable to protect airway #Transaminitis #Diabetes Mellitus Type 2, non-insulin dependent # bactermia #UTI # massive CVA-prognosis remains guarded Management as per the ICU team. Plan of care discussed with Dr. Ward/ICU team Procedures Arterial Line Size (Gauge): 16
--- NOTE | 2024-11-02 09:56 | PD.RESPRO ---
Documentation for date of: 11/02/24 Subjective Subjective Interval history: No acute overnight events. Appropriately sedated and mechanically ventilated. Remains unresponsive to stimuli. CT head yesterday showed large left middle cerebral artery infarct with severe edema and significant mass effect. She is on single pressor, maintaining adequate MAP. Continued on CRRT. CHEM panel remarkable for potassium 3.1, BUN 25, CR 1.7, GLUCOSE 378, AST 718 and ALT 1226 both improving, ALP 525. WBC 10.6, Hgb 8.6, PLT 28. Prognosis remains guarded given CT findings. Primary team will have goals of care discussion with family today. Continuing supportive care with vasopressors to maintain perfusion (MAP >65), antibiotics for sepsis, CRRT for renal support, and lab trending to monitor organ function. Maintain K > 4.0 and Mg > 2.0. Hemoglobin goal 9-10, transfuse as needed. Her prognosis, unfortunately, remains guarded given the severity of refractory shock and evolving multiorgan dysfunction. Cardiology will sign off at this point. Will continue to monitor peripherally. Please consult as needed. Exam Vital Signs Temp Pulse Resp BP Pulse Ox O2 Del Method FiO2 97.0 F 102 H 18 98/42 L 100 Mechanical Ventilation 35 11/02/24 08:00 11/02/24 09:00 11/02/24 09:00 11/02/24 06:14 11/02/24 09:00 11/02/24 08:00 11/02/24 08:00 Narrative Exam GENERAL Sedated and mechanically ventilated HEENT NCAT.?pupils equal, delay pupillary reaction bilaterally. Oral mucosa is dry. Patent nares NECK Supple, nontender, no thyromegaly, no meningismus, no JVD, no step offs CHEST Tachycardic, regular rhythm, no m/g/r CTAB, no w/r/r. Symmetrical chest rise. No intercostal subcostal retraction Atraumatic, nontender, no crepitus, symmetrical expansion. ABDOMEN Soft, flat, nontender. No guarding/rebound tenderness/masses. Bowel sounds presents EXTREMITIES No edema bilaterally. Delayed capillary refill in all extremities. Noted cold extremities, slightly better dusky and cyanosis in finger tips. SKIN Warm and dry, no jaundice/rashes. NEUROMUSCULAR No lumbar or midline, no CVA, no paraspinal muscle spasm or tenderness. No response to noxious stimuli. PSYCHIATRY Appropriately sedated. Objective Labs 11/02/24 04:50 11/02/24 04:50 Labs: Laboratory Results - last 24 hr 10/31/24 11/01/24 11/01/24 11:45 08:40 11:45 WBC RBC Hgb 8.4 L Hct 23.5 L MCV MCH MCHC RDW Std Deviation Plt Count Neut % (Auto) Lymph % (Auto) [place] % (Auto) Eos % (Auto) Baso % (Auto) Neut # (Auto) Lymph # (Auto) [place] # (Auto) Eos # (Auto) Baso # (Auto) Immature Gran # (Auto) Absolute Nucleated RBC Immature Gran % Nucleated RBC % Puncture Site Cancelled Cancelled ABG pH Cancelled ABG pCO2 Cancelled ABG pO2 Cancelled ABG HCO3 Cancelled ABG O2 Saturation Cancelled ABG Base Excess Cancelled Oxygen Liter Flow Cancelled FiO2 Cancelled Sodium 135 L Potassium 3.6 Chloride 102 Carbon Dioxide 19.2 L Anion Gap 14 BUN 16 Creatinine 1.3 Estim Creat Clear Calc 42.1 L eGFR 44 L BUN/Creatinine Ratio 12 Glucose 284 H D Calculated Osmolality 281 Lactic Acid Calcium 7.2 L Corrected Calcium 8.4 L Phosphorus 1.9 L Total Bilirubin AST ALT Alkaline Phosphatase Total Protein Albumin 2.5 L Globulin Albumin/Globulin Ratio Misc Test Result 11/01/24 11/01/24 11/01/24 11:45 11:45 11:45 WBC RBC Hgb Hct MCV MCH MCHC RDW Std Deviation Plt Count Neut % (Auto) Lymph % (Auto) [place] % (Auto) Eos % (Auto) Baso % (Auto) Neut # (Auto) Lymph # (Auto) [place] # (Auto) Eos # (Auto) Baso # (Auto) Immature Gran # (Auto) Absolute Nucleated RBC Immature Gran % Nucleated RBC % Puncture Site Arterial Line ABG pH Cancelled 7.46 H ABG pCO2 Cancelled 33 ABG pO2 Cancelled ABG HCO3 ABG O2 Saturation ABG Base Excess Oxygen Liter Flow FiO2 Sodium Potassium Chloride Carbon Dioxide Anion Gap BUN Creatinine Estim Creat Clear Calc eGFR BUN/Creatinine Ratio Glucose Calculated Osmolality Lactic Acid Calcium Corrected Calcium Phosphorus Total Bilirubin AST ALT Alkaline Phosphatase Total Protein Albumin Globulin Albumin/Globulin Ratio Misc Test Result 11/01/24 11/01/24 11/01/24 11:45 11:45 11:45 WBC RBC Hgb Hct MCV MCH MCHC RDW Std Deviation Plt Count Neut % (Auto) Lymph % (Auto) [place] % (Auto) Eos % (Auto) Baso % (Auto) Neut # (Auto) Lymph # (Auto) [place] # (Auto) Eos # (Auto) Baso # (Auto) Immature Gran # (Auto) Absolute Nucleated RBC Immature Gran % Nucleated RBC % Puncture Site ABG pH ABG pCO2 ABG pO2 98 D ABG HCO3 Cancelled 23 ABG O2 Saturation Cancelled 99 H ABG Base Excess Cancelled Oxygen Liter Flow FiO2 Sodium Potassium Chloride Carbon Dioxide Anion Gap BUN Creatinine Estim Creat Clear Calc eGFR BUN/Creatinine Ratio Glucose Calculated Osmolality Lactic Acid Calcium Corrected Calcium Phosphorus Total Bilirubin AST ALT Alkaline Phosphatase Total Protein Albumin Globulin Albumin/Globulin Ratio Mis Test Result 11/01/24 11/01/24 11/01/24 11:45 11:45 15:15 WBC RBC Hgb Hct MCV MCH MCHC RDW Std Deviation Plt Count Neut % (Auto) Lymph % (Auto) [place] % (Auto) Eos % (Auto) Baso % (Auto) Neut # (Auto) Lymph # (Auto) [place] # (Auto) Eos # (Auto) Baso # (Auto) Immature Gran # (Auto) Absolute Nucleated RBC Immature Gran % Nucleated RBC % Puncture Site ABG pH ABG pCO2 ABG pO2 ABG HCO3 ABG O2 Saturation ABG Base Excess 0 Oxygen Liter Flow Cancelled FiO2 Cancelled 35 Sodium 132 L Potassium 3.3 L Chloride 95 L Carbon Dioxide 24.1 Anion Gap 13 BUN 15 Creatinine 1.2 Estim Creat Clear Calc 45.6 L eGFR 49 L BUN/Creatinine Ratio 13 Glucose 281 H Calculated Osmolality 275 Lactic Acid 3.3 H 3.5 H Calcium 7.7 L Corrected Calcium 8.7 Phosphorus 1.7 L Total Bilirubin AST ALT Alkaline Phosphatase Total Protein Albumin 2.7 L Globulin Albumin/Globulin Ratio [facility] [place] Test Result 11/01/24 11/01/24 11/02/24 18:33 22:00 02:15 WBC RBC Hgb Hct MCV MCH MCHC RDW Std Deviation Plt Count Neut % (Auto) Lymph % (Auto) [place] % (Auto) Eos % (Auto) Baso % (Auto) Neut # (Auto) Lymph # (Auto) [place] # (Auto) Eos # (Auto) Baso # (Auto) Immature Gran # (Auto) Absolute Nucleated RBC Immature Gran % Nucleated RBC % Puncture Site ABG pH ABG pCO2 ABG pO2 ABG HCO3 ABG O2 Saturation ABG Base Excess Oxygen Liter Flow FiO2 Sodium Potassium Chloride Carbon Dioxide Anion Gap BUN Creatinine Estim Creat Clear Calc eGFR BUN/Creatinine Ratio Glucose Calculated Osmolality Lactic Acid 3.0 H 2.6 H 2.2 H Calcium Corrected Calcium Phosphorus Total Bilirubin AST ALT Alkaline Phosphatase Total Protein Albumin Globulin Albumin/Globulin Ratio Misc Test Result 11/02/24 11/02/24 11/02/24 04:41 04:50 08:55 WBC 10.6 RBC 2.94 L Hgb 8.6 L Hct 24.9 L MCV 85 MCH 29.3 MCHC 34.5 RDW Std Deviation 49.5 H Plt Count 28 L* D Neut % (Auto) 88 H Lymph % (Auto) 4 L [place] % (Auto) 7 Eos % (Auto) 0 Baso % (Auto) 0 Neut # (Auto) 9.3 H Lymph # (Auto) 0.4 L [place] # (Auto) 0.7 Eos # (Auto) 0.0 Baso # (Auto) 0.0 Immature Gran # (Auto) 0.14 H Absolute Nucleated RBC 0.10 H Immature Gran % 1 H Nucleated RBC % 1 H Puncture Site Arterial Line ABG pH 7.42 ABG pCO2 33 ABG pO2 104 ABG HCO3 21 ABG O2 Saturation 99 H ABG Base Excess -3 Oxygen Liter Flow FiO2 35 Sodium 134 L Potassium 3.1 L Chloride 95 L Carbon Dioxide 20.2 Anion Gap 19 H BUN 25 H Creatinine 1.7 H D Estim Creat Clear Calc 32.2 L eGFR 32 L BUN/Creatinine Ratio 15 Glucose 378 H D Calculated Osmolality 288 Lactic Acid 2.1 H 2.0 Calcium 7.8 L Corrected Calcium 8.9 Phosphorus Total Bilirubin 3.7 H D AST 718 H* ALT 1226 H* Alkaline Phosphatase 525 H D Total Protein 4.5 L Albumin 2.6 L Globulin 1.9 L Albumin/Globulin Ratio 1.4 Misc Test Result Platelets confirmed ABG Interpretation ABG results: 10/29/24 10/29/24 10/29/24 10:00 12:47 22:20 ABG pH 7.27 L ABG pCO2 35 ABG pO2 201 H ABG HCO3 16 L ABG O2 Saturation 100 H ABG Base Excess -10 L VBG pH 7.33 7.28 L VBG pCO2 43 36 VBG pO2 31 53 D VBG Base Excess -3 -9 L 10/29/24 10/30/24 10/30/24 23:47 08:07 16:11 ABG pH 7.23 L 7.30 L 7.26 L ABG pCO2 30 L 18 L* D 24 L ABG pO2 301 H D 240 H D 359 H D ABG HCO3 13 L 9 L* 11 L ABG O2 Saturation 100 H 100 H 101 H ABG Base Excess -14 L -16 L -15 L VBG pH VBG pCO2 VBG pO2 VBG Base Excess 10/30/24 10/31/24 10/31/24 22:35 05:00 11:45 ABG pH 7.16 L* D 7.27 L D Cancelled ABG pCO2 23 L 25 L Cancelled ABG pO2 312 H D 402 H D Cancelled ABG HCO3 8 L* 12 L Cancelled ABG O2 Saturation 100 H 101 H Cancelled ABG Base Excess -19 L -14 L Cancelled VBG pH VBG pCO2 VBG pO2 VBG Base Excess 10/31/24 10/31/24 10/31/24 12:52 16:48 20:56 ABG pH 7.32 L 7.50 H D 7.44 ABG pCO2 24 L 23 L 33 D ABG pO2 193 H D 175 H 141 H D ABG HCO3 12 L 18 L 22 ABG O2 Saturation 100 H 100 H 100 H ABG Base Excess -12 L -4 L -2 VBG pH VBG pCO2 VBG pO2 VBG Base Excess 11/01/24 11/01/24 11/01/24 04:26 07:41 11:45 ABG pH 7.43 7.41 Cancelled ABG pCO2 31 L 32 ABG pO2 137 H 135 H ABG HCO3 20 20 ABG O2 Saturation 100 H 100 H ABG Base Excess -3 -4 L VBG pH VBG pCO2 VBG pO2 VBG Base Excess 11/01/24 11/01/24 11/01/24 11:45 11:45 11:45 ABG pH 7.46 H ABG pCO2 Cancelled 33 ABG pO2 Cancelled 98 D ABG HCO3 Cancelled ABG O2 Saturation ABG Base Excess VBG pH VBG pCO2 VBG pO2 VBG Base Excess 11/01/24 11/01/24 11/01/24 11:45 11:45 11:45 ABG pH ABG pCO2 ABG pO2 ABG HCO3 23 ABG O2 Saturation Cancelled 99 H ABG Base Excess Cancelled 0 VBG pH VBG pCO2 VBG pO2 VBG Base Excess 11/02/24 04:41 ABG pH 7.42 ABG pCO2 33 ABG pO2 104 ABG HCO3 21 ABG O2 Saturation 99 H ABG Base Excess -3 VBG pH VBG pCO2 VBG pO2 VBG Base Excess Quality Measures Quality Measures VTE prophylaxis Advance care planning discussed with:: patient Assessment & Plan Assessment Current Active Medications: Generic Name Dose Route Start Last Admin Trade Name Freq PRN Reason Stop Dose Admin Acetaminophen 650 mg 10/29/24 13:53 Acetaminophen 325 Mg Tablet PO 11/28/24 13:52 Q4HR PRN PAIN SCALE 1-3 (mild Acetaminophen 650 mg 10/29/24 13:53 Acetaminophen Supp 650 Mg Supp WV 11/28/24 13:52 Q4HR PRN PAIN SCALE 1-3 (mild Al Hydrox/Mg Hydrox/Simethicone 30 ml 10/29/24 13:53 Mg Hyd/Al Hyd/Elpidio (Maalox Reg) Susp 30 Ml Udc PO 11/28/24 13:52 Q4HR PRN Heartburn or Upset Stomach Dextrose 25 ml 10/29/24 15:57 Dextrose 50%-Water Inj 50 Ml Syringe IV 11/28/24 15:56 Q15MIN PRN BG 50-70 responsive npo pt Dextrose 50 ml 10/29/24 15:57 10/31/24 11:35 Dextrose 50%-Water Inj 50 Ml Syringe IV 11/28/24 15:56 50 ml Q15MIN PRN Administration BG <50 OR BG <70 & pt unresponsive Enoxaparin Sodium 40 mg 10/29/24 13:53 11/02/24 08:21 Enoxaparin Sod Inj 40 Mg/0.4 Ml Syringe SC 11/12/24 13:52 Not Given QDAY SEVERIANO Famotidine 20 mg 10/30/24 09:00 11/02/24 08:20 Famotidine Inj 10 Mg/Ml Vial 2 Ml IVP 11/29/24 08:59 20 mg QDAY SEVERIANO Administration Glucagon 1 mg 10/29/24 15:57 Glucagon Inj 1 Mg Vial IM Q15MIN PRN BG <70, and no IV access Heparin Sodium (Porcine) 2,600 unit 10/30/24 13:29 11/01/24 14:13 Heparin Sod Inj 1000 Unit/Ml Vial 10 Ml INDWELLCAT 11/13/24 13:28 2,600 unit PRN PRN Administration DIALYSIS Hydrocortisone Sodium Succinate 50 mg 10/30/24 00:00 11/02/24 05:31 Hydrocortisone Sod Succ Inj 100 Mg Vial IV 11/29/24 00:00 50 mg Q6HR SEVERIANO Administration Fentanyl Citrate 2,500 mcg in 250 mls @ 2.5 mls/hr 10/29/24 10:30 11/01/24 08:14 Sublimaze Inj 2,500 Mcg/250 Ml Bag IV 11/03/24 10:29 0 mcg/hr .Q24H PRN 0 mls/hr PER PROTOCOL Titration Protocol 25 MCG/HR Propofol 1,000 mg in 100 mls @ 2.358 mls/hr 10/29/24 17:05 10/30/24 19:00 Diprivan Ivpb IV 11/28/24 17:04 0 mcg/kg/min .Q24H PRN 0 mls/hr PER PROTOCOL Titration Protocol 5 MCG/KG/MIN Vasopressin/Sodium Chloride 20 unit in 100 mls @ 9 mls/hr 10/29/24 20:52 11/02/24 03:00 Vasostrict/Ns Ivpb IV 11/28/24 20:51 0 unit/min .Q11H7M PRN 0 mls/hr PER PROTOCOL Titration Protocol 0.03 UNIT/MIN Norepinephrine Bitartrate 16 mg in 250 mls @ 3.684 mls/hr 10/29/24 23:00 11/02/24 09:00 Levophed In Ns 16mg/250ml IV 11/28/24 22:59 0 mcg/kg/min .Q24H PRN 0 mls/hr PER PROTOCOL Titration Protocol 0.05 MCG/KG/MIN Phenylephrine HCl 40 mg/ 100 mls @ 5.895 mls/hr 10/29/24 23:30 Sodium Chloride IV 11/28/24 23:29 .[id number] PRN Per Sepsis Protocol Protocol 0.5 MCG/KG/MIN Albumin Human 12.5 gm in 250 mls @ 100 mls/hr 10/30/24 17:58 10/30/24 18:09 Albuminar-5 Ivpb IV 100 mls/hr .Q2H30M SEVERIANO Administration Piperacillin/Tazobactam/Dextrose 3.375 gm in 50 mls @ 12.5 mls/hr 11/01/24 14:00 11/02/24 05:32 Zosyn IV 11/08/24 13:59 12.5 mls/hr Q8HR SEVERIANO Administration Insulin Human Lispro 0 unit 10/29/24 18:00 11/02/24 05:36 Insulin Lispro (Admelog) 1 Unit/0.01 Ml Unit SC 11/28/24 17:59 5 unit Q6HR SEVERIANO Administration Protocol Magnesium Hydroxide 30 ml 10/29/24 13:53 Milk Of Magnesia Susp 30 Ml Udc PO 11/28/24 13:52 QDAY PRN CONSTIPATION Nitroglycerin 0.4 mg 10/29/24 13:53 Nitroglycerin 0.4 Mg Subl Btl #25 SL Q5MIN PRN CHEST PAIN Sennosides 1 tab 10/29/24 13:10 Senna Tablet PO 11/28/24 13:09 QDAY PRN constipation Protocol Plan A 69-year-old female with a past medical history of hypertension, hyperlipidemia, type 2 diabetes mellitus, and chronic sciatic nerve pain presented to the emergency department on October 29, 2024, with acute altered mental status. Currently in ICU for severe refractory shock, with signs and symptoms of multi organ failure. Cardiology was consulted and concurred that the elevated troponin reflected type II myocardial injury in the context of shock and hypoxia. NSTEMI, likely type II Refractory shock, likely mixed etiology. Hemothorax Acute hypoxemic respiratory failure Multiorgan failure Neurologic acidosis Lactic acidosis AMS GNR bacteremia UTI, pyelonephritis She was found unresponsive at home following a likely ground-level fall the day prior, thought to be due to impaired mobility from sciatic pain. Although she was reportedly alert after the fall, she later deteriorated without preceding symptoms such as trauma, vomiting, diarrhea, chest pain, or shortness of breath. Upon arrival, she was in significant distress, with hypotension (BP 74/51), tachycardia (HR 148), fever (Tmax 102.7?F), and a MAP of 58. Neurologically, she had a [place] Coma Scale of 7 and NIHSS of 23, prompting emergent intubation for airway protection. Initial labs were consistent with a systemic inflammatory response and early multiorgan dysfunction: WBC count was elevated at 18.4 with a left shift, lactic acid was 6.2, and ABG showed metabolic acidosis (pH 7.27, bicarbonate 16). She had acute kidney injury (BUN 43, Cr 2.2, GFR 24) compared to her baseline GFR of 54. Transaminases (AST 83, ALT 136) and troponin (0.075 initially) were elevated. Procalcitonin was markedly high (9.54), raising suspicion for sepsis. Imaging showed no acute intracranial pathology, though CT of the neck and chest revealed extensive intravascular air in the pulmonary artery, left innominate vein, right subclavian vein, and SVC, suggestive of venous air embolism, possibly contributing to obstructive physiology. Echocardiogram demonstrated hyperdynamic left and right ventricles with EEF 70-75% (high output status in settings of severe anemia and late septic shock, and catecholamines/pressors), trace pericardial effusion, and no tamponade. In the ICU, the patient required multiple vasopressors and high-dose corticosteroids for persistent shock. Blood cultures grew gram-negative rods, prompting initiation of broad-spectrum antibiotics (including Meropenem). Despite aggressive management, the patient progressed to multiorgan failure. Her lactate gurpreet to 17, troponin peaked at 19.206 (suggesting type II NSTEMI due to demand ischemia), transaminases increased dramatically (AST 2151, ALT 1391), and she developed DIC, likely secondary to hepatic shock. She also had anemia requiring transfusion. CRRT was initiated for worsening renal function. 11/01/24 Maintaining adequate MAP with 2 pressors. Continued on ANTIBIOTICS for bacteremia and UTI. WBC 14.3. Hgb 9.2 and stable. CHEM panel showing some improvement, LFTs downtrending, CR 1.2, BUN 14. Lactic acid 3.8 and downtrending. Troponin 13.16 and improving. 11/02/2024 Now on single pressor, maintaining adequate MAP. Continued on CRRT. CHEM panel remarkable for potassium 3.1, BUN 25, CR 1.7, GLUCOSE 378, AST 718 and ALT 1226 both improving, ALP 525. WBC 10.6, Hgb 8.6, PLT 28. . Primary team will have goals of care discussion with family today. Continuing supportive care with vasopressors to maintain perfusion (MAP >65), antibiotics for sepsis, CRRT for renal support, and lab trending to monitor organ function. Maintain K > 4.0 and Mg > 2.0. Hemoglobin goal 9-10, transfuse as needed. Her prognosis, unfortunately, remains guarded given the severity of refractory shock and evolving multiorgan dysfunction. Recommendations: Prognosis remains guarded given CT findings and lack of meaningful response, despite improvement in vitals and labs. Patient is not having acute coronary syndrome given that he ejection fraction is normal. She has new hemodialysis requirement, remains in severe shock, hypoxemia requiring mechanical ventilation, lactic acidosis, and multiorgan failure, all of these things are suggestive of demand ischemia as the underlying cause. However she might have underlying CAD and will need further ischemic workup once hemodynamically stable. Cannot give METOPROLOL at this time given that she is on shock. Cannot give statin therapy given underlying liver shock. Cannot do ASPIRIN or HEPARIN given active anemia. Our recommendations included continuing supportive care with vasopressors to maintain perfusion (MAP >65), antibiotics for sepsis, CRRT for renal support, and lab trending to monitor organ function. Maintain K > 4.0 and Mg > 2.0. Hemoglobin goal 9-10, transfuse as needed. Her prognosis, unfortunately, remains guarded given the severity of refractory shock and evolving multiorgan dysfunction. Cardiology will sign off at this point. Will continue to monitor peripherally. Please consult as needed. Management of rest of the medical conditions as per primary team and other consultants. Thank you for the consult and allowing me to participate in the care of the patient. Cardiology will continue to follow. Case was discussed with attending, Dr. Bernal. Deidre Johnson DO PGYI
--- NOTE | 2024-11-02 10:26 | PD.RESEVENT ---
Documentation for date of: 11/02/24 Event Note Event Note: At 10:20 this morning, Dr Ward spoke with daughter and decision maker, Jazmín about CT results of the patient which revealed A very large left middle cerebral artery infarct with severe edema and significant mass effect. At this time the decision was made to change patient status to DNR/DNI. Further goals of care will be held once patient have their grieving time. I discussed patient's care with attending physician, Dr Ed Ruth PGY3
--- NOTE | 2024-11-02 10:34 | ESPR_ITS ---
Documentation for date of: 11/02/24 Subjective Subjective Interval history: Patient is a 69-year-old female with a past medical history of hypertension, hyperlipidemia, diabetes mellitus type 2 [id number], and history of sciatic nerve pain who presented to the emergency room via ambulance with a chief complaint of altered mental status. Per patient's daughter at bedside, unable to arouse patient this morning after last well-known time on 10/28/2024. All history gathered from daughter at bedside. Patient experienced a ground- level fall on 10/28/2024 that was not witnessed by family members. Patient was found conscious and alert and oriented by casualty insurance claim adjuster. Denied trauma to head during fall. Ground-level fall occurred in 2023 secondary to sciatic pain. Patient denied sick contacts, pyrexia at home, or cough. 1 month ago patient was treated for outpatient urinary tract infection with antibiotics which was completed. Patient's daughter denied increased frequency or dysuria. Denied emesis or diarrhea. Denied chest pain or shortness of breath. Denied past medical history of heart failure. ER course: Vitals upon arrival blood pressure 74/51 (MAP 58) after receiving 1 L bolus via EMS, tachycardia-148, respiratory rate 12, temperature 102.7, and SpO2 97%,. Patient unable to protect airway requiring mechanical ventilation with a GCS score of 7 upon arrival to the emergency room. WBC count 18.4 neutrophil shift 89. ABG pH of 7.27, CO2 35, O2 201, bicarb 16, oxygen saturation 100%-status post mechanical ventilation. GCS 7 and NISS 23 MAHIN BUN 43, creatinine 2.2, ratio GFR 04 August 2024 showing GFR 54 possible MAHIN on CKD. Glucose 133. Lactic Acid 6.2, repeat 5.9. AST 83, ALT 136, Total Creatine Kinase 194 Troponin 0.075 H, EKG sinus tachycardia BNP 175 (no previous labs) Proclacitionin 129.54 Chest xray No penumonia, minor subsegmental atelectasis left base Head CT Negative for acute hemorrhage, mass effect or midline shift Abdomen/Pelvis/Chest CT: Extensive air density in the pain pulmonary artery segment and right main pulmonary artery as well as left innominate vein and right subclavian vein superior vena cava. Smaller areas of air density in the right anterior chest wall and sbucutaneous fatty tissue Medication: 6 Liter bolus ER + 1 Liter Bolus in ambulance, Etomidate, Norepinephrine, and Fentanyl drip, Zosy & Vancomycin Admitted on 10/29/2024 for shock unknown etiology and requiring mechanical ventilation, unable to protect airway (GCS 7). 10/30/2024: Overnight patient required starting vasopressin at 0.03 on Levophed restarted at 1.8 mcg/Kg as MAP dropped below 65. Currenlty, Vasopressin 0.03 units/min, Levophed 0.66 mcg/kg/min, propfolol 5 mcg/kg/min, and fentanyl 75 mcg/hr. Bacteremia, Blood cultures noted for GNR, Urine Culture GNR, and sputum cultures GPC. MRSA pending. Plan for CRRT as patient has worsening lactic acid, consult nephrology. Worsening Troponemia, consult cardiology. Plan for CT chest. Patient is mechanically ventilated TV 400, RR 18, PEEP 5, FiO2 100-->FiO2 decreased to 90%. 10/31/2024: TABLO was started yesterday evening for acute renal failure and high anion gap metabolic acidosis. The L subclavian TriFlow was retracted ~3cm, resulting in improved blood flow for the dialysis machine. She completed 6 hours before the Tablo machine went down at 5am and patient was off dialysis for 3 hours. During this time, lactic acid increased. The L subclavian Tri-Flow was non-functional for the dialysis machine, and attempts were made for alternative Tri-Flow access through the left and right femoral veins but were unsuccessful. This morning, the L IJ central line was exchanged for a Tri-Flow, and levophed/vasopressin were infused through the L subclavian. Dialysis is to be continued. She remains anuric. The patient's pulse oximeter reads between 50% to 80% despite alternating probe sites and types of probes. The ABG shows O2 saturation of > 100% so we will decrease the FiO2 on the ventilator. We will warm the patient's fingers/ear where the probe site is for a better pulse ox reading. Hemoglobin this morning was 6.1. 4 units of PRBC, 2 FFP and 1 platelet were ordered as patient is in DIC. There is concern for bleeding into the left pleural space due to the interval left pleural effusion seen on CT and drop in hemoglobin. We will transfuse blood products. Regarding the patient's sepsis, we will follow up with blood, urine, and sputum cultures and sensitivities. 11/01/2024: No urine output, renal failure. Patient scheduled for Tablo this morning. Upper extremity edema, +2. Does not withdraw to painful stimuli not alert. Titrate down fentanyl. Propofol at 5 mcg/kg/min--> work towards weaning off. Vasopressin 0.03 units/min, Levophed 0.07 mcg/kg/min. Meropenem switched to Zosyn as blood cultures positive for E. coli ESBL,, sensitive to Zosyn. MRSA negative, vancomycin DC'd. Plan for CT head. Magnesium replaced. No intervention planned from cardiology for troponinemia as patient is too unstable for any type of intervention. EKG no ST elevation noted. AST and ALT down trended. Patient's family at bedside with a guarded prognosis. 11/02/2024: No overnight events. No bowel movements noted. No urine output. Levophed 0.01 & Zosyn IV. At bedside, patient continues to obtunded despite weaning off sedation. No responsive to painful stimuli. Minimal pupillary reflexes. No TABLO planned for patient. Repeat CT head showing large left middle cerebral artery infarct with significant edema and mass effect. Goals of care discussion with family. Decision made to transition patient to comfort care measures after all family have the opportunity to see patient. D/C all medical intervention. Exam Vital Signs Temp Pulse Resp BP Pulse Ox O2 Del Method FiO2 97.0 F 97 18 105/48 L 99 Mechanical Ventilation 35 11/02/24 08:00 11/02/24 10:10 11/02/24 10:10 11/02/24 09:53 11/02/24 10:10 11/02/24 08:00 11/02/24 09:53 Narrative Exam General Appearance: Alert & Oriented X0, well-nourished female who is lying in bed in no acute distress as patient is under sedation HEENT: Skull symmetrical and atraumatic. Conjunctivae pale pink. Decrease pupillary reaction to light and accommodation (PERRL). External ear without lesion or discharge. Straight, nares patient, mucosa pink, no discharge. Cardio: Normal Rhythm & Normal Rate with S1 and S2 heart sounds. No murmurs or extra heart sounds auscultated. No bruits on carotid auscultation. No peripheral edema or cyanosis. Lungs: Symmetric with good expansion. Breath sounds vesicular without crackles, wheezing or rhonchi Abdomen: Non-tender, Non-distended, Normal Reactive Bowel Sounds Neuro: NO Alert, NO cooperative, No oriented to person, No place, and No time. Right Upper motor strength 0/5 and Lower motor strength 0/5 and unable to withdraw from painful stimuli Lines: tele box, Lazo catheter, Peripheral IV access, R. A-line, L. IJV, L. subclavian triple lumen catheter, and Mechanical intubation Objective Labs 11/02/24 04:50 11/02/24 04:50 Labs: Laboratory Results - last 24 hr 10/31/24 11/01/24 11/01/24 11:45 11:45 11:45 WBC RBC Hgb 8.4 L Hct 23.5 L MCV MCH MCHC RDW Std Deviation Plt Count Neut % (Auto) Lymph % (Auto) [place] % (Auto) Eos % (Auto) Baso % (Auto) Neut # (Auto) Lymph # (Auto) [place] # (Auto) Eos # (Auto) Baso # (Auto) Immature Gran # (Auto) Absolute Nucleated RBC Immature Gran % Nucleated RBC % Puncture Site Cancelled Cancelled Arterial Line ABG pH Cancelled Cancelled ABG pCO2 Cancelled ABG pO2 Cancelled ABG HCO3 Cancelled ABG O2 Saturation Cancelled ABG Base Excess Cancelled Oxygen Liter Flow Cancelled FiO2 Cancelled Sodium Potassium Chloride Carbon Dioxide Anion Gap BUN Creatinine Estim Creat Clear Calc eGFR BUN/Creatinine Ratio Glucose Calculated Osmolality Lactic Acid Calcium Corrected Calcium Phosphorus Total Bilirubin AST ALT Alkaline Phosphatase Total Protein Albumin Globulin Albumin/Globulin Ratio Misc Test Result 11/01/24 11/01/24 11/01/24 11:45 11:45 11:45 WBC RBC Hgb Hct MCV MCH MCHC RDW Std Deviation Plt Count Neut % (Auto) Lymph % (Auto) [place] % (Auto) Eos % (Auto) Baso % (Auto) Neut # (Auto) Lymph # (Auto) [place] # (Auto) Eos # (Auto) Baso # (Auto) Immature Gran # (Auto) Absolute Nucleated RBC Immature Gran % Nucleated RBC % Puncture Site ABG pH 7.46 H ABG pCO2 Cancelled 33 ABG pO2 Cancelled 98 D ABG HCO3 Cancelled ABG O2 Saturation ABG Base Excess Oxygen Liter Flow FiO2 Sodium Potassium Chloride Carbon Dioxide Anion Gap BUN Creatinine Estim Creat Clear Calc eGFR BUN/Creatinine Ratio Glucose Calculated Osmolality Lactic Acid Calcium Corrected Calcium Phosphorus Total Bilirubin AST ALT Alkaline Phosphatase Total Protein Albumin Globulin Albumin/Globulin Ratio Mis Test Result 11/01/24 11/01/24 11/01/24 11:45 11:45 11:45 WBC RBC Hgb Hct MCV MCH MCHC RDW Std Deviation Plt Count Neut % (Auto) Lymph % (Auto) [place] % (Auto) Eos % (Auto) Baso % (Auto) Neut # (Auto) Lymph # (Auto) [place] # (Auto) Eos # (Auto) Baso # (Auto) Immature Gran # (Auto) Absolute Nucleated RBC Immature Gran % Nucleated RBC % Puncture Site ABG pH ABG pCO2 ABG pO2 ABG HCO3 23 ABG O2 Saturation Cancelled 99 H ABG Base Excess Cancelled 0 Oxygen Liter Flow Cancelled FiO2 Cancelled Sodium Potassium Chloride Carbon Dioxide Anion Gap BUN Creatinine Estim Creat Clear Calc eGFR BUN/Creatinine Ratio Glucose Calculated Osmolality Lactic Acid Calcium Corrected Calcium Phosphorus Total Bilirubin AST ALT Alkaline Phosphatase Total Protein Albumin Globulin Albumin/Globulin Ratio Misc Test Result 11/01/24 11/01/24 11/01/24 11:45 15:15 18:33 WBC RBC Hgb Hct MCV MCH MCHC RDW Std Deviation Plt Count Neut % (Auto) Lymph % (Auto) [place] % (Auto) Eos % (Auto) Baso % (Auto) Neut # (Auto) Lymph # (Auto) [place] # (Auto) Eos # (Auto) Baso # (Auto) Immature Gran # (Auto) Absolute Nucleated RBC Immature Gran % Nucleated RBC % Puncture Site ABG pH ABG pCO2 ABG pO2 ABG HCO3 ABG O2 Saturation ABG Base Excess Oxygen Liter Flow FiO2 35 Sodium 132 L Potassium 3.3 L Chloride 95 L Carbon Dioxide 24.1 Anion Gap 13 BUN 15 Creatinine 1.2 Estim Creat Clear Calc 45.6 L eGFR 49 L BUN/Creatinine Ratio 13 Glucose 281 H Calculated Osmolality 275 Lactic Acid 3.3 H 3.5 H 3.0 H Calcium 7.7 L Corrected Calcium 8.7 Phosphorus 1.7 L Total Bilirubin AST ALT Alkaline Phosphatase Total Protein Albumin 2.7 L Globulin Albumin/Globulin Ratio [facility] [place] Test Result 11/01/24 11/02/24 11/02/24 22:00 02:15 04:41 WBC RBC Hgb Hct MCV MCH MCHC RDW Std Deviation Plt Count Neut % (Auto) Lymph % (Auto) [place] % (Auto) Eos % (Auto) Baso % (Auto) Neut # (Auto) Lymph # (Auto) [place] # (Auto) Eos # (Auto) Baso # (Auto) Immature Gran # (Auto) Absolute Nucleated RBC Immature Gran % Nucleated RBC % Puncture Site Arterial Line ABG pH 7.42 ABG pCO2 33 ABG pO2 104 ABG HCO3 21 ABG O2 Saturation 99 H ABG Base Excess -3 Oxygen Liter Flow FiO2 35 Sodium Potassium Chloride Carbon Dioxide Anion Gap BUN Creatinine Estim Creat Clear Calc eGFR BUN/Creatinine Ratio Glucose Calculated Osmolality Lactic Acid 2.6 H 2.2 H Calcium Corrected Calcium Phosphorus Total Bilirubin AST ALT Alkaline Phosphatase Total Protein Albumin Globulin Albumin/Globulin Ratio Misc Test Result 11/02/24 11/02/24 04:50 08:55 WBC 10.6 RBC 2.94 L Hgb 8.6 L Hct 24.9 L MCV 85 MCH 29.3 MCHC 34.5 RDW Std Deviation 49.5 H Plt Count 28 L* D Neut % (Auto) 88 H Lymph % (Auto) 4 L [place] % (Auto) 7 Eos % (Auto) 0 Baso % (Auto) 0 Neut # (Auto) 9.3 H Lymph # (Auto) 0.4 L [place] # (Auto) 0.7 Eos # (Auto) 0.0 Baso # (Auto) 0.0 Immature Gran # (Auto) 0.14 H Absolute Nucleated RBC 0.10 H Immature Gran % 1 H Nucleated RBC % 1 H Puncture Site ABG pH ABG pCO2 ABG pO2 ABG HCO3 ABG O2 Saturation ABG Base Excess Oxygen Liter Flow FiO2 Sodium 134 L Potassium 3.1 L Chloride 95 L Carbon Dioxide 20.2 Anion Gap 19 H BUN 25 H Creatinine 1.7 H D Estim Creat Clear Calc 32.2 L eGFR 32 L BUN/Creatinine Ratio 15 Glucose 378 H D Calculated Osmolality 288 Lactic Acid 2.1 H 2.0 Calcium 7.8 L Corrected Calcium 8.9 Phosphorus Total Bilirubin 3.7 H D AST 718 H* ALT 1226 H* Alkaline Phosphatase 525 H D Total Protein 4.5 L Albumin 2.6 L Globulin 1.9 L Albumin/Globulin Ratio 1.4 Misc Test Result Platelets confirmed ABG Interpretation ABG results: 10/29/24 10/29/24 10/29/24 10:00 12:47 22:20 ABG pH 7.27 L ABG pCO2 35 ABG pO2 201 H ABG HCO3 16 L ABG O2 Saturation 100 H ABG Base Excess -10 L VBG pH 7.33 7.28 L VBG pCO2 43 36 VBG pO2 31 53 D VBG Base Excess -3 -9 L 10/29/24 10/30/24 10/30/24 23:47 08:07 16:11 ABG pH 7.23 L 7.30 L 7.26 L ABG pCO2 30 L 18 L* D 24 L ABG pO2 301 H D 240 H D 359 H D ABG HCO3 13 L 9 L* 11 L ABG O2 Saturation 100 H 100 H 101 H ABG Base Excess -14 L -16 L -15 L VBG pH VBG pCO2 VBG pO2 VBG Base Excess 10/30/24 10/31/24 10/31/24 22:35 05:00 11:45 ABG pH 7.16 L* D 7.27 L D Cancelled ABG pCO2 23 L 25 L Cancelled ABG pO2 312 H D 402 H D Cancelled ABG HCO3 8 L* 12 L Cancelled ABG O2 Saturation 100 H 101 H Cancelled ABG Base Excess -19 L -14 L Cancelled VBG pH VBG pCO2 VBG pO2 VBG Base Excess 10/31/24 10/31/24 10/31/24 12:52 16:48 20:56 ABG pH 7.32 L 7.50 H D 7.44 ABG pCO2 24 L 23 L 33 D ABG pO2 193 H D 175 H 141 H D ABG HCO3 12 L 18 L 22 ABG O2 Saturation 100 H 100 H 100 H ABG Base Excess -12 L -4 L -2 VBG pH VBG pCO2 VBG pO2 VBG Base Excess 11/01/24 11/01/24 11/01/24 04:26 07:41 11:45 ABG pH 7.43 7.41 Cancelled ABG pCO2 31 L 32 ABG pO2 137 H 135 H ABG HCO3 20 20 ABG O2 Saturation 100 H 100 H ABG Base Excess -3 -4 L VBG pH VBG pCO2 VBG pO2 VBG Base Excess 11/01/24 11/01/24 11/01/24 11:45 11:45 11:45 ABG pH 7.46 H ABG pCO2 Cancelled 33 ABG pO2 Cancelled 98 D ABG HCO3 Cancelled ABG O2 Saturation ABG Base Excess VBG pH VBG pCO2 VBG pO2 VBG Base Excess 11/01/24 11/01/24 11/01/24 11:45 11:45 11:45 ABG pH ABG pCO2 ABG pO2 ABG HCO3 23 ABG O2 Saturation Cancelled 99 H ABG Base Excess Cancelled 0 VBG pH VBG pCO2 VBG pO2 VBG Base Excess 11/02/24 04:41 ABG pH 7.42 ABG pCO2 33 ABG pO2 104 ABG HCO3 21 ABG O2 Saturation 99 H ABG Base Excess -3 VBG pH VBG pCO2 VBG pO2 VBG Base Excess Quality Measures Quality Measures VTE prophylaxis Advance care planning discussed with:: child Assessment & Plan Assessment Current Active Medications: Generic Name Dose Route Start Last Admin Trade Name Freq PRN Reason Stop Dose Admin Acetaminophen 650 mg 10/29/24 13:53 Acetaminophen 325 Mg Tablet PO 11/28/24 13:52 Q4HR PRN PAIN SCALE 1-3 (mild Acetaminophen 650 mg 10/29/24 13:53 Acetaminophen Supp 650 Mg Supp NC 11/28/24 13:52 Q4HR PRN PAIN SCALE 1-3 (mild Al Hydrox/Mg Hydrox/Simethicone 30 ml 10/29/24 13:53 Mg Hyd/Al Hyd/Elpidio (Maalox Reg) Susp 30 Ml Udc PO 11/28/24 13:52 Q4HR PRN Heartburn or Upset Stomach Dextrose 25 ml 10/29/24 15:57 Dextrose 50%-Water Inj 50 Ml Syringe IV 11/28/24 15:56 Q15MIN PRN BG 50-70 responsive npo pt Dextrose 50 ml 10/29/24 15:57 10/31/24 11:35 Dextrose 50%-Water Inj 50 Ml Syringe IV 11/28/24 15:56 50 ml Q15MIN PRN Administration BG <50 OR BG <70 & pt unresponsive Enoxaparin Sodium 40 mg 10/29/24 13:53 11/02/24 08:21 Enoxaparin Sod Inj 40 Mg/0.4 Ml Syringe SC 11/12/24 13:52 Not Given QDAY SEVERIANO Famotidine 20 mg 10/30/24 09:00 11/02/24 08:20 Famotidine Inj 10 Mg/Ml Vial 2 Ml IVP 11/29/24 08:59 20 mg QDAY SEVERIANO Administration Glucagon 1 mg 10/29/24 15:57 Glucagon Inj 1 Mg Vial IM Q15MIN PRN BG <70, and no IV access Heparin Sodium (Porcine) 2,600 unit 10/30/24 13:29 11/01/24 14:13 Heparin Sod Inj 1000 Unit/Ml Vial 10 Ml INDWELLCAT 11/13/24 13:28 2,600 unit PRN PRN Administration DIALYSIS Hydrocortisone Sodium Succinate 50 mg 10/30/24 00:00 11/02/24 05:31 Hydrocortisone Sod Succ Inj 100 Mg Vial IV 11/29/24 00:00 50 mg Q6HR SEVERIANO Administration Fentanyl Citrate 2,500 mcg in 250 mls @ 2.5 mls/hr 10/29/24 10:30 11/01/24 08:14 Sublimaze Inj 2,500 Mcg/250 Ml Bag IV 11/03/24 10:29 0 mcg/hr .Q24H PRN 0 mls/hr PER PROTOCOL Titration Protocol 25 MCG/HR Propofol 1,000 mg in 100 mls @ 2.358 mls/hr 10/29/24 17:05 10/30/24 19:00 Diprivan Ivpb IV 11/28/24 17:04 0 mcg/kg/min .Q24H PRN 0 mls/hr PER PROTOCOL Titration Protocol 5 MCG/KG/MIN Vasopressin/Sodium Chloride 20 unit in 100 mls @ 9 mls/hr 10/29/24 20:52 11/02/24 03:00 Vasostrict/Ns Ivpb IV 11/28/24 20:51 0 unit/min .Q11H7M PRN 0 mls/hr PER PROTOCOL Titration Protocol 0.03 UNIT/MIN Norepinephrine Bitartrate 16 mg in 250 mls @ 3.684 mls/hr 10/29/24 23:00 11/02/24 09:00 Levophed In Ns 16mg/250ml IV 11/28/24 22:59 0 mcg/kg/min .Q24H PRN 0 mls/hr PER PROTOCOL Titration Protocol 0.05 MCG/KG/MIN Phenylephrine HCl 40 mg/ 100 mls @ 5.895 mls/hr 10/29/24 23:30 Sodium Chloride IV 11/28/24 23:29 .[id number] PRN Per Sepsis Protocol Protocol 0.5 MCG/KG/MIN Albumin Human 12.5 gm in 250 mls @ 100 mls/hr 10/30/24 17:58 10/30/24 18:09 Albuminar-5 Ivpb IV 100 mls/hr .Q2H30M SEVERIANO Administration Piperacillin/Tazobactam/Dextrose 3.375 gm in 50 mls @ 12.5 mls/hr 11/01/24 14:00 11/02/24 05:32 Zosyn IV 11/08/24 13:59 12.5 mls/hr Q8HR SEVERIANO Administration Insulin Human Lispro 0 unit 10/29/24 18:00 11/02/24 05:36 Insulin Lispro (Admelog) 1 Unit/0.01 Ml Unit SC 11/28/24 17:59 5 unit Q6HR SEVERIANO Administration Protocol Magnesium Hydroxide 30 ml 10/29/24 13:53 Milk Of Magnesia Susp 30 Ml Udc PO 11/28/24 13:52 QDAY PRN CONSTIPATION Nitroglycerin 0.4 mg 10/29/24 13:53 Nitroglycerin 0.4 Mg Subl Btl #25 SL Q5MIN PRN CHEST PAIN Sennosides 1 tab 10/29/24 13:10 Senna Tablet PO 11/28/24 13:09 QDAY PRN constipation Protocol Plan Patient is a 69 year old female admitted to the ICU for shock. [employer] #Acute encephalopathy CT head showing large left middle cerebral artery infarct w/ severe edema. Upon initial evaluation, patient with right-sided hemiparesis. NIHHS score of 23. CT head did not show an acute hemorrhage. Repeat CT Head: (11/01/2024): Large left middle cerebral artery infarct with severe edema and significant mass effect. There are smaller acute infarcts in the posterior right parietal lobe axial -Comfort care CVS #Shock, RESOLVED. Initially thought to be septic shock as evidenced by bacteremia and low TPRI, with component of obstructive shock due pulmonary artery embolism with McConnel sign noted on formal echo though normal CVP. Not intially felt to be cardiogenic given cardiac index > 2.5 and EKG with no ST changes despite troponin. Sepsis improving evidenced by improving leukocytosis, afebrile and on antibiotics. Now with component of hypovolemia/hemorrhagic shock given acute blood loss anemia, and possible cardiogenic shock given rising troponin and DIC increasing risk of microthrombi. - Continue levophed, titrate for MAP > 60 or SBP > 90, STOPPED 11/02/2024 - Vasopressin, STOPPED - Hydrocortisone steroids 50mg Q6H, STOPPED #Elevated Troponin Peak at 30, downtrending. Type I in the setting of DIC however cannot be ruled out as patient not stable for cath at this time vs Type 2 in the setting of demand ischemia with reduced renal clearance. - Cardiology signing off -no acute intervention given overall poor prognosis Respiratory #Acute ypoxic respiratory failure due to bilateral pneumonia, L pleural effusion Initially intubated due to inability to protect airway, then complicated by pulmonary artery embolism and new onset L pleural effusion, bilateral pneumonia Pulmonary air embolism unclear etiology as occurred before any central lines placed; now resolved with FiO2 Interval L pleural effusion noted on repeat CT imaging 10/30 suspected to be hemothorax since [place] units range from 20-50. - Antibiotics for pneumonia, see ID - Patient not a candidate for large bore chest tube at this time. Will do POCUS to evaluate imaging characteristics of pleural fluid - Vent settings at [facility] PRVC TV 400 RR 18 PEEP 5 FIO2 35, I:E 1:4.6, PLAN FOR TERMINAL EXTUBATION -COMFORT CARE Renal #Acute renal failure #High anion gap metabolic acidosis due to lactic acidosis Without respiratory compensation as expected PCO2 does not mach PCO2 on ABG. Delta ratio of 2, pure metabolic acidosis - NO TABLO planned for today 11/02/2024 - Nephrology, signing off GI #Shock Liver Infectious hepatitis ruled out. Synthetic dysfunction noted. - Treat underlying shock Endo #Hypoglycemia due to liver synthetic dysfunction - Blood sugar checks Q4H - Amps of D50 if blood sugar < 60, holding off D5 or D10 at this time to preserve volume status though may consider if patient remains hypoglycemic #DM2 Holding home meds, ISS Q6H if needed Heme #Leukocytosis, improving In the setting of infection and steroids, see ID #DIC, stable Elevated D-Dimer, INR, thrombocytopenia in the setting of sepsis ISTH score of 6 suggesting DIC likely 4 units of PRBC, 2 units FFP and 1 platelet ordered - Treat underlying sepsis, see ID - Hold lovenox - Haptoglobin ordered - Peripheral blood smear #Acute blood loss anemia Hemoglobin decreased from 10 to 7, 6. Rate of hemoglobin decrease suggests acute bleed that has slowed/stopped. Suspect hemothorax given increased HU density on CT (see respiratory section). Hemorrhagic transformation of suspected stroke cannot be ruled out, though patient not showing signs of increased intracranial pressure at this time. - 4 units of PRBC, 2 units FFP and 1 platelet ordered - Follow up post-transfusion CBC ID #Sepsis due to E.coli ESBL bacteremia due to UTI, GPC pneumonia UA and CT abdomen suggestive of pyelonephritis. CT imaging show bilateral pneumonia and sputum culture staining GPC. - Follow up final blood, sputum, and urine culture with identitication and sensitivities - Vancomycin discontinued as MRSA nasal screen negative (10/29-10/31) -Day 3 Zosyn (10/29-11/02/2024) and Stopped Meropenam (10/31-11/01/2024), all medication STOPPED Goals of Care Given overall poor prognosis with CT head showing large right middle cerebral artery stroke with edema and shift noted, decision was made to transition patient to comfort care. -Comfort measures started -All further medical intervention stopped -Plan for terminal extubation -family at bedside Health Maintenance Disposition: Admit to ICU for shock with multi-organ failure. Guarded prognosis. Diet and fluids: Vital trickle feeds DVT prophylaxis: SCD; holding chemical anticoagulation GI prophylaxis: pepcid Lines: ET, OT, L IJ Tri-Flow, L subclavian Tri-Flow, R femoral A-line, Lazo, PIV CODE STATUS: FULL - The patient's plan was discussed with attending Dr. Ed Spring MD PGY1 Internal Medicine
--- NOTE | 2024-11-02 13:03 | ESPR_ITS ---
Documentation for date of: 11/02/24 Subjective Subjective Interval history: This is a 69yo F brought to the ER today for AMS. She was in her [facility] state of health yesterday per daughter at bedside. Normally she is ambulatory and able to partake in ADLs. Yesterday she had some increase in sciatica pain and fell however family states it was not a big fall and that the pt was fine after. She went to sleep early at around 8p. Daughter states that the pt fq sleeps in however when she was not awake by 9am she became worried. Pt was unarousable and therefore EMS was called. Pt was brought to the ER and on arrival was found to be obtunded. At that time the decision was made to intubate for GCS <8. After intubation pt became progressively more hypotensive and was given IVF. Pt remained hypotensive and was started on levophed. She received a total of 6lts of IVF. ICU eval was requested. pt was seen and examined in ER room 5. She was started on fentanyl gtt after intubation since she appeared to start to wake up and reach for the ETT. 10/30- yesterday afternoon was off of levophed however overnight she dropped her BP again and was restarted on levophed. This was rapidly increased and requied initiation of vasopressin as well as hydrocortisone. her LA had dropped down to 2 but is back up to 8 this AM. remains virtually anuric , afebrile, vent dyssynchrony 10/31- overnight only had 6hr of CRRT due to trouble with the line, remains anuric, afebrile, LA increased to 17, trops peaked overnight to 30, drop in h/h felt to be due to suspected hemothorax 11/01- no acute overnight events, when fent held pt does not wake up as of yet, remains with no UOP, cx resulted out with ESBL E. coli 11/02- yesterday had HCT done which showed extensive L MCA CVA, is off of levophed, still no UOP, afebrile Critical Care Note Critical care time (min.): 35 Exam Vital Signs Temp Pulse Resp BP Pulse Ox O2 Del Method FiO2 97.0 F 93 18 105/48 L 100 Mechanical Ventilation 35 11/02/24 08:00 11/02/24 11:40 11/02/24 11:40 11/02/24 09:53 11/02/24 11:40 11/02/24 08:00 11/02/24 09:53 Narrative Exam Gen- intubated, off sedation, unresponsive to sternal rub, GCS 3T HEENT- NC/AT, mucosa hydrated, ETT/OGT in place Chest- LCTAB, HRRR, no increase in WOB Abd- s/nt/bs+ Ext- edema, pulses weak but palp, dusky discoloration of feet has improved, mult areas of bruising and echymosis, no mov with noxious stimuli Vent AC VC Physical Exam Completion Physical Exam Complete?: Yes Objective - Private Watchman Labs 11/02/24 04:50 11/02/24 04:50 Labs: Laboratory Results - last 24 hr 10/31/24 11/01/24 11/01/24 11:45 15:15 18:33 WBC RBC Hgb Hct MCV MCH MCHC RDW Std Deviation Plt Count Neut % (Auto) Lymph % (Auto) [place] % (Auto) Eos % (Auto) Baso % (Auto) Neut # (Auto) Lymph # (Auto) [place] # (Auto) Eos # (Auto) Baso # (Auto) Immature Gran # (Auto) Absolute Nucleated RBC Immature Gran % Nucleated RBC % Puncture Site Cancelled ABG pH Cancelled ABG pCO2 Cancelled ABG pO2 Cancelled ABG HCO3 Cancelled ABG O2 Saturation Cancelled ABG Base Excess Cancelled Oxygen Liter Flow Cancelled FiO2 Cancelled Sodium Potassium Chloride Carbon Dioxide Anion Gap BUN Creatinine Estim Creat Clear Calc eGFR BUN/Creatinine Ratio Glucose Calculated Osmolality Lactic Acid 3.5 H 3.0 H Calcium Corrected Calcium Total Bilirubin AST ALT Alkaline Phosphatase Total Protein Albumin Globulin Albumin/Globulin Ratio Misc Test Result 11/01/24 11/02/24 11/02/24 22:00 02:15 04:41 WBC RBC Hgb Hct MCV MCH MCHC RDW Std Deviation Plt Count Neut % (Auto) Lymph % (Auto) [place] % (Auto) Eos % (Auto) Baso % (Auto) Neut # (Auto) Lymph # (Auto) [place] # (Auto) Eos # (Auto) Baso # (Auto) Immature Gran # (Auto) Absolute Nucleated RBC Immature Gran % Nucleated RBC % Puncture Site Arterial Line ABG pH 7.42 ABG pCO2 33 ABG pO2 104 ABG HCO3 21 ABG O2 Saturation 99 H ABG Base Excess -3 Oxygen Liter Flow FiO2 35 Sodium Potassium Chloride Carbon Dioxide Anion Gap BUN Creatinine Estim Creat Clear Calc eGFR BUN/Creatinine Ratio Glucose Calculated Osmolality Lactic Acid 2.6 H 2.2 H Calcium Corrected Calcium Total Bilirubin AST ALT Alkaline Phosphatase Total Protein Albumin Globulin Albumin/Globulin Ratio Misc Test Result 11/02/24 11/02/24 04:50 08:55 WBC 10.6 RBC 2.94 L Hgb 8.6 L Hct 24.9 L MCV 85 MCH 29.3 MCHC 34.5 RDW Std Deviation 49.5 H Plt Count 28 L* D Neut % (Auto) 88 H Lymph % (Auto) 4 L [place] % (Auto) 7 Eos % (Auto) 0 Baso % (Auto) 0 Neut # (Auto) 9.3 H Lymph # (Auto) 0.4 L [place] # (Auto) 0.7 Eos # (Auto) 0.0 Baso # (Auto) 0.0 Immature Gran # (Auto) 0.14 H Absolute Nucleated RBC 0.10 H Immature Gran % 1 H Nucleated RBC % 1 H Puncture Site ABG pH ABG pCO2 ABG pO2 ABG HCO3 ABG O2 Saturation ABG Base Excess Oxygen Liter Flow FiO2 Sodium 134 L Potassium 3.1 L Chloride 95 L Carbon Dioxide 20.2 Anion Gap 19 H BUN 25 H Creatinine 1.7 H D Estim Creat Clear Calc 32.2 L eGFR 32 L BUN/Creatinine Ratio 15 Glucose 378 H D Calculated Osmolality 288 Lactic Acid 2.1 H 2.0 Calcium 7.8 L Corrected Calcium 8.9 Total Bilirubin 3.7 H D AST 718 H* ALT 1226 H* Alkaline Phosphatase 525 H D Total Protein 4.5 L Albumin 2.6 L Globulin 1.9 L Albumin/Globulin Ratio 1.4 Misc Test Result Platelets confirmed Assessment & Plan Additional Assessment Additional Assessment: In brief this is a 69yo F admitted for AMS and hypoxic resp failure with profound refractory septic shock a/p [employer] Acute encephalopathy- due to massive L stroke noted on HCT - edema with shift noted CV Shock- related to sepsis - resolved h/o HTN- hold all home meds Pulmonary Art air embolism - resolved Tropinemia- in the setting of shock and MAHIN - demand ischemia v CAD - fu on repeat trop and EKG - echo results noted - trops trended up to 30 - will need repeat echo to eval - not a candidate for intervention at this time - cardiology consulted Resp Acute Resp Failure- intubated and on MV, fu ABG and CXR, ween as able -vent adjustments made - pulse ox inaccurate -> able to come down on FiO2 - improving parameters however not weenable due to mental status - no change ? Aspiration PNA- on abx, and cx taken Hemothorax- pts 2nd chest CT shows a new effusion on the L - pt with drop in h/h - currently coaulopathic and DIC suspected - h/h stable after FFP and PLT transfusion Renal MAHIN- likely prerenal and may be 2/2 shock and sepsis - given IVF - arredondo in place - monitor UOP - avoid nephrotoxins -remains anuric Metabolic acidosis- improved with HD - LA down to wnl HypoCa- improved HypoK- replete GI NPO GI proph- pepcid Transaminitis- check hep panel, CT without pathology - likely due to ischemic insult and hypotension - worsening #s today - currently stabilized Hypoalbuminemia- may also be dilutional in nature given that she has received 8lts at this point in time Endo DM- SSI, FS q6 - hold home meds Heme Leukocytosis- L shift noted and 2/2 infection DVT proph- lovenox 40 DIC- no need for any transfusions at this point 2/2 sepsis - transfused PRBCs, FFP and PLT for bleed Anemia- initially dilutional and now due to active bleed that occurred yesterday - drop to Hb of 6 noted - transfused 2uPRBCs - currently stable Thrombocytopenia- likely 2/2 sepsis and DIC - today drop in PLT to 28 - no active bleed cont to hold on transfusion today ID UTI/pyelo- growing ESBL E .coli -> on zosyn GNR Bacteremia- bcx pos from arrival, likely due to her UTI and pyelo - both cx grow e.coli case d/w ICU team labs, imaging, records reviewed d/w family at bedside, GOC and next steps in light of pts GCS of 3 and massive CVA. extremely poor prognosis, family ok with DNR and calling their own project scheduler ~35ccmin required for eval, exam, review, intervention, discussion and formulation of POC for this critically ill pt with acute resp failure and shock at high risk for further and ongoing decompensation Provider Notation Provider Notation: Although this document has been carefully reviewed, there may still be some phonetic and other typographical errors. These errors are purely grammatical due to imperfections in the software program and should not be construed in any way to compromise the substance of the patient's medical care during this visit. Thank you for the opportunity and privilege in assisting you with this patient's care and management.
--- NOTE | 2024-11-02 15:06 | PC.NURSE ---
Dr. Wrad spoke with patient's daughter ,Jazmín, regarding patient's prognosis. After the meeting I spoke with daughter privately and offered support and comfort. They requested to have her clinical lab specialist here to have a prayer with family and then wants to proceed with comfort care. I explained in detail what comfort care entails and our priority being her mother being in a comfort position. Dtr wants to initiate comfort care when family has had prayer.
[2024-11-02] MEDS: MORPHINE SULF INJ 10 MG/ML VIAL 2 MG IVP ×2 (17:57→22:58)
[2024-11-02] MEDS: LORazepam 2 MG/ML VIAL 1 MG IVP (17:58)
[2024-11-02] MEDS: Morphine IV Drip 100mg/100ml 100 ML IV (17:58)
[2024-11-02] MEDS: SCOPOLAMINE 1 MG TDSY TOP (18:06)
[2024-11-03] MEDS: MORPHINE SULF INJ 10 MG/ML VIAL 2 MG IVP ×5 (00:27→22:15)
[2024-11-03 08:00] VITALS: BP 133/89; PULSE 141; RESP 15; TEMP 36.4; O2SAT 84
--- NOTE | 2024-11-03 13:20 | PD.RESPRO ---
Documentation for date of: 11/03/24 Subjective Subjective Interval history: Patient seen and examined at bedside. Patient's daughter, grandson, son-in-law and friend were at bedside. They had questions concerning patient's condition, these were answered. Patient currently in comfort care. Seems comfortable and in no apparent pain. Exam Vital Signs Temp Pulse Resp BP Pulse Ox O2 Del Method O2 Flow Rate 97.5 F 141 H 15 133/89 H 84 L Nasal Cannula 2 11/03/24 08:00 11/03/24 08:00 11/03/24 08:00 11/03/24 08:00 11/03/24 08:00 11/03/24 08:00 11/03/24 08:00 FiO2 35 11/02/24 21:00 Narrative Exam General: Unresponsive, comfortable Eyes: Closed throughtout exam Ears: no visible ear discharge Nose: No visible nasal discharge. Mouth/Throat: Dry mucous membranes Neck: Neck supple, no cervical lymphadenopathy. Lungs: Clear ZACKERY Cardio: Normal S1/S2, regular rhythm, no murmurs, no JVD Abdomen: Soft, non-tender, no palpable masses, peristalsis present, no guarding or rebound. Extremities: Symmetrical, no significant deformities, no peripheral edema , non-tender. Neuro: Patient unresponsive, having unpurposeful movements Objective Labs 11/02/24 04:50 11/02/24 04:50 Labs: Laboratory Results - last 24 hr 10/30/24 18:21 Crossmatch See Detail ABG Interpretation ABG results: 10/29/24 10/29/24 10/29/24 10:00 12:47 22:20 ABG pH 7.27 L ABG pCO2 35 ABG pO2 201 H ABG HCO3 16 L ABG O2 Saturation 100 H ABG Base Excess -10 L VBG pH 7.33 7.28 L VBG pCO2 43 36 VBG pO2 31 53 D VBG Base Excess -3 -9 L 10/29/24 10/30/24 10/30/24 23:47 08:07 16:11 ABG pH 7.23 L 7.30 L 7.26 L ABG pCO2 30 L 18 L* D 24 L ABG pO2 301 H D 240 H D 359 H D ABG HCO3 13 L 9 L* 11 L ABG O2 Saturation 100 H 100 H 101 H ABG Base Excess -14 L -16 L -15 L VBG pH VBG pCO2 VBG pO2 VBG Base Excess 10/30/24 10/31/24 10/31/24 22:35 05:00 11:45 ABG pH 7.16 L* D 7.27 L D Cancelled ABG pCO2 23 L 25 L Cancelled ABG pO2 312 H D 402 H D Cancelled ABG HCO3 8 L* 12 L Cancelled ABG O2 Saturation 100 H 101 H Cancelled ABG Base Excess -19 L -14 L Cancelled VBG pH VBG pCO2 VBG pO2 VBG Base Excess 10/31/24 10/31/24 10/31/24 12:52 16:48 20:56 ABG pH 7.32 L 7.50 H D 7.44 ABG pCO2 24 L 23 L 33 D ABG pO2 193 H D 175 H 141 H D ABG HCO3 12 L 18 L 22 ABG O2 Saturation 100 H 100 H 100 H ABG Base Excess -12 L -4 L -2 VBG pH VBG pCO2 VBG pO2 VBG Base Excess 11/01/24 11/01/24 11/01/24 04:26 07:41 11:45 ABG pH 7.43 7.41 Cancelled ABG pCO2 31 L 32 ABG pO2 137 H 135 H ABG HCO3 20 20 ABG O2 Saturation 100 H 100 H ABG Base Excess -3 -4 L VBG pH VBG pCO2 VBG pO2 VBG Base Excess 11/01/24 11/01/24 11/01/24 11:45 11:45 11:45 ABG pH 7.46 H ABG pCO2 Cancelled 33 ABG pO2 Cancelled 98 D ABG HCO3 Cancelled ABG O2 Saturation ABG Base Excess VBG pH VBG pCO2 VBG pO2 VBG Base Excess 11/01/24 11/01/24 11/01/24 11:45 11:45 11:45 ABG pH ABG pCO2 ABG pO2 ABG HCO3 23 ABG O2 Saturation Cancelled 99 H ABG Base Excess Cancelled 0 VBG pH VBG pCO2 VBG pO2 VBG Base Excess 11/02/24 04:41 ABG pH 7.42 ABG pCO2 33 ABG pO2 104 ABG HCO3 21 ABG O2 Saturation 99 H ABG Base Excess -3 VBG pH VBG pCO2 VBG pO2 VBG Base Excess Quality Measures Quality Measures VTE prophylaxis Advance care planning discussed with:: patient and child Assessment & Plan Assessment Current Active Medications: Generic Name Dose Route Start Last Admin Trade Name Freq PRN Reason Stop Dose Admin Artificial Tears 1 drop 11/02/24 16:26 Artificial Tears 225 Drop/15 Ml Btl BOTH EYES 12/02/24 16:25 Q4HR PRN Dry eyes Atropine Sulfate 2 drop 11/02/24 16:26 Atropine Sulf Op Jael 1% 5 Ml Btl SL 12/02/24 16:25 Q4HR PRN SECRETIONS Morphine Sulfate 100 mls @ 1 mls/hr 11/02/24 16:26 11/03/24 06:39 Morphine Sulfate Iv Drip 100mg/100ml IV 11/07/24 16:25 3 mg/hr .Q24H PRN 3 mls/hr PAIN (COMFORT CARE) Titration Protocol 1 MG/HR Lorazepam 1 mg 11/02/24 19:23 Lorazepam 2 Mg/Ml Vial IVP 11/07/24 16:25 Q4HR PRN ANXIETY Morphine Sulfate 2 mg 11/02/24 16:26 11/03/24 06:37 Morphine Sulf Inj 10 Mg/Ml Vial IVP 11/07/24 16:25 2 mg Q30M PRN Administration PAIN Ondansetron HCl 4 mg 11/02/24 17:54 Ondansetron Odt 4 Mg Tabrap PO 12/02/24 17:59 Q6HR PRN NAUSEA OR VOMITING Scopolamine 1 mg 11/02/24 16:30 11/02/24 18:06 Scopolamine 1 Mg Tdsy TOP 12/02/24 16:29 1 mg Q3D SEVERIANO Administration Plan 69 year old female with PMH of HTN, HLD, DM@, and sciatic nerve pain was admitted to the ICU due acute encephalopathy likely in the setting of shock and LEFT MCA. Patient downgraded to medical floors after patient was found to have a large L MCA infarct with mass effect and was transitioned to comfort care on 11/02/2024. #Acute encephalopathy #L MCA infarct with edema and mass effect #Shock #Elevated Troponins #Acute ypoxic respiratory failure due to bilateral pneumonia, L pleural effusion #Acute renal failure #High anion gap metabolic acidosis due to lactic acidosis #Shock Liver #Hypoglycemia #DM2 #Leukocytosis #DIC #Acute blood loss anemia #Sepsis due to E.coli ESBL bacteremia due to UTI, GPC pneumonia -Continue comfort care Case disclosed with Attending Dr. Anna Sandoval PGY1 Disclaimer: Even though this this note was dictated by speech recognition and even though it was carefully revised there may still be minor errors in inspector materials and processes due to voice recognition software. Attending Provider Attestation/Addendum I attest that I was physically present for the evaluation, physical examination, lab and imaging review of the patient with the residents. I discussed the case with the residents and agree with the findings and plans of care as documented above. Patient is a 69 years old female with past medical history of hypertension, hyperlipidemia, diabetes mellitus and sciatic nerve pain who presented to the ED with complaint of altered mental status. She was found to have GCS of 7 NIHSS score of 23, was intubated and admitted to the in the ICU she was found to have large left middle cerebral artery infarct with severe edema and significant mass effect. She also had shock, elevated troponin, respiratory failure, acute kidney injury, shock liver, hypoglycemia IC, acute blood loss anemia, sepsis secondary to E. coli ESBL bacteremia from UTI and GPC pneumonia. Given her multiple medical problems, organ failures and poor prognosis discussion was made on ICU regarding goals of care and family opted for comfort care. Patient was started on comfort care measures and transferred to medical floor overnight. At bedside, patient appears comfortable, on 2 L nasal cannula for air hunger along with morphine drip and as needed lorazepam. Multiple family members were at bedside, explained in detail about her conditions, prognosis. Family would like to continue with comfort care measures. David Castillo MD
--- NOTE | 2024-11-03 14:26 | PC.SS ---
Rounding: Pt on comfort care
[2024-11-03 14:31] VITALS: BMI 38.2
[2024-11-03 20:00] VITALS: BP 123/67; PULSE 124; RESP 16; TEMP 36.9; O2SAT 78
[2024-11-04] MEDS: MORPHINE SULF INJ 10 MG/ML VIAL 2 MG IVP (00:12)
[2024-11-04] MEDS: Morphine IV Drip 100mg/100ml 100 ML IV (00:29)
--- NOTE | 2024-11-04 00:40 | PC.NURSE ---
Morphine gtt bag finished and 7.3ml left in IV tubing wasted with Ana CHAVES in [facility].
[2024-11-04] MEDS: LORazepam 2 MG/ML VIAL 1 MG IVP (02:05)
--- NOTE | 2024-11-04 03:56 | PD.DPN ---
Documentation for date of: 11/04/24 Pronouncement Note Date and Time of Date of : 11/04/24 Time of : 03:03 PCOD Preliminary cause of : Cardiopulmonary arrest Summary Additional details: Received call from nurse around 2:45 AM stating patient had , requesting confirmation of patient expiration. Patient was seen and examined at the bedside, no pulses could be felt, no cardiac sounds were heard after 1 continuous minute of auscultation, no breath sounds heard, and pupils were fixed and dilated. Patient pronounced at 3:05AM. Additional Data Confirmation of : no pulse, no respirations, no heart sounds and pupils fixed and dilated Family: contacted Attending/PCP notified?: Yes Attending physician: Dr. Benito Reese
--- NOTE | 2024-11-04 04:21 | PC.NURSE ---
Dr. Crocker pronounced patient expiration at 302. Patient family notified along with [facility] and mortuary. Post-mortem care provided. The rest of the IV morphine bag (88ml) was wasted in the pyxis with Ana CHAVES.
--- NOTE | 2024-11-04 09:02 | DES_ITS ---
<Statement entered by David Castillo MD - 11/07/24 07:49> I discussed the case with the residents and agree with the findings and plans of care as documented below. David Castillo MD Documentation for date of: 11/04/24 Summary Date and Time Date of admission: 10/29/24 13:10 Date of : 11/04/24 Time of : 02:45 Summary Hospital Course: 69-year-old female with past medical history of hypertension, hyperlipidemia, DM2, and sciatic nerve pain was admitted to the ICU on 10/29/2024 due to acute cephalopathy likely in the setting of shock and left MCA stroke. Patient was downgraded to medical floors after patient was found to have large left MCA infarct with mass effect secondary to edema and was transition to comfort care on 11/03/2024. Patient came into the ED initially with altered mental status and she was found to have a GCS of 7 with an NIHSS score of 23 therefore she was int ubated and admitted to the ICU. Patient went into shock likely secondary to ESBL bacteremia and she was also found to have elevated troponins, but was too unstable to have any intervention at this time. Patient was also found to have an air pulmonary embolism on initial chest/abdomen/pelvis CT, but on repeat chest CT on 10/30/2024 there was no signs of pulmonary embolism. Patient's initial head CT on the did not show any hemorrhage or mass effect or midline shift, but on CT on 11/01/2024 did show a large left middle cerebral artery infarct with severe edema and significant mass effect. Given the decline in patient's poor prognosis given endorgan damage as patient was in renal failure, shock liver, and had elevated troponins goals of care discussion was done with the family by the ICU team at this time patient's family decided to transition to comfort care on 11/02/2024. At night patient was downgraded to the medical floors and on the night of 11/04/2024 patient was pronounced at 2:45 AM by the night team. Case disclosed with Attending Dr. Anna Sandoval PGY1 Disclaimer: Even though this this note was dictated by speech recognition and even though it was carefully revised there may still be minor errors in cloud architect due to voice recognition software. Additional Data Confirmation of as documented by pronouncing clinician: no pulse, no respirations, no heart sounds and pupils fixed and dilated Family: contacted Attending physician: Benito Reese MD Visit Providers Provider Primary care physician: Physician No Primary/Family Discharge Plan Plan Patient Disposition: Prescriptions/Referrals Referrals: No Primary/Family,Physician [Primary Care Provider] - Patient/Caregiver Discharge Instructions Print Language: Macedonian Discharge Order Discharge Orders: Discharge (Routine); Ordered 11/04/24 Ordered By: Stacie Crocker
== END 2024-11-04 04:55 | disposition expired | DRG 720 ==
LOC: SERX 11:01 → SERHOLD 13:46 → S2SX 10-30 06:12 → S3SX 11-02 21:45
PROVIDERS: Student in an Organized Health Care Education/Training Program; Admitting Provider Internal Medicine; Emergency Provider Emergency Medicine; Visit Provider Internal Medicine
DX: A41.51 Sepsis due to Escherichia coli [E. coli] (principal); R57.9 Shock, unspecified; I10 Essential (primary) hypertension; E78.5 Hyperlipidemia, unspecified; E11.9 Type 2 diabetes mellitus without complications; Z79.84 Long term (current) use of oral hypoglycemic drugs; N17.9 Acute kidney failure, unspecified; R74.01 Elevation of levels of liver transaminase levels; J18.9 Pneumonia, unspecified organism; N13.6 Pyonephrosis; J96.01 Acute respiratory failure with hypoxia; T79.0XXA Air embolism (traumatic), initial encounter; D62 Acute posthemorrhagic anemia; D69.59 Other secondary thrombocytopenia; E11.649 Type 2 diabetes mellitus with hypoglycemia without coma; E83.51 Hypocalcemia; E86.1 Hypovolemia; E87.4 Mixed disorder of acid-base balance; E87.5 Hyperkalemia; E87.6 Hypokalemia; E88.09 Other disorders of plasma-protein metabolism, not elsewhere classified; G81.91 Hemiplegia, unspecified affecting right dominant side; I25.10 Atherosclerotic heart disease of native coronary artery without angina pectoris; I46.9 Cardiac arrest, cause unspecified; I26.99 Other pulmonary embolism without acute cor pulmonale; I63.513 Cerebral infarction due to unspecified occlusion or stenosis of bilateral middle cerebral arteries; I95.81 Postprocedural hypotension; J94.2 Hemothorax; K72.00 Acute and subacute hepatic failure without coma; N17.0 Acute kidney failure with tubular necrosis; G93.41 Metabolic encephalopathy; R29.723 NIHSS score 23; R65.21 Severe sepsis with septic shock; J90 Pleural effusion, not elsewhere classified; R57.8 Other shock; G93.6 Cerebral edema; W18.30XA Fall on same level, unspecified, initial encounter; Z51.5 Encounter for palliative care; Z53.9 Procedure and treatment not carried out, unspecified reason; Z66 Do not resuscitate; Z79.4 Long term (current) use of insulin; Z79.82 Long term (current) use of aspirin; Z90.710 Acquired absence of both cervix and uterus; Z99.2 Dependence on renal dialysis
CPT/HCPCS: 36415; 36600; 70450; 71045; 71250; 74176; 80053; 80061; 80069; 80074; 80202; 80307; 80320; 81001; 82140; 82436; 82550; 82803; 83010; 83605; 83735; 83880; 84100; 84133; 84145; 84300; 84443; 84484; 85007; 85014; 85018; 85025; 85027; 85379; 85384; 85610; 85730; 86850; 86900; 86901; 86923; 86927; 86965; 87040; 87077; 87081; 87086; 87186; 87205; 93005; 93306; 94002; 94003; 96360; 96361; 96365; 99291; J0612; J1643; J1650; J1720; J1815; J2060; J2185; J2270; J2543; J2598; J2704; J2997; J3010; J3370; J3475; J3490; J7030; J7050; J7060; J7120; P9016; P9035; P9045; P9047; P9060; A9270; G0480